=== PATIENT | female | born 1985 | race Caucasian/White ===

== ENCOUNTER 2020-02-14 14:12 | Outpatient (REF) | payer BC, SELFPAY | END 2020-02-14 14:13 | disposition home or self-care (01) | LOC: HO.LAB 14:12 | PROVIDERS: Visit Provider Internal Medicine | DX: Z20.828 Contact with and (suspected) exposure to other viral communicable diseases (principal) | CPT/HCPCS: 87635 ==

== ENCOUNTER 2021-04-26 09:36 | Outpatient (REF) | payer OTHER, SELFPAY ==
[2021-04-26 10:18] LABS: COVID-19 Test Negative (Negative)
== END 2021-04-26 09:37 | disposition home or self-care (01) ==
LOC: HO.LAB 09:36
PROVIDERS: Visit Provider Internal Medicine
DX: Z20.822 Contact with and (suspected) exposure to COVID-19 (principal)
CPT/HCPCS: 36415; 87635; C9803

== ENCOUNTER 2021-06-22 09:46 | Outpatient (REF) | payer OTHER, SELFPAY ==
--- NOTE | ~2021-06-22 | XR_ITS ---
EXAMINATION: XR CHEST CLINICAL INFORMATION: Cough COMPARISON: None TECHNIQUE: 2 views of the chest were obtained. FINDINGS: No significant abnormality is noted involving the heart, lungs, mediastinum, bony thorax or soft tissues. XR/XR chest 2V IMPRESSION: Unremarkable examination.
== END 2021-06-22 09:47 | disposition home or self-care (01) ==
LOC: HO.HMGCX 09:46
PROVIDERS: Visit Provider Physician Assistant Medical
DX: R05.9 Cough, unspecified (principal)
CPT/HCPCS: 71046

== ENCOUNTER 2021-08-19 08:54 | Outpatient (REF) | payer OTHER, SELFPAY ==
[2021-08-19 09:06] LABS: MANUAL DIFF FLAG NO
[2021-08-19 09:11] LABS: Basophils Absolute Auto 0.1 X10*3/uL (0.0-0.2); Basophils Percent Auto 0.9 % (0-2); Eosinophils Absolute Auto 0.2 X10*3/uL (0.0-0.4); Eosinophils Percent Auto 2.5 % (0-4); Hematocrit 40.7 % (37.0-47.0); Hemoglobin 13.7 g/dl (12.0-16.0); Imm Gran Abs Auto 0.01 X10*3/uL (0.00-0.03); Imm Gran Pct Auto 0.1 % (0.0-0.4); Lymphocytes Absolute Auto 2.1 X10*3/uL (1.2-4.9); Lymphocytes Percent Auto 31.3 % (20-40); Mean Corpuscular HGB Conc 33.7 g/dl (31.0-35.0); Mean Corpuscular Hemoglobin 29.1 pg (27.0-33.0); Mean Corpuscular Volume 86.4 fL (80.0-98.0); Mean Platelet Volume 10.9 fL (9.4-12.3); Monocytes Absolute Auto 0.6 X10*3/uL (0.1-1.2); Monocytes Percent Auto 8.4 % (2-11); Neutrophils Absolute Auto 3.9 x10*3/uL (2.0-8.3); Neutrophils Percent Auto 56.8 % (45-73); Platelet Count 249 X10*3/uL (160-400); Red Blood Count 4.71 X10*6/uL (4.20-5.50); Red Cell Distribution Width 13.1 % (11.0-16.0); White Blood Count 6.8 X10*3/uL (4.8-10.8)
[2021-08-19 09:52] LABS: Alanine Aminotransferase 14 U/L (0-31); Albumin Level 4.1 g/dL (3.5-5.0); Alkaline Phosphatase 63 U/L (39-117); Anion Gap 10 (12-20); Aspartate Amino Transferase 15 U/L (5-31); Bilirubin Total 0.8 mg/dL (0.0-1.0); Blood Urea Nitrogen 13 mg/dL (9-16); Calcium 9.4 mg/dL (8.4-10.2); Carbon Dioxide 26 mmol/L (22-29); Chloride 106 mmol/L (96-108); Cholesterol 146 mg/dL; Estimated Glomerular Filt Rate > 60; Glucose Fasting 97 mg/dL (60-99); HDL Cholesterol 38 mg/dL; LDL Cholesterol Calculated 92 mg/dl; Potassium 4.4 mmol/L (3.3-5.1); Sodium 138 mmol/L (135-145); Total Protein 6.8 g/dL (6.5-8.0); Triglycerides 80 mg/dL
[2021-08-19 10:04] LABS: Free T4 (Free Thyroxine) 1.25 ng/dL (0.71-1.85); Thyroid Stimulating Hormone 0.05 uIU/mL (0.32-4.0); Vitamin D 25-OH Total 17.9 ng/mL (>30)
== END 2021-08-19 08:55 | disposition home or self-care (01) ==
LOC: HO.LAB 08:54
PROVIDERS: PCP Internal Medicine; Visit Provider Internal Medicine
DX: E66.01 Morbid (severe) obesity due to excess calories (principal); Z68.41 Body mass index [BMI] 40.0-44.9, adult; E55.9 Vitamin D deficiency, unspecified; E03.9 Hypothyroidism, unspecified
CPT/HCPCS: 36415; 80053; 80061; 82306; 84439; 84443; 85025

== ENCOUNTER 2022-01-02 07:08 | Emergency (ER) | payer OTHER, SELFPAY ==
--- NOTE | ~2022-01-02 | XR_ITS ---
EXAMINATION: XR KNEE, LEFT CLINICAL INFORMATION: Knee pain and swelling COMPARISON: None TECHNIQUE: Four views of the left knee. FINDINGS: Bones and soft tissues are normal. No fracture or joint effusion. Alignment is anatomic. Joint spaces are well maintained. No abnormal soft tissue calcification. There is mild soft tissue swelling/thickening in prepatellar and infrapatellar locations. XR/XR knee LT 4V IMPRESSION: No acute bony abnormality. Soft tissue swelling.
[2022-01-02 07:16] VITALS: BP 119/76; PULSE 76; RESP 19; TEMP 36.1; O2SAT 98; BMI 44.4
[2022-01-02 08:21] VITALS: BP 104/40; PULSE 78; RESP 18; O2SAT 98
--- NOTE | 2022-01-02 08:46 | ED_ITS ---
HPI - Extremity Injury (Lower) General Chief Complaint: Extremity Injury, Lower Stated Complaint: L knee pain Time Seen by Provider: 01/02/22 07:43 Source: patient Mode of arrival: ambulatory History of Present Illness HPI Narrative: 36-year-old female with history of left knee meniscal tears which were previously treated with physical therapy and she states that her knee has otherwise been okay until approximately Thursday when she began experiencing left knee pain once again and denies any preceding trauma. She states that the left knee pain has progressively worsened over the week and now is to the point that she is having significant pain on weight-bearing, the pain is primarily at the posterior aspect of knee, she is also having some difficulty in straightening the knee completely and states that she had to climb her stairs last night on hands and feet due to the pain. Related Data Previous Rx's Medication Instructions Recorded ergocalciferol (vitamin D2) 1,250 1,250 mcg PO QWEEK #7 caps 06/22/21 mcg (50,000 unit) capsule vitamin with calcium 1 tab PO DAILY 90 days #90 tabs 07/16/21 no.72-iron 27 mg-folic acid 1 mg tablet ( Vitamins Plus Low Iron) albuterol sulfate 90 mcg/actuation 1 inh inhalation QID 30 days #6.7 07/25/21 aerosol inhaler grams levothyroxine 200 mcg tablet 200 mcg PO DAILY 30 days #90 tabs 07/26/21 Allergies Allergy/AdvReac Type Severity Reaction Status Date / Time ciprofloxacin [From CIPRO] Allergy Mild HIVES/VOMIT Verified 07/16/21 07:36 ING clindamycin [CLINDAMYCIN] Allergy Mild HIVES/VOMIT Verified 07/16/21 07:36 ING hydrocodone [From VICODIN] Allergy Mild VOMITING Verified 07/16/21 07:36 naproxen [NAPROXEN] Allergy Mild VOMITING, Verified 07/16/21 07:36 hives, hives Sulfa (Sulfonamide Allergy Mild HIVES Verified 07/16/21 07:36 Antibiotics) [SULFA (SULFONAMIDE ANTIBIOTICS)] acetaminophen [Vicodin] AdvReac Unknown stomach Verified 07/16/21 07:36 Clindamycin HCl Allergy Unknown hives Uncoded 07/16/21 07:36 Eggs AdvReac Unknown GI upset Uncoded 07/16/21 07:36 Review of Systems Review of Systems: Pertinent positives and negatives as stated in HPI 10 point review of systems is otherwise negative. [facility] Past Medical History Source: nursing notes reviewed Medical History Hypovitaminosis D Morbid obesity with BMI of 45.0-49.9, adult Postoperative hypothyroidism Surgical History History of kidney surgery History of thyroidectomy Family History Family History Mother Mental health disorder Substance use disorder Diabetes mellitus Essential hypertension Pure hypercholesterolemia Father Mental health disorder Substance use disorder Diabetes mellitus Essential hypertension Pure hypercholesterolemia Social History Social History Housing: House Alcohol intake: current Alcohol intake frequency: holidays/special occasions only Alcohol type: hard liquor Patient Tobacco Use Status: Never used Tobacco Tobacco use type: Cigarette e-Cigarette/Vaping Use: Never Used Second Hand Smoke Exposure: No Advance Directives: No Advance Directives Information Provided: No Current occupational status: employed Cognitive needs: No Hearing needs: No Vision needs: No Physical Exam Vital Signs: Vital Signs: Last Vital Signs Temp 97 F 01/02/22 07:16 Pulse 78 01/02/22 08:21 Resp 18 01/02/22 08:21 BP 104/40 L 01/02/22 08:21 Pulse Ox 98 01/02/22 08:21 O2 Del Method 01/02/22 08:21 BMI result Body Mass Index 44.4 VITAL SIGNS: Reviewed. GENERAL: Elevated BMI, Well developed, well nourished, in no acute distress. HEAD: Normocephalic/atraumatic EYES: PERRLA, EOMI EARS: Ext canals without abnormality OROPHARYNX: no oral lesions noted, posterior pharynx clear LUNGS: Normal breath sounds. No adventitious sounds or accessory muscle use. SpO2<98> CARDIOVASCULAR: Regular rate and rhythm without noted murmurs ABDOMEN: Soft, non-tender, non-distended with bowel sounds. MUSCULOSKELETAL: No tenderness, deformities, or effusions noted on gross inspection. EXTREMITIES: No cyanosis, clubbing or edema. LEFT KNEE: No swelling/erythema/induration, no tactile warmth, no patellar pain on palpation no obvious MCL/LCL pain on palpation SKIN: Inspection of the skin reveals no rashes NEUROLOGIC: Alert and oriented x 4. Strength and sensation to light touch were grossly intact x 4. Course Course Course Narrative: 36-year-old female with history and clinical presentation suspicious for possible unprovoked meniscal injury vs. worsening OA. Left knee x-ray is without acute findings which is not surprising, patient was placed in a knee immobilizer and provided with crutches for additional assistance and she will be provided with a referral to follow-up with orthopedics. Discharge Plan Discharge Clinical Impression: Knee pain, left Patient Disposition: Home, Self-Care Instructions: Knee Pain (ED), Knee Immobilizer (ED), Crutch Instructions (ED) Additional Instructions: 1. Resume all home medications as prescribed. 2. You have been provided with a referral to follow-up with the orthopedic service, please call the office today and arrange for an appointment. Return to the ER for worsening symptoms. Prescriptions: No Action albuterol sulfate 90 mcg/actuation HFA aerosol inhaler 1 inh inhalation QID 30 Days Qty: 6.7 1RF levothyroxine 200 mcg tablet 200 mcg PO DAILY 30 Days Qty: 90 0RF Vitamin Plus Low Iron 27 mg iron- 1 mg tablet 1 tab PO DAILY 90 Days Qty: 90 1RF ergocalciferol (vitamin D2) 1,250 mcg (50,000 unit) capsule 1,250 mcg PO QWEEK Qty: 7 0RF Referrals: Jesus Owusu MD [Physician] - (36F, hx atraumatic LEFT knee meniscal injury now with worsening Lt knee pain. XR neg, no swelling, placed in immobilizer and given crutches as she is having pain with WB.)
== END 2022-01-02 09:51 | disposition home or self-care (01) ==
PROVIDERS: Emergency Provider Student in an Organized Health Care Education/Training Program
DX: M25.562 Pain in left knee (principal)
CPT/HCPCS: 73564; 99283

== ENCOUNTER 2022-02-20 15:00 | Outpatient (RCR) | payer OTHER, SELFPAY ==
[2022-01-21 08:17] VITALS: BP 120/63; PULSE 73; O2SAT 97
== END 2022-04-01 15:02 | disposition home or self-care (01) ==
LOC: HO.PT 15:00
PROVIDERS: Visit Provider Orthopaedic Surgery
DX: M17.0 Bilateral primary osteoarthritis of knee (principal); S83.282D Other tear of lateral meniscus, current injury, left knee, subsequent encounter
CPT/HCPCS: 97014; 97035; 97110; 97140; 97162; 97530

== ENCOUNTER 2022-03-07 09:31 | Outpatient (REF) | payer OTHER, SELFPAY ==
[2022-03-07 11:29] LABS: MANUAL DIFF FLAG NO
[2022-03-07 11:48] LABS: Basophils Absolute Auto 0.1 X10*3/uL (0.0-0.2); Basophils Percent Auto 0.7 % (0-2); Eosinophils Absolute Auto 0.2 X10*3/uL (0.0-0.4); Eosinophils Percent Auto 1.8 % (0-4); Hematocrit 42.3 % (37.0-47.0); Hemoglobin 14.1 g/dl (12.0-16.0); Imm Gran Abs Auto 0.03 X10*3/uL (0.00-0.03); Imm Gran Pct Auto 0.3 % (0.0-0.4); Lymphocytes Absolute Auto 2.2 X10*3/uL (1.2-4.9); Lymphocytes Percent Auto 25.5 % (20-40); Mean Corpuscular HGB Conc 33.3 g/dl (31.0-35.0); Mean Corpuscular Hemoglobin 29.4 pg (27.0-33.0); Mean Corpuscular Volume 88.3 fL (80.0-98.0); Mean Platelet Volume 11.4 fL (9.4-12.3); Monocytes Absolute Auto 0.6 X10*3/uL (0.1-1.2); Monocytes Percent Auto 7.1 % (2-11); Neutrophils Absolute Auto 5.7 x10*3/uL (2.0-8.3); Neutrophils Percent Auto 64.6 % (45-73); Platelet Count 265 X10*3/uL (160-400); Red Blood Count 4.79 X10*6/uL (4.20-5.50); Red Cell Distribution Width 13.5 % (11.0-16.0); White Blood Count 8.8 X10*3/uL (4.8-10.8)
[2022-03-07 12:41] LABS: Alanine Aminotransferase 15 U/L (0-31); Albumin Level 4.3 g/dL (3.5-5.0); Alkaline Phosphatase 79 U/L (39-117); Anion Gap 16 (12-20); Aspartate Amino Transferase 17 U/L (5-31); Blood Urea Nitrogen 12 mg/dL (9-16); Calcium 9.2 mg/dL (8.4-10.2); Carbon Dioxide 27 mmol/L (22-29); Chloride 102 mmol/L (96-108); Estimated Glomerular Filt Rate > 60; Glucose Random 93 mg/dL (60-115); Potassium 4.5 mmol/L (3.3-5.1); Sodium 140 mmol/L (135-145); Total Protein 7.1 g/dL (6.5-8.0)
== END 2022-03-07 09:32 | disposition home or self-care (01) ==
LOC: HO.HMGCLDS 09:31
PROVIDERS: PCP Nurse Practitioner Family; Visit Provider Emergency Medicine
DX: R10.9 Unspecified abdominal pain (principal); R53.1 Weakness
CPT/HCPCS: 36415; 80053; 85025

== ENCOUNTER 2022-05-28 09:51 | Outpatient (REF) | payer OTHER, SELFPAY ==
[2022-05-28 11:17] LABS: Appearance Urine Cloudy; Color Urine Yellow; Glucose Urine UA Negative (Negative); Leukocyte Esterase Urine Negative (Negative); Nitrite Urine Negative (Negative); PH 5.5 (5.0-9.0); Urine Blood Negative (Negative); Urine Ketones Negative (Negative); Urine Protein Negative (Neg-Trace)
[2022-05-28 11:18] LABS: MANUAL DIFF FLAG NO
[2022-05-28 11:38] LABS: Basophils Absolute Auto 0.1 X10*3/uL (0.0-0.2); Eosinophils Absolute Auto 0.1 X10*3/uL (0.0-0.4); Eosinophils Percent Auto 1.5 % (0-4); Hematocrit 42.3 % (37.0-47.0); Hemoglobin 14.2 g/dl (12.0-16.0); Imm Gran Abs Auto 0.02 X10*3/uL (0.00-0.03); Imm Gran Pct Auto 0.3 % (0.0-0.4); Lymphocytes Absolute Auto 2.3 X10*3/uL (1.2-4.9); Lymphocytes Percent Auto 31.5 % (20-40); Mean Corpuscular HGB Conc 33.6 g/dl (31.0-35.0); Mean Corpuscular Hemoglobin 29.2 pg (27.0-33.0); Mean Platelet Volume 11.4 fL (9.4-12.3); Monocytes Absolute Auto 0.6 X10*3/uL (0.1-1.2); Monocytes Percent Auto 7.6 % (2-11); Neutrophils Absolute Auto 4.3 x10*3/uL (2.0-8.3); Neutrophils Percent Auto 58.1 % (45-73); Platelet Count 267 X10*3/uL (160-400); Red Blood Count 4.86 X10*6/uL (4.20-5.50); Red Cell Distribution Width 13.3 % (11.0-16.0); White Blood Count 7.3 X10*3/uL (4.8-10.8)
[2022-05-28 12:21] LABS: Alanine Aminotransferase 17 U/L (0-31); Albumin Level 4.3 g/dL (3.5-5.0); Alkaline Phosphatase 79 U/L (39-117); Anion Gap 14 (12-20); Aspartate Amino Transferase 19 U/L (5-31); Bilirubin Total 0.7 mg/dL (0.0-1.0); Blood Urea Nitrogen 14 mg/dL (9-16); Calcium 9.3 mg/dL (8.4-10.2); Carbon Dioxide 25 mmol/L (22-29); Chloride 105 mmol/L (96-108); Cholesterol 156 mg/dL; Estimated Glomerular Filt Rate > 60; Glucose Fasting 97 mg/dL (60-99); HDL Cholesterol 44 mg/dL; LDL Cholesterol Calculated 99 mg/dl; Potassium 4.5 mmol/L (3.3-5.1); Sodium 139 mmol/L (135-145); TSH reflex Free T4 0.22 uIU/mL (0.32-4.0); Total Protein 7.1 g/dL (6.5-8.0); Triglycerides 67 mg/dL
[2022-05-28 13:39] LABS: Free T4 (Free Thyroxine) 1.57 ng/dL (0.71-1.85)
== END 2022-05-28 09:52 | disposition home or self-care (01) ==
LOC: HO.HMGCLDS 09:51
PROVIDERS: PCP Nurse Practitioner Family; Visit Provider Nurse Practitioner Family
DX: Z00.00 Encounter for general adult medical examination without abnormal findings (principal)
CPT/HCPCS: 36415; 80053; 80061; 81003; 84439; 84443; 85025

== ENCOUNTER 2023-06-02 07:32 | Outpatient (AMB) | payer BC, SELFPAY ==
--- NOTE | 2023-06-02 07:36 | MHC.PC.OV ---
Vital Signs 06/02/23 07:41 06/02/23 08:12 Height 5 ft 1 in Weight 233 lb BMI 44.0 BP 92/54 L 92/58 L Blood Pressure Location Lt brachial Lt brachial Position Sitting Sitting Pulse 75 Pulse Source Pulse Oximeter Pulse Oximetry (%) 96 Oxygen Delivery Method Room Air Intake Visit Reasons: Annual PE Intake Note: Pt is here today for her PE Is last menstrual period known: Yes Last menstrual period: 05/19/23 Allergies ciprofloxacin [From CIPRO] Allergy (Mild, Verified 06/02/23 07:40) HIVES/VOMITING clindamycin [CLINDAMYCIN] Allergy (Mild, Verified 06/02/23 07:40) HIVES/VOMITING hydrocodone [From VICODIN] Allergy (Mild, Verified 06/02/23 07:40) VOMITING naproxen [NAPROXEN] Allergy (Mild, Verified 06/02/23 07:40) VOMITING, hives, hives Sulfa (Sulfonamide Antibiotics) [SULFA (SULFONAMIDE ANTIBIOTICS)] Allergy (Mild, Verified 06/02/23 07:40) HIVES acetaminophen [Vicodin] Adverse Reaction (Unknown, Verified 06/02/23 07:40) stomach Clindamycin HCl Allergy (Unknown, Uncoded 06/02/23 07:40) hives Eggs Adverse Reaction (Unknown, Uncoded 06/02/23 07:40) GI upset Medication List - Last Reconciled 06/02/23 by ALFONZO Collier- albuterol sulfate 90 mcg/actuation 1 inh inhalation QID 30 days azelastine 0.05% 1 drp ophthalmic (eye) BID 30 days levothyroxine 200 mcg PO DAILY 90 days Tobacco use date assessed: 06/02/23 Dental Screening Dental Screen Date: 06/02/23 Did you have a dental visit in the last 12 months?: No Was dental information given to patient?: Patient declined HPI Annual PE HPI Details Pt is here for a PE. Will order labs. 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 Pt's blood pressure is lower today. She does report intermittent dizziness. Will have pt increase her fluid intake (BP low, s/s of dehydration noted). Pt also reports RUE discomfort, though attributes this to lifting a patient yesterday . EKG in office showed normal sinus rhythm. She reports increased stress. [facility] Medical History Morbid obesity with BMI of 45.0-49.9, adult Hypovitaminosis D Postoperative hypothyroidism Surgical History History of kidney surgery History of thyroidectomy Family History Mother Mental health disorder Substance use disorder Diabetes mellitus Essential hypertension Pure hypercholesterolemia Father Mental health disorder Substance use disorder Diabetes mellitus Essential hypertension Pure hypercholesterolemia Social History Housing: House Alcohol intake: current Alcohol intake frequency: holidays/special occasions only Alcohol type: hard liquor Patient Tobacco Use Status: Never used Tobacco Tobacco use type: Cigarette e-Cigarette/Vaping Use: Never Used Second Hand Smoke Exposure: No service: No Current occupational status: unemployed Cognitive needs: No Hearing needs: No Vision needs: No Female Reproductive History Menstrual Date of last menstrual period: 05/19/23 Questionnaire Thrive Questionnaire Date Thrive assessed: 05/28/22 I am a: Patient What is your living situation today?: I have a steady place to live Within the past 12 months, did the food you bought not last and you didn't have the money to get more?: Never true Within the past 12 months, did you worry whether your food would run out before you got money to buy more?: Sometimes True Please select the resources that you would like help with: None THRIVE Score: 1 AUDIT C Alcohol Use Questionnaire (AUDIT-C) 1. How often do you have a drink containing alcohol?: Monthly or less 2. How many drinks containing alcohol do you have on a typical day when you are drinking?: 3 or 4 3. How often do you have six or more drinks on one occasion?: Less than monthly Total Score: 3 Score Reviewed/Action Taken: Yes USHA-7 AMB Questionnaire USHA-7 Date UHSA - 7 assessed: 05/28/22 Feeling nervous, anxious, or on edge: 3 = Nearly every day Not being able to stop or control worryin = More than half the days Worrying too much about different things: 3 = Nearly every day Trouble relaxin = Nearly every day Being so restless that it is hard to sit still: 2 = More than half the days Becoming easily annoyed or irritable: 1 = Several days Feeling afraid as if something awful might happen: 3 = Nearly every day Total USHA-7 score (0-4 normal; 5-9 mild; 10-14 moderate; 15-21 severe): 17 Source: Developed by Drs. Carlos Garber, Darby Fernandez, Bruce Catalan and colleagues, with an educational keegan from [employer]. USHA-7 Assessment Billing USHA-7 Assessment Tool: USHA-7 Assessment 79813 (refuses a therapist) Review of Systems ENT Reports dizziness Neuro Reports dizziness Physical exam (Primary Care) Vital Signs: Last Vital Signs Pulse 75 06/02/23 07:41 BP 92/58 L 06/02/23 08:12 Pulse Ox 96 06/02/23 07:41 Oxygen Delivery Method Room Air 06/02/23 07:41 BMI result Body Mass Index 44.0 Tobacco/Smoking Status: Tobacco use Status Tobacco use date assessed 06/02/23 06/02/23 07:43 Patient Tobacco Use Status Never used Tobacco 06/02/23 07:39 Tobacco use type Cigarette 06/02/23 07:39 e-Cigarette/Vaping Use Never Used 06/02/23 07:39 Thrive Assessment: Date of Thrive Assessment Date Thrive assessed 05/28/22 06/02/23 07:39 Const Nutritional Appearance: obese HENMT Other: dry mucous membranes Eyes General: appearance normal, both eyes and all related structures Neck Neck: Yes no lymphadenopathy Resp Effort & Inspection: normal respiratory effort Auscultation: clear to auscultation bilaterally Cardio Rate: regular rate Rhythm: regular rhythm Heart sounds: S1 normal heart sound present and S2 normal heart sound present GI Palpation (GI): Soft to palpation and nontender Skin General skin exam: no rashes or lesions noted Neuro Cranial nerves: Yes CN's II-XII intact bilaterally Extrem Other: no edema Psych Appearance: grossly normal Mental Status: mental status grossly normal Speech and movement: Normal speech and movement present Attitude: cooperative Thought process: Normal thought process present Thought content: Normal thought content present Insight: Good insight present (Psych) Judgement: Good judgement present (Psych) Assessment and Plan Assessment & Plan (1) Arm pain: Code(s): M79.603 - Pain in arm, unspecified Plan: EKG showed NSR (2) Vitamin D deficiency: Code(s): E55.9 - Vitamin D deficiency, unspecified Plan: Vitamin D ordered (3) Low BP: Code(s): I95.9 - Hypotension, unspecified Plan: push the fluids, cont to monitor. Plan The patient agreed to the use of a medical coding specialist for this encounter. Scribed for ALFONZO Tamayo- by Eli Lam medical coding specialist, on 06/02/2023 at 07:45 EST. Orders: Orders Complete Blood Count Auto Diff Today Z00.00 - Encounter for general adult medical examination without abnormal findings Comprehensive [place]. Panel Fast Today Z00.00 - Encounter for general adult medical examination without abnormal findings UA CC w/rflx Micro + Cult Today Z00.00 - Encounter for general adult medical examination without abnormal findings Lipid Panel Today Z00.00 - Encounter for general adult medical examination without abnormal findings TSH reflex Free T4 Today Z00.00 - Encounter for general adult medical examination without abnormal findings AMB EKG-In Office Today M79.603 - Pain in arm, unspecified Vitamin D 25-OH Total Today E55.9 - Vitamin D deficiency, unspecified Coding Level of Care Code Est Pt Prev Care [id number]([id number]) Diagnoses Arm pain M79.603 Vitamin D deficiency E55.9 Low BP I95.9 Additional Codes USHA-7 Assessment Billing - USHA-7 Assessment Tool: USHA-7 Assessment [id number] ([id number])
[2023-06-02 07:41] VITALS: BP 92/54; PULSE 75; O2SAT 96; BMI 44.0
[2023-06-02 08:12] VITALS: BP 92/58
== END 2023-06-02 08:17 | disposition home or self-care (01) ==
PROVIDERS: Visit Provider Nurse Practitioner Family
DX: Z00.00 Encounter for general adult medical examination without abnormal findings (principal); M79.603 Pain in arm, unspecified; E55.9 Vitamin D deficiency, unspecified; I95.9 Hypotension, unspecified
CPT/HCPCS: 99395

== ENCOUNTER 2023-06-02 08:18 | Outpatient (REF) | payer BC, SELFPAY ==
[2023-06-02 10:21] LABS: MANUAL DIFF FLAG NO
[2023-06-02 10:29] LABS: Appearance Urine Hazy; Color Urine Yellow; Glucose Urine UA Negative (Negative); Leukocyte Esterase Urine Negative (Negative); Nitrite Urine Negative (Negative); PH 5.5 (5.0-9.0); Specific Gravity - Urine 1.015 (1.005-1.025); Urine Blood Negative (Negative); Urine Ketones Negative (Negative); Urine Protein Negative (Neg-Trace)
[2023-06-02 10:37] LABS: Basophils Percent Auto 0.6 % (0-2); Eosinophils Absolute Auto 0.2 X10*3/uL (0.0-0.4); Eosinophils Percent Auto 2.4 % (0-4); Hemoglobin 13.7 g/dl (12.0-16.0); Imm Gran Abs Auto 0.02 X10*3/uL (0.00-0.03); Imm Gran Pct Auto 0.3 % (0.0-0.4); Lymphocytes Absolute Auto 2.1 X10*3/uL (1.2-4.9); Lymphocytes Percent Auto 31.8 % (20-40); Mean Corpuscular HGB Conc 33.4 g/dl (31.0-35.0); Mean Corpuscular Volume 86.9 fL (80.0-98.0); Mean Platelet Volume 11.5 fL (9.4-12.3); Monocytes Absolute Auto 0.5 X10*3/uL (0.1-1.2); Monocytes Percent Auto 7.3 % (2-11); Neutrophils Absolute Auto 3.9 x10*3/uL (2.0-8.3); Neutrophils Percent Auto 57.6 % (45-73); Platelet Count 246 X10*3/uL (160-400); Red Blood Count 4.72 X10*6/uL (4.20-5.50); Red Cell Distribution Width 13.1 % (11.0-16.0); White Blood Count 6.7 X10*3/uL (4.8-10.8)
[2023-06-02 10:55] LABS: Alanine Aminotransferase 14 U/L (0-31); Albumin Level 4.1 g/dL (3.5-5.0); Alkaline Phosphatase 74 U/L (39-117); Anion Gap 12 (12-20); Aspartate Amino Transferase 15 U/L (5-31); Bilirubin Total 0.6 mg/dL (0.0-1.0); Blood Urea Nitrogen 13 mg/dL (9-16); Calcium 9.1 mg/dL (8.4-10.2); Carbon Dioxide 26 mmol/L (22-29); Chloride 105 mmol/L (96-108); Cholesterol 154 mg/dL (<200); Estimated Glomerular Filt Rate > 60; Glucose Fasting 89 mg/dL (60-99); HDL Cholesterol 46 mg/dL (>40); LDL Cholesterol Calculated 97 mg/dL (<100); Potassium 3.9 mmol/L (3.3-5.1); Sodium 139 mmol/L (135-145); Total Protein 7.2 g/dL (6.5-8.0); Triglycerides 55 mg/dL (<150)
[2023-06-02 11:13] LABS: TSH reflex Free T4 0.03 uIU/mL (0.32-4.0); Vitamin D 25-OH Total 19.1 ng/mL (>30)
[2023-06-02 11:55] LABS: Free T4 (Free Thyroxine) 1.12 ng/dL (0.71-1.85)
== END 2023-06-02 08:19 | disposition home or self-care (01) ==
LOC: HO.HMGCLDS 08:18
PROVIDERS: PCP Nurse Practitioner Family; Visit Provider Nurse Practitioner Family
DX: Z00.00 Encounter for general adult medical examination without abnormal findings (principal); E55.9 Vitamin D deficiency, unspecified
CPT/HCPCS: 36415; 80053; 80061; 81003; 82306; 84439; 84443; 85025

== ENCOUNTER 2024-06-21 10:58 | Outpatient (REF) | payer BC, SELFPAY ==
--- OUTSIDE RECORDS SUMMARY | 2024-06-21 12:54 | XMS_ITS | Encounter Summary ---
Author Organization [facility] Address [address] [place] [address] Care Team Providers Care Wood Block Artist Name Role Phone Jacque Resendiz MD Primary Care Provider Unknown Pcp, Non g Primary Care Provider Toan Cassidy NP Primary Care Provider [phone] Encounter Details Date Type Department Care Team (Late st Contact Info) Description 10/08/2007 Orders Only [facility] [address] [place] [phone] Anabella Azul NP [facility] Primary Care [address] [place] [address] Social History Tobacco Use Types Packs/Day [...] of this encounter Procedures * Due to [place] state law, this organization might not be sharing negative HIV tests. Procedure Name Priority Date/Time Associated Diagnosis Comments BASIC METABOLIC PANEL Routine 10/08/2007 VIRAL SYNDROME CULTURE, THROAT Routine 10/08/2007 MOUTH SORES CBC 5 PART DIFF Routine 10/08/2007 VIRAL SYNDROME documented in this encounter Results * Due to [place] state law, this organization might not be sharing negative HIV tests. * (ABNORMAL) CULTURE, THROAT (10/08/2007) Result(s) SEE TEXT(A) [facility] (CLIA# [id number]) Comment: SOURCE: THROAT HEAVY GROWTH OF GROUP A STREPTOCOCCUS PLUS NORMAL OROPHARYNGEAL OCTAVIO 10/08/2007 10/08/2007 9:4 4 PM EDT Narrative [facility] (CLIA# [id number]) - 10/10/2007 12:06 PM EDT Report Comments: GROUP A STREP SCREEN TEST NOT DONE. GROUP A STREP, IF PRESENT, WILL BE RECOVERED IN THROAT CULTURE. Anabella Azul NP LABORATORY Final Result [facility] (CLIA# [id number]) [address] [place] [address] * BASIC METABOLIC PANEL (10/08/2007) CALCIUM 9.4 8.6 - 10.2 MG/DL [facility] (CLIA# [id number]) BUN 10 7 - 25 MG/DL [facility] (CLIA# [id number]) CREATININE 0.72 0.50 - 1.20 MG/DL [facility] (CLIA# [id number]) Glucose 95 65 - 99 MG/DL [facility] (CLIA# [id number]) SODIUM 137 135 - 146 MMOL/L [facility] (CLIA# [id number]) POTASSIUM 4.0 3.5 - 5.3 MMOL/L [facility] (CLIA# [id number]) CHLORIDE 102 98 - 110 MMOL/L [facility] (CLIA# [id number]) CARBON DIOXIDE 25 21 - 33 MMOL/L [facility] (CLIA# [id number]) 10/08/2007 10/08/2007 9:4 4 PM EDT Anabella Azul NP LAB SAME DAY RESULT F inal Result [facility] (CLIA# [id number]) [address] [place] [address] * (ABNORMAL) CBC 5 PART DIFF (10/08/2007) WHITE BLOOD COUNT 20.0(H) 3.8 - 10.8 THOUS/UL [facility] (CLIA# [id number]) RBC 4.42 3.80 - 5.10 MIL/UL [facility] (CLIA# [id number]) Hemoglobin 13.3 11.7 - 15.5 G/DL [facility] (CLIA# [id number]) HCT (HEMATOCRIT) 38.0 35.0 - 45.0 % [facility] (CLIA# [id number]) MCV 85.8 80.0 - 100.0 FL [facility] (CLIA# [id number]) MCH 30.0 27.0 - 33.0 PG [facility] (CLIA# [id number]) MCHC 35.0 32.0 - 36.0 G/DL [facility] (CLIA# [id number]) BAND % 0 0 - 5 % [facility] (CLIA# [id number]) NEUTROPHIL % 89(H) 48 - 75 % [facility] (CLIA# [id number]) LYMPHOCYTE % 6(L) 17 - 40 % [facility] (CLIA# [id number]) MONOCYTE % 5 0 - 14 % [facility] (CLIA# [id number]) EOSINOPHIL % 0 0 - 5 % [facility] (CLIA# [id number]) BASOPHIL % 0 0 - 3 % [facility] (CLIA# [id number]) ATYPICAL LYMPHOCYTE % 0 0 - 5 % [facility] (CLIA# [id number]) PLATELETS 263 140 - 400 THOUS/UL [facility] (CLIA# [id number]) BANDS # 0 0 - 750 CELLS/MCL [facility] (CLIA# [id number]) NEUTROPHILS # 28739(H) 1500 - 7800 CELLS/MCL [facility] (CLIA# [id number]) LYMPHOCYTES # 1200 850 - 3900 CELLS/MCL [facility] (CLIA# [id number]) MONOCYTES # 1000(H) 200 - 950 CELLS/MCL [facility] (CLIA# [id number]) EOSINOPHILS # 0(L) 15 - 550 CELLS/MCL [facility] (CLIA# [id number]) BASOPHILS # 0 0 - 200 CELLS/MCL [facility] (CLIA# [id number]) ATYPICAL LYMPHOCYTES # 0 0 - 200 CELLS/MCL [facility] (CLIA# [id number]) RDW 13.4 11.0 - 15.0 % [facility] (CLIA# [id number]) MPV 9.7 7.5 - 11.5 FL [facility] (CLIA# [id number]) 10/08/2007 10/08/2007 9:4 4 PM EDT Anabella Azul BEAN WEIGHER LAB SAME DAY RESULT F inal Result [facility] (CLIA# [id number]) [address] [place] [address] documented in this encounter Visit Diagnoses Diagnosis VIRAL SYNDROME Unspecified viral infection, in conditions classified elsewhere and of unspecified site MOUTH SORES Other and unspecified diseases of the oral soft tissues documented in this encounter Care Teams Wood Block Artist Relationship Specialty Start Date End Date Jacque Resendiz MD [address] [place] [address] PCP - General 07/26/05 01/01/15 Unknown Pcp, Non Rmg PCP - General 01/02/15 06/17/23 Toan Motley BEAN WEIGHER [address] [place] [address] PCP - General Nurse Practitioner 06/18/23 documented as of this encounter
--- OUTSIDE RECORDS SUMMARY | 2024-06-21 12:55 | XMS_ITS | Encounter Summary ---
Author Organization [facility] Address [address] [place] [address] Care Team Providers Care Senior Environmental Consultant Name Role Phone Jacque Resendiz MD Primary Care Provider Unknown Pcp, Non Rmg Primary Care Provider Unava Toan Adames WELDER ASSISTANT Primary Care Provider [phone] Encounter Details Date Type Department Care Team (Late st Contact Info) Description 09/18/2008 Orders Only [facility] [address] [place] [phone] Jacque Resendiz MD [address] [place] [address] Social History Tobacco Use Types Packs/Day Years [...] hypothyroidism documented in this encounter Care Teams Senior Environmental Consultant Relationship Specialty Start Date End Date Jacque Resendiz MD [address] [place] [address] PCP - General 07/26/05 01/01/15 Unknown Pcp, Non Rmg PCP - General 01/02/15 06/17/23 Toan Motley NP [address] [address] PCP - General Nurse Practitioner 06/18/23 documented as of this encounter
--- OUTSIDE RECORDS SUMMARY | 2024-06-21 12:55 | XMS_ITS | Encounter Summary ---
Author Organization [facility] Address [address] [place] [address] Care Team Providers Care Solutions Consultant Name Role Phone Jacque Resendiz MD Primary Care Provider Unknown Pcp, Non Rmg Primary Care Provider Toan Cassidy NP Primary Care Provider Encounter Details Date Type Department Care Team (Late st Contact Info) Description 10/16/2014 Orders Only [facility] Endocrinology [address] [place], [place] [phone] Mony Paz MD [address] [address] Social History Tobacco Use Types Packs/Day Years [...] of this encounter Procedures * Due to [place] state law, this organization might not be sharing negative HIV tests. Procedure Name Priority Date/Time Associated Diagnosis Comments TSH, 3RD GENERATION Routine 10/16/2014 1 :54 PM EDT Chronic lymphocytic thyroiditis documented in this encounter Results * Due to [place] state law, this organization might not be sharing negative HIV tests. * TSH, 3RD GENERATION (10/16/2014 1:54 PM EDT) TSH 0.43 mIU/L [facility] Comment: {TSH {[id number]) ?Reference Range ?> or = 20 Years ??0.40-4.50 ? Ranges ?First trimester ?0.26-2.66 ?Second trimester ?? 0.55-2.73 ?Third trimester ?0.43-2.91 10/16/2014 1:54 PM EDT 10/17/2014 12:27 AM EDT Narrative Resulting Agency Comment [id number] Mony Paz MD LABORATORY Final Result Performing Organization Address City/State/[facility] [[email or web address]] Co de Phone Number [facility] [address] [place] [address] documented in this encounter Visit Diagnoses Diagnosis Chronic lymphocytic thyroiditis documented in this encounter Care Teams Solutions Consultant Relationship Specialty Start Date End Date Jacque Resendiz MD [address] [place] [address] PCP - General 07/26/05 01/01/15 Unknown Pcp, Non Rmg PCP - General 01/02/15 06/17/23 Toan Motley NP [address] [address] PCP - General Nurse Practitioner 06/18/23 documented as of this encounter
--- OUTSIDE RECORDS SUMMARY | 2024-06-21 12:55 | XMS_ITS | Encounter Summary ---
Author Organization [facility] Address [address] [place] [address] Care Team Providers Care Technical Data Analyst Name Role Phone Jacque Resendiz MD Primary Care Provider Unknown Pcp, Non Rmg Primary Care Provider Toan Cassidy NP Primary Care Provider [phone] Encounter Details Date Type Department Care Team (Late st Contact Info) Description 10/14/2013 Orders Only [facility] Endocrinology [address] [place], [place] [phone] Mony Paz MD [address] [address] Social History Tobacco Use Types Packs/Day Years [...] of this encounter Procedures * Due to [place] state law, this organization might not be sharing negative HIV tests. Procedure Name Priority Date/Time Associated Diagnosis Comments TSH, 3RD GENERATION Routine 10/14/2013 8 :05 AM EDT Subclinical hypothyroidism documented in this encounter Results * Due to [place] state law, this organization might not be sharing negative HIV tests. * (ABNORMAL) TSH, 3RD GENERATION (10/14/2013 8:05 AM EDT) TSH 7.93(H) mIU/L [facility] Comment: {TSH {[id number]) ?Reference Range ?> or = 20 Years ??0.40-4.50 ? Ranges ?First trimester ?0.26-2.66 ?Second trimester ?? 0.55-2.73 ?Third trimester ?0.43-2.91 10/14/2013 8:05 AM EDT 10/14/2013 12:12 PM EDT Narrative Resulting Agency Comment [id number] us Mony Paz MD LABORATORY Final Result Performing Organization Address City/State/[facility] Co de Phone Number [facility] [address] [place] [address] documented in this encounter Visit Diagnoses Diagnosis Subclinical hypothyroidism Other specified acquired hypothyroidism documented in this encounter Care Teams Technical Data Analyst Relationship Specialty Start Date End Date Jacque Resendiz MD [address] [place] [address] PCP - General 07/26/05 01/01/15 Unknown Pcp, Non Rmg PCP - General 01/02/15 06/17/23 Toan Motley NP [address] [address] PCP - General Nurse Practitioner 06/18/23 documented as of this encounter
--- OUTSIDE RECORDS SUMMARY | 2024-06-21 12:55 | XMS_ITS | Encounter Summary ---
Author Organization [facility] Address [address] [place] [address] Care Team Providers Care Sql Database Developer Name Role Phone Jacque Resendiz MD Primary Care Provider Unknown Pcp, Non Rmg Primary Care Provider Unava Toan Adames NP Primary Care Provider [phone] Encounter Details Date Type Department Care Team (Late st Contact Info) Description 10/10/2008 Orders Only [facility] [address] [place] [phone] Jacque Resendiz MD [address] [place] [address] Social History Tobacco Use Types Packs/Day Years [...] of this encounter Procedures * Due to [place] state law, this [...] in this encounter Results * Due to [place] state law, this organization might not be sharing negative HIV tests. * (ABNORMAL) URINALYSIS, DIP ONLY ( SITE STAT ONLY) (10/10/2008 3:58 PM EDT) COLOR (URINE) yellow [facility] (CLIA# [id number]) APPEARANCE (URINE) clear [facility] (CLIA# [id number]) SPECIFIC GRAVITY 1.025 1.001 - 1.035 [facility] (CLIA# [id number]) PH (URINE) 5.0 5.0 - 8.0 [facility] (CLIA# [id number]) PROTEIN (URINE) trace(A) Neg - Neg [facility] (CLIA# [id number]) GLUCOSE (URINE) negative Neg - Neg [facility] (CLIA# [id number]) Ketones (Urine) negative Neg - Neg [facility] (CLIA# [id number]) BILIRUBIN (URINE) negative Neg - Neg [facility] (CLIA# [id number]) BLOOD (URINE) negative Neg - Neg [facility] (CLIA# [id number]) WBC (URINE) trace(A) Neg - Neg [facility] (CLIA# [id number]) NITRITE (URINE) negative Neg - Neg [facility] (CLIA# [id number]) Urine specimen (specimen) 10/10/2008 3:58 PM EDT Narrative [facility] (CLIA# [id number]) - 10/10/2008 4:18 PM EDT Micro added. us Jacque Resendiz MD LAB SAME DAY RESULT Final Re sult [facility] (CLIA# [id number]) [address] [place] [address] * CULTURE, URINE (10/10/2008) URINE CULTURE CLEAN VOID SEE TEXT [facility] Comment: SOURCE: URINE NO GROWTH 10/10/2008 10/10/2008 9:4 3 PM EDT us Jacque Resendiz MD LABORATORY Final Result [facility] [address] [place] [address] * (ABNORMAL) URINALYSIS,MICROSCOPIC ONLY (10/10/2008) WBC (URINE) [...] specified documented in this encounter Care Teams Sql Database Developer Relationship Specialty Start Date End Date Jacque Resendiz MD [address] [place] [address] PCP - General 07/26/05 01/01/15 Unknown Pcp, Non Rmg PCP - General 01/02/15 06/17/23 Toan Motley NP [address] [address] PCP - General Nurse Practitioner 06/18/23 documented as of this encounter
--- OUTSIDE RECORDS SUMMARY | 2024-06-21 12:55 | XMS_ITS | Encounter Summary ---
Author Organization [facility] Address [address] [place] [address] Care Team Providers Care Report Manager Name Role Phone Jacque Resendiz MD Primary Care Provider Unknown Pcp, Non g Primary Care Provider Unava Toan Adames NP Primary Care Provider Reason for Visit * Reason Onset Date Comments Refill Request 02/15/2008 Encounter Details Date Type Department Care Team (Late st Contact Info) Description 02/15/2008 Refill [facility] [address] [place] [phone] Jacque Resendiz MD [address] [place] [address] Refill Request Social History Tobacco Use Types [...] on filedocumented in this encounter Care Teams Report Manager Relationship Specialty Start Date End Date Jacque Resendiz MD [address] [place] [address] PCP - General 07/26/05 01/01/15 Unknown Pcp, Non Rmg PCP - General 01/02/15 06/17/23 Toan Motley NP [address] [address] PCP - General Nurse Practitioner 06/18/23 documented as of this encounter
--- OUTSIDE RECORDS SUMMARY | 2024-06-21 12:55 | XMS_ITS | Encounter Summary ---
Author Organization [facility] Address [address] [place] [address] Care Team Providers Care Lead Laying And Gluing Machine Operator Name Role Phone Jacque Resendiz MD Primary Care Provider Unknown Pcp, Non Rmg Primary Care Provider Toan Cassidy NP Primary Care Provider Encounter Details Date Type Department Care Team (Late st Contact Info) Description 09/14/2014 Orders Only [facility] Endocrinology [address] [place], [place] [phone] Mony Paz MD [address] [address] Social History Tobacco Use Types Packs/Day Years [...] TSH 15.36(H) mIU/L [facility] Comment: {TSH {[id number]) ?Reference Range ?> or = 20 Years ??0.40-4.50 ? Ranges ?First trimester ?0.26-2.66 ?Second trimester ?? 0.55-2.73 ?Third trimester ?0.43-2.91 09/14/2014 5:23 PM EDT 09/15/2014 12:32 AM EDT Narrative Resulting Agency Comment [id number] us Mony Paz MD LABORATORY Final Result Performing Organization Address City/State/[facility] Co de Phone Number [facility] [address] [place] [address] documented in this encounter Visit Diagnoses Diagnosis Subclinical hypothyroidism Other specified acquired hypothyroidism documented in this encounter Care Teams Lead Laying And Gluing Machine Operator Relationship Specialty Start Date End Date Jacque Resendiz MD [address] [place] [address] PCP - General 07/26/05 01/01/15 Unknown Pcp, Non Rmg PCP - General 01/02/15 06/17/23 Toan Motley NP [address] [address] PCP - General Nurse Practitioner 06/18/23 documented as of this encounter
--- OUTSIDE RECORDS SUMMARY | 2024-06-21 12:55 | XMS_ITS | Encounter Summary ---
Author Organization [facility] Address [address] [place] [address] Care Team Providers Care Wincher Name Role Phone Jacque Resendiz MD Primary Care Provider Unknown Pcp, Non Rmg Primary Care Provider Toan Cassidy NP Primary Care Provider [phone] Encounter Details Date Type Department Care Team (Late st Contact Info) Description 07/13/2013 Orders Only [facility] Endocrinology [address] [place], [place] [phone] Mony Paz MD [address] [address] Social History Tobacco Use Types Packs/Day Years [...] of this encounter Procedures * Due to [place] state law, this organization might not be sharing negative HIV tests. Procedure Name Priority Date/Time Associated Diagnosis Comments TSH, 3RD GENERATION Routine 07/13/2013 1 :51 PM EDT Subclinical hypothyroidism documented in this encounter Results * Due to [place] state law, this organization might not be sharing negative HIV tests. * (ABNORMAL) TSH, 3RD GENERATION (07/13/2013 1:51 PM EDT) TSH 4.65(H) mIU/L [facility] Comment: {TSH {[id number]) ?Reference Range ?> or = 20 Years ??0.40-4.50 ? Ranges ?First trimester ?0.26-2.66 ?Second trimester ?? 0.55-2.73 ?Third trimester ?0.43-2.91 07/13/2013 1:51 PM EDT 07/13/2013 9:52 PM EDT Narrative Resulting Agency Comment [id number] us Mony Paz MD LABORATORY Final Result Performing Organization Address City/State/[facility] Co de Phone Number [facility] [address] [place] [address] documented in this encounter Visit Diagnoses Diagnosis Subclinical hypothyroidism Other specified acquired hypothyroidism documented in this encounter Care Teams Wincher Relationship Specialty Start Date End Date Jacque Resendiz MD [address] [place] [address] PCP - General 07/26/05 01/01/15 Unknown Pcp, Non Rmg PCP - General 01/02/15 06/17/23 Toan Motley NP [address] [address] PCP - General Nurse Practitioner 06/18/23 documented as of this encounter
--- OUTSIDE RECORDS SUMMARY | 2024-06-21 12:55 | XMS_ITS | Encounter Summary ---
Author Organization [facility] Address [address] [place] [address] Care Team Providers Care National Basketball Association Scout Name Role Phone Jacque Resendiz MD Primary Care Provider Unknown Pcp, Non [facility] Primary Care Provider Unava Toan Adames ENVIRONMENTAL SCIENCE PROFESSOR Primary Care Provider Encounter Details Date Type Department Care Team (Late st Contact Info) Description 10/26/2007 Orders Only [facility] [address] [place] [phone] [place], [place] [address] [place] [address] Social History Tobacco Use Types Packs/Day Years [...] ureter documented in this encounter Care Teams National [employer] Scout Relationship Specialty Start Date End Date Jacque Resendiz MD [address] [place] [address] PCP - General 07/26/05 01/01/15 Unknown Pcp, Non Rmg PCP - General 01/02/15 06/17/23 Toan Motley NP [address] [address] PCP - General Nurse Practitioner 06/18/23 documented as of this encounter
--- OUTSIDE RECORDS SUMMARY | 2024-06-21 12:55 | XMS_ITS | Encounter Summary ---
Author Organization [facility] Address [address] [place] [address] Care Team Providers Care Ecommerce Merchandising Manager Name Role Phone Toan Motley NP Primary Care Provider Encounter Details Date Type Department Care Team (Late st Contact Info) Description 06/22/2023 Orders Only [facility] [address] [place] [phone] Kaelyn Mejia NP [address] [place] [address] Social History Tobacco Use Types Packs/Day Years [...] of this encounter Procedures * Due to [place] law, this organization might not be sharing [...] in this encounter Results * Due to [place] law, this organization might not be sharing [...] for evaluation. Endocervical/gonzalez sformation zone component present. [facility] Cytology, Pap Smear Cytology Results: Negative for intraepithelial lesion or malignancy. [email or web address] Cytology study comment (Cvx/Vag) This Pap test has been evaluated with computer assisted technology. [facility] Technical Fellow (Cvx/Vag) SXA, CT(ASCP) CT screening location: [address] [address] [email or web address] COMMENT SEE NOTE [email or web address] Comment: EXPLANATORY NOTE: The Pap is a [...] HPV MRNA E6/E7 Not Detected Not Detected [email or web address] Comment: Methodology: Creamery Worker-Mediated Amplification This assay detects E6/E7 viral messenger RNA (mRNA) from 14 high-risk HPV types (16,18,31,33,35,39,45,51,52,56,58,59,66,68). Cervical sources are required for HPV testing. If a vaginal source from a patient who has had a total hysterectomy with removal of cervix was submitted, please contact the testing laboratory for alternative testing options. For additional information, please refer to http://education.[employer]/faq/DSR705x3 (This link if provided for information/ educational purposes only.) 06/22/2023 2:58 PM EST 06/23/2023 3:08 AM EST Narrative Resulting Agency Comment [id number] Kaelyn Mejia NP PATHOLOGY-INTERFACED Final Re sult Performing Organization Address [facility] de Phone Number [facility] [address] [place] [address] * PROLACTIN (06/22/2023 2:12 PM EST) Prolactin 8.0 ng/mL [email or web address] Comment: ?Reference Range Females ?Non- ?3.0-30.0 ? 10.0-209.0 ?Postmenopausal ?2.0-20.0 06/22/2023 2:12 PM EST 06/23/2023 Narrative Resulting Agency Comment [id number] Kaelyn Mejia NP LAB SAME DAY RESULT Final Res ult Performing Organization Address [facility] de Phone Number [facility] [address] [place] [address] * HCG, (HUMAN CHORIONIC GONADOTROPIN), TOTAL, QUANTITATIVE [...] or approved by the FDA or the front end manager of the assay. 06/22/2023 2:12 PM EST 06/23/2023 Narrative Resulting Agency Comment [id number] us Kaelyn Mejia OPERATIONS ACCOUNTANT LAB SAME DAY RESULT Final Res ult [facility] [address] [place] [address] documented in this encounter Visit Diagnoses Diagnosis Abnormal uterine bleeding (AUB) Screening for malignant neoplasm of cervix Screening for malignant neoplasm of the cervix documented in this encounter Care Teams Ecommerce Merchandising Manager Relationship Specialty Start Date End Date Toan Motley NP [address] [address] PCP - General Nurse Practitioner 06/18/23 documented as of this encounter
--- OUTSIDE RECORDS SUMMARY | 2024-06-21 12:55 | XMS_ITS | Encounter Summary ---
Author Organization [facility] Address [address] [place] [address] Care Team Providers Care Steam Shovelman Name Role Phone Jacque Resendiz MD Primary Care Provider Unknown Pcp, Non Rmg Primary Care Provider Unava Toan Adames NP Primary Care Provider Encounter Details Date Type Department Care Team (Late st Contact Info) Description 10/13/2011 [facility] [address] [place] [phone] Jacque Resendiz MD [address] [place] [address] Social History Tobacco Use Types Packs/Day Years [...] on filedocumented in this encounter Care Teams Steam Shovelman Relationship Specialty Start Date End Date Jacque Resendiz MD [address] [place] [address] PCP - General 07/26/05 01/01/15 Unknown Pcp, Non Rmg PCP - General 01/02/15 06/17/23 Toan Motley NP [address] [address] PCP - General Nurse Practitioner 06/18/23 documented as of this encounter
--- OUTSIDE RECORDS SUMMARY | 2024-06-21 12:55 | XMS_ITS | Encounter Summary ---
Author Organization [facility] Address [address] [place] [address] Care Team Providers Care Teacher Kindergarten Name Role Phone Jacque Resendiz MD Primary Care Provider Unknown Pcp, Non Rmg Primary Care Provider Unava Toan Adames NP Primary Care Provider [phone] Encounter Details Date Type Department Care Team (Late st Contact Info) Description 05/22/2006 Orders Only [facility] [address] [place] [phone] Jacque Resendiz MD [address] [place] [address] Social History Tobacco Use Types Packs/Day Years [...] specified documented in this encounter Care Teams Teacher Kindergarten Relationship Specialty Start Date End Date Jacque Resendiz MD [address] [place] [address] PCP - General 07/26/05 01/01/15 Unknown Pcp, Non Rmg PCP - General 01/02/15 06/17/23 Toan Motley NP [address] [address] PCP - General Nurse Practitioner 06/18/23 documented as of this encounter
--- OUTSIDE RECORDS SUMMARY | 2024-06-21 12:55 | XMS_ITS | Encounter Summary ---
Author Organization [facility] Address [address] [place] [address] Care Team Providers Care Print Journalist Name Role Phone Jacque Resendiz MD Primary Care Provider [phone] Unknown Pcp, Non Rmg Primary Care Provider Toan Cassidy NP Primary Care Provider [phone] Encounter Details Date Type Department Care Team (Late st Contact Info) Description 01/21/2013 Orders Only [facility] Endocrinology [address] [place] [address] Mony Paz MD [address] [address] Social History Tobacco Use Types Packs/Day Years [...] DIAGNOSTICS Comment:{VITAMIN D, 25 OH, T OTAL {[id number]) Vitamin D, D3 (Cholecalciferol ) 28 ng/mL [facility] Comment:{VITAMIN D, 25 OH, D 3 {[id number]) Vitamin D, 25-OH, D2 (Calciferol) <4 ng/mL [facility] Comment: {VITAMIN D, 25 OH, D2 {[id number]) ? 25-OHD3 indicates both endogenous production and [...] 12:38 PM EDT Narrative Resulting Agency Comment [id number] Mony Paz MD LABORATORY Final Result Performing Organization Address City/[facility] Co de Phone Number [facility] [address] [place] [address] * IRON PROFILE (IRON/TIBC), SERUM (01/21/2013 8:13 AM EDT) Iron 96 40 - 175 mcg/dL [facility] Comment:{IRON, TOTAL {[id number]) Iron binding capacity 331 250 - 450 mcg/dL [facility] Comment:{IRON BINDING CAPACI TY {[id number]) Iron saturation 29 15 - 50 % (calc) [facility] Comment:{% SATURATION {[id number]) 01/21/2013 8:13 AM EDT 01/21/2013 12:38 PM EDT Narrative Resulting Agency Comment [id number] Mony Paz MD LABORATORY Final Result Performing Organization Address [facility] Co de Phone Number [facility] [address] [place] [address] * FERRITIN (01/21/2013 8:13 AM EDT) Ferritin 102 10 - 154 ng/mL [facility] Comment:{FERRITIN {[id number]) 01/21/2013 8:13 AM EDT 01/21/2013 12:38 PM EDT Narrative Resulting Agency Comment [id number] Mony Paz MD LABORATORY Final Result Performing Organization Address [facility] Co de Phone Number [facility] [address] [place] [address] * HEMOGLOBIN A1C (01/21/2013 8:13 AM EDT) Hemoglobin A1C 5.4 <5.7 % of total Hgb [facility] Comment: {HEMOGLOBIN A1c {[id number]) According to ADA guidelines, hemoglobin A1c <7.0% [...] children. Estimated Average Glucose 115 mg/dL (calc) [facility] Comment:{MEAN PLASMA GLUCOSE {[id number]) 01/21/2013 8:13 AM EDT 01/21/2013 12:38 PM EDT Narrative Resulting Agency Comment [id number] Mony Paz MD LABORATORY Final Result Performing Organization Address City/[facility] Co de Phone Number [facility] [address] [place] [address] * (ABNORMAL) THYROID PEROXIDASE AND THYROGLOBULIN ANTIBODIES (01/21/2013 8:13 AM EDT) Thyroglobulin Ab <20 <20 IU/mL [facility] Comment:{THYROGLOBULIN ANTIB ODIES {[id number]) Thyroperoxidase Ab 291(H) <35 IU/mL [facility] Comment:{THYROID PEROXIDASE ANTIBODIES {[id number]) 01/21/2013 8:13 AM EDT 01/21/2013 12:38 PM EDT Narrative Resulting Agency Comment [id number] Mony Paz MD LABORATORY Final Result Performing Organization Address City/[facility] Co de Phone Number [facility] [address] [place] [phone] * (ABNORMAL) TSH, 3RD GENERATION (01/21/2013 8:13 AM EDT) TSH 5.30(H) mIU/L [facility] Comment: {TSH {[id number]) ?Reference Range ?> or = 20 Years ??0.40-4.50 ? Ranges ?First trimester ?0.26-2.66 ?Second trimester ?? 0.55-2.73 ?Third trimester ?0.43-2.91 01/21/2013 8:13 AM EDT 01/21/2013 12:38 PM EDT Narrative Resulting Agency Comment [id number] Mony Paz MD LABORATORY Final Result Performing Organization Address City/State/[facility] Co de Phone Number [facility] [address] [place] [address] documented in this encounter Visit Diagnoses Diagnosis Subclinical hypothyroidism Other specified acquired hypothyroidism Obesity Obesity, unspecified Family history of diabetes mellitus Reactive hypoglycemia Hypoglycemia, unspecified Fatigue Other malaise and fatigue documented in this encounter Care Teams Print Journalist Relationship Specialty Start Date End Date Jacque Resendiz MD [address] [place] [address] PCP - General 07/26/05 01/01/15 Unknown Pcp, Non Rmg PCP - General 01/02/15 06/17/23 Toan Motley NP [address] [address] PCP - General Nurse Practitioner 06/18/23 documented as of this encounter
--- OUTSIDE RECORDS SUMMARY | 2024-06-21 12:55 | XMS_ITS | Encounter Summary ---
Author Organization [facility] Address [address] [place] [address] Care Team Providers Care Corrugator Machine Operator Name Role Phone Jacque Resendiz MD Primary Care Provider Unknown Pcp, Non Rmg Primary Care Provider Unava Toan Adames NP Primary Care Provider Encounter Details Date Type Department Care Team (Late st Contact Info) Description 09/02/2006 Orders Only [facility] Internal Medicine [address] [place] [phone] Jacque Resendiz MD [address] [place] [address] Social History Tobacco Use Types Packs/Day [...] of this encounter Results * Due to [place] state law, this organization might not be sharing negative HIV tests. * URINALYSIS, DIPSTICK ONLY (SITE - STAT ONLY) (09/07/2006) COLOR (URINE) YELLOW YELLOW [facility] (CLIA# [id number]) APPEARANCE (URINE) CLEAR CLEAR [facility] (CLIA# [id number]) SPECIFIC GRAVITY 1.025 1.001 - 1.035 [facility] (CLIA# [id number]) PH (URINE) 5.0 5.0 - 8.0 [facility] (CLIA# [id number]) PROTEIN (URINE) TRACE NEG [facility] (CLIA# [id number]) GLUCOSE (URINE) NEG NEG [facility] (CLIA# [id number]) Ketones (Urine) NEG NEG [facility] (CLIA# [id number]) BILIRUBIN (URINE) NEG NEG [facility] (CLIA# [id number]) BLOOD (URINE) NEG NEG [facility] (CLIA# [id number]) WBC (URINE) TRACE NEG [facility] (CLIA# [id number]) NITRITE (URINE) NEG NEG [facility] (CLIA# [id number]) 09/07/2006 09/07/2006 12: 31 PM EDT Jacque Resendiz MD LAB SAME DAY RESULT Final Re sult Performing Organization Address City/[facility]/ZIP Co de Phone Number [facility] (CLIA# [id number]) [address] [place] [address] * CULTURE, URINE (09/07/2006) URINE CULTURE CLEAN VOID SEE TEXT [facility] (CLIA# [id number]) Comment: SOURCE: URINE MULTIPLE ORGANISMS, EACH <10,000 CFU/ML. MAY REPRESENT NORMAL OCTAVIO CONTAMINATION FROM EXTERNAL GENITALIA. NO FURTHER TESTING. 09/07/2006 09/07/2006 12: 31 PM EDT us Jacque Resendiz MD LABORATORY Final Result Performing Organization Address City/[facility]/ZIP Co de Phone Number [facility] (CLIA# [id number]) [address] [place] [address] documented in this encounter Visit Diagnoses Diagnosis UTI (URINARY TRACT INFECTION)- Primary Urinary tract infection, site not specified documented in this encounter Care Teams Corrugator Machine Operator Relationship Specialty Start Date End Date Jacque Resendiz MD [address] [place] [address] PCP - General 07/26/05 01/01/15 Unknown Pcp, Non Rmg PCP - General 01/02/15 06/17/23 Toan Motley NP [address] [address] PCP - General Nurse Practitioner 06/18/23 documented as of this encounter
--- OUTSIDE RECORDS SUMMARY | 2024-06-21 12:55 | XMS_ITS | Encounter Summary ---
Author Organization [facility] Address [address] [place] [address] Care Team Providers Care Disaster Or Damage Control Specialist Name Role Phone Jacque Resendiz MD Primary Care Provider Unknown Pcp, Non Rmg Primary Care Provider Fernandava Toan Adames NP Primary Care Provider [phone] Encounter Details Date Type Department Care Team (Late st Contact Info) Description 11/17/[address] Orders [address] 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 Procedure Name Priority Date/Time Associated Diagnosis Comments SUREPATH FPGS,HPV,CT/GC PANEL Routine 11/17/2014 3:49 PM EDT Encounter for routine gynecological examination documented in this encounter Results * Due to [place] [employer] law, this organization might not be sharing negative HIV tests. * SUREPATH FPGS,HPV,CT/GC PANEL (11/17/2014 3:49 PM EDT) Clinical information NONE GIVEN [facility] Comment:{CLINICAL INFORMATIO N: {[id number]) Date last menstrual period [id number] [facility] Comment:{LMP: {[id number]) Date of previous PAP smear [id number] NEG [facility] Comment:{PREV. PAP: {[id number]) Date of previous biopsy NONE GIVEN [facility] Comment:{PREV. BX: {[id number]) Specimen source (Cvx/Vag) Vagina, Cervix, Endocervix [facility] Comment:{SOURCE: {[id number]) Statement of Adequacy (Cvx/Vag) Satisfactory for evaluation. Endocervical/gonzalez sformation zone component present. [facility] Comment:{STATEMENT OF ADEQUA CY: {[id number]) Cytology, Pap Smear Negative for intraepithelial lesion or malignancy. [facility] Comment:{INTERPRETATION/RESU LT: {[id number]) Cytology study comment (Cvx/Vag) This Pap test has been evaluated with computer assisted technology. [facility] Comment:{COMMENT: {[id number]) Emergency Management Director (Cvx/Vag) MSM, CT(ASCP) [facility] Comment:{CARE CONSULTANT: { [id number]) HPV MRNA E6/E7 Not Detected NOT DETECTED [facility] Comment: {HPV mRNA E6/E7, SUREPATH VIAL {[id number]) This test was performed using the APTIMA HPV Assay ([employer] This assay detects E6/E7 viral messenger RNA (mRNA) from 14 high-risk HPV types (16,18,31,33,35,39,45,51,52,56,58,59,66,68). The analytical performance characteristics of this assay, when used to test SurePath specimens, have been determined by [employer] Chlamydia trachomatis rRNA NOT DETECTED NOT DETECTED [facility] Comment:{CHLAMYDIA TRACHOMAT IS RNA, TMA {[id number]) Neisseria Gonorrhoeae rRNA NOT DETECTED NOT DETECTED [facility] Comment:{NEISSERIA GONORRHOE AE RNA, TMA {[id number]) COMMENT SEE NOTE [facility] Comment: {COMMENT {[id number]) This test was performed using the APTIMA COMBO2 Assay ([employer] The analytical performance characteristics of this assay, when used to test SurePath specimens have been determined by [employer]. 11/17/2014 3:49 PM EDT 11/17/2014 7:43 PM EDT Narrative Resulting Agency Comment [id number] us Radha Chavez CNM PATHOLOGY-INTERFACED Final Res ult [facility] [address] [place] [address] documented in this encounter Visit Diagnoses Diagnosis Encounter for routine gynecological examination Routine gynecological examination documented in this encounter Care Teams Disaster Or Damage Control Specialist Relationship Specialty Start Date End Date Jacque Resendiz MD [address] [place] [address] PCP - General 07/26/05 01/01/15 Unknown Pcp, Non Rmg PCP - General 01/02/15 06/17/23 Toan Motley NP [address] [address] PCP - General Nurse Practitioner 06/18/23 documented as of this encounter
--- OUTSIDE RECORDS SUMMARY | 2024-06-21 12:55 | XMS_ITS | Encounter Summary ---
Author Organization [facility] Address [address] [place] [address] Care Team Providers Care Sea Kayaking Guide Name Role Phone Jacque Resendiz MD Primary Care Provider Unknown Pcp, Non Rmg Primary Care Provider Unava Toan Adames NP Primary Care Provider [phone] Encounter Details Date Type Department Care Team (Late st Contact Info) Description 10/14/2013 Orders Only [facility] [address] [place] [phone] Jacque Resendiz MD [address] [place] [address] Social History Tobacco Use Types Packs/Day Years [...] booster. Please refer to point # 2 [facility] advisory that states: Acceptable Evidence of [...] of this encounter Procedures * Due to [place] state law, this organization might not be [...] in this encounter Results * Due to [place] state law, this organization might not be sharing negative HIV tests. * HEPATITIS B SURFACE ANTIBODY, QUANTITATIVE (10/14/2013 8:05 AM EDT) Hepatitis B virus surface Ab 206 mIU/mL [facility] Comment: {HEPATITIS B SURFACE ANTIBODY (QUANT) {[id number]) Patient has immunity to hepatitis B virus. Effective September 12, 2013 this test is being performed using the [employer] Chem[employer] method. Quantitative results from this method should not be used interchangeably with other methods. 10/14/2013 8:05 AM EDT 10/14/2013 12:12 PM EDT Narrative Resulting Agency Comment [id number] Jacque Resendiz MD LABORATORY Final Result Performing Organization Address [facility] de Phone Number [facility] [address] [place] [address] * MUMPS VIRUS ANTIBODY, IGG, SERUM (10/14/2013 8:05 AM EDT) Mumps virus Ab.IgG 1.13 index Q [facility] Comment: {MUMPS VIRUS ANTIBODY (IGG) {[id number]) Index ?Interpretation < or = 0.90 ?Negative [...] 12:12 PM EDT Narrative Resulting Agency Comment [id number] Jacque Resendiz MD LABORATORY Final Result Performing Organization Address [facility] de Phone Number [facility] [address] [place] [address] * (ABNORMAL) MEASLES IGG AB (RUBEOLA) (10/14/2013 8:05 AM EDT) Measles virus Ab.IgG < OR = 0.90(A) index [facility] Comment: {MEASLES ANTIBODY (IGG) {[id number]) ? Index ? Explanation of Test Results [...] 12:12 PM EDT Narrative Resulting Agency Comment [id number] us Jacque Resendiz MD LABORATORY Final Result [facility] [address] [place] [address] * RUBELLA ANTIBODY IGG, SERUM (10/14/2013 8:05 AM EDT) Rubella virus Ab.IgG 1.51 [facility] Comment: {RUBELLA ANTIBODY (IGG) {[id number]) ? Value ?Interpretation ? ----- ? < or = 0.90 ?Negative ? 0.91-1.09 ?Equivocal ? > or = 1.10 ?Positive The presence of rubella IgG antibody suggests immunization or past or current infection with rubella virus. 10/14/2013 8:05 AM EDT 10/14/2013 12:12 PM EDT Narrative Resulting Agency Comment [id number] us Jacque Resendiz MD LABORATORY Final Result [facility] [address] [place] [address] documented in this encounter Visit Diagnoses Diagnosis Screening examination for infectious disease Screening examination for unspecified infectious disease documented in this encounter Care Teams Sea Kayaking Guide Relationship Specialty Start Date End Date Jacque Resendiz MD [address] [place] [address] PCP - General 07/26/05 01/01/15 Unknown Pcp, Non Rmg PCP - General 01/02/15 06/17/23 Toan Motley NP [address] [address] PCP - General Nurse Practitioner 06/18/23 documented as of this encounter
--- OUTSIDE RECORDS SUMMARY | 2024-06-21 12:55 | XMS_ITS | Encounter Summary ---
Author Organization [facility] Address [address] [place] [address] Care Team Providers Care Director Of Graduate Admissions Name Role Phone Jacque Resendiz MD Primary Care Provider Unknown Pcp, Non Rmg Primary Care Provider Unava Toan Adames NP Primary Care Provider Encounter Details Date Type Department Care Team (Late st Contact Info) Description 11/10/2012 Orders Only [facility] [address] [place] [address] Luis F Alexis PA Social [...] this encounter Procedures * Due to [place] [employer] law, this organization might not be sharing [...] in this encounter Results * Due to [facility] law, this organization might not be sharing negative HIV tests. * T4, FREE, SERUM (11/10/2012 8:08 AM EDT) FT4 0.9 0.8 - 1.8 ng/dL [facility] Comment:{T4, FREE {[id number]) 11/10/2012 8:08 AM EDT 11/10/2012 11:49 AM EDT us S Ruby Booker MD LABORATORY Final Resul t [facility] [address] [place] [address] * GLUCOSE (BLOOD) (11/10/2012 8:08 AM EDT) Glucose 93 65 - 99 mg/dL [facility] Comment: {GLUCOSE {[id number]) ? Fasting reference interval 11/10/2012 8:08 AM EDT 11/10/2012 11:49 AM EDT Narrative Resulting Agency Comment [id number] S Ruby Booker MD LAB SAME DAY RESULT Final R esult Performing Organization Address [facility] de Phone Number [facility] [address] [place] [address] * (ABNORMAL) THYROID STIMULATING HORMONE (TSH) WITH FREE T4 REFLEX, SERUM (11/10/2012 8:08 AM EDT) TSH 7.04(H) mIU/L [facility] Comment: {TSH W/REFLEX TO FT4 {[id number]) ?Reference Range ?> or = 20 Years ??0.40-4.50 ? Ranges ?First trimester ?0.26-2.66 ?Second trimester ?? 0.55-2.73 ?Third trimester ?0.43-2.91 11/10/2012 8:08 AM EDT 11/10/2012 11:49 AM EDT Narrative Resulting Agency Comment [id number] us S Ruby Booker MD LABORATORY Final Resul t Performing Organization Address [facility] de Phone Number [facility] [address] [place] [address] * VARICELLA-ZOSTER VIRUS (VZV) ANTIBODY IGG, SERUM (11/10/2012 8:08 AM EDT) Varicella zoster virus Ab.IgG 1.41 index [facility] Comment: {VARICELLA ZOSTER VIRUS ANTIBODY (IGG) {[id number]) ? Index ? Explanation ??of Results ? [...] 11:49 AM EDT Narrative Resulting Agency Comment [id number] us S Ruby Booker MD LABORATORY Final Resul t Performing Organization Address City/State/[facility] Co de Phone Number [id number] [address] [place] [address] documented in this encounter Visit Diagnoses Diagnosis Hx of varicella Personal history of other infectious and parasitic disease Hypothyroidism Unspecified hypothyroidism Tremor Abnormal involuntary movements documented in this encounter Care Teams Director Of Graduate Admissions Relationship Specialty Start Date End Date Jacqeu Resendiz MD [address] [place] [address] PCP - General 07/26/05 01/01/15 Unknown Pcp, Non Rmg PCP - General 01/02/15 06/17/23 Toan Motley NP [address] [address] PCP - General Nurse Practitioner 06/18/23 documented as of this encounter
--- OUTSIDE RECORDS SUMMARY | 2024-06-21 12:55 | XMS_ITS | Encounter Summary ---
Author Organization [facility] Address [address] [place] [address] Care Team Providers Care Fire Dispatcher Name Role Phone Jacque Resendiz MD Primary Care Provider Unknown Pcp, Non Rmg Primary Care Provider Unava Toan Adames PATIENT RELATIONS LIAISON Primary Care Provider Encounter Details Date Type Department Care Team (Late st Contact Info) Description 02/01/2013 Orders Only [facility] Endocrinology [address] [place] [address] Mony Paz MD [address] [address] Social History Tobacco Use Types Packs/Day Years [...] on filedocumented in this encounter Care Teams Fire Dispatcher Relationship Specialty Start Date End Date Jacque Resendiz MD [address] [place] [address] PCP - General 07/26/05 01/01/15 Unknown Pcp, Non [facility] PCP - General 01/02/15 06/17/23 Toan Motley NP [address] [place] [address] PCP - General Nurse Practitioner 06/18/23 documented as of this encounter
--- OUTSIDE RECORDS SUMMARY | 2024-06-21 12:55 | XMS_ITS | Encounter Summary ---
Author Organization [facility] Address [address] [place] [address] Care Team Providers Care Weights And Measures Sealer Name Role Phone Jacque Resendiz MD Primary Care Provider [phone] Unknown Pcp, Non Rmg Primary Care Provider Unava Toan Adames NP Primary Care Provider Encounter Details Date Type Department Care Team (Late st Contact Info) Description 09/07/2006 Orders Only [facility] [address] [place] [address] Jacque Resendiz MD [address] [place] [address] Social History Tobacco Use Types Packs/Day Years [...] of this encounter Procedures * Due to [place] state law, this organization might not be [...] in this encounter Results * Due to [place] state law, this organization might not be sharing negative HIV tests. * CHLAMYDIA DNA PROBE (09/07/2006) CHLAMYDIA TRACHOMATIS DNA SEE TEXT [facility] (CLIA# [id number]) Comment: SOURCE: ENDOCERVIX NEGATIVE 09/07/2006 09/07/2006 10: 23 PM EDT us Jacque Resendiz MD LABORATORY Final Result Performing Organization Address City/[facility] Co de Phone Number [facility] (CLIA# [id number]) [address] [place] [address] * GC DNA PROBE (09/07/2006) GC DNA PROBE SEE TEXT [facility] (CLIA# [id number]) Comment: SOURCE: ENDOCERVIX NEGATIVE 09/07/2006 09/07/2006 10: 23 PM EDT us Jacque Resendiz MD LABORATORY Final Result Performing Organization Address City/[facility]/ZIP Co de Phone Number [facility] (CLIA# [id number]) [address] [place] [address] * CULTURE,VAGINAL (09/07/2006) Result(s) SEE TEXT [facility] (CLIA# [id number]) Comment: SOURCE: VAGINA NORMAL OCTAVIO 09/07/2006 09/07/2006 10: 23 PM EDT Jacque Resendiz MD LABORATORY Final Result Performing Organization Address [facility]/ZIP Co de Phone Number [facility] (CLIA# [id number]) [address] [place] [address] * (ABNORMAL) URINALYSIS,MICROSCOPIC ONLY (09/07/2006) WBC (URINE) 0-4 0-4/HPF [facility] (CLIA# [id number]) RBC (Urine Sed) 0-2 0-3/HPF [facility] (CLIA# [id number]) EPITHELIAL CELLS.SQUAMOUS (URINE SED) 0-5 0-5/HPF [facility] (CLIA# [id number]) EPITHELIAL CELLS.TRANSITIO NAL (URINE SED) 0 0-5/HPF [facility] (CLIA# [id number]) EPITHELIAL CELLS.RENAL (URINE SED) 0 0-3/HPF [facility] (CLIA# [id number]) BACTERIA (URINE) FEW(A) NONE SEEN [facility] (CLIA# [id number]) HYALINE CASTS (URINE) 0(A) 0 - 1 [facility] (CLIA# [id number]) 09/07/2006 09/07/2006 12: 31 PM EDT Jacque Resendiz MD LAB SAME DAY RESULT Final Re sult Performing Organization Address [facility]/ZIP Co de Phone Number [facility] (CLIA# [id number]) [address] [place] [address] * URINALYSIS, DIPSTICK ONLY (SITE - STAT ONLY) (09/07/2006) COLOR (URINE) YELLOW YELLOW [facility] (CLIA# [id number]) APPEARANCE (URINE) CLEAR CLEAR [facility] (CLIA# [id number]) SPECIFIC GRAVITY 1.025 1.001 - 1.035 [facility] (CLIA# [id number]) PH (URINE) 5.0 5.0 - 8.0 [facility] (CLIA# [id number]) PROTEIN (URINE) TRACE NEG FC [facility] (CLIA# [id number]) GLUCOSE (URINE) NEG NEG FC [facility] (CLIA# [id number]) Ketones (Urine) NEG NEG FC [facility] (CLIA# [id number]) BILIRUBIN (URINE) NEG NEG [facility] (CLIA# [id number]) BLOOD (URINE) NEG NEG [facility] (CLIA# [id number]) WBC (URINE) TRACE NEG [facility] (CLIA# [id number]) NITRITE (URINE) NEG NEG FC [facility] (CLIA# [id number]) 09/07/2006 09/07/2006 12: 31 PM EDT Jacque Resendiz MD LAB SAME DAY RESULT Final Re sult Performing Organization Address [facility] Co de Phone Number [facility] (CLIA# [id number]) [address] [place] [address] * CULTURE, URINE (09/07/2006) URINE CULTURE CLEAN VOID SEE TEXT [facility] (CLIA# [id number]) Comment: SOURCE: URINE MULTIPLE ORGANISMS, EACH <10,000 CFU/ML. MAY REPRESENT NORMAL OCTAVIO CONTAMINATION FROM EXTERNAL GENITALIA. NO FURTHER TESTING. 09/07/2006 09/07/2006 12: 31 PM EDT Jacque Resendiz MD LABORATORY Final Result Performing Organization Address [facility] Co de Phone Number [facility] (CLIA# [id number]) [address] [place] [address] documented in this encounter Visit Diagnoses Diagnosis UTI (URINARY TRACT INFECTION)- Primary Urinary tract infection, site not specified ABDOMINAL PAIN, LEFT LOWER QUADRANT Abdominal pain, left lower quadrant PID (PELVIC INFLAMMATORY DISEASE) Unspecified inflammatory disease of female pelvic organs and tissues documented in this encounter Care Teams Weights And Measures Sealer Relationship Specialty Start Date End Date Jacque Resendiz MD [address] [place] [address] PCP - General 07/26/05 01/01/15 Unknown Pcp, Non Rmg PCP - General 01/02/15 06/17/23 Toan Motley NP [address] [address] PCP - General Nurse Practitioner 06/18/23 documented as of this encounter
--- OUTSIDE RECORDS SUMMARY | 2024-06-21 12:55 | XMS_ITS | Encounter Summary ---
Author Organization [facility] Address [address] [place] [address] Care Team Providers Care Wire Rope Sales Representative Name Role Phone Toan Motley NP Primary Care Provider Encounter Details Date Type Department Care Team ([facility] st Contact Info) Description 01/29/2024 Orders Only [facility] NET WEB DEVELOPER [address] [place] [address] Enriqueta Berry CNM [address] [place] [address] Social History Tobacco Use Types Packs/Day Years [...] this encounter Procedures * Due to [place] law, this organization might not be sharing negative HIV tests. Procedure Name Priority Date/Time Associated Diagnosis Comments PROGESTERONE, SERUM Routine 01/29/2024 7 :33 AM EDT History of infertility, female INSULIN, SERUM Routine 01/29/2024 7:33 AM EDT Anovulation GLUCOSE (BLOOD) Routine 01/29/2024 7:33 AM EDT Anovulation documented in this encounter Results * Due to [place] law, this organization might not be sharing negative HIV tests. * PROGESTERONE, SERUM (01/29/2024 7:33 AM EDT) Progesterone 24.7 ng/mL [facility] Comment: ?Reference Ranges ? Female ?Follicular Phase ? < 1.0 ?Luteal Phase ?2.6-21.5 ?Post menopausal ?< 0.5 ?1st Trimester ? 4.1-34.0 ?2nd Trimester ?24.0-76.0 ?3rd Trimester ?? 52.0-302.0 01/29/2024 7:33 AM EDT 01/29/2024 9:59 PM EDT Narrative Resulting Agency Comment [id number] us Zoya Hunt MD LAB SAME DAY RESULT Final Result Performing Organization Address [facility] Co de Phone Number [facility] [address] [place] [address] * GLUCOSE (BLOOD) (01/29/2024 7:33 AM EDT) Glucose 90 65 - 99 mg/dL [facility] Comment:Fasting reference in terval 01/29/2024 7:33 AM EDT 01/29/2024 9:59 PM EDT Narrative Resulting Agency Comment [id number] us Enriqueta Berry CNM LAB SAME DAY RESULT Final Result Performing Organization Address [facility] de Phone Number [facility] [address] [place] [address] * INSULIN, SERUM (01/29/2024 7:33 AM EDT) Insulin 11.7 uIU/mL [facility] Comment: ?Reference Range ??< or = 18.4 ?Risk: ?Optimal ?< or = 18.4 ?Moderate ? NA ?High ? >18.4 ?Adult cardiovascular event risk category ?cut points (optimal, moderate, high) ?are based on Insulin Reference Interval ?studies performed at [facility] ?in 2021. 01/29/2024 7:33 AM EDT 01/29/2024 9:59 PM EDT Narrative Resulting Agency Comment [id number] us Enriquetaelvin Berry CNM LABORATORY Final Resu lt Performing Organization Address City/State/[facility] Co de Phone Number [facility] [address] [place] [address] documented in this encounter Visit Diagnoses Diagnosis Anovulation Female infertility associated with anovulation History of infertility, female Personal history of other genital system and obstetric disorders documented in this encounter Care Teams Wire Rope Sales Representative Relationship Specialty Start Date End Date Toan Motley NP [address] [address] PCP - General Nurse Practitioner 06/18/23 documented as of this encounter
--- OUTSIDE RECORDS SUMMARY | 2024-06-21 12:55 | XMS_ITS | Encounter Summary ---
Author Organization [facility] Address [address] [place] [address] Care Team Providers Care Natural Resources Instructor Name Role Phone Jacque Resendiz MD Primary Care Provider Unknown Pcp, Non Rmg Primary Care Provider Unava Toan Adames NP Primary Care Provider [phone] Encounter Details Date Type Department Care Team (Late st Contact Info) Description 01/21/2013 Orders Only [facility] [address] [place] [phone] Jacque Resendiz MD [address] [place] [address] Social History Tobacco Use Types Packs/Day Years [...] this encounter Procedures * Due to [place] [employer] law, this organization might not be sharing [...] encounter Results * Due to [place] [employer] law, this organization might not be sharing negative HIV tests. * CBC INCLUDES DIFFERENTIAL AND PLATELET COUNT (01/21/2013 8:14 AM EDT) WBC 7.5 3.8 - 10.8 Thousand/u L [facility] Comment:{WHITE BLOOD CELL CO UNT {[id number]) RBC 4.42 3.80 - 5.10 Million/uL [facility] Comment:{RED BLOOD CELL COUN T {[id number]) Hemoglobin 13.1 11.7 - 15.5 g/dL [facility] Comment:{HEMOGLOBIN {[id number]) Hematocrit 39.3 35.0 - 45.0 % [facility] Comment:{HEMATOCRIT {[id number]) MCV 88.9 80.0 - 100.0 fL [facility] Comment:{MCV {[id number]) MCH 29.6 27.0 - 33.0 pg [facility] Comment:{MCH {[id number]) MCHC 33.3 32.0 - 36.0 g/dL [facility] Comment:{MCHC {[id number]) RDW 13.0 11.0 - 15.0 % [facility] Comment:{RDW {[id number]) PLT 246 140 - 400 Thousand/u L [facility] Comment:{PLATELET COUNT {[id number]) MPV 10.2 7.5 - 11.5 fL [facility] Comment:{MPV {[id number]) Neutrophils # 4875 1500 - 7800 cells/uL [facility] Comment:{ABSOLUTE NEUTROPHIL S {[id number]) Lymphocytes # 2010 850 - 3900 cells/uL [facility] Comment:{ABSOLUTE LYMPHOCYTE S {[id number]) Monocytes # 503 200 - 950 cells/uL [facility] Comment:{ABSOLUTE MONOCYTES {[id number]) Eosinophils # 75 15 - 500 cells/uL [facility] Comment:{ABSOLUTE EOSINOPHIL S {[id number]) Basophils # 38 0 - 200 cells/uL [facility] Comment:{ABSOLUTE BASOPHILS {[id number]) Neutrophils % 65.0 % [facility] Comment:{NEUTROPHILS {[id number]) Lymphocytes % 26.8 % [facility] Comment:{LYMPHOCYTES {[id number]) Monocytes % 6.7 % [facility] Comment:{MONOCYTES {[id number]) Eosinophils % 1.0 % [facility] Comment:{EOSINOPHILS {[id number]) Basophils % 0.5 % [facility] Comment:{BASOPHILS {[id number]) 01/21/2013 8:14 AM EDT 01/21/2013 12:37 PM EDT Narrative Resulting Agency Comment [id number] us Jacque Resendiz MD LAB SAME DAY RESULT Final Re sult [facility] [address] [place] [address] * BASIC METABOLIC PANEL WITH (GFR) (01/21/2013 8:14 AM EDT) Glucose 88 65 - 99 mg/dL [facility] Comment: {GLUCOSE {[id number]) ? Fasting reference interval Urea Nitrogen Blood (BUN) 12 7 - 25 mg/dL [facility] Comment:{UREA NITROGEN (BUN) {[id number]) Creatinine 0.77 0.50 - 1.10 mg/dL [facility] Comment:{CREATININE {[id number]) GFR 105 > OR = 60 mL/min/1. 73m2 [facility] Comment:{eGFR NON-AFR. AMERI CAN {[id number]) GFR () 122 > OR = 60 mL/min/1. 73m2 [facility] Comment:{eGFR AMERIC AN {[id number]) BUN/Creatinine Ratio NOT APPLICABLE 6 - 22 (calc) [facility] Comment:{BUN/CREATININE RATI O {[id number]) Sodium 138 135 - 146 mmol/L [facility] Comment:{SODIUM {[id number]) Potassium 4.0 3.5 - 5.3 mmol/L [facility] Comment:{POTASSIUM {[id number]) Chloride 106 98 - 110 mmol/L [facility] Comment:{CHLORIDE {[id number]) Carbon dioxide 19 19 - 30 mmol/L [facility] Comment:{CARBON DIOXIDE {[id number]) Calcium 8.8 8.6 - 10.2 mg/dL [facility] Comment:{CALCIUM {[id number]) 01/21/2013 8:14 AM EDT 01/21/2013 12:37 [...] needs for GFR calculation. Resulting Agency Comment [id number] us Jacque Resendiz MD LABORATORY Final Result [facility] [address] [place] [address] * LIPID PANEL WITH REFLEX TO DIRECT LDL (01/21/2013 8:14 AM EDT) Cholesterol 171 125 - 200 mg/dL [facility] Comment:{CHOLESTEROL, TOTAL {[id number]) HDL Cholesterol 48 > OR = 46 mg/dL [facility] Comment:{HDL CHOLESTEROL {[id number]) Triglyceride 127 <150 mg/dL [facility] Comment:{TRIGLYCERIDES {[id number]) LDL Cholesterol 98 <130 mg/dL (calc) [facility] Comment: {LDL-CHOLESTEROL {[id number]) Desirable range <100 mg/dL for patients with CHD or diabetes and <70 mg/dL for diabetic patients with known heart disease. CHOL/HDL Ratio 3.6 < OR = 5.0 (calc) [facility] Comment:{CHOL/HDLC RATIO {[id number]) Cholesterol Non-HDL 123 mg/dL (calc) [facility] Comment: {NON HDL CHOLESTEROL {[id number]) Target for non-HDL cholesterol is 30 mg/dL higher than LDL cholesterol target. 01/21/2013 8:14 AM EDT 01/21/2013 12:37 PM EDT Narrative Resulting Agency Comment [id number] Jacque Resendiz MD LABORATORY Final Result Performing Organization Address City/State/[facility] Co de Phone Number [facility] [address] [place] [address] documented in this encounter Visit Diagnoses Diagnosis Screening for hyperlipidemia Screening for lipoid disorders Screening for diabetes mellitus Screening for deficiency anemia Screening for other and unspecified deficiency anemia documented in this encounter Care Teams Natural Resources Instructor Relationship Specialty Start Date End Date Jacque Resendiz MD [address] [place] [address] PCP - General 07/26/05 01/01/15 Unknown Pcp, Non Rmg PCP - General 01/02/15 06/17/23 Toan Motley NP [address] [address] PCP - General Nurse Practitioner 06/18/23 documented as of this encounter
--- OUTSIDE RECORDS SUMMARY | 2024-06-21 12:55 | XMS_ITS | Encounter Summary ---
Author Organization [facility] Address [address] [place] [address] Care Team Providers Care Storage Manager Name Role Phone Jacque Resendiz MD Primary Care Provider [phone] Unknown Pcp, Non g Primary Care Provider Unava Toan Adames NP Primary Care Provider Encounter Details Date Type Department Care Team (Late st Contact Info) Description 01/04/2009 Orders Only [facility] [address] [place] [address] Jacque Resendiz MD [address] [place] [address] Social History Tobacco Use Types Packs/Day Years [...] this encounter Procedures * Due to [place] law, this organization might not be sharing negative HIV tests. Procedure Name Priority Date/Time Associated Diagnosis Comments URINALYSIS, DIP ONLY ( SITE STAT ONLY) STAT (All results called to provider) 01/04/2009 1:58 PM EDT Frequent Urination CULTURE, URINE Routine 01/04/2009 Frequent Urination documented in this encounter Results * Due to [place] law, this organization might not be sharing negative HIV tests. * URINALYSIS, DIP ONLY ( SITE STAT ONLY) (01/04/2009 1:58 PM EDT) COLOR (URINE) yellow [facility] (CLIA# [id number]) APPEARANCE (URINE) cloudy [facility] (CLIA# [id number]) SPECIFIC GRAVITY 1.025 1.001 - 1.035 [facility] (CLIA# [id number]) PH (URINE) 6.5 5.0 - 8.0 [facility] (CLIA# [id number]) PROTEIN (URINE) negative Neg - Neg [facility] (CLIA# [id number]) GLUCOSE (URINE) negative Neg - Neg [facility] (CLIA# [id number]) Ketones (Urine) negative Neg - Neg [facility] (CLIA# [id number]) BILIRUBIN (URINE) negative Neg - Neg [facility] (CLIA# [id number]) BLOOD (URINE) negative Neg - Neg [facility] (CLIA# [id number]) WBC (URINE) negative Neg - Neg [facility] (CLIA# [id number]) NITRITE (URINE) negative Neg - Neg [facility] (CLIA# [id number]) Urine specimen (specimen) 01/04/2009 1:58 PM EDT Narrative [facility] (CLIA# [id number]) - 01/04/2009 1:59 PM EDT Culture already ordered per provider. Jacque Resendiz MD LAB SAME DAY RESULT Final Re sult [facility] (CLIA# [id number]) [address] [place] [address] * CULTURE, URINE (01/04/2009) URINE CULTURE CLEAN VOID SEE TEXT [facility] Comment: SOURCE: URINE NO GROWTH 01/04/2009 01/04/2009 10: 35 PM EDT us Jacque Resendiz MD LABORATORY Final Result [facility] [address] [place] [address] documented in this encounter Visit Diagnoses Diagnosis Frequent urination Urinary frequency documented in this encounter Care Teams Storage Manager Relationship Specialty Start Date End Date Jacque Resendiz MD [address] [place] [address] PCP - General 07/26/05 01/01/15 Unknown Pcp, Non Rmg PCP - General 01/02/15 06/17/23 Toan Motley NP [address] [address] PCP - General Nurse Practitioner 06/18/23 documented as of this encounter
--- OUTSIDE RECORDS SUMMARY | 2024-06-21 12:55 | XMS_ITS | Encounter Summary ---
Author Organization [facility] Address [address] [place] [address] Care Team Providers Care Silica Dry Press Helper Name Role Phone Jacque Resendiz MD Primary Care Provider [phone] Unknown Pcp, Non Rmg Primary Care Provider Unava Toan Adames NP Primary Care Provider [phone] Encounter Details Date Type Department Care Team (Late st Contact Info) Description 02/04/2008 Orders Only [facility] [address] [place] [address] Jacque Resendiz MD [address] [place] [address] Social History Tobacco Use Types Packs/Day Years [...] mellitus documented in this encounter Care Teams Silica Dry Press Helper Relationship Specialty Start Date End Date Jacque Resendiz MD [address] [place] [address] PCP - General 07/26/05 01/01/15 Unknown Pcp, Non Rmg PCP - General 01/02/15 06/17/23 Toan Motley NP [address] [address] PCP - General Nurse Practitioner 06/18/23 documented as of this encounter
--- OUTSIDE RECORDS SUMMARY | 2024-06-21 12:55 | XMS_ITS | Encounter Summary ---
Author Organization [facility] Address [address] [place] [address] Care Team Providers Care College Football Coach Name Role Phone Jacque Resendiz MD Primary Care Provider Unknown Pcp, Non Rmg Primary Care Provider Unava Toan Adames NP Primary Care Provider [phone] Encounter Details Date Type Department Care Team (Late st Contact Info) Description 09/14/2014 Orders Only [facility] [address] [place] [address] Jacque Resendiz MD [address] [place] [address] Social History Tobacco Use Types Packs/Day Years [...] encounter Procedures * Due to [place] [employer] law, this organization might not be sharing negative HIV tests. Procedure Name Priority Date/Time Associated Diagnosis Comments HCG, (HUMAN CHORIONIC GONADOTROPIN), TOTAL, QUANTITATIVE Routine 09/14/2014 5:23 PM EDT Missed period documented in this encounter Results * Due to [place] [employer] law, this organization might not be sharing negative HIV tests. * HCG, (HUMAN CHORIONIC GONADOTROPIN), TOTAL, QUANTITATIVE (09/14/2014 5:23 PM EDT) HCG, Total, Quantitative <2 mIU/mL [facility] Comment: {HCG, TOTAL, QN {[id number]) Reference Range Non or premenopausal ?<5 Postmenopausal ? <10 Values from different assay methods may vary. The use of this assay to monitor or to diagnose patients with cancer or any condition unrelated to has not been cleared or approved by the FDA or the gis professor of the assay. 09/14/2014 5:23 PM EDT 09/15/2014 12:32 AM EDT Narrative Resulting Agency Comment [id number] us Jacque Resendiz MD LAB SAME DAY RESULT Final Re sult [facility] [address] [place] [address] documented in this encounter Visit Diagnoses Diagnosis Missed period Irregular menstrual cycle documented in this encounter Care Teams College Football Coach Relationship Specialty Start Date End Date Jacque Resendiz MD [address] [place] [address] PCP - General 07/26/05 01/01/15 Unknown Pcp, Non Rmg PCP - General 01/02/15 06/17/23 Toan Motley NP [address] [address] PCP - General Nurse Practitioner 06/18/23 documented as of this encounter
--- OUTSIDE RECORDS SUMMARY | 2024-06-21 12:55 | XMS_ITS | Encounter Summary ---
Author Organization [facility] Address [address] [place] [address] Care Team Providers Care It Sales Consultant Name Role Phone Jacque Resendiz MD Primary Care Provider Unknown Pcp, Non Rmg Primary Care Provider Unava Toan Adames SAUSAGE LINKER Primary Care Provider Encounter Details Date Type Department Care Team (Late st Contact Info) Description 09/15/2013 Orders Only [facility] [address] [place] [address] Jacque Resendiz MD [address] [place] [address] Social History Tobacco Use Types Packs/Day Years [...] on filedocumented in this encounter Care Teams It Sales Consultant Relationship Specialty Start Date End Date Jacque Resendiz MD [address] [place] [address] PCP - General 07/26/05 01/01/15 Unknown Pcp, Non Rmg PCP - General 01/02/15 06/17/23 Toan Motley NP [address] [address] PCP - General Nurse Practitioner 06/18/23 documented as of this encounter
--- OUTSIDE RECORDS SUMMARY | 2024-06-21 12:55 | XMS_ITS | Encounter Summary ---
Author Organization [facility] Address [address] [place] [address] Care Team Providers Care Leather Repairer Name Role Phone Jacque Resendiz MD Primary Care Provider Unknown Pcp, Non Rmg Primary Care Provider Unava Toan Adames NP Primary Care Provider [phone] Encounter Details Date Type Department Care Team (Late st Contact Info) Description 10/14/2011 Orders Only [facility] [address] [place] [address] Jacque Resendiz MD [address] [place] [id number] Social History Tobacco Use Types Packs/Day Years [...] of this encounter Procedures * Due to [place] [employer] law, this organization might not be sharing [...] in this encounter Results * Due to [place] [employer] law, this organization might not be sharing negative HIV tests. * T4, FREE, SERUM (10/14/2011 1:17 PM EDT) FT4 1.0 0.8 - 1.8 ng/dL [facility] Comment:{T4, FREE {[id number]) 10/14/2011 1:17 PM EDT 10/14/2011 9:17 PM EDT Jacque Resendiz MD LABORATORY Final Result Performing Organization Address [facility] de Phone Number [facility] [address] [place] [address] * CHLAMYDIA TRACHOMATIS/GC, SDA (GENITAL SWAB) (10/14/2011 1:17 PM EDT) Pathologist [facility] Chlamydia trachomatis DNA NOT DETECTED NOT DETECTED [facility] Comment:{CHLAMYDIA TRACHOMAT IS DNA, SDA {[id number]) Neisseria gonorrhoeae DNA NOT DETECTED NOT DETECTED [facility] Comment:{NEISSERIA GONORRHOE AE DNA, SDA {[id number]) COMMENT SEE NOTE [facility] Comment: {COMMENT {[id number]) This test was performed using the BD ProbeTec(TM) Chlamydia trachomatis and Neisseria gonorrhoeae Amplified DNA Assays. 10/14/2011 1:17 PM EDT 10/14/2011 9:17 PM EDT Narrative Resulting Agency Comment [id number] Jacque Resendiz MD LABORATORY Final Result Performing Organization Address [facility] de Phone Number [facility] [address] [place] [address] * (ABNORMAL) THYROID STIMULATING HORMONE (TSH) WITH FREE T4 REFLEX, SERUM (10/14/2011 1:17 PM EDT) Pathologist [facility] TSH 4.68(H) mIU/L [facility] Comment: {TSH W/REFLEX TO FT4 {[id number]) ?Reference Range ?> or = 20 Years ??0.40-4.50 ? Ranges ?First trimester ?0.26-2.66 ?Second trimester ?? 0.55-2.73 ?Third trimester ?0.43-2.91 10/14/2011 1:17 PM EDT 10/14/2011 9:17 PM EDT Jacque Resendiz MD LABORATORY Final Result Performing Organization Address [facility] de Phone Number [facility] [address] [place] [address] * (ABNORMAL) LIPID PANEL WITH REFLEX TO DIRECT LDL (10/14/2011 1:17 PM EDT) Cholesterol 139 125 - 200 mg/dL [facility] Comment:{CHOLESTEROL, TOTAL {[id number]) HDL Cholesterol 34(L) > OR = 46 mg/dL [facility] Comment:{HDL CHOLESTEROL {[id number]) Triglyceride 86 <150 mg/dL [facility] Comment:{TRIGLYCERIDES {[id number]) LDL Cholesterol 88 <130 mg/dL (calc) [facility] Comment: {LDL-CHOLESTEROL {[id number]) Desirable range <100 mg/dL for patients with CHD or diabetes and <70 mg/dL for diabetic patients with known heart disease. CHOL/HDL Ratio 4.1 < OR = 5.0 (calc) [facility] Comment:{CHOL/HDLC RATIO {[id number]) Cholesterol Non-HDL 105 mg/dL (calc) [facility] Comment: {NON-HDL CHOLESTEROL {[id number]) Target for non-HDL cholesterol is 30 mg/dL higher than LDL cholesterol target. 10/14/2011 1:17 PM EDT 10/14/2011 9:17 PM EDT Narrative Resulting Agency Comment [id number] us Jacque Resendiz MD LABORATORY Final Result Performing Organization Address [facility] de Phone Number [facility] [address] [place] [address] * HEPATIC FUNCTION PANEL (10/14/2011 1:17 PM EDT) Pathologist [facility] Protein Total (Serum) 7.4 6.2 - 8.3 g/dL [facility] Comment:{PROTEIN, TOTAL {[id number]) Albumin 4.4 3.6 - 5.1 g/dL [facility] Comment:{ALBUMIN {[id number]) Globulin 3.0 2.2 - 3.9 g/dL (calc) [facility] Comment:{GLOBULIN {[id number]) Albumin/Globulin 1.5 1.0 - 2.1 (calc) [facility] Comment:{ALBUMIN/GLOBULIN RA JOSE {[id number]) Bilirubin Total 0.4 0.2 - 1.2 mg/dL [facility] Comment:{BILIRUBIN, TOTAL {[id number]) Bilirubin Direct 0.1 < OR = 0.2 mg/dL [facility] Comment:{BILIRUBIN, DIRECT { [id number]) Bilirubin Indirect 0.3 0.2 - 1.2 mg/dL (calc) [facility] Comment:{BILIRUBIN, INDIRECT {[id number]) Alkaline phosphatase 76 33 - 115 U/L [facility] Comment:{ALKALINE PHOSPHATAS E {[id number]) AST (SGOT) 17 10 - 30 U/L [facility] Comment:{AST {[id number]) ALT (SGPT) 15 6 - 40 U/L [facility] Comment:{ALT {[id number]) 10/14/2011 1:17 PM EDT 10/14/2011 9:17 PM EDT Narrative Resulting Agency Comment [id number] us Jacque Resendiz MD LABORATORY Final Result [facility] [address] [place] [address] * CBC 5 PART DIFF (10/14/2011 1:17 PM EDT) Pathologist [facility] WBC 8.5 3.8 - 10.8 Thousand/u L [facility] Comment:{WHITE BLOOD CELL CO UNT {[id number]) RBC 4.43 3.80 - 5.10 Million/uL [facility] Comment:{RED BLOOD CELL COUN T {[id number]) Hemoglobin 13.5 11.7 - 15.5 g/dL [facility] Comment:{HEMOGLOBIN {[id number]) Hematocrit 40.4 35.0 - 45.0 % [facility] Comment:{HEMATOCRIT {[id number]) MCV 91.2 80.0 - 100.0 fL [facility] Comment:{MCV {[id number]) MCH 30.6 27.0 - 33.0 pg [facility] Comment:{MCH {[id number]) MCHC 33.5 32.0 - 36.0 g/dL [facility] Comment:{MCHC {[id number]) RDW 13.0 11.0 - 15.0 % [facility] Comment:{RDW {[id number]) PLT 250 140 - 400 Thousand/u L [facility] Comment:{PLATELET COUNT {[id number]) MPV 9.4 7.5 - 11.5 fL [facility] Comment:{MPV {[id number]) Neutrophils # 4871 1500 - 7800 cells/uL [facility] Comment:{ABSOLUTE NEUTROPHIL S {[id number]) Lymphocytes # 2967 850 - 3900 cells/uL [facility] Comment:{ABSOLUTE LYMPHOCYTE S {[id number]) Monocytes # 510 200 - 950 cells/uL [facility] Comment:{ABSOLUTE MONOCYTES {[id number]) Eosinophils # 119 15 - 500 cells/uL [facility] Comment:{ABSOLUTE EOSINOPHIL S {[id number]) Basophils # 34 0 - 200 cells/uL [facility] Comment:{ABSOLUTE BASOPHILS {[id number]) Neutrophils % 57.3 % [facility] Comment:{NEUTROPHILS {[id number]) Lymphocytes % 34.9 % [facility] Comment:{LYMPHOCYTES {[id number]) Monocytes % 6.0 % [facility] Comment:{MONOCYTES {[id number]) Eosinophils % 1.4 % [facility] Comment:{EOSINOPHILS {[id number]) Basophils % 0.4 % [facility] Comment:{BASOPHILS {[id number]) 10/14/2011 1:17 PM EDT 10/14/2011 9:17 PM EDT Narrative Resulting Agency Comment [id number] us Jacque Resendiz MD LAB SAME DAY RESULT Final Re sult [facility] [address] [place] [address] * BASIC METABOLIC PANEL W/GLOMERULAR FILTRATION RATE (EGFR) (10/14/2011 1:17 PM EDT) Glucose 78 65 - 99 mg/dL [facility] Comment: {GLUCOSE {[id number]) ? Fasting reference interval Urea Nitrogen Blood (BUN) 12 7 - 25 mg/dL [facility] Comment:{UREA NITROGEN (BUN) {[id number]) Creatinine 0.79 0.50 - 1.10 mg/dL [facility] Comment:{CREATININE {[id number]) GFR 103 > OR = 60 mL/min/1. 73m2 [facility] Comment:{eGFR NON-AFR. AMERI CAN {[id number]) GFR () 119 > OR = 60 mL/min/1. 73m2 [facility] Comment:{eGFR AMERIC AN {[id number]) BUN/Creatinine Ratio NOT APPLICABLE 6 - 22 (calc) [facility] Comment:{BUN/CREATININE RATI O {[id number]) Sodium 139 135 - 146 mmol/L [facility] Comment:{SODIUM {[id number]) Potassium 4.0 3.5 - 5.3 mmol/L [facility] Comment:{POTASSIUM {[id number]) Chloride 105 98 - 110 mmol/L [facility] Comment:{CHLORIDE {[id number]) Carbon dioxide 22 21 - 33 mmol/L [facility] Comment:{CARBON DIOXIDE {[id number]) Calcium 9.4 8.6 - 10.2 mg/dL [facility] Comment:{CALCIUM {[id number]) 10/14/2011 1:17 PM EDT 10/14/2011 9:17 [...] needs for GFR calculation. Resulting Agency Comment [id number] us Jacque Resendiz MD LABORATORY Final Result [facility] [address] [place] [address] * LIQUID-BASED PAP WITH HPVH (10/14/2011 12:30 PM EDT) Clinical information NONE GIVEN [facility] Comment:{CLINICAL INFORMATIO N: {[id number]) LMP NONE GIVEN [facility] Comment:{LMP: {[id number]) Date of previous PAP smear 3 YRS CASE NORMAL [facility] Comment:{PREV. PAP: {[id number]) Date of previous biopsy NONE GIVEN [facility] Comment:{PREV. BX: {[id number]) Specimen source (Cvx/Vag) Vagina, Cervix, Endocervix [facility] Comment:{SOURCE: {[id number]) Statement of Adequacy (Cvx/Vag) SATISFACTORY FOR EVALUATION [facility] Comment:{STATEMENT OF ADEQUA CY: {[id number]) Cytology, Pap Smear Negative for intraepithelial lesion or malignancy. Atrophic pattern; predominantly parabasal cells [facility] Comment:{INTERPRETATION/RESU LT: {[id number]) Cytology study comment (Cvx/Vag) This Pap test has been evaluated with computer assisted technology. [facility] Comment:{COMMENT: {[id number]) Marketing Research Analyst (Cvx/Vag) [facility], CT(ASCP) [facility] Comment:{OTHER WOOD PROCESSING MACHINE OPERATOR: { [id number]) Human Papillomavirus (HPV) DNA, High Risk NOT DETECTED NOT DETECTED [facility] Comment: {HPV DNA (HIGH RISK) {[id number]) Tested for high risk types 16,18,31,33,35,39,45,51,52, 56,58,59,68. The analytical performance characteristics of this assay, when used to test SurePath or vaginal specimens, have been determined by [employer]. Methodology: Hybrid Capture with Signal Amplification. 10/14/2011 12:3 0 PM EDT 10/14/2011 9:24 PM EDT us Jacque Resendiz MD PATHOLOGY-INTERFACED Final R esult Performing Organization Address City/State/[facility] Co de Phone Number [facility] [address] [place] [address] documented in this encounter Visit Diagnoses Diagnosis [...] facility documented in this encounter Care Teams Leather Repairer Relationship Specialty Start Date End Date Jacque Resendiz MD [address] [place] [address] PCP - General 07/26/05 01/01/15 Unknown Pcp, Non Rmg PCP - General 01/02/15 06/17/23 Toan Motley NP [address] [address] PCP - General Nurse Practitioner 06/18/23 documented as of this encounter
--- OUTSIDE RECORDS SUMMARY | 2024-06-21 12:55 | XMS_ITS | Encounter Summary ---
Author Organization [facility] Address [address] [place] [address] Care Team Providers Care Human Factors Scientist Name Role Phone Jacque Resendiz MD Primary Care Provider Unknown Pcp, Non Rmg Primary Care Provider Fernandava Toan Adames NP Primary Care Provider Encounter Details Date Type Department Care Team (Late st Contact Info) Description 01/04/2009 Orders Only [facility] [address] [place] [address] Yue Tillman, AGUSTINA [address] [place] [address] Social History Tobacco Use Types Packs/Day Years [...] of this encounter Results * Due to [place] state law, this organization might not be sharing negative HIV tests. * URINALYSIS, DIP ONLY ( SITE STAT ONLY) (01/04/2009 1:58 PM EDT) COLOR (URINE) yellow [facility] (CLIA# [id number]) APPEARANCE (URINE) cloudy [facility] (CLIA# [id number]) SPECIFIC GRAVITY 1.025 1.001 - 1.035 [facility] (CLIA# [id number]) PH (URINE) 6.5 5.0 - 8.0 [facility] (CLIA# [id number]) PROTEIN (URINE) negative Neg - Neg [facility] (CLIA# [id number]) GLUCOSE (URINE) negative Neg - Neg [facility] (CLIA# [id number]) Ketones (Urine) negative Neg - Neg [facility] (CLIA# [id number]) BILIRUBIN (URINE) negative Neg - Neg [facility] (CLIA# [id number]) BLOOD (URINE) negative Neg - Neg [facility] (CLIA# [id number]) WBC (URINE) negative Neg - Neg [facility] (CLIA# [id number]) NITRITE (URINE) negative Neg - Neg [facility] (CLIA# [id number]) Urine specimen (specimen) 01/04/2009 1:58 PM EDT Narrative [facility] (CLIA# [id number]) - 01/04/2009 1:59 PM EDT Culture already ordered per provider. Jacque Resendiz MD LAB SAME DAY RESULT Final Re sult Performing Organization Address [facility]/ZIP Co de Phone Number [facility] (CLIA# [id number]) [address] [place] [address] * CULTURE, URINE (01/04/2009) URINE CULTURE CLEAN VOID SEE TEXT [facility] Comment: SOURCE: URINE NO GROWTH 01/04/2009 01/04/2009 10: 35 PM EDT Jacque Resendiz MD LABORATORY Final Result Performing Organization Address City/[facility]/ZIP Co de Phone Number [facility] [address] [place] [address] documented in this encounter Visit Diagnoses Diagnosis Frequent urination- Primary Urinary frequency Frequent urination Urinary frequency documented in this encounter Care Teams Human Factors Scientist Relationship Specialty Start Date End Date Jacque Resendiz MD [address] [place] [address] PCP - General 07/26/05 01/01/15 Unknown Pcp, Non Rmg PCP - General 01/02/15 06/17/23 Toan Motley NP [address] [address] PCP - General Nurse Practitioner 06/18/23 documented as of this encounter
--- OUTSIDE RECORDS SUMMARY | 2024-06-21 12:55 | XMS_ITS | Clinical Summary ---
Author Organization [facility] Address [address] [place] [address] Care Team Providers Care Hay Farmer Name Role Phone Toan Motley NP Primary [...] Type Department Care Team Description 04/11/2024 Telephone [facility] [address] [facility] [address] [place] [address] Loren Romeo, BRIGHT Pain from [...] side many relatives Heart Disorder Paternal grandfather [place] Heart Disorder Paternal grandmother CAD Hypertension Paternal grandmother Relation Name Status Comments Brother Alive Father Maternal grandmother Other 1 Other 2 Other 3 Other 4 Paternal grandfather (Age 60's) [place] Paternal grandmother Social History Tobacco Use Types [...] complete this topic Procedures * Due to [place] [employer] law, this organization might not be sharing [...] to Health Maintenance Results * Due to [place] [employer] law, this organization might not be sharing negative HIV tests. * THINPREP TIS PAP AND HPV RNA, HR E6/E7, TMA (06/22/2023 2:58 PM EST) Clinical information None given [facility] Date last menstrual period 06/20/2023 [facility] Date of previous PAP smear 11/17/2014 [facility] Date of previous biopsy NONE GIVEN [facility] Specimen source (Cvx/Vag) Cervix [facility] Statement of Adequacy (Cvx/Vag) Satisfactory for evaluation. Endocervical/gonzalez sformation zone component present. [facility] Cytology, Pap Smear Cytology Results: Negative for intraepithelial lesion or malignancy. [facility] Cytology study comment (Cvx/Vag) This Pap test has been evaluated with computer assisted technology. [facility] Physician Relations Manager (Cvx/Vag) SXA, CT(ASCP) CT screening location: [place] [address] [facility] COMMENT SEE NOTE [facility] Comment: EXPLANATORY NOTE: The Pap is [...] HPV MRNA E6/E7 Not Detected Not Detected [facility] Comment: Methodology: Tape Edge Machine Operator-Mediated Amplification This assay detects E6/E7 viral messenger RNA (mRNA) from 14 high-risk HPV types (16,18,31,33,35,39,45,51,52,56,58,59,66,68). Cervical sources are required for HPV testing. If a vaginal source from a patient who has had a total hysterectomy with removal of cervix was submitted, please contact the testing laboratory for alternative testing options. For additional information, please refer to http://education.Contests4Causes/faq/LTZ686s8 (This link if provided for information/ educational purposes only.) 06/22/2023 2:58 PM EST 06/23/2023 3:08 AM EST Narrative Resulting Agency Comment [id number] us Kaelyn Mejia NP PATHOLOGY-INTERFACED Final Re sult [facility] [address] [place] [address] * LIPID PANEL WITH REFLEX TO DIRECT LDL (01/21/2013 8:14 AM EDT) Cholesterol 171 125 - 200 mg/dL [facility] Comment:{CHOLESTEROL, TOTAL {[id number]) HDL Cholesterol 48 > OR = 46 mg/dL [facility] Comment:{HDL CHOLESTEROL {[id number]) Triglyceride 127 <150 mg/dL [facility] Comment:{TRIGLYCERIDES {[id number]) LDL Cholesterol 98 <130 mg/dL (calc) [facility] Comment: {LDL-CHOLESTEROL {[id number]) Desirable range <100 mg/dL for patients with CHD or diabetes and <70 mg/dL for diabetic patients with known heart disease. CHOL/HDL Ratio 3.6 < OR = 5.0 (calc) [facility] Comment:{CHOL/HDLC RATIO {[id number]) Cholesterol Non-HDL 123 mg/dL (calc) [facility] Comment: {NON HDL CHOLESTEROL {[id number]) Target for non-HDL cholesterol is 30 mg/dL higher than LDL cholesterol target. 01/21/2013 8:14 AM EDT 01/21/2013 12:37 PM EDT Narrative Resulting Agency Comment [id number] us Jacque Resendiz MD LABORATORY Final Result Performing Organization Address City/State/[facility] Co de Phone Number [facility] [address] [place] [phone] * XRAY CHEST, 2 VIEWS, PA & [...] FEE FOR SERVICE PPO LIABILITY OTHER THIRD [employer] Care Teams Hay Farmer Relationship Specialty Start Date End Date Toan Motley NP [address] [address] PCP - General Nurse Practitioner 06/18/23
--- OUTSIDE RECORDS SUMMARY | 2024-06-21 12:55 | XMS_ITS | Encounter Summary ---
Author Organization [facility] Address [address] [place] [address] Care Team Providers Care Sorter/Assay Tech Name Role Phone Jacque Resendiz MD Primary Care Provider Unknown Pcp, Non Rmg Primary Care Provider Fernandava Toan Adames NP Primary Care Provider [phone] Encounter Details Date Type Department Care Team (Late st Contact Info) Description 05/08/2011 Orders Only [facility] [address] [place] [address] Jacque Resendiz MD [address] [place] [address] Social History Tobacco Use Types Packs/Day Years [...] on filedocumented in this encounter Care Teams Sorter/Assay Tech Relationship Specialty Start Date End Date Jacque Resendiz MD [address] [place] [address] PCP - General 07/26/05 01/01/15 Unknown Pcp, Non Rmg PCP - General 01/02/15 06/17/23 Toan Motley NP [address] [address] PCP - General Nurse Practitioner 06/18/23 documented as of this encounter
--- OUTSIDE RECORDS SUMMARY | 2024-06-21 12:55 | XMS_ITS | Encounter Summary ---
Author Organization [facility] Address [address] [place] [address] Care Team Providers Care Classified Copy Control Clerk Name Role Phone Jacque Resendiz MD Primary Care Provider [phone] Unknown Pcp, Non Rmg Primary Care Provider Unava Toan Adames NP Primary Care Provider Encounter Details Date Type Department Care Team (Late st Contact Info) Description 07/16/2009 Orders Only [facility] [address] [place] [phone] Rafita Whitney MD [facility] [address] [address] Social History Tobacco Use Types Packs/Day Years [...] this encounter Procedures * Due to [place] [employer] law, this organization might not be sharing negative HIV tests. Procedure Name Priority Date/Time Associated Diagnosis Comments CULTURE, URINE Routine 07/16/2009 Urinary frequency URINALYSIS, COMPLETE (DIP & MICRO) Routine 07/16/2009 Urinary frequency documented in this encounter Results * Due to [place] [employer] law, this organization might not be sharing negative HIV tests. * CULTURE, URINE (07/16/2009) URINE CULTURE CLEAN VOID SEE TEXT [facility] Comment: SOURCE: URINE MULTIPLE ORGANISMS, EACH <10,000 CFU/ML. MAY REPRESENT NORMAL OCTAVIO CONTAMINATION FROM EXTERNAL GENITALIA. NO FURTHER TESTING. 07/16/2009 07/16/2009 4:0 2 PM EDT Rafita Whitney MD LABORATORY Final Resul t Performing Organization Address City/State/[facility] Co de Phone Number [facility] [address] [place] [address] * (ABNORMAL) URINALYSIS, COMPLETE (DIP & MICRO) [...] RESULT Final R esult [facility] [address] [place] [address] documented in this encounter Visit Diagnoses Diagnosis Urinary frequency documented in this encounter Care Teams Classified Copy Control Clerk Relationship Specialty Start Date End Date Jacque Resendiz MD [address] [place] [address] PCP - General 07/26/05 01/01/15 Unknown Pcp, Non Rmg PCP - General 01/02/15 06/17/23 Toan Motley NP [address] [address] PCP - General Nurse Practitioner 06/18/23 documented as of this encounter
--- OUTSIDE RECORDS SUMMARY | 2024-06-21 12:55 | XMS_ITS | Encounter Summary ---
Author Organization [facility] Address [address] [place] [address] Care Team Providers Care Diesel Mechanic Farm Name Role Phone Toan Motley NP Primary Care Provider Encounter Details Date Type Department Care Team ([facility] st Contact Info) Description 02/04/2024 Orders Only [facility] [address] [place] [phone] Loren Romeo, BRIGHT [address] [facility] [address] [place] [address] Social History Tobacco Use Types [...] Romeo PA - 02/04/2024 9:32 AM EDT Vaximm message sent to patient documented in this encounter Plan of Treatment Not on file documented as of this encounter Procedures * Due to [place] [employer] law, this organization might not be sharing negative HIV tests. Procedure Name Priority Date/Time Associated Diagnosis Comments ANTI-MULLERIAN HORMONE ([facility]), FEMALE Routine 02/04/2024 9:32 AM EDT Infertility, female documented in this encounter Results * Due to [place] [employer] law, this organization might not be sharing negative HIV tests. * ANTI-MULLERIAN HORMONE ([facility]), [id number] (02/04/2024 9:32 AM EDT) Mullerian inhibiting substance 0.63 0.18 - 5.68 ng/mL [facility] 02/04/2024 9:32 AM EDT 02/05/2024 12:05 AM EDT Narrative Resulting Agency Comment [id number] us Loren [facility] Final Result Performing Organization Address City/State/[facility] Co de Phone Number [facility] [address] [place] [address] documented in this encounter Visit Diagnoses Diagnosis Infertility, female Female infertility of unspecified origin documented in this encounter Care Teams Diesel Mechanic Farm Relationship Specialty Start Date End Date Toan Motley NP [address] [address] PCP - General Nurse Practitioner 06/18/23 documented as of this encounter
--- OUTSIDE RECORDS SUMMARY | 2024-06-21 12:55 | XMS_ITS | Encounter Summary ---
Author Organization [facility] Address [address] [place] [address] Care Team Providers Care Residential Solar Sales Consultant Name Role Phone Jacque Resendiz MD Primary Care Provider [phone] Unknown Pcp, Non Rmg Primary Care Provider Unava Toan Adames NP Primary Care Provider Encounter Details Date Type Department Care Team (Late st Contact Info) Description 01/04/2009 Orders Only [facility] [address] [place] [phone] Jacque Resendiz MD [address] [place] [address] Social History Tobacco Use Types Packs/Day Years [...] of this encounter Results * Due to [place] state law, this organization might not be sharing negative HIV tests. * HEPATIC FUNCTION PANEL (10/14/2011 1:17 PM EDT) Protein Total (Serum) 7.4 6.2 - 8.3 g/dL [facility] Comment:{PROTEIN, TOTAL {[id number]) Albumin 4.4 3.6 - 5.1 g/dL [facility] Comment:{ALBUMIN {[id number]) Globulin 3.0 2.2 - 3.9 g/dL (calc) [facility] Comment:{GLOBULIN {[id number]) Albumin/Globulin 1.5 1.0 - 2.1 (calc) [facility] Comment:{ALBUMIN/GLOBULIN RA JOSE {[id number]) Bilirubin Total 0.4 0.2 - 1.2 mg/dL [facility] Comment:{BILIRUBIN, TOTAL {[id number]) Bilirubin Direct 0.1 < OR = 0.2 mg/dL [facility] Comment:{BILIRUBIN, DIRECT { [id number]) Bilirubin Indirect 0.3 0.2 - 1.2 mg/dL (calc) [facility] Comment:{BILIRUBIN, INDIRECT {[id number]) Alkaline phosphatase 76 33 - 115 U/L [facility] Comment:{ALKALINE PHOSPHATAS E {[id number]) AST (SGOT) 17 10 - 30 U/L [facility] Comment:{AST {[id number]) ALT (SGPT) 15 6 - 40 U/L [facility] Comment:{ALT {[id number]) 10/14/2011 1:17 PM EDT 10/14/2011 9:17 PM EDT Narrative Resulting Agency Comment [id number] us Jacque Resendiz MD LABORATORY Final Result [facility] [address] [place] [address] * CBC 5 PART DIFF (10/14/2011 1:17 PM EDT) WBC 8.5 3.8 - 10.8 Thousand/u L [facility] Comment:{WHITE BLOOD CELL CO UNT {[id number]) RBC 4.43 3.80 - 5.10 Million/uL [facility] Comment:{RED BLOOD CELL COUN T {[id number]) Hemoglobin 13.5 11.7 - 15.5 g/dL [facility] Comment:{HEMOGLOBIN {[id number]) Hematocrit 40.4 35.0 - 45.0 % [facility] Comment:{HEMATOCRIT {[id number]) MCV 91.2 80.0 - 100.0 fL [facility] Comment:{MCV {[id number]) MCH 30.6 27.0 - 33.0 pg [facility] Comment:{MCH {[id number]) MCHC 33.5 32.0 - 36.0 g/dL [facility] Comment:{MCHC {[id number]) RDW 13.0 11.0 - 15.0 % [facility] Comment:{RDW {[id number]) PLT 250 140 - 400 Thousand/u L [facility] Comment:{PLATELET COUNT {[id number]) MPV 9.4 7.5 - 11.5 fL [facility] Comment:{MPV {[id number]) Neutrophils # 4871 1500 - 7800 cells/uL [facility] Comment:{ABSOLUTE NEUTROPHIL S {[id number]) Lymphocytes # 2967 850 - 3900 cells/uL [facility] Comment:{ABSOLUTE LYMPHOCYTE S {[id number]) Monocytes # 510 200 - 950 cells/uL [facility] Comment:{ABSOLUTE MONOCYTES {[id number]) Eosinophils # 119 15 - 500 cells/uL [facility] Comment:{ABSOLUTE EOSINOPHIL S {[id number]) Basophils # 34 0 - 200 cells/uL [facility] Comment:{ABSOLUTE BASOPHILS {[id number]) Neutrophils % 57.3 % [facility] Comment:{NEUTROPHILS {[id number]) Lymphocytes % 34.9 % [facility] Comment:{LYMPHOCYTES {[id number]) Monocytes % 6.0 % [facility] Comment:{MONOCYTES {[id number]) Eosinophils % 1.4 % [facility] Comment:{EOSINOPHILS {[id number]) Basophils % 0.4 % [facility] Comment:{BASOPHILS {[id number]) 10/14/2011 1:17 PM EDT 10/14/2011 9:17 PM EDT Narrative Resulting Agency Comment [id number] us Jacque Resendiz MD LAB SAME DAY RESULT Final Re sult [facility] [address] [place] [address] * BASIC METABOLIC PANEL W/GLOMERULAR FILTRATION RATE (EGFR) (10/14/2011 1:17 PM EDT) Glucose 78 65 - 99 mg/dL [facility] Comment: {GLUCOSE {[id number]) ? Fasting reference interval Urea Nitrogen Blood (BUN) 12 7 - 25 mg/dL [facility] Comment:{UREA NITROGEN (BUN) {[id number]) Creatinine 0.79 0.50 - 1.10 mg/dL [facility] Comment:{CREATININE {[id number]) GFR 103 > OR = 60 mL/min/1. 73m2 [facility] Comment:{eGFR NON-AFR. AMERI CAN {[id number]) GFR () 119 > OR = 60 mL/min/1. 73m2 [facility] Comment:{eGFR AMERIC AN {[id number]) BUN/Creatinine Ratio NOT APPLICABLE 6 - 22 (calc) [facility] Comment:{BUN/CREATININE RATI O {[id number]) Sodium 139 135 - 146 mmol/L [facility] Comment:{SODIUM {[id number]) Potassium 4.0 3.5 - 5.3 mmol/L [facility] Comment:{POTASSIUM {[id number]) Chloride 105 98 - 110 mmol/L [facility] Comment:{CHLORIDE {[id number]) Carbon dioxide 22 21 - 33 mmol/L [facility] Comment:{CARBON DIOXIDE {[id number]) Calcium 9.4 8.6 - 10.2 mg/dL [facility] Comment:{CALCIUM {[id number]) 10/14/2011 1:17 PM EDT 10/14/2011 9:17 [...] needs for GFR calculation. Resulting Agency Comment [id number] us Jacque Resendiz MD LABORATORY Final Result [facility] [address] [place] [address] documented in this encounter Visit Diagnoses Diagnosis [...] facility documented in this encounter Care Teams Residential Solar Sales Consultant Relationship Specialty Start Date End Date Jacque Resendiz MD [address] [place] [address] PCP - General 07/26/05 01/01/15 Unknown Pcp, Non Rmg PCP - General 01/02/15 06/17/23 Toan Motley NP [address] [address] PCP - General Nurse Practitioner 06/18/23 documented as of this encounter
--- OUTSIDE RECORDS SUMMARY | 2024-06-21 12:55 | XMS_ITS | Encounter Summary ---
Author Organization [facility] Address [address] [place] [address] Care Team Providers Care Ladle Repairer Name Role Phone Jacque Resendiz MD Primary Care Provider [phone] Unknown Pcp, Non Rmg Primary Care Provider Toan Cassidy NP Primary Care Provider [phone] Encounter Details Date Type Department Care Team (Late st Contact Info) Description 02/10/2013 Orders Only [facility] Endocrinology [address] [place], [place] [phone] Mony Paz MD [address] [address] Social History Tobacco Use Types Packs/Day Years [...] TSH 4.65(H) mIU/L [facility] Comment: {TSH {[id number]) ?Reference Range ?> or = 20 Years ??0.40-4.50 ? Ranges ?First trimester ?0.26-2.66 ?Second trimester ?? 0.55-2.73 ?Third trimester ?0.43-2.91 07/13/2013 1:51 PM EDT 07/13/2013 9:52 PM EDT Narrative Resulting Agency Comment [id number] us Mony Paz MD LABORATORY Final Result Performing Organization Address City/State/[facility] Co de Phone Number [facility] [address] [place] [address] * DEXAMETHASONE SUPPRESSIONTEST (DST), 1 SPECIMEN (02/10/2013 8:07 AM EDT) Cortisol^8H post 1 mg dexamethasone PO overnight 0.9 mcg/dL [facility] Comment: {CORTISOL {[id number]) Dexamethasone Suppression Test For 8 a.m. Specimen: ?? <2.0 - Normal Response ? 2.0-10.0 - Equivocal ? >10.0 - High probability of ? Denver's Syndrome Further diagnostic tests must be performed to confirm the diagnosis and determine etiology. Values >2.0 mcg/dL can be seen in endogenous depression and pseudo-Denver's (alcoholism). 02/10/2013 8:07 AM EDT 02/10/2013 1:38 PM EDT Narrative Resulting Agency Comment [id number] Mony Paz MD LABORATORY Final Result Performing Organization Address [facility] Co de Phone Number [facility] [address] [place] [address] * TSH, 3RD GENERATION (02/10/2013 8:07 AM EDT) TSH 2.80 mIU/L [facility] Comment: {TSH {[id number]) ?Reference Range ?> or = 20 Years ??0.40-4.50 ? Ranges ?First trimester ?0.26-2.66 ?Second trimester ?? 0.55-2.73 ?Third trimester ?0.43-2.91 02/10/2013 8:07 AM EDT 02/10/2013 1:38 PM EDT Narrative Resulting Agency Comment [id number] Mony Paz MD LABORATORY Final Result Performing Organization Address [facility] de Phone Number [facility] [address] [place] [address] documented in this encounter Visit Diagnoses Diagnosis Subclinical hypothyroidism- Primary Other specified acquired hypothyroidism Fatigue Other malaise and fatigue documented in this encounter Care Teams Ladle Repairer Relationship Specialty Start Date End Date Jacque Resendiz MD [address] [place] [address] PCP - General 07/26/05 01/01/15 Unknown Pcp, Non Rmg PCP - General 01/02/15 06/17/23 Toan Motley NP [address] [address] PCP - General Nurse Practitioner 06/18/23 documented as of this encounter
--- OUTSIDE RECORDS SUMMARY | 2024-06-21 12:55 | XMS_ITS | Encounter Summary ---
Author Organization [facility] Address [address] [place] [address] Care Team Providers Care Cloth Mercerizing Supervisor Name Role Phone Jacque Resendiz MD Primary Care Provider Unknown Pcp, Non Rmg Primary Care Provider Fernandava Toan Adames NP Primary Care Provider Encounter Details Date Type Department Care Team (Late st Contact Info) Description 10/08/2007 Orders Only [facility] [address] [place] [phone] Jacque Resendiz MD [address] [place] [address] Social History Tobacco Use Types Packs/Day Years [...] of this encounter Procedures * Due to [place] state law, this organization might not be sharing negative HIV tests. Procedure Name Priority Date/Time Associated Diagnosis Comments URINALYSIS,MICROSCO PIC ONLY Routine 10/08/2007 UTI (URINARY TRACT INFECTION) URINALYSIS, DIP ONLY ( SITE STAT ONLY) Same Day Results 10/08/2007 UTI (URINARY TRACT INFECTION) documented in this encounter Results * Due to [place] state law, this organization might not be sharing negative HIV tests. * (ABNORMAL) URINALYSIS,MICROSCOPIC ONLY (10/08/2007) WBC (URINE) 0-4 0-4/HPF [facility] (CLIA# [id number]) RBC (Urine Sed) 0 0-3/HPF [facility] (CLIA# [id number]) EPITHELIAL CELLS.SQUAMOUS (URINE SED) 0-5 0-5/HPF [facility] (CLIA# [id number]) EPITHELIAL CELLS.TRANSITIO NAL (URINE SED) 0 0-5/HPF [facility] (CLIA# [id number]) EPITHELIAL CELLS.RENAL (URINE SED) 0 0-3/HPF [facility] (CLIA# [id number]) BACTERIA (URINE) FEW(A) NONE SEEN [facility] (CLIA# [id number]) 10/08/2007 10/08/2007 7:2 8 PM EDT us Jacque Resendiz MD LAB SAME DAY RESULT Final Re sult [facility] (CLIA# [id number]) [address] [place] [address] * URINALYSIS, DIP ONLY ( SITE STAT ONLY) (10/08/2007) COLOR (URINE) YELLOW YELLOW [facility] (CLIA# [id number]) APPEARANCE (URINE) CLOUDY CLEAR [facility] (CLIA# [id number]) SPECIFIC GRAVITY 1.020 1.001 - 1.035 [facility] (CLIA# [id number]) PH (URINE) 6.0 5.0 - 8.0 [facility] (CLIA# [id number]) PROTEIN (URINE) TRACE NEG [facility] (CLIA# [id number]) GLUCOSE (URINE) NEG NEG [facility] (CLIA# [id number]) Ketones (Urine) NEG NEG [facility] (CLIA# [id number]) BILIRUBIN (URINE) NEG NEG [facility] (CLIA# [id number]) BLOOD (URINE) NEG NEG [facility] (CLIA# [id number]) WBC (URINE) TRACE NEG [facility] (CLIA# [id number]) NITRITE (URINE) NEG NEG [facility] (CLIA# [id number]) 10/08/2007 10/08/2007 7:2 8 PM EDT us Jacque Resendiz MD LAB SAME DAY RESULT Final Re sult [facility] (CLIA# [id number]) [address] [place] [address] documented in this encounter Visit Diagnoses Diagnosis UTI (URINARY TRACT INFECTION)- Primary Urinary tract infection, site not specified documented in this encounter Care Teams Cloth Mercerizing Supervisor Relationship Specialty Start Date End Date Jacque Resendiz MD [address] [place] [address] PCP - General 07/26/05 01/01/15 Unknown Pcp, Non Rmg PCP - General 01/02/15 06/17/23 Toan Motley NP [address] [address] PCP - General Nurse Practitioner 06/18/23 documented as of this encounter
--- OUTSIDE RECORDS SUMMARY | 2024-06-21 12:55 | XMS_ITS | Clinical Summary ---
Author Organization [employer] [facility] Address [address] [place] [address] Care Team Providers Care Quoter Name Role Phone Pcp, No Primary Care Provider [phone] Allergies Active Allergy Reactions Criticality Noted Date [...] Adults 18 yrs or above (or HM Modifier)([facility]) 2002 Hepatitis C Virus Infection in Adolescents and Adults: Screening (or Modifier) ([facility]) 2002 SDPR Screening Reminder: Annually for all adults ([facility]) 2002 Tobacco Smoking Cessation: i n Adults excluding Women: Behavioral and Pharmacotherapy Interventions ([facility]) 2002 Lipid Screening: Once for Women aged 20 to 45 yrs ([facility]) 2004 Cervical Cancer Screenin-65 yrs of age (or Modifier) 2005 Cervical Cancer Screening: Pap every 3 yrs pts age 21-65 2005 Cervical Cancer: Pap Screening with Modifier timing ([facility]) 2005 Cervical Cancer: hrHPV alone or with cotesting Pap for Pts 30-65yrs screening every 5yrs ([facility]) 2005 Flu Vaccination: Yearly for ages 18mos through 64 years (or Modifier)([facility]) 12/03/2023 COVID-19 Vaccine Screening: Initial Series and Booster Status ([facility]) ( - 2023- season) 2024 DTaP/Tdap/Td Vaccines ([facility]) (7 - Td or Tdap) 01/17/2024 01/16/2014, 09/24/1989, 01/12/1986, Additional history exists Zoster/Shingles Vaccine Series Screening: Adults aged 18+ yrs (or HM Modifiers)([facility]) (1 of 2) 2034 Pneumococcal Vaccination Screening: Pts 0-19 & 19-64 yrs of age ([facility]) Aged Out No longer eligible based on patient's age to complete this topic Medical Devices Not on file Care Teams Quoter Relationship Specialty Start Date End Date Pcp, No PCP - General Family Medicine 07/20/20
--- OUTSIDE RECORDS SUMMARY | 2024-06-21 12:55 | XMS_ITS | Encounter Summary ---
Author Organization [facility] Address [address] [place] [address] Care Team Providers Care Bilingual Operator Name Role Phone Toan Motley NP Primary Care Provider Encounter Details Date Type Department Care Team ([facility] st Contact Info) Description 03/01/2024 Orders Only [place] [facility] Director [address] [place] [phone] Loren Romeo PA [address] [facility] [address] [place] [address] Social History Tobacco Use Types [...] Romeo PA - 03/01/2024 8:37 AM EDT [employer] message sent to patient documented in this encounter Plan of Treatment Not on file documented as of this encounter Procedures * Due to [place] [employer] law, this organization might not be sharing negative HIV tests. Procedure Name Priority Date/Time Associated Diagnosis Comments PROGESTERONE, SERUM Routine 03/01/2024 8 :37 AM EDT Infertility, female documented in this encounter Results * Due to [facility] law, this organization might not be sharing negative HIV tests. * PROGESTERONE, SERUM (03/01/2024 8:37 AM EDT) Progesterone 38.8 ng/mL [facility] Comment: ?Reference Ranges ? Female ?Follicular Phase ? < 1.0 ?Luteal Phase ?2.6-21.5 ?Post menopausal ?< 0.5 ?1st Trimester ? 4.1-34.0 ?2nd Trimester ?24.0-76.0 ?3rd Trimester ?? 52.0-302.0 03/01/2024 8:37 AM EDT 03/02/2024 12:55 AM EDT Narrative Resulting Agency Comment [id number] us Loren NOV[facility] LAB SAME DAY RESULT Final Resu lt [facility] [address] [place] [address] documented in this encounter Visit Diagnoses Diagnosis Infertility, female Female infertility of unspecified origin documented in this encounter Care Teams Bilingual Operator Relationship Specialty Start Date End Date Toan Motley NP [address] [address] PCP - General Nurse Practitioner 06/18/23 documented as of this encounter
--- OUTSIDE RECORDS SUMMARY | 2024-06-21 12:55 | XMS_ITS | Encounter Summary ---
Author Organization [facility] Address [address] [place] [address] Care Team Providers Care Inside Sales Advisor Name Role Phone Jacque Resendiz MD Primary Care Provider Unknown Pcp, Non Rmg Primary Care Provider Unava Toan Adames CAMERA ASSEMBLER Primary Care Provider Encounter Details Date Type Department Care Team (Late st Contact Info) Description 10/15/2007 Orders Only [facility] [address] [place] [phone] Jacque Resendiz MD [address] [place] [address] Social History Tobacco Use Types Packs/Day Years [...] specified documented in this encounter Care Teams Inside Sales Advisor Relationship Specialty Start Date End Date Jacque Resendiz MD [address] [place] [address] PCP - General 07/26/05 01/01/15 Unknown Pcp, Non Rmg PCP - General 01/02/15 06/17/23 Toan Motley NP [address] [place] [address] PCP - General Nurse Practitioner 06/18/23 documented as of this encounter
--- OUTSIDE RECORDS SUMMARY | 2024-06-21 12:56 | XMS_ITS | Clinical Summary ---
Author Organization [facility] Address [address] [place] [address] Care Team Providers Care Special Agent In Charge Name Role Phone Toan Motley Primary Care Provider [phone] Allergies Active Allergy Reactions Criticality Noted Date Comments Ciprofloxacin Hives 06/15/2017 Clindamycin Unknown 06/15/2017 Codeine Nausea 06/25/2017 Hydrocodone-Acetaminophen Nausea 06/25/2017 Naproxen Nausea 06/15/2017 Sulfa (Sulfonamide Antibiotics) Hives 06/04 Medications inhalational spacing device Use as directed 1 each 8 Active inhaler,assist device,lg mask (AEROCHAMBER PLUS FLOW-VU,L [facility]) 8 Active fluticasone (FLOVENT HFA) 110 mcg [...] Department Care Team Description 04/19/[address] 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, Endocrinology [address] [place] [address] Tomasz Maldonado MD [address] [place] [phone] Health Maintenance Due Date Last Done Comments [...] 03/29/1997, 10/19/1996, 11/25/1995 Procedures * Due to [place] state law, this organization might not be sharing negative HIV tests. Procedure Name Priority Date/Time Associated Diagnosis Comments PAP Routine 08/11/2017 9:50 AM EDT Encounter for well woman exam with routine gynecological exam from Last 3 Months or Most Recently Relevant to Health Maintenance Insurance [employer] OUT OF STATE PPO Care Teams Special Agent In Charge Relationship Specialty Start Date End Date Toan Motley [address] [place] [address] PCP - General 08/05/23
--- OUTSIDE RECORDS SUMMARY | 2024-06-21 12:56 | XMS_ITS | Referral Summary ---
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 myChart Message [facility] [address] [place] [phone] Instructor Weaving: Tomasz Stock MD Levothyroxine from Last 3 Months Allergies Active Allergy Reactions Criticality Noted Date Comments Ciprofloxacin Hives 06/15/2017 Clindamycin Unknown 06/15/2017 Codeine Nausea 06/25/2017 Hydrocodone-Acetaminophen Nausea 06/25/2017 Naproxen Nausea 06/15/2017 Sulfa (Sulfonamide Antibiotics) Hives 06/04 Medications inhalational spacing device Use as directed 1 each 8 Active inhaler,assist device,lg mask (AEROCHAMBER PLUS FLOW-VU,L [facility]) 8 Active fluticasone [...] Info) Description 12/02/2024 10:20 AM EDT Follow-Up [facility], Endocrinology [address] [place] [address] Tomasz Maldonado MD [address] [place] [phone] Procedures * Due to [place] state law, this organization might not be sharing negative HIV tests. Procedure Name Priority Date/Time Associated Diagnosis Comments PAP Routine 08/11/2017 9:50 AM EDT Encounter for well woman exam with routine gynecological exam from Last 3 Months or Most Recently Relevant to Health Maintenance Insurance [facility] OUT OF STATE PPO Care Teams Simonizer Relationship Specialty Start Date End Date Toan Motley [address] [place] [address] PCP - General 08/05/23
[2024-06-21 13:02] LABS: MANUAL DIFF FLAG NO
[2024-06-21 13:09] LABS: Appearance Urine Turbid; Color Urine Yellow; Glucose Urine UA Negative (Negative); Leukocyte Esterase Urine Negative (Negative); Nitrite Urine Negative (Negative); PH 5.5 (5.0-9.0); Specific Gravity - Urine 1.025 (1.005-1.025); Urine Blood Negative (Negative); Urine Ketones Negative (Negative); Urine Protein Negative (Neg-Trace)
[2024-06-21 13:12] LABS: Basophils Absolute Auto 0.1 X10*3/uL (0.0-0.2); Basophils Percent Auto 0.6 % (0-2); Eosinophils Absolute Auto 0.2 X10*3/uL (0.0-0.4); Eosinophils Percent Auto 2.7 % (0-4); Hematocrit 40.3 % (37.0-47.0); Hemoglobin 13.7 g/dl (12.0-16.0); Imm Gran Abs Auto 0.02 X10*3/uL (0.00-0.03); Imm Gran Pct Auto 0.2 % (0.0-0.4); Lymphocytes Absolute Auto 2.4 X10*3/uL (1.2-4.9); Lymphocytes Percent Auto 29.3 % (20-40); Mean Corpuscular Hemoglobin 29.8 pg (27.0-33.0); Mean Corpuscular Volume 87.6 fL (80.0-98.0); Mean Platelet Volume 11.1 fL (9.4-12.3); Monocytes Absolute Auto 0.5 X10*3/uL (0.1-1.2); Monocytes Percent Auto 6.2 % (2-11); Neutrophils Absolute Auto 4.9 x10*3/uL (2.0-8.3); Platelet Count 248 X10*3/uL (160-400); Red Cell Distribution Width 13.2 % (11.0-16.0)
[2024-06-21 13:37] LABS: Alanine Aminotransferase 18 U/L (0-31); Albumin Level 4.2 g/dL (3.5-5.0); Alkaline Phosphatase 71 U/L (39-117); Anion Gap 11 (12-20); Aspartate Amino Transferase 24 U/L (5-31); Bilirubin Total 0.8 mg/dL (0.0-1.0); Blood Urea Nitrogen 13 mg/dL (9-16); Calcium 8.8 mg/dL (8.4-10.2); Carbon Dioxide 26 mmol/L (22-29); Chloride 107 mmol/L (96-108); Cholesterol 162 mg/dL (<200); Estimated Glomerular Filt Rate > 60; Glucose Fasting 87 mg/dL (60-99); HDL Cholesterol 47 mg/dL (>40); LDL Cholesterol Calculated 103 mg/dL (<100); Magnesium 2.1 mg/dL (1.6-2.6); Potassium 3.9 mmol/L (3.3-5.1); Sodium 140 mmol/L (135-145); Total Protein 7.8 g/dL (6.5-8.0); Triglycerides 63 mg/dL (<150)
[2024-06-21 13:43] LABS: TSH reflex Free T4 1.89 uIU/mL (0.32-4.0); Vitamin D 25-OH Total 25.7 ng/mL (>30)
[2024-06-22 07:04] LABS: Prolactin 6.7 ng/mL
[2024-06-23 21:33] LABS: Zinc 70 mcg/dL (60-130)
== END 2024-06-21 10:59 | disposition home or self-care (01) ==
LOC: HO.HMGCLDS 10:58
PROVIDERS: PCP Nurse Practitioner Family; Visit Provider Nurse Practitioner Family
DX: Z00.00 Encounter for general adult medical examination without abnormal findings (principal); E55.9 Vitamin D deficiency, unspecified; E03.9 Hypothyroidism, unspecified
CPT/HCPCS: 36415; 80053; 80061; 81003; 82306; 83735; 84146; 84443; 84630; 85025; 96127

== ENCOUNTER 2024-06-21 10:58 | Outpatient (AMB) | payer BC, SELFPAY ==
[2024-06-21 11:00] VITALS: BP 110/70; PULSE 68; O2SAT 98; BMI 42.7
--- NOTE | 2024-06-21 11:00 | A.OFFPC_ITS ---
Vital Signs 06/21/24 11:00 Height 5 ft 1 in Weight 226 lb BMI 42.7 BP 110/70 Blood Pressure Location Rt brachial Position Sitting Pulse 68 Pulse Source Pulse Oximeter Pulse Oximetry (%) 98 Intake Visit Reasons: Annual PE Intake Note: pt is here for annual exam Exterior Designer Required: No Accompanied by: Self / Same As Patient Allergies ciprofloxacin [From CIPRO] Allergy (Mild, Verified 06/21/24 11:35) HIVES/VOMITING clindamycin [CLINDAMYCIN] Allergy (Mild, Verified 06/21/24 11:35) HIVES/VOMITING hydrocodone [From VICODIN] Allergy (Mild, Verified 06/21/24 11:35) VOMITING naproxen [NAPROXEN] Allergy (Mild, Verified 06/21/24 11:35) VOMITING, hives, hives Sulfa (Sulfonamide Antibiotics) [SULFA (SULFONAMIDE ANTIBIOTICS)] Allergy (Mild, Verified 06/21/24 11:35) HIVES acetaminophen [Vicodin] Adverse Reaction (Unknown, Verified 06/21/24 11:35) stomach Clindamycin HCl Allergy (Unknown, Uncoded 06/21/24 11:35) hives Eggs Adverse Reaction (Unknown, Uncoded 06/21/24 11:35) GI upset Medication List - Last Reconciled 06/21/24 by ALFONZO Collier- albuterol sulfate 90 mcg/actuation 1 inh inhalation QID 30 days albuterol sulfate 2.5 mg (3 mL) inhalation QID PRN 30 days azelastine 0.05% 1 drp ophthalmic (eye) BID 30 days levothyroxine 100 mcg PO Tobacco use date assessed: 06/21/24 Dental Screening Dental Screen Date: 06/21/24 Did you have a dental visit in the last 12 months?: Yes Did you have a dental problem in the last 6 months where you did not have access to dental care?: No Was dental information given to patient?: Patient has dentist HPI Annual PE HPI Details History of Present Illness The patient is a 38-year-old female presenting for a comprehensive physical e xamination. She is currently under the care of a rn production and an belt sewer. The patient's relevant active medical history includes obesity and constipation. She is undergoing treatments for infertility through In Vitro Fertilization (IVF). She denies experiencing chest pain, shortness of breath, anxiety, depression, suicidal or homicidal ideation. Health Maintenance Social History Review of Systems - Cardiovascular: Denies chest pain. - Respiratory: Denies shortness of breat h. - Psychological: Denies anxiety, depress ion, suicidal ideation, homicidal ideation. - Gastrointestinal: Reports constipation ; denies diarrhea. Physical Exam General: Cooperative, healthy appearing, comfortable, no acute distress and well developed, obese Orientation: Patient oriented x3 Limitations: No limitations Head: Normal to inspection Ears: Hearing grossly normal bilaterally Nose: Normal external nose present Face and sinus: Normal facial exam Eyes: Appearance normal, both eyes and all related structures Neck: Normal visual inspection and Yes full ROM Respiratory: Normal respiratory effort and able to speak in complete sentences. Clear to auscultation bilaterally Cardiovascular: Regular rate and rhythm. Normal S1 and S2 GI: Normal to inspection. Soft to palpation and nontender Skin: No rashes or lesions noted Neuro: Patient oriented x3 Extremities: Normal to inspection Results Plan Discussion Notes During the visit, I confirmed that the patient is currently undergoing treatments related to infertility with IVF. We reviewed her cardiovascular and respiratory status, noting no immediate acute concerns in those systems. The patient and I discussed her coordination of care with her rn production and belt sewer, ensuring all specialists are aligned on her management plan. I emphasized the importance of maintaining follow-up appointments with her other care providers to manage her conditions effectively. Patient Instructions - Continue coordinating care with your g ynecologist and belt sewer. - Monitor for any new symptoms or change s. - Follow the advice and treatment recomm endations provided by your specialists for ongoing IVF treatments. - Manage constipation based on previous guidance from your healthcare team. [facility] Medical History Morbid obesity with BMI of 45.0-49.9, adult Hypovitaminosis D Postoperative hypothyroidism Surgical History History of kidney surgery History of thyroidectomy Family History Mother Mental health disorder Substance use disorder Diabetes mellitus Essential hypertension Pure hypercholesterolemia Father Mental health disorder Substance use disorder Diabetes mellitus Essential hypertension Pure hypercholesterolemia Social History Housing: House Alcohol intake: current Alcohol intake frequency: holidays/special occasions only Alcohol type: hard liquor Patient Tobacco Use Status: Never used Tobacco Tobacco use type: Cigarette e-Cigarette/Vaping Use: Never Used Second Hand Smoke Exposure: No service: No Current occupational status: unemployed Cognitive needs: No Hearing needs: No Vision needs: No Questionnaire PHQ-9 Over the last 2 weeks, how often have you been bothered by any of the following problems? 1. Little interest or pleasure in doing things: not at all 2. Feeling down, depressed, or hopeless: not at all 3. Trouble falling or staying asleep, or sleeping too much: not at all 4. Feeling tired or having little energy: not at all 5. Poor appetite or overeating: not at all 6. Feeling bad about yourself - or that you are a failure or have let yourself or your family down: not at all 7. Trouble concentrating on things, such as reading the newspaper or watching television: not at all 8. Moving or speaking so slowly that other people could have noticed. Or the opposite - being so fidgety or restless that you have been moving around a lot more than usual: not at all 9. Thoughts that you would be better off or of hurting yourself in some way: not at all Total score: 0 Depression Screening Interpretation: Negative Depression Screening Done: Yes 61766 - PHQ-9 Billing: Yes Source: Developed by Drs. Carlos Garber, Darby Fernandez, Bruce Catalan and colleagues, with an educational keegan from [employer]. Thrive Questionnaire Date Thrive assessed: 06/21/24 I am a: Patient What is your living situation today?: I have a steady place to live Within the past 12 months, did the food you bought not last and you didn't have the money to get more?: Never true Within the past 12 months, did you worry whether your food would run out before you got money to buy more?: Never true Do you have trouble paying for medicines?: No Do you have trouble getting transportation to medical appointments?: No Do you have trouble paying your heating and electricity bill?: No Do you have trouble taking care of your child, family member or friend?: No Do you have trouble with day-to-day activities such as bathing, preparing meals, shopping, managing finances, etc.?: No Are you currently unemployed and looking for a job?: No Are you interested in more education?: No Please select the resources that you would like help with: None Currently or been in a relationship where the following occur: No concerns reported THRIVE Score: 0 AUDIT C Alcohol Use Questionnaire (AUDIT-C) 1. How often do you have a drink containing alcohol?: Monthly or less 2. How many drinks containing alcohol do you have on a typical day when you are drinking?: 1 or 2 3. How often do you have six or more drinks on one occasion?: Never Total Score: 1 Score Reviewed/Action Taken: Yes USHA-7 AMB Questionnaire USHA-7 Date USHA - 7 assessed: 06/21/24 Feeling nervous, anxious, or on edge: 1 = Several days Not being able to stop or control worryin = Several days Worrying too much about different things: 1 = Several days Trouble relaxin = Several days Being so restless that it is hard to sit still: 0 = Not at all Becoming easily annoyed or irritable: 1 = Several days Feeling afraid as if something awful might happen: 0 = Not at all Total USHA-7 score (0-4 normal; 5-9 mild; 10-14 moderate; 15-21 severe): 5 Source: Developed by Drs. Carlos Garber, Darby Fernandez, Bruce Catalan and colleagues, with an educational keegan from [employer]. USHA-7 Assessment Billing USHA-7 Assessment Tool: USHA-7 Assessment 84057 Physical exam (Primary Care) Vital Signs: Last Vital Signs Pulse 68 06/21/24 11:00 BP 110/70 06/21/24 11:00 Pulse Ox 98 06/21/24 11:00 BMI result Body Mass Index 42.7 Tobacco/Smoking Status: Tobacco use Status Tobacco use date assessed 06/21/24 06/21/24 11:02 Patient Tobacco Use Status Never used Tobacco 06/21/24 11:02 Tobacco use type Cigarette 06/21/24 11:02 e-Cigarette/Vaping Use Never Used 06/21/24 11:02 PHQ-9: PHQ-9 Score PHQ-9: Total score 0 06/21/24 11:02 Depression Screening Interpretation: Negative Thrive Assessment: Date of Thrive Assessment Date Thrive assessed 06/21/24 06/21/24 11:02 Currently or been in a relationship where the following occur: No concerns reported Coding Level of Care Code Est Pt Prev Care 18-39y(50482) Diagnoses Physical exam Z00. Hypovitaminosis D E55.9 Vitamin D deficiency E55.9 Additional Codes USHA-7 Assessment Billing - USHA-7 Assessment Tool: USHA-7 Assessment 63979 ([id number]) PHQ-9 - 63233 - PHQ-9 Billing: Yes ([id number]) Assessment & Plan Assessment & Plan (1) Physical exam: Code(s): Z00.00 - Encounter for general adult medical examination without abnormal findings Category: Medical (2) Hypovitaminosis D: Code(s): E55.9 - Vitamin D deficiency, unspecified Category: Medical (3) Vitamin D deficiency: Code(s): E55.9 - Vitamin D deficiency, unspecified Category: Medical Plan . Orders: Orders UA CC w/rflx Micro + Cult Today Z00.00 - Encounter for general adult medical examination without abnormal findings MM screening mammo BI Today Z12.31 - Encounter for screening mammogram for malignant neoplasm of breast Prolactin Today E55.9 - Vitamin D deficiency, unspecified, Z00.00 - Encounter for general adult medical examination without abnormal findings Zinc Today E55.9 - Vitamin D deficiency, unspecified, Z00.00 - Encounter for general adult medical examination without abnormal findings Vitamin D 25-OH Total Today E55.9 - Vitamin D deficiency, unspecified Complete Blood Count Auto Diff Today Z00.00 - Encounter for general adult medical examination without abnormal findings Comprehensive [place]. Panel Fast Today Z00.00 - Encounter for general adult medical examination without abnormal findings TSH reflex Free T4 Today Z00.00 - Encounter for general adult medical examinat ion without abnormal findings Lipid Panel Today Z00.00 - Encounter for general adult medical examination without abnormal findings Magnesium Today E55.9 - Vitamin D deficiency, unspecified, Z00.00 - Encounter for general adult medical examination without abnormal findings
--- OUTSIDE RECORDS SUMMARY | 2024-06-21 12:08 | XMS_ITS | Encounter Summary ---
Author Organization [facility] Address [address] [place] [address] Care Team Providers Care Collar Tacker Name Role Phone Toan Motley NP Primary Care Provider Encounter Details Date Type Department Care Team ([facility] st Contact Info) Description 02/04/2024 Orders Only [place] Advanced Manager [address] [place] [id number] Loren Romeo, BRIGHT [address] 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 Procedure Name Priority Date/Time Associated Diagnosis Comments ANTI-MULLERIAN HORMONE (AMH), FEMALE Routine 02/04/2024 9:32 AM EDT Infertility, female documented in this encounter Results * Due to [place] P[employer] law, this organization might not be sharing negative HIV tests. * ANTI-MULLERIAN HORMONE (AMH), [id number] (02/04/2024 9:32 AM EDT) Mullerian inhibiting substance 0.63 0.18 - 5.68 ng/mL [facility] 02/04/2024 9:32 AM EDT 02/05/2024 12:05 AM EDT Narrative Resulting Agency Comment [id number] us Loren [facility] Final Result Performing Organization Address City/State/[facility] Co de Phone Number [facility] [address] [place] [address] documented in this encounter Visit Diagnoses Diagnosis Infertility, female Female infertility of unspecified origin documented in this encounter Care Teams Collar Tacker Relationship Specialty Start Date End Date Toan Motley NP [address] [address] PCP - General Nurse Practitioner 06/18/23 documented as of this encounter
--- OUTSIDE RECORDS SUMMARY | 2024-06-21 12:08 | XMS_ITS | Encounter Summary ---
Author Organization [facility] Address [address] [place] [address] Care Team Providers Care Internal Controls Consultant Name Role Phone Toan Motley NP Primary Care Provider [phone] Encounter Details Date Type Department Care Team ([facility] st Contact Info) Description 01/29/2024 Orders Only [facility] SUPERVISOR TE[employer] [address] [facility] [address] [place] [address] Enriqueta Berry CNM [address] [place] [address] Social History Tobacco Use Types Packs/Day Years [...] Miscellaneous Notes * Result Encounter Note - Karine Calix RN - 01/29/2024 7:33 AM EDT Lab work completed for infertility-to provider fore review * Result Encounter Note - Zoya Hunt MD - 01/29/2024 7:33 AM EDT Progesterone levels consistent with luteal phase. * Result Encounter Note - Ruby Barrera RN - 01/29/2024 7:33 AM EDT Routed to provider for plan * Result Encounter Note - Enriqueta Berry CNM - 01/29/2024 7:33 AM EDT . documented in this encounter Plan of Treatment Not on file documented as of this encounter Procedures * Due to [place] Loc[employer] law, this organization might not be sharing negative HIV tests. Procedure Name Priority Date/Time Associated Diagnosis Comments PROGESTERONE, SERUM Routine 01/29/2024 7 :33 AM EDT History of infertility, female INSULIN, SERUM Routine 01/29/2024 7:33 AM EDT Anovulation GLUCOSE (BLOOD) Routine 01/29/2024 7:33 AM EDT Anovulation documented in this encounter Results * Due to [place] Locally law, this organization might not be sharing negative HIV tests. * PROGESTERONE, SERUM (01/29/2024 7:33 AM EDT) Progesterone 24.7 ng/mL [facility] Comment: ?Reference Ranges ? Female ?Follicular Phase ? < 1.0 ?Luteal Phase ?2.6-21.5 ?Post menopausal ?< 0.5 ?1st Trimester ? 4.1-34.0 ?2nd Trimester ?24.0-76.0 ?3rd Trimester ?? 52.0-302.0 01/29/2024 7:33 AM EDT 01/29/2024 9:59 PM EDT Narrative Resulting Agency Comment [id number] us Zoya Hunt MD LAB SAME DAY RESULT Final Result Performing Organization Address [facility] Co de Phone Number [facility] [address] [place] [address] * GLUCOSE (BLOOD) (01/29/2024 7:33 AM EDT) Glucose 90 65 - 99 mg/dL [facility] Comment:Fasting reference in terval 01/29/2024 7:33 AM EDT 01/29/2024 9:59 PM EDT Narrative Resulting Agency Comment [id number] us Enriqueta Berry CNM LAB SAME DAY RESULT Final Result Performing Organization Address [facility] de Phone Number [facility] [address] [place] [address] * INSULIN, SERUM (01/29/2024 7:33 AM EDT) Insulin 11.7 uIU/mL [facility] Comment: ?Reference Range ??< or = 18.4 ?Risk: ?Optimal ?< or = 18.4 ?Moderate ? NA ?High ? >18.4 ?Adult cardiovascular event risk category ?cut points (optimal, moderate, high) ?are based on Insulin Reference Interval ?studies performed at [facility] ?in 2021. 01/29/2024 7:33 AM EDT 01/29/2024 9:59 PM EDT Narrative Resulting Agency Comment [id number] us Enriquetaelvin Berry CNM LABORATORY Final Resu lt Performing Organization Address City/State/[facility] Co de Phone Number [facility] [address] [place] [address] documented in this encounter Visit Diagnoses Diagnosis Anovulation Female infertility associated with anovulation History of infertility, female Personal history of other genital system and obstetric disorders documented in this encounter Care Teams Internal Controls Consultant Relationship Specialty Start Date End Date Toan Motley NP [address] [address] PCP - General Nurse Practitioner 06/18/23 documented as of this encounter
--- OUTSIDE RECORDS SUMMARY | 2024-06-21 12:08 | XMS_ITS | Encounter Summary ---
Author Organization [facility] Address [address] [place] [address] Care Team Providers Care Jumbo Operator Name Role Phone Toan Motley NP Primary Care Provider Encounter Details Date Type Department Care Team ([facility] st Contact Info) Description 03/01/2024 Orders Only [place] [employer] Wireless Manager [address] [place] [address] Loren Romeo PA [address] [facility] [address] [place] [address] Social History Tobacco Use Types [...] Miscellaneous Notes * Result Encounter Note - Loren Romeo PA - 03/01/2024 8:37 AM EDT [employer] message sent to patient documented in this encounter Plan of Treatment Not on file documented as of this encounter Procedures * Due to [place] [employer] law, this organization might not be sharing negative HIV tests. Procedure Name Priority Date/Time Associated Diagnosis Comments PROGESTERONE, SERUM Routine 03/01/2024 8 :37 AM EDT Infertility, female documented in this encounter Results * Due to [facility] law, this organization might not be sharing negative HIV tests. * PROGESTERONE, SERUM (03/01/2024 8:37 AM EDT) Progesterone 38.8 ng/mL [facility] Comment: ?Reference Ranges ? Female ?Follicular Phase ? < 1.0 ?Luteal Phase ?2.6-21.5 ?Post menopausal ?< 0.5 ?1st Trimester ? 4.1-34.0 ?2nd Trimester ?24.0-76.0 ?3rd Trimester ?? 52.0-302.0 03/01/2024 8:37 AM EDT 03/02/2024 12:55 AM EDT Narrative Resulting Agency Comment [id number] us Loren [facility] SAME DAY RESULT Final Resu lt [facility] [address] [place] [address] documented in this encounter Visit Diagnoses Diagnosis Infertility, female Female infertility of unspecified origin documented in this encounter Care Teams Jumbo Operator Relationship Specialty Start Date End Date Toan Motley NP [address] [address] PCP - General Nurse Practitioner 06/18/23 documented as of this encounter
--- OUTSIDE RECORDS SUMMARY | 2024-06-21 12:08 | XMS_ITS | Encounter Summary ---
Author Organization [facility] Address [address] [place] [address] Care Team Providers Care Manager Wealth Management Name Role Phone Jacque Resendiz MD Primary Care Provider Unknown Pcp, Non Rmg Primary Care Provider Fernandava Toan Adames NP Primary Care Provider Encounter Details Date Type Department Care Team (Late st Contact Info) Description 10/08/2007 Orders Only [facility] [address] [place] [phone] Jacque Resendiz MD [address] [place] [phone] Social History Tobacco Use Types Packs/Day Years Used Date Smoking Tobacco: Never Alcohol Use Standard Drinks/Week Comments Not Asked 0 (1 standard drink = 0.6 oz pur e alcohol) Comments No Sex and Gender Information Value Date Recorded Sex Assigned at Female 06/21/2023 1:58 PM EST Legal Sex Female 9:26 PM EDT Gender Identity Female 06/21/2023 1:58 PM EST Sexual Orientation Not on file documented as of this encounter Plan of Treatment Not on file documented as of this encounter Procedures * Due to [place] state law, this organization might not be sharing negative HIV tests. Procedure Name Priority Date/Time Associated Diagnosis Comments URINALYSIS,MICROSCO PIC ONLY Routine 10/08/2007 UTI (URINARY TRACT INFECTION) URINALYSIS, DIP ONLY ( SITE STAT ONLY) Same Day Results 10/08/2007 UTI (URINARY TRACT INFECTION) documented in this encounter Results * Due to [place] state law, this organization might not be sharing negative HIV tests. * (ABNORMAL) URINALYSIS,MICROSCOPIC ONLY (10/08/2007) WBC (URINE) 0-4 0-4/HPF [facility] (CLIA# [id number]) RBC (Urine Sed) 0 0-3/HPF [facility] (CLIA# [id number]) EPITHELIAL CELLS.SQUAMOUS (URINE SED) 0-5 0-5/HPF [facility] (CLIA# [id number]) EPITHELIAL CELLS.TRANSITIO NAL (URINE SED) 0 0-5/HPF [facility] (CLIA# [id number]) EPITHELIAL CELLS.RENAL (URINE SED) 0 0-3/HPF [facility] (CLIA# [id number]) BACTERIA (URINE) FEW(A) NONE SEEN [facility] (CLIA# [id number]) 10/08/2007 10/08/2007 7:2 8 PM EDT us Jacque Resendiz MD LAB SAME DAY RESULT Final Re sult [facility] (CLIA# [id number]) [address] [place] [address] * URINALYSIS, DIP ONLY ( SITE STAT ONLY) (10/08/2007) COLOR (URINE) YELLOW YELLOW [facility] (CLIA# [id number]) APPEARANCE (URINE) CLOUDY CLEAR [facility] (CLIA# [id number]) SPECIFIC GRAVITY 1.020 1.001 - 1.035 [facility] (CLIA# [id number]) PH (URINE) 6.0 5.0 - 8.0 [facility] (CLIA# [id number]) PROTEIN (URINE) TRACE NEG [facility] (CLIA# [id number]) GLUCOSE (URINE) NEG NEG [facility] (CLIA# [id number]) Ketones (Urine) NEG NEG [facility] (CLIA# [id number]) BILIRUBIN (URINE) NEG NEG [facility] (CLIA# [id number]) BLOOD (URINE) NEG NEG [facility] (CLIA# [id number]) WBC (URINE) TRACE NEG [facility] (CLIA# [id number]) NITRITE (URINE) NEG NEG [facility] (CLIA# [id number]) 10/08/2007 10/08/2007 7:2 8 PM EDT us Jacque Resendiz MD LAB SAME DAY RESULT Final Re sult [facility] (CLIA# [id number]) [address] [place] [address] documented in this encounter Visit Diagnoses Diagnosis UTI (URINARY TRACT INFECTION)- Primary Urinary tract infection, site not specified documented in this encounter Care Teams Manager Wealth Management Relationship Specialty Start Date End Date Jacque Resendiz MD [address] [place] [id number] PCP - General 07/26/05 01/01/15 Unknown Pcp, Non Rmg PCP - General 01/02/15 06/17/23 Toan Motley NP [address] [address] PCP - General Nurse Practitioner 06/18/23 documented as of this encounter
--- OUTSIDE RECORDS SUMMARY | 2024-06-21 12:08 | XMS_ITS | Encounter Summary ---
Author Organization [facility] Address [address] [place] [address] Care Team Providers Care Title Investigator Name Role Phone Jacque Resendiz MD Primary Care Provider Unknown Pcp, Non g Primary Care Provider Toan Cassidy NP Primary Care Provider [phone] Encounter Details Date Type Department Care Team (Late st Contact Info) Description 10/08/2007 Orders Only [facility] [address] [place] [address] Anabella Azul NP [facility] Primary Care [address] [place] [address] Social History Tobacco Use Types Packs/Day Years [...] of this encounter Procedures * Due to [place] state law, this organization might not be sharing negative HIV tests. Procedure Name Priority Date/Time Associated Diagnosis Comments BASIC METABOLIC PANEL Routine 10/08/2007 VIRAL SYNDROME CULTURE, THROAT Routine 10/08/2007 MOUTH SORES CBC 5 PART DIFF Routine 10/08/2007 VIRAL SYNDROME documented in this encounter Results * Due to [place] state law, this organization might not be sharing negative HIV tests. * (ABNORMAL) CULTURE, THROAT (10/08/2007) Result(s) SEE TEXT(A) [facility] (CLIA# [id number]) Comment: SOURCE: THROAT HEAVY GROWTH OF GROUP A STREPTOCOCCUS PLUS NORMAL OROPHARYNGEAL OCTAVIO 10/08/2007 10/08/2007 9:4 4 PM EDT Narrative [facility] (CLIA# [id number]) - 10/10/2007 12:06 PM EDT Report Comments: GROUP A STREP SCREEN TEST NOT DONE. GROUP A STREP, IF PRESENT, WILL BE RECOVERED IN THROAT CULTURE. Anabella Azul NP LABORATORY Final Result [facility] (CLIA# [id number]) [address] [place] [address] * BASIC METABOLIC PANEL (10/08/2007) CALCIUM 9.4 8.6 - 10.2 MG/DL [facility] (CLIA# [id number]) BUN 10 7 - 25 MG/DL [facility] (CLIA# [id number]) CREATININE 0.72 0.50 - 1.20 MG/DL [facility] (CLIA# [id number]) Glucose 95 65 - 99 MG/DL [facility] (CLIA# [id number]) SODIUM 137 135 - 146 MMOL/L [facility] (CLIA# [id number]) POTASSIUM 4.0 3.5 - 5.3 MMOL/L [facility] (CLIA# [id number]) CHLORIDE 102 98 - 110 MMOL/L [facility] (CLIA# [id number]) CARBON DIOXIDE 25 21 - 33 MMOL/L [facility] (CLIA# [id number]) 10/08/2007 10/08/2007 9:4 4 PM EDT Anabella Azul NP LAB SAME DAY RESULT F inal Result [facility] (CLIA# [id number]) [address] [place] [address] * (ABNORMAL) CBC 5 PART DIFF (10/08/2007) WHITE BLOOD COUNT 20.0(H) 3.8 - 10.8 THOUS/UL [facility] (CLIA# [id number]) RBC 4.42 3.80 - 5.10 MIL/UL [facility] (CLIA# [id number]) Hemoglobin 13.3 11.7 - 15.5 G/DL [facility] (CLIA# [id number]) HCT (HEMATOCRIT) 38.0 35.0 - 45.0 % [facility] (CLIA# [id number]) MCV 85.8 80.0 - 100.0 FL [facility] (CLIA# [id number]) MCH 30.0 27.0 - 33.0 PG [facility] (CLIA# [id number]) MCHC 35.0 32.0 - 36.0 G/DL [facility] (CLIA# [id number]) BAND % 0 0 - 5 % [facility] (CLIA# [id number]) NEUTROPHIL % 89(H) 48 - 75 % [facility] (CLIA# [id number]) LYMPHOCYTE % 6(L) 17 - 40 % [facility] (CLIA# [id number]) MONOCYTE % 5 0 - 14 % [facility] (CLIA# [id number]) EOSINOPHIL % 0 0 - 5 % [facility] (CLIA# [id number]) BASOPHIL % 0 0 - 3 % [facility] (CLIA# [id number]) ATYPICAL LYMPHOCYTE % 0 0 - 5 % [facility] (CLIA# [id number]) PLATELETS 263 140 - 400 THOUS/UL [facility] (CLIA# [id number]) BANDS # 0 0 - 750 CELLS/MCL [facility] (CLIA# [id number]) NEUTROPHILS # 60360(H) 1500 - 7800 CELLS/MCL [facility] (CLIA# [id number]) LYMPHOCYTES # 1200 850 - 3900 CELLS/MCL [facility] (CLIA# [id number]) MONOCYTES # 1000(H) 200 - 950 CELLS/MCL [facility] (CLIA# [id number]) EOSINOPHILS # 0(L) 15 - 550 CELLS/MCL [facility] (CLIA# [id number]) BASOPHILS # 0 0 - 200 CELLS/MCL [facility] (CLIA# [id number]) ATYPICAL LYMPHOCYTES # 0 0 - 200 CELLS/MCL [facility] (CLIA# [id number]) RDW 13.4 11.0 - 15.0 % [facility] (CLIA# [id number]) MPV 9.7 7.5 - 11.5 FL [facility] (CLIA# [id number]) 10/08/2007 10/08/2007 9:4 4 PM EDT Anabella Azul BEAD MACHINE OPERATOR LAB SAME DAY RESULT F inal Result [facility] (CLIA# [id number]) [address] [place] [address] documented in this encounter Visit Diagnoses Diagnosis VIRAL SYNDROME Unspecified viral infection, in conditions classified elsewhere and of unspecified site MOUTH SORES Other and unspecified diseases of the oral soft tissues documented in this encounter Care Teams Title Investigator Relationship Specialty Start Date End Date Jacque Resendiz MD [address] [place] [address] PCP - General 07/26/05 01/01/15 Unknown Pcp, Non Rmg PCP - General 01/02/15 06/17/23 Toan Motley BEAD MACHINE OPERATOR [address] [place] [address] PCP - General Nurse Practitioner 06/18/23 documented as of this encounter
--- OUTSIDE RECORDS SUMMARY | 2024-06-21 12:09 | XMS_ITS | Encounter Summary ---
Author Organization [facility] Address [address] [place] [address] Care Team Providers Care Meat Service Team Member Name Role Phone Jacque Resendiz MD Primary Care Provider Unknown Pcp, Non [facility] Primary Care Provider Unava Toan Adames STAGE DRIVER Primary Care Provider Encounter Details Date Type Department Care Team (Late st Contact Info) Description 10/26/2007 Orders Only [facility] [address] [place] [phone] [place], [place] [address] [place] [address] Social History Tobacco Use Types Packs/Day Years [...] on file documented as of this encounter Visit 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
--- OUTSIDE RECORDS SUMMARY | 2024-06-21 12:09 | XMS_ITS | Encounter Summary ---
Author Organization [facility] Address [address] [place] [address] Care Team Providers Care Bulk Gas Specialist Name Role Phone Jacque Resendiz MD Primary Care Provider Unknown Pcp, Non [facility]mg Primary Care Provider Unava Toan Adames NP Primary Care Provider [phone] Encounter Details Date Type Department Care Team (Late st Contact Info) Description 02/04/2008 Orders Only [facility] [address] [place] [phone] Jacque Resendiz MD [address] [place] [address] Social History Tobacco Use Types Packs/Day Years [...] as of this encounter Visit Diagnoses Diagnosis Screening for lipoid disorders Screening for diabetes mellitus documented in this encounter Care Teams Bulk Gas Specialist Relationship Specialty Start Date End Date Jacque Resendiz MD [address] [place] [address] PCP - General 07/26/05 01/01/15 Unknown Pcp, Non Rmg PCP - General 01/02/15 06/17/23 Toan Motley NP [address] [address] PCP - General Nurse Practitioner 06/18/23 documented as of this encounter
--- OUTSIDE RECORDS SUMMARY | 2024-06-21 12:09 | XMS_ITS | Encounter Summary ---
Author Organization [facility] Address [address] [place] [address] Care Team Providers Care Horticulture Worker Name Role Phone Jacque Resendiz MD Primary Care Provider Unknown Pcp, Non Rmg Primary Care Provider Toan Cassidy NP Primary Care Provider Encounter Details Date Type Department Care Team (Late st Contact Info) Description 02/10/[address] [facility] Endocrinology [address] [place], [place] [phone] Mony Paz MD [address] [address] Social History Tobacco Use Types Packs/Day Years [...] of this encounter Procedures * Due to [place] state law, this organization might not be sharing negative HIV tests. Procedure Name Priority Date/Time Associated Diagnosis Comments TSH, 3RD GENERATION Routine 02/10/2013 8 :07 AM EDT Subclinical hypothyroidism DEXAMETHASONE SUPPRESSIONTEST (DST), 1 SPECIMEN Routine 02/10/2013 8:07 AM EDT Fatigue documented in this encounter Results * Due to [place] state law, this organization might not be sharing negative HIV tests. * (ABNORMAL) TSH, 3RD GENERATION (07/13/2013 1:51 PM EDT) TSH 4.65(H) mIU/L [facility] Comment: {TSH {[id number]) ?Reference Range ?> or = 20 Years ??0.40-4.50 ? Ranges ?First trimester ?0.26-2.66 ?Second trimester ?? 0.55-2.73 ?Third trimester ?0.43-2.91 07/13/2013 1:51 PM EDT 07/13/2013 9:52 PM EDT Narrative Resulting Agency Comment [id number] Mony Paz MD LABORATORY Final Result Performing Organization Address City/State/[facility] Co de Phone Number [facility] [address] [place] [address] * DEXAMETHASONE SUPPRESSIONTEST (DST), 1 SPECIMEN (02/10/2013 8:07 AM EDT) Cortisol^8H post 1 mg dexamethasone PO overnight 0.9 mcg/dL [facility] Comment: {CORTISOL {[id number]) Dexamethasone Suppression Test For 8 a.m. Specimen: ?? <2.0 - Normal Response ? 2.0-10.0 - Equivocal ? >10.0 - High probability of ? Spivey's Syndrome Further diagnostic tests must be performed to confirm the diagnosis and determine etiology. Values >2.0 mcg/dL can be seen in endogenous depression and pseudo-Spivey's (alcoholism). 02/10/2013 8:07 AM EDT 02/10/2013 1:38 PM EDT Narrative Resulting Agency Comment [id number] Mony Paz MD LABORATORY Final Result Performing Organization Address [facility] Co de Phone Number [facility] [address] [place] [address] * TSH, 3RD GENERATION (02/10/2013 8:07 AM EDT) TSH 2.80 mIU/L [facility] Comment: {TSH {[id number]) ?Reference Range ?> or = 20 Years ??0.40-4.50 ? Ranges ?First trimester ?0.26-2.66 ?Second trimester ?? 0.55-2.73 ?Third trimester ?0.43-2.91 02/10/2013 8:07 AM EDT 02/10/2013 1:38 PM EDT Narrative Resulting Agency Comment [id number] Mony Paz MD LABORATORY Final Result Performing Organization Address [facility] de Phone Number [facility] [address] [place] [address] documented in this encounter Visit Diagnoses Diagnosis Subclinical hypothyroidism- Primary Other specified acquired hypothyroidism Fatigue Other malaise and fatigue documented in this encounter Care Teams Horticulture Worker Relationship Specialty Start Date End Date Jacque Resendiz MD [address] [place] [address] PCP - General 07/26/05 01/01/15 Unknown Pcp, Non Rmg PCP - General 01/02/15 06/17/23 Toan Motley NP [address] [address] PCP - General Nurse Practitioner 06/18/23 documented as of this encounter
--- OUTSIDE RECORDS SUMMARY | 2024-06-21 12:09 | XMS_ITS | Encounter Summary ---
Author Organization [facility] Address [address] [place] [address] Care Team Providers Care Hub Cutter Apprentice Name Role Phone Jacque Resendiz MD Primary Care Provider Unknown Pcp, Non Rmg Primary Care Provider Toan Cassidy NP Primary Care Provider [phone] Encounter Details Date Type Department Care Team (Late st Contact Info) Description 01/21/2013 Orders Only [facility] Endocrinology [address] [place] [address] Mony Paz MD [address] [address] Social History Tobacco Use Types Packs/Day Years [...] of this encounter Procedures * Due to [place] state law, this organization might not be sharing negative HIV tests. Procedure Name Priority Date/Time Associated Diagnosis Comments THYROID PEROXIDASE AND THYROGLOBULIN ANTIBODIES Routine 01/21/2013 8:13 AM EDT Subclinical hypothyroidism TSH, 3RD GENERATION Routine 01/21/2013 8 :13 AM EDT Subclinical hypothyroidism IRON PROFILE (IRON/TIBC), SERUM Routine 01/21/2013 8:13 AM EDT Fatigue HEMOGLOBIN A1C Routine 01/21/2013 8:13 AM EDT Obesity Family history of diabetes mellitus Reactive hypoglycemia FERRITIN Routine 01/21/2013 8:13 AM EDT Fatigue VITAMIN D, 25-HYDROXY, TOTAL, IMMUNOASSAY Routine 01/21/2013 8:13 AM EDT Subclinical hypothyroidism Obesity documented in this encounter Results * Due to [place] state law, this organization might not be sharing negative HIV tests. * (ABNORMAL) VITAMIN D, 25-HYDROXY, LC/MS/MS (01/21/2013 8:13 AM EDT) Vitamin D, 25-OH, Total 28(L) 30 - 100 ng/mL [facility] Comment:{VITAMIN D, 25 OH, T OTAL {[id number]) Vitamin D, D3 (Cholecalciferol ) 28 ng/mL [facility] Comment:{VITAMIN D, 25 OH, D 3 {[id number]) Vitamin D, 25-OH, D2 (Calciferol) <4 ng/mL [facility] Comment: {VITAMIN D, 25 OH, D2 {[id number]) ? 25-OHD3 indicates both endogenous production and ? supplementation. 25-OHD2 is an indicator of exogenous ? sources such as diet or supplementation. Therapy is based on ? measurement of Total 25-OHD, with levels <20 ng/mL indicative ? of Vitamin D deficiency, while levels between 20 ng/mL and ? 30 ng/mL suggest insufficiency. Optimal levels are ? > or = 30 ng/mL. 01/21/2013 8:13 AM EDT 01/21/2013 12:38 PM EDT Narrative Resulting Agency Comment [id number] Mony Paz MD LABORATORY Final Result Performing Organization Address City/[facility] Co de Phone Number [facility] [address] [place] [address] * IRON PROFILE (IRON/TIBC), SERUM (01/21/2013 8:13 AM EDT) Iron 96 40 - 175 mcg/dL [facility] Comment:{IRON, TOTAL {[id number]) Iron binding capacity 331 250 - 450 mcg/dL [facility] Comment:{IRON BINDING CAPACI TY {[id number]) Iron saturation 29 15 - 50 % (calc) [facility] Comment:{% SATURATION {[id number]) 01/21/2013 8:13 AM EDT 01/21/2013 12:38 PM EDT Narrative Resulting Agency Comment [id number] Mony Paz MD LABORATORY Final Result Performing Organization Address [facility] Co de Phone Number [facility] [address] [place] [address] * FERRITIN (01/21/2013 8:13 AM EDT) Ferritin 102 10 - 154 ng/mL [facility] Comment:{FERRITIN {[id number]) 01/21/2013 8:13 AM EDT 01/21/2013 12:38 PM EDT Narrative Resulting Agency Comment [id number] Mony Paz MD LABORATORY Final Result Performing Organization Address [facility] Co de Phone Number [facility] [address] [place] [address] * HEMOGLOBIN A1C (01/21/2013 8:13 AM EDT) Hemoglobin A1C 5.4 <5.7 % of total Hgb [facility] Comment: {HEMOGLOBIN A1c {[id number]) According to ADA guidelines, hemoglobin A1c <7.0% represents optimal control in non- diabetic patients. Different metrics may apply to specific patient populations. Standards of Medical Care in Diabetes-2013. Diabetes Care. 2013;36:s11-s66 For the purpose of screening for the presence of diabetes <5.7% ? Consistent with the absence of diabetes 5.7-6.4% ?Consistent with increased risk for diabetes ?(prediabetes) >or=6.5% ?Consistent with diabetes This assay result is consistent with a decreased risk of diabetes. Currently, no consensus exists for use of hemoglobin A1c for diagnosis of diabetes for children. Estimated Average Glucose 115 mg/dL (calc) [facility] Comment:{MEAN PLASMA GLUCOSE {[id number]) 01/21/2013 8:13 AM EDT 01/21/2013 12:38 PM EDT Narrative Resulting Agency Comment [id number] Mony Paz MD LABORATORY Final Result Performing Organization Address City/[facility] Co de Phone Number [facility] [address] [place] [address] * (ABNORMAL) THYROID PEROXIDASE AND THYROGLOBULIN ANTIBODIES (01/21/2013 8:13 AM EDT) Thyroglobulin Ab <20 <20 IU/mL [facility] Comment:{THYROGLOBULIN ANTIB ODIES {[id number]) Thyroperoxidase Ab 291(H) <35 IU/mL [facility] Comment:{THYROID PEROXIDASE ANTIBODIES {[id number]) 01/21/2013 8:13 AM EDT 01/21/2013 12:38 PM EDT Narrative Resulting Agency Comment [id number] Mony Paz MD LABORATORY Final Result Performing Organization Address City/[facility] Co de Phone Number [facility] [address] [place] [id number] * (ABNORMAL) TSH, 3RD GENERATION (01/21/2013 8:13 AM EDT) TSH 5.30(H) mIU/L [facility] Comment: {TSH {[id number]) ?Reference Range ?> or = 20 Years ??0.40-4.50 ? Ranges ?First trimester ?0.26-2.66 ?Second trimester ?? 0.55-2.73 ?Third trimester ?0.43-2.91 01/21/2013 8:13 AM EDT 01/21/2013 12:38 PM EDT Narrative Resulting Agency Comment [id number] Mony Paz MD LABORATORY Final Result Performing Organization Address City/State/[facility] Co de Phone Number [facility] [address] [place] [address] documented in this encounter Visit Diagnoses Diagnosis Subclinical hypothyroidism Other specified acquired hypothyroidism Obesity Obesity, unspecified Family history of diabetes mellitus Reactive hypoglycemia Hypoglycemia, unspecified Fatigue Other malaise and fatigue documented in this encounter Care Teams Hub Cutter Apprentice Relationship Specialty Start Date End Date Jacque Resendiz MD [address] [place] [address] PCP - General 07/26/05 01/01/15 Unknown Pcp, Non Rmg PCP - General 01/02/15 06/17/23 Toan Motley NP [address] [address] PCP - General Nurse Practitioner 06/18/23 documented as of this encounter
--- OUTSIDE RECORDS SUMMARY | 2024-06-21 12:09 | XMS_ITS | Encounter Summary ---
Author Organization [facility] Address [address] [place] [address] Care Team Providers Care Pump Erector Name Role Phone Jacque Resendiz MD Primary Care Provider Unknown Pcp, Non Rmg Primary Care Provider Toan Cassidy NP Primary Care Provider [phone] Encounter Details Date Type Department Care Team (Late st Contact Info) Description 09/14/2014 Orders Only [facility] Endocrinology [address] [place], [place] [phone] Mony Paz MD [address] [address] Social History Tobacco Use Types Packs/Day Years [...] of this encounter Procedures * Due to [place] state law, this organization might not be sharing negative HIV tests. Procedure Name Priority Date/Time Associated Diagnosis Comments TSH, 3RD GENERATION Routine 09/14/2014 5 :23 PM EDT Subclinical hypothyroidism documented in this encounter Results * Due to [place] state law, this organization might not be sharing negative HIV tests. * (ABNORMAL) TSH, 3RD GENERATION (09/14/2014 5:23 PM EDT) TSH 15.36(H) mIU/L [facility] Comment: {TSH {[id number]) ?Reference Range ?> or = 20 Years ??0.40-4.50 ? Ranges ?First trimester ?0.26-2.66 ?Second trimester ?? 0.55-2.73 ?Third trimester ?0.43-2.91 09/14/2014 5:23 PM EDT 09/15/2014 12:32 AM EDT Narrative Resulting Agency Comment [id number] Mony Paz MD LABORATORY Final Result Performing Organization Address City/State/[facility] Co de Phone Number [facility] [address] [place] [address] documented in this encounter Visit Diagnoses Diagnosis Subclinical hypothyroidism Other specified acquired hypothyroidism documented in this encounter Care Teams Pump Erector Relationship Specialty Start Date End Date Jacque Resendiz MD [address] [place] [address] PCP - General 07/26/05 01/01/15 Unknown Pcp, Non Rmg PCP - General 01/02/15 06/17/23 Toan Motley NP [address] [address] PCP - General Nurse Practitioner 06/18/23 documented as of this encounter
--- OUTSIDE RECORDS SUMMARY | 2024-06-21 12:09 | XMS_ITS | Clinical Summary ---
Author Organization [facility] Address [address] [place] [address] Care Team Providers Care Milled Rubber Tender Name Role Phone Toan Motley NP Primary Care Provider Allergies Active Allergy Reactions Criticality Noted Date Comments Ciprofloxacin Hydrochloride Diarrhea/GI Upset 0 10/08/2007 Clindamycin 05/04/2005 Naproxen 05/04/2005 Sulfa Antibiotics Maculopapular Rash,Urticarial Rash 07/15/2001 Hydrocodone-Acetaminophen Other 07/11/2009 Medications * This document contains information received from the source organization and may not represent a complete record from that organization. ALBUTEROL SULFATE (PROAIR HFA) 108 (90 BASE) MCG/ACT Aero Soln INHALE 2 PUFFS BY MOUTH TWICE DAILY 1 Inhaler 0 01/24/2015 Active Levothyroxine Sodium (SYNTHROID, LEVOTHROID) 175 MCG tablet Take 112 mcg by mouth 1 (one) time each day. 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 The patient had symptoms of reactive airway disease earlier this year. She gives history of shortness of breath when she steps out in the cold and has used her inhaler periodically. I will schedule a lung function test with methacholine challenge to rule out asthma. , Resolved Problems Problem Noted Date Diagnosed Date Resolved Date Synovitis of left knee 08/04/201102/06 Reactive airway disease 04/17/200601/03 Overview (04/20/2016): Obesity 04/17/2006 02/06/2014 Overview (04/07/2007): Obesity. Her body mass index is 33. control pills are likely making her gain weight. Counseling given regarding diet and exercise. She wants to stay on the pills for now Encounters Date Type Department Care Team Description 04/11/2024 Telephone [facility] DENTAL CHAIR ASSEMBLER [address] [facility] [address] [place] [address] Loren Romeo, BRIGHT Pain from Last 3 Months Immunizations Name Administration Dates Next Due DTP 09/24/1989, 6,1984,10/27/18 85,1984 HIB (PRP-T) 08/17/1986 Hep B (pedi) 03/29/1997,10/19/1996,11/25/1995 Influenza,injectable,quad,Prsrv Fr 04/12/2020, MMR 11/14/2016,11/25/1995,10/11/1985 OPV 09/24/1989, 6,1984,10/27/18 85,1984 PPD/TST (Tuberculin Skin Test) 4,10/19/2013,10/25/2010,11/17/19 07,05/12/2005,09/24/1989 Td (adult), adsorbed 01/22/2000 Tdap 01/16/2014 Family History Medical History Relation Name Comments Hypertension Father Lipid/Cholesterol Abnormality Father Heart Disorder Maternal grandmother CAD Hypertension Maternal grandmother Thyroid Disorder Other 1 UNSPECIFIED AUNT Thyroid Disorder Other 2 UNSPECIFIED AUNT Diabetes Other 3 UNSPECIFIED UNC LE Other Other 4 fobs side many relatives Heart Disorder Paternal grandfather [place] Heart Disorder Paternal grandmother CAD Hypertension Paternal grandmother Relation Name Status Comments Brother Alive Father Maternal grandmother Other 1 Other 2 Other 3 Other 4 Paternal grandfather (Age 60's) [place] Paternal grandmother Social History Tobacco Use Types Packs/Day Years Used Date Smoking Tobacco: Never Smokeless Tobacco: Never Tobacco Cessation:Counseling Given: Not Answered Alcohol Use Standard Drinks/Week Comments Yes 0 [...] Not on file Not on fi le Last Filed Vital Signs Vital Sign Reading Time Taken Comments Blood Pressure 116/70 02/04/2024 9:00 AM EDT Pulse 91 12/01/2014 11:31 AM EDT Temperature 36.7 ??C (98 ??F) 08/02/2014 7:35 PM EDT Respiratory Rate 14 08/02/2014 7:35 PM EDT Oxygen Saturation 100% 08/02/2014 7:35 PM EDT Inhaled Oxygen Concentration - - Weight 103 kg (228 lb) 02/04/2024 9:00 AM EDT Height 154.9 cm (5' 1 ) 02/04/2024 9:00 AM EDT Body Mass Index 43.08 02/04/2024 9:00 AM EDT Plan of Treatment Health Maintenance Due Date Last Done Comments Hepatitis C Screening 1984 Pneumococcal (1 of 2 - PCV) 07/09/2003 COVID-19 Vaccine ( season) 2024 Influenza (#1) 2024 04/12/2020, 02/01/2019 DTaP/Tdap/Td (7 - Td or Tdap) 01/17/2024 01/16/2014, 01/22/2000, 09/24/1989, Additional history exists Pap Smear 06/22/2028 06/22/2023, 06/04, 08/11/2017, Additional history exists Zoster (Shingrix) (1 of 2) 2034 Hib Completed 08/17/1986 Chest Imaging Discontinued 10/21/2011, 07/04, 10/19/1996 LDL Cholesterol Discontinued 01/21/2013, 10/14/2011 PPD Discontinued 01/16/2014, 10/02, 10/25/2010, Additional history exists HPV Testing Discontinued 06/22/2023 HPV Vaccine Aged Out No longer eligi ble based on patient's age to complete this topic Hep A Aged Out No longer eligi ble based on patient's age to complete this topic Meningococcal ACWY Aged Out No longer eligible based on patient's age to complete this topic Procedures * Due to [place] [employer] law, this organization might not be sharing negative HIV tests. Procedure Name Priority Date/Time Associated Diagnosis Comments THINPREP TIS PAP AND HPV RNA, HR E6/E7, TMA Routine 06/22/2023 2:58 PM EST Screening for malignant neoplasm of cervix LIPID PANEL WITH REFLEX TO DIRECT LDL Routine 01/21/2013 8:14 AM EDT Screening for hyperlipidemia XRAY CHEST, 2 VIEWS, PA & LATERAL FC YOLETTE 10/21/2011 4:28 PM EDT Cough SKIN TEST; TUBERCULOSIS, INTRADERMAL 0.1ML 05/12/2005 12:00 AM EST Screening Examination For Pulmonary Tuberculosis from Last 3 Months or Most Recently Relevant to Health Maintenance Results * Due to [place] [employer] law, this organization might not be sharing negative HIV tests. * THINPREP TIS PAP AND HPV RNA, HR E6/E7, TMA (06/22/2023 2:58 PM EST) Clinical information None given [facility] Date last menstrual period 06/20/2023 [facility] Date of previous PAP smear 11/17/2014 [facility] Date of previous biopsy NONE GIVEN [facility] Specimen source (Cvx/Vag) Cervix [facility] Statement of Adequacy (Cvx/Vag) Satisfactory for evaluation. Endocervical/gonzalez sformation zone component present. [facility] Cytology, Pap Smear Cytology Results: Negative for intraepithelial lesion or malignancy. [email or web address] Cytology study comment (Cvx/Vag) This Pap test has been evaluated with computer assisted technology. [facility] Floor Care Specialist (Cvx/Vag) SXA, CT(ASCP) CT screening location: [place] [address] [email or web address] COMMENT SEE NOTE [facility] Comment: EXPLANATORY NOTE: The Pap is a screening test for cervical cancer. It is not a diagnostic test and is subject to false negative and false positive results. It is most reliable when a satisfactory sample, regularly obtained, is submitted with relevant clinical findings and history, and when the Pap result is evaluated along with historic and current clinical information. HPV MRNA E6/E7 Not Detected Not Detected [email or web address] Comment: Methodology: Painter Touch Up-Mediated Amplification This assay detects E6/E7 viral messenger RNA (mRNA) from 14 high-risk HPV types (16,18,31,33,35,39,45,51,52,56,58,59,66,68). Cervical sources are required for HPV testing. If a vaginal source from a patient who has had a total hysterectomy with removal of cervix was submitted, please contact the testing laboratory for alternative testing options. For additional information, please refer to http://education.[employer]/faq/GKH986h2 (This link if provided for information/ educational purposes only.) 06/22/2023 2:58 PM EST 06/23/2023 3:08 AM EST Narrative Resulting Agency Comment [id number] us Kaelyn Mejia NP PATHOLOGY-INTERFACED Final Re sult [email or web address] [address] [place] [address] * LIPID PANEL WITH REFLEX TO DIRECT LDL (01/21/2013 8:14 AM EDT) Cholesterol 171 125 - 200 mg/dL [facility] Comment:{CHOLESTEROL, TOTAL {[id number]) HDL Cholesterol 48 > OR = 46 mg/dL [facility] Comment:{HDL CHOLESTEROL {[id number]) Triglyceride 127 <150 mg/dL [facility] Comment:{TRIGLYCERIDES {[id number]) LDL Cholesterol 98 <130 mg/dL (calc) [facility] Comment: {LDL-CHOLESTEROL {[id number]) Desirable range <100 mg/dL for patients with CHD or diabetes and <70 mg/dL for diabetic patients with known heart disease. CHOL/HDL Ratio 3.6 < OR = 5.0 (calc) [facility] Comment:{CHOL/HDLC RATIO {[id number]) Cholesterol Non-HDL 123 mg/dL (calc) [facility] Comment: {NON HDL CHOLESTEROL {[id number]) Target for non-HDL cholesterol is 30 mg/dL higher than LDL cholesterol target. 01/21/2013 8:14 AM EDT 01/21/2013 12:37 PM EDT Narrative Resulting Agency Comment [id number] us Jacque Resendiz MD LABORATORY Final Result Performing Organization Address City/State/[facility] Co de Phone Number [facility] [address] [place] [id number] * XRAY CHEST, 2 VIEWS, PA & LATERAL FC (10/21/2011 4:28 PM EDT) Anatomical Region Laterality Modality CHEST Radiographic Valerie ging 10/21/2011 4:43 PM EDT Narrative 10/21/2011 4:43 PM EDT Chest: PA and lateral. Comparison 08/01/2005. Normal cardiomediastinal silhouette and hilar contours. Lungs appear clear. Impression: No active disease. Procedure Note Kishore Chavez MD - 10/21/2011 Chest: PA and lateral. Comparison 08/01/2005. Normal cardiomediastinal silhouette and hilar contours. Lungs appear clear. Impression: No active disease. us Rafita Whitney MD IMG XRAY NO CONTRAST ORDERA BLES Final Result from Last 3 Months or Most Recently Relevant to Health Maintenance Insurance [employer] FEE FOR SERVICE PPO LIABILITY OTHER THIRD REPUBLICAN Care Teams Milled Rubber Tender Relationship Specialty Start Date End Date Toan Motley NP [address] [address] PCP - General Nurse Practitioner 06/18/23
--- OUTSIDE RECORDS SUMMARY | 2024-06-21 12:09 | XMS_ITS | Encounter Summary ---
Author Organization [facility] Address [address] [place] [address] Care Team Providers Care Department Store Salesperson Name Role Phone Jacque Resendiz MD Primary Care Provider [phone] Unknown Pcp, Non Rmg Primary Care Provider Fernandava Toan Adames NP Primary Care Provider Encounter Details Date Type Department Care Team (Late st Contact Info) Description 01/04/2009 Orders Only [facility] [address] [place] [address] Yue Tillman, AGUSTINA [address] [place] [address] Social History Tobacco Use Types Packs/Day Years [...] on file documented as of this encounter Results * Due to [place] state law, this organization might not be sharing negative HIV tests. * URINALYSIS, DIP ONLY ( SITE STAT ONLY) (01/04/2009 1:58 PM EDT) COLOR (URINE) yellow [facility] (CLIA# [id number]) APPEARANCE (URINE) cloudy [facility] (CLIA# [id number]) SPECIFIC GRAVITY 1.025 1.001 - 1.035 [facility] (CLIA# [id number]) PH (URINE) 6.5 5.0 - 8.0 [facility] (CLIA# [id number]) PROTEIN (URINE) negative Neg - Neg [facility] (CLIA# [id number]) GLUCOSE (URINE) negative Neg - Neg [facility] (CLIA# [id number]) Ketones (Urine) negative Neg - Neg [facility] (CLIA# [id number]) BILIRUBIN (URINE) negative Neg - Neg [facility] (CLIA# [id number]) BLOOD (URINE) negative Neg - Neg [facility] (CLIA# [id number]) WBC (URINE) negative Neg - Neg [facility] (CLIA# [id number]) NITRITE (URINE) negative Neg - Neg [facility] (CLIA# [id number]) Urine specimen (specimen) 01/04/2009 1:58 PM EDT Narrative [facility] (CLIA# [id number]) - 01/04/2009 1:59 PM EDT Culture already ordered per provider. Jacque Resendiz MD LAB SAME DAY RESULT Final Re sult Performing Organization Address [facility]/ZIP Co de Phone Number [facility] (CLIA# [id number]) [address] [place] [address] * CULTURE, URINE (01/04/2009) URINE CULTURE CLEAN VOID SEE TEXT [facility] Comment: SOURCE: URINE NO GROWTH 01/04/2009 01/04/2009 10: 35 PM EDT Jacque Resendiz MD LABORATORY Final Result Performing Organization Address City/[facility]/ZIP Co de Phone Number [facility] [address] [place] [address] documented in this encounter Visit Diagnoses Diagnosis Frequent urination- Primary Urinary frequency Frequent urination Urinary frequency documented in this encounter Care Teams Department Store Salesperson Relationship Specialty Start Date End Date Jacque Resendiz MD [address] [place] [address] PCP - General 07/26/05 01/01/15 Unknown Pcp, Non Rmg PCP - General 01/02/15 06/17/23 Toan Motley NP [address] [address] PCP - General Nurse Practitioner 06/18/23 documented as of this encounter
--- OUTSIDE RECORDS SUMMARY | 2024-06-21 12:09 | XMS_ITS | Encounter Summary ---
Author Organization [facility] Address [address] [place] [address] Care Team Providers Care Fruit Sorter Name Role Phone Jacque Resendiz MD Primary Care Provider Unknown Pcp, Non Rmg Primary Care Provider Unava Toan Adames FILM LABORATORY TECHNICIAN Primary Care Provider Encounter Details Date Type Department Care Team (Late st Contact Info) Description 10/15/2007 Orders Only [facility] [address] [place] [phone] Jacque Resendiz MD [address] [place] [address] Social History Tobacco Use Types Packs/Day Years [...] as of this encounter Visit Diagnoses Diagnosis UTI (URINARY TRACT INFECTION)- Primary Urinary tract infection, site not specified documented in this encounter Care Teams Fruit Sorter Relationship Specialty Start Date End Date Jacque Resendiz MD [address] [place] [address] PCP - General 07/26/05 01/01/15 Unknown Pcp, Non Rmg PCP - General 01/02/15 06/17/23 Toan Motley NP [address] [place] [address] PCP - General Nurse Practitioner 06/18/23 documented as of this encounter
--- OUTSIDE RECORDS SUMMARY | 2024-06-21 12:09 | XMS_ITS | Encounter Summary ---
Author Organization [facility] Address [address] [place] [address] Care Team Providers Care Sheetrock Applicator Name Role Phone Jacque Resendiz MD Primary Care Provider Unknown Pcp, Non Rmg Primary Care Provider Unava Toan Adames NP Primary Care Provider [phone] Encounter Details Date Type Department Care Team (Late st Contact Info) Description 11/10/2012 Orders Only [facility] [address] [place] [address] Luis F Alexis PA Social History Tobacco Use Types Packs/Day Years [...] on file documented as of this encounter Progress Notes * Coleen De La Paz - 11/12/2012 12:27 PM EDTQuick Note: See tms * Jacque Resendiz MD - 11/12/2012 12:01 PM EDTQuick Note: Immune to chicken pox. TSH remains borderline high although free T4, the functioning thyroid level is normal C/W subclinical hypothyroidism. See Endo in Oct as planned. Please call and let the patient know. * Luis F Alexis PA - 11/12/2012 8:35 AM EDTQuick Note: Positive varicella antibody. Abnormal TSH. * Luis F Alexis PA - 11/10/2012 5:00 PM EDTQuick Note: . documented in this encounter Plan of Treatment Not on file documented as of this encounter Procedures * Due to [place] [employer] law, this organization might not be sharing negative HIV tests. Procedure Name Priority Date/Time Associated Diagnosis Comments VARICELLA-ZOSTER VIRUS (VZV) ANTIBODY IGG, SERUM Routine 11/10/2012 8:08 AM EDT Hx of varicella THYROID STIMULATING HORMONE (TSH) WITH FREE T4 REFLEX, SERUM Routine 11/10/2012 8:08 AM EDT Hypothyroidism T4, FREE, SERUM Routine 11/10/2012 8:08 AM EDT GLUCOSE (BLOOD) Routine 11/10/2012 8:08 AM EDT Tremor documented in this encounter Results * Due to [facility] law, this organization might not be sharing negative HIV tests. * T4, FREE, SERUM (11/10/2012 8:08 AM EDT) FT4 0.9 0.8 - 1.8 ng/dL [facility] Comment:{T4, FREE {[id number]) 11/10/2012 8:08 AM EDT 11/10/2012 11:49 AM EDT us S Ruby Booker MD LABORATORY Final Resul t [facility] [address] [place] [address] * GLUCOSE (BLOOD) (11/10/2012 8:08 AM EDT) Glucose 93 65 - 99 mg/dL [facility] Comment: {GLUCOSE {[id number]) ? Fasting reference interval 11/10/2012 8:08 AM EDT 11/10/2012 11:49 AM EDT Narrative Resulting Agency Comment [id number] S Ruby Booker MD LAB SAME DAY RESULT Final R esult Performing Organization Address [facility] de Phone Number [facility] [address] [place] [address] * (ABNORMAL) THYROID STIMULATING HORMONE (TSH) WITH FREE T4 REFLEX, SERUM (11/10/2012 8:08 AM EDT) TSH 7.04(H) mIU/L [facility] Comment: {TSH W/REFLEX TO FT4 {[id number]) ?Reference Range ?> or = 20 Years ??0.40-4.50 ? Ranges ?First trimester ?0.26-2.66 ?Second trimester ?? 0.55-2.73 ?Third trimester ?0.43-2.91 11/10/2012 8:08 AM EDT 11/10/2012 11:49 AM EDT Narrative Resulting Agency Comment [id number] us S Ruby Booker MD LABORATORY Final Resul t Performing Organization Address [facility] de Phone Number [facility] [address] [place] [address] * VARICELLA-ZOSTER VIRUS (VZV) ANTIBODY IGG, SERUM (11/10/2012 8:08 AM EDT) Varicella zoster virus Ab.IgG 1.41 index [facility] Comment: {VARICELLA ZOSTER VIRUS ANTIBODY (IGG) {[id number]) ? Index ? Explanation ??of Results ? --------- ?< or = 0.90 ?Negative - No VZV IgG Antibody detected ?0.91 - 1.09 ?Equivocal ?> or = 1.10 ?Positive - VZV IgG Antibody detected ?A positive result indicates that the patient ?has antibody to VZV but does not differentiate ?between infection (active or past) and vaccination. ?The clinical diagnosis must be interpreted in ?conjunction with the clinical signs and symptoms of ?the patient. This assay reliably measures immunity ?due to previous infection but may not always be ?sensitive enough to detect antibodies induced by ?vaccination. Thus, a negative result in a vaccinated ?individual does not necessarily indicate ?susceptibility to VZV infection. 11/10/2012 8:08 AM EDT 11/10/2012 11:49 AM EDT Narrative Resulting Agency Comment [id number] us S Ruby Booker MD LABORATORY Final Resul t Performing Organization Address City/State/[facility] Co de Phone Number [facility] [address] [place] [address] documented in this encounter Visit Diagnoses Diagnosis Hx of varicella Personal history of other infectious and parasitic disease Hypothyroidism Unspecified hypothyroidism Tremor Abnormal involuntary movements documented in this encounter Care Teams Sheetrock Applicator Relationship Specialty Start Date End Date Jacque Resendiz MD [address] [place] [address] PCP - General 07/26/05 01/01/15 Unknown Pcp, Non Rmg PCP - General 01/02/15 06/17/23 Toan Motley NP [address] [address] PCP - General Nurse Practitioner 06/18/23 documented as of this encounter
--- OUTSIDE RECORDS SUMMARY | 2024-06-21 12:09 | XMS_ITS | Encounter Summary ---
Author Organization [facility] Address [address] [place] [address] Care Team Providers Care Parking Lot Spotter Name Role Phone Jacque Resendiz MD Primary Care Provider Unknown Pcp, Non Rmg Primary Care Provider Unava Toan Adames NP Primary Care Provider [phone] Encounter Details Date Type Department Care Team (Late st Contact Info) Description 09/14/2014 Orders Only [facility] [address] [place] [address] Jacque Resendiz MD [address] [place] [address] Social History Tobacco Use Types Packs/Day Years [...] as of this encounter Progress Notes * Frances Chung - 09/15/2014 9:14 AM EDTIsabel Note: Spoke with pt, she is aware of results. * Nathaly Bobo LVN LPN - 09/15/2014 9:06 AM EDTQuick Note: Left message to inform pt she is not documented in this encounter Plan of Treatment Not on file documented as of this encounter Procedures * Due to [place] law, this organization might not be sharing negative HIV tests. Procedure Name Priority Date/Time Associated Diagnosis Comments HCG, (HUMAN CHORIONIC GONADOTROPIN), TOTAL, QUANTITATIVE Routine 09/14/2014 5:23 PM EDT Missed period documented in this encounter Results * Due to [place] law, this organization might not be sharing negative HIV tests. * HCG, (HUMAN CHORIONIC GONADOTROPIN), TOTAL, QUANTITATIVE (09/14/2014 5:23 PM EDT) HCG, Total, Quantitative <2 mIU/mL [facility] Comment: {HCG, TOTAL, QN {[id number]) Reference Range Non or premenopausal ?<5 Postmenopausal ? <10 Values from different assay methods may vary. The use of this assay to monitor or to diagnose patients with cancer or any condition unrelated to has not been cleared or approved by the FDA or the engineering geologist of the assay. 09/14/2014 5:23 PM EDT 09/15/2014 12:32 AM EDT Narrative Resulting Agency Comment [id number] us Jacque Resendiz MD LAB SAME DAY RESULT Final Re sult [facility] [address] [place] [address] documented in this encounter Visit Diagnoses Diagnosis Missed period Irregular menstrual cycle documented in this encounter Care Teams Parking Lot Spotter Relationship Specialty Start Date End Date Jacque Resendiz MD [address] [place] [address] PCP - General 07/26/05 01/01/15 Unknown Pcp, Non Rmg PCP - General 01/02/15 06/17/23 Toan Motley NP [address] [address] PCP - General Nurse Practitioner 06/18/23 documented as of this encounter
--- OUTSIDE RECORDS SUMMARY | 2024-06-21 12:09 | XMS_ITS | Encounter Summary ---
Author Organization [facility] Address [address] [place] [address] Care Team Providers Care Accounting Recruiter Name Role Phone Jacque Resendiz MD Primary Care Provider Unknown Pcp, Non Rmg Primary Care Provider Unava Toan Adames NP Primary Care Provider [phone] Encounter Details Date Type Department Care Team (Late st Contact Info) Description 10/14/2011 Orders Only [facility] [address] [place] [phone] Jacque Resendiz MD [address] [place] [phone] Social History Tobacco Use Types Packs/Day Years [...] as of this encounter Progress Notes * Jacque Resendiz MD - 10/19/2011 7:12 PM EDTQuick Note: PAP normal. Screening test for thyroid is borderline although the functioning level is normal. No Hx/o hypothyroidism in the past. This may be transient. Repeat TSH with thyroid cascade in 3 mos. Good chol low, should improve with cardio. Rest normal. Please let the patient know. * Jacque Resendiz MD - 10/15/2011 8:34 PM EDTQuick Note: Noted, remainder of results pending. documented in this encounter Plan of Treatment Not on file documented as of this encounter Procedures * Due to [place] law, this organization might not be sharing negative HIV tests. Procedure Name Priority Date/Time Associated Diagnosis Comments CHLAMYDIA TRACHOMATIS/GC, SDA (GENITAL SWAB) Routine 10/14/2011 1:17 PM EDT Encounter for routine gynecological examination THYROID STIMULATING HORMONE (TSH) WITH FREE T4 REFLEX, SERUM Routine 10/14/2011 1:17 PM EDT Routine history and physical examination of adult T4, FREE, SERUM Routine 10/14/2011 1:17 PM EDT LIPID PANEL WITH REFLEX TO DIRECT LDL Routine 10/14/2011 1:17 PM EDT Lipid screening BASIC METABOLIC PANEL W/GLOMERULAR FILTRATION RATE (EGFR) Routine 10/14/2011 1:17 PM EDT COLD INDUCED ASTHMA Double ureter Reactive airway disease Migraine headache CBC 5 PART DIFF Routine 10/14/2011 1:17 PM EDT COLD INDUCED ASTHMA Double ureter Reactive airway disease Migraine headache HEPATIC FUNCTION PANEL Routine 10/14/2011 1:17 PM EDT COLD INDUCED ASTHMA Double ureter Reactive airway disease Migraine headache LIQUID-BASED PAP WITH HPVH Routine 10/14/2011 12:30 PM EDT documented in this encounter Results * Due to [place] law, this organization might not be sharing negative HIV tests. * T4, FREE, SERUM (10/14/2011 1:17 PM EDT) FT4 1.0 0.8 - 1.8 ng/dL [facility] Comment:{T4, FREE {[id number]) 10/14/2011 1:17 PM EDT 10/14/2011 9:17 PM EDT Jacque Resendiz MD LABORATORY Final Result Performing Organization Address [facility] de Phone Number [facility] [address] [place] [address] * CHLAMYDIA TRACHOMATIS/GC, SDA (GENITAL SWAB) (10/14/2011 1:17 PM EDT) Pathologist [facility] Chlamydia trachomatis DNA NOT DETECTED NOT DETECTED [facility] Comment:{CHLAMYDIA TRACHOMAT IS DNA, SDA {[id number]) Neisseria gonorrhoeae DNA NOT DETECTED NOT DETECTED [facility] Comment:{NEISSERIA GONORRHOE AE DNA, SDA {[id number]) COMMENT SEE NOTE [facility] Comment: {COMMENT {[id number]) This test was performed using the BD ProbeT[employer](TM) Chlamydia trachomatis and Neisseria gonorrhoeae Amplified DNA Assays. 10/14/2011 1:17 PM EDT 10/14/2011 9:17 PM EDT Narrative Resulting Agency Comment [id number] Jacque Resendiz MD LABORATORY Final Result Performing Organization Address [facility] de Phone Number [facility] [address] [place] [address] * (ABNORMAL) THYROID STIMULATING HORMONE (TSH) WITH FREE T4 REFLEX, SERUM (10/14/2011 1:17 PM EDT) Pathologist [facility] TSH 4.68(H) mIU/L [facility] Comment: {TSH W/REFLEX TO FT4 {[id number]) ?Reference Range ?> or = 20 Years ??0.40-4.50 ? Ranges ?First trimester ?0.26-2.66 ?Second trimester ?? 0.55-2.73 ?Third trimester ?0.43-2.91 10/14/2011 1:17 PM EDT 10/14/2011 9:17 PM EDT Jacque Resendiz MD LABORATORY Final Result Performing Organization Address [facility] de Phone Number [facility] [address] [place] [address] * (ABNORMAL) LIPID PANEL WITH REFLEX TO DIRECT LDL (10/14/2011 1:17 PM EDT) Cholesterol 139 125 - 200 mg/dL [facility] Comment:{CHOLESTEROL, TOTAL {[id number]) HDL Cholesterol 34(L) > OR = 46 mg/dL [facility] Comment:{HDL CHOLESTEROL {[id number]) Triglyceride 86 <150 mg/dL [facility] Comment:{TRIGLYCERIDES {[id number]) LDL Cholesterol 88 <130 mg/dL (calc) [facility] Comment: {LDL-CHOLESTEROL {[id number]) Desirable range <100 mg/dL for patients with CHD or diabetes and <70 mg/dL for diabetic patients with known heart disease. CHOL/HDL Ratio 4.1 < OR = 5.0 (calc) [facility] Comment:{CHOL/HDLC RATIO {[id number]) Cholesterol Non-HDL 105 mg/dL (calc) [facility] Comment: {NON-HDL CHOLESTEROL {[id number]) Target for non-HDL cholesterol is 30 mg/dL higher than LDL cholesterol target. 10/14/2011 1:17 PM EDT 10/14/2011 9:17 PM EDT Narrative Resulting Agency Comment [id number] us Jacque Resendiz MD LABORATORY Final Result Performing Organization Address [facility] de Phone Number [facility] [address] [place] [address] * HEPATIC FUNCTION PANEL (10/14/2011 1:17 PM EDT) Pathologist [facility] Protein Total (Serum) 7.4 6.2 - 8.3 g/dL [facility] Comment:{PROTEIN, TOTAL {[id number]) Albumin 4.4 3.6 - 5.1 g/dL [facility] Comment:{ALBUMIN {[id number]) Globulin 3.0 2.2 - 3.9 g/dL (calc) [facility] Comment:{GLOBULIN {[id number]) Albumin/Globulin 1.5 1.0 - 2.1 (calc) [facility] Comment:{ALBUMIN/GLOBULIN RA JOSE {[id number]) Bilirubin Total 0.4 0.2 - 1.2 mg/dL [facility] Comment:{BILIRUBIN, TOTAL {[id number]) Bilirubin Direct 0.1 < OR = 0.2 mg/dL [facility] Comment:{BILIRUBIN, DIRECT { [id number]) Bilirubin Indirect 0.3 0.2 - 1.2 mg/dL (calc) [facility] Comment:{BILIRUBIN, INDIRECT {[id number]) Alkaline phosphatase 76 33 - 115 U/L [facility] Comment:{ALKALINE PHOSPHATAS E {[id number]) AST (SGOT) 17 10 - 30 U/L [facility] Comment:{AST {[id number]) ALT (SGPT) 15 6 - 40 U/L [facility] Comment:{ALT {[id number]) 10/14/2011 1:17 PM EDT 10/14/2011 9:17 PM EDT Narrative Resulting Agency Comment [id number] us Jacque Resendiz MD LABORATORY Final Result [facility] [address] [place] [address] * CBC 5 PART DIFF (10/14/2011 1:17 PM EDT) Pathologist [facility] WBC 8.5 3.8 - 10.8 Thousand/u L [facility] Comment:{WHITE BLOOD CELL CO UNT {[id number]) RBC 4.43 3.80 - 5.10 Million/uL [facility] Comment:{RED BLOOD CELL COUN T {[id number]) Hemoglobin 13.5 11.7 - 15.5 g/dL [facility] Comment:{HEMOGLOBIN {[id number]) Hematocrit 40.4 35.0 - 45.0 % [facility] Comment:{HEMATOCRIT {[id number]) MCV 91.2 80.0 - 100.0 fL [facility] Comment:{MCV {[id number]) MCH 30.6 27.0 - 33.0 pg [facility] Comment:{MCH {[id number]) MCHC 33.5 32.0 - 36.0 g/dL [facility] Comment:{MCHC {[id number]) RDW 13.0 11.0 - 15.0 % [facility] Comment:{RDW {[id number]) PLT 250 140 - 400 Thousand/u L [facility] Comment:{PLATELET COUNT {[id number]) MPV 9.4 7.5 - 11.5 fL [facility] Comment:{MPV {[id number]) Neutrophils # 4871 1500 - 7800 cells/uL [facility] Comment:{ABSOLUTE NEUTROPHIL S {[id number]) Lymphocytes # 2967 850 - 3900 cells/uL [facility] Comment:{ABSOLUTE LYMPHOCYTE S {[id number]) Monocytes # 510 200 - 950 cells/uL [facility] Comment:{ABSOLUTE MONOCYTES {[id number]) Eosinophils # 119 15 - 500 cells/uL [facility] Comment:{ABSOLUTE EOSINOPHIL S {[id number]) Basophils # 34 0 - 200 cells/uL [facility] Comment:{ABSOLUTE BASOPHILS {[id number]) Neutrophils % 57.3 % [facility] Comment:{NEUTROPHILS {[id number]) Lymphocytes % 34.9 % [facility] Comment:{LYMPHOCYTES {[id number]) Monocytes % 6.0 % [facility] Comment:{MONOCYTES {[id number]) Eosinophils % 1.4 % [facility] Comment:{EOSINOPHILS {[id number]) Basophils % 0.4 % [facility] Comment:{BASOPHILS {[id number]) 10/14/2011 1:17 PM EDT 10/14/2011 9:17 PM EDT Narrative Resulting Agency Comment [id number] us Jacque Resendiz MD LAB SAME DAY RESULT Final Re sult [facility] [address] [place] [address] * BASIC METABOLIC PANEL W/GLOMERULAR FILTRATION RATE (EGFR) (10/14/2011 1:17 PM EDT) Glucose 78 65 - 99 mg/dL [facility] Comment: {GLUCOSE {[id number]) ? Fasting reference interval Urea Nitrogen Blood (BUN) 12 7 - 25 mg/dL [facility] Comment:{UREA NITROGEN (BUN) {[id number]) Creatinine 0.79 0.50 - 1.10 mg/dL [facility] Comment:{CREATININE {[id number]) GFR 103 > OR = 60 mL/min/1. 73m2 [facility] Comment:{eGFR NON-AFR. AMERI CAN {[id number]) GFR () 119 > OR = 60 mL/min/1. 73m2 [facility] Comment:{eGFR AMERIC AN {[id number]) BUN/Creatinine Ratio NOT APPLICABLE 6 - 22 (calc) [facility] Comment:{BUN/CREATININE RATI O {[id number]) Sodium 139 135 - 146 mmol/L [facility] Comment:{SODIUM {[id number]) Potassium 4.0 3.5 - 5.3 mmol/L [facility] Comment:{POTASSIUM {[id number]) Chloride 105 98 - 110 mmol/L [facility] Comment:{CHLORIDE {[id number]) Carbon dioxide 22 21 - 33 mmol/L [facility] Comment:{CARBON DIOXIDE {[id number]) Calcium 9.4 8.6 - 10.2 mg/dL [facility] Comment:{CALCIUM {[id number]) 10/14/2011 1:17 PM EDT 10/14/2011 9:17 PM EDT Narrative [facility] - 10/15/2011 1:32 AM EDT Please note that this estimated GFR does not include an adjustment for the patient's height or weight, and can therefore, be viewed as reliable only for patients with heights between 60 and 72 . More precise quantification using a 24-hour urine sample or height-based algorithm is recommended for patients outside of this range of height and for those individuals with more precise needs for GFR calculation. Resulting Agency Comment [id number] us Jacque Resendiz MD LABORATORY Final Result [facility] [address] [place] [address] * LIQUID-BASED PAP WITH HPVH (10/14/2011 12:30 PM EDT) Clinical information NONE GIVEN [facility] Comment:{CLINICAL INFORMATIO N: {[id number]) LMP NONE GIVEN [facility] Comment:{LMP: {[id number]) Date of previous PAP smear 3 YRS CASE NORMAL [facility] Comment:{PREV. PAP: {[id number]) Date of previous biopsy NONE GIVEN [facility] Comment:{PREV. BX: {[id number]) Specimen source (Cvx/Vag) Vagina, Cervix, Endocervix [facility] Comment:{SOURCE: {[id number]) Statement of Adequacy (Cvx/Vag) SATISFACTORY FOR EVALUATION [facility] Comment:{STATEMENT OF ADEQUA CY: {[id number]) Cytology, Pap Smear Negative for intraepithelial lesion or malignancy. Atrophic pattern; predominantly parabasal cells [facility] Comment:{INTERPRETATION/RESU LT: {[id number]) Cytology study comment (Cvx/Vag) This Pap test has been evaluated with computer assisted technology. [facility] Comment:{COMMENT: {[id number]) Energy Engineer (Cvx/Vag) [facility], CT(ASCP) [facility] Comment:{HEAD MVA REACTOR OPERATOR: { [id number]) Human Papillomavirus (HPV) DNA, High Risk NOT DETECTED NOT DETECTED [facility] Comment: {HPV DNA (HIGH RISK) {[id number]) Tested for high risk types 16,18,31,33,35,39,45,51,52, 56,58,59,68. The analytical performance characteristics of this assay, when used to test [facility] or vaginal specimens, have been determined by [employer] [facility]. Methodology: Hybrid Capture with Signal Amplification. 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 Reactive airway disease (HHS) Unspecified asthma Migraine headache Migraine, unspecified, without mention of intractable migraine without mention of status migrainosus Lipid screening Screening for lipoid disorders Routine history and physical examination of adult Routine general medical examination at a health care facility documented in this encounter Care Teams Accounting Recruiter Relationship Specialty Start Date End Date Jacque Resendiz MD [address] [place] [address] PCP - General 07/26/05 01/01/15 Unknown Pcp, Non Rmg PCP - General 01/02/15 06/17/23 Toan Motley NP [address] [address] PCP - General Nurse Practitioner 06/18/23 documented as of this encounter
--- OUTSIDE RECORDS SUMMARY | 2024-06-21 12:09 | XMS_ITS | Encounter Summary ---
Author Organization [facility] Address [address] [place] [address] Care Team Providers Care Color Corrector Name Role Phone Jacque Resendiz MD Primary Care Provider Unknown Pcp, Non Rmg Primary Care Provider Unava Toan Adames NP Primary Care Provider Encounter Details Date Type Department Care Team (Late st Contact Info) Description 01/04/2009 Orders Only [facility] [address] [place] [phone] Jacque Resendiz MD [address] [place] [phone] Social History Tobacco Use Types Packs/Day Years [...] as of this encounter Plan of Treatment Scheduled Orders Name Type Priority Associated Diagnoses Orde r Schedule TSH (THYROTROPIN) Lab Routine COLD INDUCED ASTHMA Double Ureter Reactive Airway Disease Migraine Headache Expected: 01/11/2009 (Approximate), Expires: 10/14/2011 documented as of this encounter Results * Due to [place] state law, this organization might not be sharing negative HIV tests. * HEPATIC FUNCTION PANEL (10/14/2011 1:17 PM EDT) Protein Total (Serum) 7.4 6.2 - 8.3 g/dL [facility] Comment:{PROTEIN, TOTAL {[id number]) Albumin 4.4 3.6 - 5.1 g/dL [facility] Comment:{ALBUMIN {[id number]) Globulin 3.0 2.2 - 3.9 g/dL (calc) [facility] Comment:{GLOBULIN {[id number]) Albumin/Globulin 1.5 1.0 - 2.1 (calc) [facility] Comment:{ALBUMIN/GLOBULIN RA JOSE {[id number]) Bilirubin Total 0.4 0.2 - 1.2 mg/dL [facility] Comment:{BILIRUBIN, TOTAL {[id number]) Bilirubin Direct 0.1 < OR = 0.2 mg/dL [facility] Comment:{BILIRUBIN, DIRECT { [id number]) Bilirubin Indirect 0.3 0.2 - 1.2 mg/dL (calc) [facility] Comment:{BILIRUBIN, INDIRECT {[id number]) Alkaline phosphatase 76 33 - 115 U/L [facility] Comment:{ALKALINE PHOSPHATAS E {[id number]) AST (SGOT) 17 10 - 30 U/L [facility] Comment:{AST {[id number]) ALT (SGPT) 15 6 - 40 U/L [facility] Comment:{ALT {[id number]) 10/14/2011 1:17 PM EDT 10/14/2011 9:17 PM EDT Narrative Resulting Agency Comment [id number] us Jacque Resendiz MD LABORATORY Final Result [facility] [address] [place] [address] * CBC 5 PART DIFF (10/14/2011 1:17 PM EDT) WBC 8.5 3.8 - 10.8 Thousand/u L [facility] Comment:{WHITE BLOOD CELL CO UNT {[id number]) RBC 4.43 3.80 - 5.10 Million/uL [facility] Comment:{RED BLOOD CELL COUN T {[id number]) Hemoglobin 13.5 11.7 - 15.5 g/dL [facility] Comment:{HEMOGLOBIN {[id number]) Hematocrit 40.4 35.0 - 45.0 % [facility] Comment:{HEMATOCRIT {[id number]) MCV 91.2 80.0 - 100.0 fL [facility] Comment:{MCV {[id number]) MCH 30.6 27.0 - 33.0 pg [facility] Comment:{MCH {[id number]) MCHC 33.5 32.0 - 36.0 g/dL [facility] Comment:{MCHC {[id number]) RDW 13.0 11.0 - 15.0 % [facility] Comment:{RDW {[id number]) PLT 250 140 - 400 Thousand/u L [facility] Comment:{PLATELET COUNT {[id number]) MPV 9.4 7.5 - 11.5 fL [facility] Comment:{MPV {[id number]) Neutrophils # 4871 1500 - 7800 cells/uL [facility] Comment:{ABSOLUTE NEUTROPHIL S {[id number]) Lymphocytes # 2967 850 - 3900 cells/uL [facility] Comment:{ABSOLUTE LYMPHOCYTE S {[id number]) Monocytes # 510 200 - 950 cells/uL [facility] Comment:{ABSOLUTE MONOCYTES {[id number]) Eosinophils # 119 15 - 500 cells/uL [facility] Comment:{ABSOLUTE EOSINOPHIL S {[id number]) Basophils # 34 0 - 200 cells/uL [facility] Comment:{ABSOLUTE BASOPHILS {[id number]) Neutrophils % 57.3 % [facility] Comment:{NEUTROPHILS {[id number]) Lymphocytes % 34.9 % [facility] Comment:{LYMPHOCYTES {[id number]) Monocytes % 6.0 % [facility] Comment:{MONOCYTES {[id number]) Eosinophils % 1.4 % [facility] Comment:{EOSINOPHILS {[id number]) Basophils % 0.4 % [facility] Comment:{BASOPHILS {[id number]) 10/14/2011 1:17 PM EDT 10/14/2011 9:17 PM EDT Narrative Resulting Agency Comment [id number] us Jacque Resendiz MD LAB SAME DAY RESULT Final Re sult [facility] [address] [place] [address] * BASIC METABOLIC PANEL W/GLOMERULAR FILTRATION RATE (EGFR) (10/14/2011 1:17 PM EDT) Glucose 78 65 - 99 mg/dL [facility] Comment: {GLUCOSE {[id number]) ? Fasting reference interval Urea Nitrogen Blood (BUN) 12 7 - 25 mg/dL [facility] Comment:{UREA NITROGEN (BUN) {[id number]) Creatinine 0.79 0.50 - 1.10 mg/dL [facility] Comment:{CREATININE {[id number]) GFR 103 > OR = 60 mL/min/1. 73m2 [facility] Comment:{eGFR NON-AFR. AMERI CAN {[id number]) GFR () 119 > OR = 60 mL/min/1. 73m2 [facility] Comment:{eGFR AMERIC AN {[id number]) BUN/Creatinine Ratio NOT APPLICABLE 6 - 22 (calc) [facility] Comment:{BUN/CREATININE RATI O {[id number]) Sodium 139 135 - 146 mmol/L [facility] Comment:{SODIUM {[id number]) Potassium 4.0 3.5 - 5.3 mmol/L [facility] Comment:{POTASSIUM {[id number]) Chloride 105 98 - 110 mmol/L [facility] Comment:{CHLORIDE {[id number]) Carbon dioxide 22 21 - 33 mmol/L [facility] Comment:{CARBON DIOXIDE {[id number]) Calcium 9.4 8.6 - 10.2 mg/dL [facility] Comment:{CALCIUM {[id number]) 10/14/2011 1:17 PM EDT 10/14/2011 9:17 [...] needs for GFR calculation. 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 Reactive airway disease (HHS) Unspecified asthma Migraine headache Migraine, unspecified, without mention of intractable migraine without mention of status migrainosus Lipid screening Screening for lipoid disorders Routine history and physical examination of adult Routine general medical examination at a health care facility documented in this encounter Care Teams Color Corrector Relationship Specialty Start Date End Date Jacque Resendiz MD [address] [place] [address] PCP - General 07/26/05 01/01/15 Unknown Pcp, Non Rmg PCP - General 01/02/15 06/17/23 Toan Motley NP [address] [address] PCP - General Nurse Practitioner 06/18/23 documented as of this encounter
--- OUTSIDE RECORDS SUMMARY | 2024-06-21 12:09 | XMS_ITS | Encounter Summary ---
Author Organization [facility] Address [address] [place] [address] Care Team Providers Care Informatics Nurse Name Role Phone Jacque Resendiz MD Primary Care Provider Unknown Pcp, Non Rmg Primary Care Provider Unava Toan Adames NP Primary Care Provider Encounter Details Date Type Department Care Team (Late st Contact Info) Description 10/10/2008 Orders Only [facility] [address] [place] [phone] Jacque Resendiz MD [address] [place] [phone] Social History Tobacco Use Types Packs/Day Years [...] of this encounter Procedures * Due to [place] state law, this organization might not be sharing negative HIV tests. Procedure Name Priority Date/Time Associated Diagnosis Comments URINALYSIS, DIP ONLY ( SITE STAT ONLY) STAT (All results called to provider) 10/10/2008 3:58 PM EDT UTI (Urinary Tract Infection) CULTURE, URINE Routine 10/10/2008 UTI (Urinary Tract Infection) URINALYSIS,MICROS COPIC ONLY Routine 10/10/2008 UTI (Urinary Tract Infection) documented in this encounter Results * Due to [place] state law, this organization might not be sharing negative HIV tests. * (ABNORMAL) URINALYSIS, DIP ONLY ( SITE STAT ONLY) (10/10/2008 3:58 PM EDT) COLOR (URINE) yellow [facility] (CLIA# [id number]) APPEARANCE (URINE) clear [facility] (CLIA# [id number]) SPECIFIC GRAVITY 1.025 1.001 - 1.035 [facility] (CLIA# [id number]) PH (URINE) 5.0 5.0 - 8.0 [facility] (CLIA# [id number]) PROTEIN (URINE) trace(A) Neg - Neg [facility] (CLIA# [id number]) GLUCOSE (URINE) negative Neg - Neg [facility] (CLIA# [id number]) Ketones (Urine) negative Neg - Neg [facility] (CLIA# [id number]) BILIRUBIN (URINE) negative Neg - Neg [facility] (CLIA# [id number]) BLOOD (URINE) negative Neg - Neg [facility] (CLIA# [id number]) WBC (URINE) trace(A) Neg - Neg [facility] (CLIA# [id number]) NITRITE (URINE) negative Neg - Neg [facility] (CLIA# [id number]) Urine specimen (specimen) 10/10/2008 3:58 PM EDT Narrative [facility] (CLIA# [id number]) - 10/10/2008 4:18 PM EDT Micro added. us Jacque Resendiz MD LAB SAME DAY RESULT Final Re sult [facility] (CLIA# [id number]) [address] [place] [address] * CULTURE, URINE (10/10/2008) URINE CULTURE CLEAN VOID SEE TEXT [facility] Comment: SOURCE: URINE NO GROWTH 10/10/2008 10/10/2008 9:4 3 PM EDT us Jacque Resendiz MD LABORATORY Final Result [facility] [address] [place] [address] * (ABNORMAL) URINALYSIS,MICROSCOPIC ONLY (10/10/2008) WBC (URINE) 0-5 0-4/HPF RBC (Urine Sed) 0 0-3/HPF EPITHELIAL CELLS.SQUAMOUS (URINE SED) 0-5 0-5/HPF EPITHELIAL CELLS.TRANSITIO NAL (URINE SED) 0 0-5/HPF EPITHELIAL CELLS.RENAL (URINE SED) 0 0-3/HPF BACTERIA (URINE) FEW(A) NONE SEEN 10/10/2008 10/10/2008 9:4 3 PM EDT Jacque Resendiz MD LAB SAME DAY RESULT Final Re sult documented in this encounter Visit Diagnoses Diagnosis UTI (urinary tract infection)- Primary Urinary tract infection, site not specified documented in this encounter Care Teams Informatics Nurse Relationship Specialty Start Date End Date Jacque Resendiz MD [address] [place] [address] PCP - General 07/26/05 01/01/15 Unknown Pcp, Non Rmg PCP - General 01/02/15 06/17/23 Toan Motley NP [address] [address] PCP - General Nurse Practitioner 06/18/23 documented as of this encounter
--- OUTSIDE RECORDS SUMMARY | 2024-06-21 12:09 | XMS_ITS | Encounter Summary ---
Author Organization [facility] Address [address] [place] [address] Care Team Providers Care Sand Drier Name Role Phone Jacque Resendiz MD Primary Care Provider Unknown Pcp, Non Rmg Primary Care Provider Fernandava Toan Adames NP Primary Care Provider Encounter Details Date Type Department Care Team (Late st Contact Info) Description 05/08/2011 Orders Only CALL [facility]ENTER [facility] [address] [place] [phone] Jacque Resendiz MD [address] [place] [address] Social History Tobacco Use Types Packs/Day Years [...] documented as of this encounter Visit Diagnoses Not on filedocumented in this encounter Care Teams Sand Drier Relationship Specialty Start Date End Date Jacque Resendiz MD [address] [place] [address] PCP - General 07/26/05 01/01/15 Unknown Pcp, Non Rmg PCP - General 01/02/15 06/17/23 Toan Motley NP [address] [address] PCP - General Nurse Practitioner 06/18/23 documented as of this encounter
--- OUTSIDE RECORDS SUMMARY | 2024-06-21 12:09 | XMS_ITS | Encounter Summary ---
Author Organization [facility] Address [address] [place] [address] Care Team Providers Care Cold Work Operator Name Role Phone Jacque Resendiz MD Primary Care Provider Unknown Pcp, Non Rmg Primary Care Provider Unava Toan Adames NP Primary Care Provider Encounter Details Date Type Department Care Team (Late st Contact Info) Description 10/13/2011 Abstract [facility] [address] [place] [phone] Jacque Resendiz MD [address] [place] [address] Social History Tobacco Use Types Packs/Day Years [...] on filedocumented in this encounter Care Teams Cold Work Operator Relationship Specialty Start Date End Date Jacque Resendiz MD [address] [place] [address] PCP - General 07/26/05 01/01/15 Unknown Pcp, Non Rmg PCP - General 01/02/15 06/17/23 Toan Motley NP [address] [address] PCP - General Nurse Practitioner 06/18/23 documented as of this encounter
--- OUTSIDE RECORDS SUMMARY | 2024-06-21 12:09 | XMS_ITS | Encounter Summary ---
Author Organization [facility] Address [address] [place] [address] Care Team Providers Care Radio Control Crane Operator Name Role Phone Toan Motley NP Primary Care Provider Encounter Details Date Type Department Care Team (Late st Contact Info) Description 06/22/2023 Orders Only [place] [facility] [address] [place] [phone] Kaelyn Mejia NP [address] [place] [address] Social History Tobacco Use Types Packs/Day Years [...] Miscellaneous Notes * Result Encounter Note - Lupe Green RN - 06/22/2023 2:12 PM EST Hx of infertility * Result Encounter Note - Gloria Tamez CRNP - 06/22/2023 2:12 PM EST Neg pap/ neg hpv. Hold for review by Kaelyn on remaining testing. documented in this encounter Plan of Treatment Not on file documented as of this encounter Procedures * Due to [place] [employer] law, this organization might not be sharing negative HIV tests. Procedure Name Priority Date/Time Associated Diagnosis Comments THINPREP TIS PAP AND HPV RNA, HR E6/E7, TMA Routine 06/22/2023 2:58 PM EST Screening for malignant neoplasm of cervix HCG, (HUMAN CHORIONIC GONADOTROPIN), TOTAL, QUANTITATIVE Routine 06/22/2023 2:12 PM EST Abnormal uterine bleeding (AUB) PROLACTIN Routine 06/22/2023 2:12 PM EST Abnormal uterine bleeding (AUB) documented in this encounter Results * Due to [place] Sh[employer] law, this organization might not be sharing negative HIV tests. * THINPREP TIS PAP AND HPV RNA, HR E6/E7, TMA (06/22/2023 2:58 PM EST) Clinical information None given [facility] Date last menstrual period 06/20/2023 [facility] Date of previous PAP smear 11/17/2014 [facility] Date of previous biopsy NONE GIVEN [facility] Specimen source (Cvx/Vag) Cervix [facility] Statement of Adequacy (Cvx/Vag) Satisfactory for evaluation. Endocervical/gonzalez sformation zone component present. [facility] Cytology, Pap Smear Cytology Results: Negative for intraepithelial lesion or malignancy. [facility] Cytology study comment (Cvx/Vag) This Pap test has been evaluated with computer assisted technology. [facility] Hydrogeology Professor (Cvx/Vag) SXA, CT(ASCP) CT screening location: [address] [address] [facility] COMMENT SEE NOTE [facility] Comment: EXPLANATORY NOTE: The Pap is a [...] HPV MRNA E6/E7 Not Detected Not Detected [facility] Comment: Methodology: Occupational Health Nurse Manager-Mediated Amplification This assay detects E6/E7 viral messenger RNA (mRNA) from 14 high-risk HPV types (16,18,31,33,35,39,45,51,52,56,58,59,66,68). Cervical sources are required for HPV testing. If a vaginal source from a patient who has had a total hysterectomy with removal of cervix was submitted, please contact the testing laboratory for alternative testing options. For additional information, please refer to http://education.[facility]/faq/GCS160t1 (This link if provided for information/ educational purposes only.) 06/22/2023 2:58 PM EST 06/23/2023 3:08 AM EST Narrative Resulting Agency Comment [id number] Kaelyn Mejia NP PATHOLOGY-INTERFACED Final Re sult Performing Organization Address [facility] de Phone Number [facility] [address] [place] [address] * PROLACTIN (06/22/2023 2:12 PM EST) Prolactin 8.0 ng/mL [facility] Comment: ?Reference Range Females ?Non- ?3.0-30.0 ? 10.0-209.0 ?Postmenopausal ?2.0-20.0 06/22/2023 2:12 PM EST 06/23/2023 Narrative Resulting Agency Comment [id number] Kaelyn Mejia NP LAB SAME DAY RESULT Final Res ult Performing Organization Address [facility] de Phone Number [facility] [address] [place] [address] * HCG, (HUMAN CHORIONIC GONADOTROPIN), TOTAL, QUANTITATIVE (06/22/2023 2:12 PM EST) HCG, Total, Quantitative <5 mIU/mL [facility] Comment: Reference Range Non or premenopausal ?<5 Postmenopausal ? <10 Values from different assay methods may vary. The use of this assay to monitor or to diagnose patients with cancer or any condition unrelated to has not been cleared or approved by the FDA or the software validation technician of the assay. 06/22/2023 2:12 PM EST 06/23/2023 Narrative Resulting Agency Comment [id number] Kaelyn Mejia GUARDIAN AD [facility]ITEM LAB SAME DAY RESULT Final Res ult [facility] [address] [place] [address] documented in this encounter Visit Diagnoses Diagnosis Abnormal uterine bleeding (AUB) Screening for malignant neoplasm of cervix Screening for malignant neoplasm of the cervix documented in this encounter Care Teams Radio Control Crane Operator Relationship Specialty Start Date End Date Toan Motley NP [address] [address] PCP - General Nurse Practitioner 06/18/23 documented as of this encounter
--- OUTSIDE RECORDS SUMMARY | 2024-06-21 12:09 | XMS_ITS | Encounter Summary ---
Author Organization [facility] Address [address] [place] [address] Care Team Providers Care Engineering Teacher Name Role Phone Jacque Resendiz MD Primary Care Provider Unknown Pcp, Non Rmg Primary Care Provider Unava Toan Adames NP Primary Care Provider Encounter Details Date Type Department Care Team (Late st Contact Info) Description 07/16/2009 Orders Only [facility] [address] [place] [phone] Rafita Whitney MD [facility] [address] [address] Social History Tobacco Use Types Packs/Day Years [...] as of this encounter Progress Notes * Rafita Whitney MD - 07/16/2009 9:00 PM EDTQuick Note: Ua known at visit, pt on keflex documented in this encounter Plan of Treatment Not on file documented as of this encounter Procedures * Due to [place] [email or web address] law, this organization might not be sharing negative HIV tests. Procedure Name Priority Date/Time Associated Diagnosis Comments CULTURE, URINE Routine 07/16/2009 Urinary frequency URINALYSIS, COMPLETE (DIP & MICRO) Routine 07/16/2009 Urinary frequency documented in this encounter Results * Due to [place] [email or web address] law, this organization might not be sharing negative HIV tests. * CULTURE, URINE (07/16/2009) URINE CULTURE CLEAN VOID SEE TEXT [facility] Comment: SOURCE: URINE MULTIPLE ORGANISMS, EACH <10,000 CFU/ML. MAY REPRESENT NORMAL OCTAVIO CONTAMINATION FROM EXTERNAL GENITALIA. NO FURTHER TESTING. 07/16/2009 07/16/2009 4:0 2 PM EDT Rafita Whitney MD LABORATORY Final Resul t Performing Organization Address City/State/[facility] Co de Phone Number [facility] [address] [place] [address] * (ABNORMAL) URINALYSIS, COMPLETE (DIP & MICRO) (07/16/2009) COLOR (URINE) YELLOW YELLOW [facility] APPEARANCE (URINE) CLOUDY(A) CLEAR [facility] SPECIFIC GRAVITY > 1.030 1.001 - 1.035 [facility] PH (URINE) 5.5 5.0 - 8.0 [facility] PROTEIN (URINE) NEG [facility]G [facility] GLUCOSE (URINE) NEG NEG [facility] Ketones (Urine) NEG NEG [facility] BILIRUBIN (URINE) NEG NEG [facility] BLOOD (URINE) NEG NEG [facility] WBC (URINE) NEG NEG [facility] NITRITE (URINE) NEG NEG [facility] WBC (URINE) 0-4 0-4/HPF [facility] RBC (Urine Sed) 0 0-3/HPF [facility] EPITHELIAL CELLS.SQUAMOUS (URINE SED) 0-5 0-5/HPF [facility] EPITHELIAL CELLS.TRANSITIO NAL (URINE SED) 0 0-5/HPF [facility] EPITHELIAL CELLS.RENAL (URINE SED) 0 0-3/HPF [facility] BACTERIA (URINE) FEW(A) NONE SEEN [facility] Microscopic Other (Urine) FEW MUCOUS(A) [facility] URINE CRYSTALS FEW AMORPHOUS Q [facility] 07/16/2009 07/16/2009 4:0 2 PM EDT us Rafita Whitney MD LAB SAME DAY RESULT Final R esult [facility] [address] [place] [address] documented in this encounter Visit Diagnoses Diagnosis Urinary frequency documented in this encounter Care Teams Engineering Teacher Relationship Specialty Start Date End Date Jacque Resendiz MD [address] [place] [address] PCP - General 07/26/05 01/01/15 Unknown Pcp, Non Rmg PCP - General 01/02/15 06/17/23 Toan Motley NP [address] [address] PCP - General Nurse Practitioner 06/18/23 documented as of this encounter
--- OUTSIDE RECORDS SUMMARY | 2024-06-21 12:09 | XMS_ITS | Encounter Summary ---
Author Organization [facility] Address [address] [place] [address] Care Team Providers Care Cns Name Role Phone Jacque Resendiz MD Primary Care Provider [phone] Unknown Pcp, Non g Primary Care Provider Unava Toan Adames NP Primary Care Provider Encounter Details Date Type Department Care Team (Late st Contact Info) Description 01/04/2009 Orders Only [facility] [address] [place] [address] Jacque Resendiz MD [address] [place] [phone] Social History Tobacco Use Types Packs/Day Years [...] as of this encounter Progress Notes * Yue Tillman, AGUSTINA - 01/11/2009 4:58 PM EDTQuick Note: Ov with pcp 01-04-09 documented in this encounter Plan of Treatment Not on file documented as of this encounter Procedures * Due to [place] i3 [employer] law, this organization might not be sharing negative HIV tests. Procedure Name Priority Date/Time Associated Diagnosis Comments URINALYSIS, DIP ONLY ( SITE STAT ONLY) STAT (All results called to provider) 01/04/2009 1:58 PM EDT Frequent Urination CULTURE, URINE Routine 01/04/2009 Frequent Urination documented in this encounter Results * Due to [place] i3 membrane law, this organization might not be sharing negative HIV tests. * URINALYSIS, DIP ONLY ( SITE STAT ONLY) (01/04/2009 1:58 PM EDT) COLOR (URINE) yellow [facility] (CLIA# [id number]) APPEARANCE (URINE) cloudy [facility] (CLIA# [id number]) SPECIFIC GRAVITY 1.025 1.001 - 1.035 [facility] (CLIA# [id number]) PH (URINE) 6.5 5.0 - 8.0 [facility] (CLIA# [id number]) PROTEIN (URINE) negative Neg - Neg [facility] (CLIA# [id number]) GLUCOSE (URINE) negative Neg - Neg [facility] (CLIA# [id number]) Ketones (Urine) negative Neg - Neg [facility] (CLIA# [id number]) BILIRUBIN (URINE) negative Neg - Neg [facility] (CLIA# [id number]) BLOOD (URINE) negative Neg - Neg [facility] (CLIA# [id number]) WBC (URINE) negative Neg - Neg [facility] (CLIA# [id number]) NITRITE (URINE) negative Neg - Neg [facility] (CLIA# [id number]) Urine specimen (specimen) 01/04/2009 1:58 PM EDT Narrative [facility] (CLIA# [id number]) - 01/04/2009 1:59 PM EDT Culture already ordered per provider. Jacque Resendiz MD LAB SAME DAY RESULT Final Re sult [facility] (CLIA# [id number]) [address] [place] [address] * CULTURE, URINE (01/04/2009) URINE CULTURE CLEAN VOID SEE TEXT [facility] Comment: SOURCE: URINE NO GROWTH 01/04/2009 01/04/2009 10: 35 PM EDT us Jacque Resendiz MD LABORATORY Final Result [facility] [address] [place] [address] documented in this encounter Visit Diagnoses Diagnosis Frequent urination Urinary frequency documented in this encounter Care Teams Cns Relationship Specialty Start Date End Date Jacque Resendiz MD [address] [place] [address] PCP - General 07/26/05 01/01/15 Unknown Pcp, Non Rmg PCP - General 01/02/15 06/17/23 Toan Motley NP [address] [address] PCP - General Nurse Practitioner 06/18/23 documented as of this encounter
--- OUTSIDE RECORDS SUMMARY | 2024-06-21 12:09 | XMS_ITS | Referral Summary ---
Author Organization [facility] Address [address] [place] [address] Care Team Providers Care Tissue Technologist Name Role Phone Toan Motley Primary Care Provider Encounters Date Type Department Care Team Description 04/19/2024 Orders Only [facility], Endocrinology [address] [place] [address] Tomasz Maldonado MD Donavon's thyroiditis (Primary Dx) 04/19/2024 myChart Message [facility] [address] [place] [phone] Top Hat Body Maker: Tomasz Stock MD Levothyroxine from Last 3 Months Allergies Active Allergy Reactions Criticality Noted Date Comments Ciprofloxacin Hives 06/15/2017 Clindamycin Unknown 06/15/2017 Codeine Nausea 06/25/2017 Hydrocodone-Acetaminophen Nausea 06/25/2017 Naproxen Nausea 06/15/2017 Sulfa (Sulfonamide Antibiotics) Hives 06/04 Medications inhalational spacing device Use as directed 1 each 8 Active inhaler,assist device,lg mask (AEROCHAMBER PLUS FLOW-VU,L [facility]) 8 Active fluticasone (FLOVENT HFA) 110 mcg inhaler Inhale 2 puffs (220 mcg total) by mouth 2 times a day. Rinse mouth with water after use. Do not swallow. 12 g 03/31/2018 4:59 PM EST 8 Active ALPRAZolam (XANAX) 0.25 mg tabletIndicatio ns:Panic attack Take 1 tablet (0.25 mg total) by mouth daily as needed for anxiety. 20 tablet 9 Active albuterol (PROAIR HFA,VENTOLIN HFA) 90 mcg inhaler Inhale 2 puffs (180 mcg total) by mouth every 4 hours as needed for wheezing or shortness of breath. 18 g 3 0 Active vitamin ( PLUS) 27 mg iron- 1 mg tablet Take 1 tablet by mouth daily. 90 tablet 3 0 Active ergocalciferol (VITAMIN D2) 1,250 mcg (50,000 unit) capsuleIndicati ons:Vitamin D deficiency Take 1 capsule (50,000 Units total) by mouth once a week. 12 capsule 1 Active meloxicam (MOBIC) 15 mg tablet Take 1 tablet (15 mg total) by mouth once a day. 30 tablet 1 4 Active gabapentin (NEURONTIN) 300 mg capsuleIndicati ons:Radiculopat hy of thoracic region Take 1 capsule (300 mg total) by mouth 3 times a day. 180 capsule 2 4 Active levothyroxine (SYNTHROID, LEVOTHROID) 50 mcg tablet Take 2 tablets (100 mcg total) by mouth once a day. 60 tablet 11 4 04/19/20 25 Active Active Problems Problem Noted Date Diagnosed Date Thoracic spine pain 09/07/2023 Injury of right ankle 10/04/2018 Assessment & Plan (10/04/2018 5:10 PM EDT): Was able to review with patient that formal read of x-ray did not show any fracture. Advised her that she should continue with rest, elevation, ice. Patient does get nauseous with naproxen but tolerates ibuprofen, encourage ibuprofen 600 mg 3 times daily to help with swelling and pain. Advised patient that it may take a couple of weeks and she should continue with the larger Aircast that was given to her in clinic today. Contact clinic if symptoms worsen or persist. Vitamin D deficiency 08/02/2018 Chronic fatigue 07/28/2018 Asthma exacerbation, mild 03/23/2018 Assessment & Plan (03/24/2018 4:12 PM EST): Patient presenting with asthma exacerbation that responded initially to treatment prescribed however then became acutely worse. We will check a chest x-ray to rule out pneumonia. She has been prescribed a spacer to use with her MDI. If chest x-ray is positive for pneumonia would treat with antibiotics for community-acquired pneumonia. If chest x-ray is negative would plan to increase the prednisone dose from the 20 mg initially prescribed to 50 mg first dose then. Daily for 5 days. Patient understands that should she become worse, require very frequent use of albuterol, develop high fevers or worsening trouble breathing she should go to the emergency department. Assessment & Plan (03/23/2018 6:19 PM EST): As outlined above, patient likely an acute asthma exacerbation secondary to viral URI. Appropriate O2 saturation on SPO2. Lung exam reassuring with good pulmonary effort, no wheezing and no accessory muscle use. Plan to administer albuterol nebulizers during this clinic visit. In addition to scheduled Ventolin HFA every 6 hours for the next 3 days, she was afforded with a prednisone prescription 20 mg daily x5 days. Acute URI 03/23/2018 Assessment & Plan (03/23/2018 6:21 PM EST): Samantha Patel presented with symptoms of an acute URI consisting of in intermittently productive cough without rhinorrhea, no fevers, no chills and no GI symptoms (pertinent as patient was recently on a cruise). Lung exam as outlined above is reassuring. On this presentation, she is afebrile. No indication at this time to treat with antibiotics. Further management as per asthma exacerbation plan. 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 Resolved Problems Problem Noted Date Diagnosed Date Resolved Date Previous section co mplicating 08/11/2017 11/09/2017 Dysuria 07/15/2017 08/11/2017 Encounter to establish care with new doctor 07/06/2017 08/11/2017 Immunizations Immunization Administration Dates Next Due Influenza, Injectable, Quadrivalent, Preservativ e Free 04/12/2020,02/01/2019 Social History Tobacco Use Types Packs/Day Years Used Date Smoking Tobacco: Never Smokeless Tobacco: Never Tobacco Cessation:Counseling Given: Not Answered Alcohol Use Standard Drinks/Week Comments Yes 0 (1 standard drink = 0.6 oz pur e alcohol) Comments No Sex and Gender Information Value Date Recorded Sex Assigned at Female 09/06/2023 3:14 PM EDT Legal Sex Female 11:54 AM EDT Gender Identity Female 09/06/2023 3:14 PM EDT Sexual Orientation Straight 09/06/2023 3: 14 PM EDT Last Filed Vital Signs Vital Sign Reading Time Taken Comments Blood Pressure 104/66 11/27/2023 10:50 AM EDT Pulse 72 11/27/2023 10:50 AM EDT Temperature 36.4 ??C (97.5 ??F) 10/04/2018 3:47 PM ED T Respiratory Rate 20 10/15/2017 11:07 AM EDT Oxygen Saturation 96% 11/27/2023 10:50 AM EDT Inhaled Oxygen Concentration - - Weight 105.2 kg (232 lb) 11/27/2023 10:50 AM EDT Height 156 cm (5' 1.42 ) 11/27/2023 10:50 AM EDT Body Mass Index 43.24 11/27/2023 10:50 AM EDT Plan of Treatment Upcoming Encounters Date Type Department Care Team (Late st Contact Info) Description 12/02/2024 10:20 AM EDT Follow-Up [facility], Endocrinology [address] [place] [address] Tomasz Maldonado MD [address] [place] [phone] Procedures * Due to [place] state law, this organization might not be sharing negative HIV tests. Procedure Name Priority Date/Time Associated Diagnosis Comments PAP Routine 08/11/2017 9:50 AM EDT Encounter for well woman exam with routine gynecological exam from Last 3 Months or Most Recently Relevant to Health Maintenance Insurance [facility] OUT [facility] STATE PPO Care Teams Tissue Technologist Relationship Specialty Start Date End Date Toan Motley [address] [place] [address] PCP - General 08/05/23
--- OUTSIDE RECORDS SUMMARY | 2024-06-21 12:09 | XMS_ITS | Clinical Summary ---
Author Organization [facility] [employer] Address [address] [place] [address] Care Team Providers Care Deck Engineer Name Role Phone Pcp, No Primary Care Provider [phone] Allergies Active Allergy Reactions Criticality Noted Date Comments Ciprofloxacin 06/25/2017 Clindamycin 06/25/2017 Codeine 06/25/2017 Naproxen 06/25/2017 Sulfa (Sulfonamide Antibiotics) 06/05 Hydrocodone-Acetaminophen 06/25/2017 Medications albuterol (PROVENTIL HFA;VENTOLIN HFA) 90 mcg/actuation inhaler Inhale 2 puffs every 6 (six) hours as needed for wheezing. Active albuterol (ACCUNEB) 0.63 mg/3 mL nebulizer solution albuterol sulfate Active inhalational spacing device spcr Use as directed 8 Active levothyroxine (SYNTHROID) 200 MCG tablet One po qd, half tab on Thursday only 0 Active Immunizations Name Administration Dates Next Due MMR Single Dose Vial 11/14/2016 Social History Tobacco Use Types Packs/Day Years Used Date Smoking Tobacco: Never Smokeless Tobacco: Never Tobacco Cessation:Counseling Given: No Comments No Sex and Gender Information Value Date Recorded Sex Assigned at Not on file Legal Sex Female 2:17 PM EDT Gender Identity Not on file Sexual Orientation Not on file Last Filed Vital Signs Vital Sign Reading Time Taken Comments Blood Pressure 136/70 09/21/2017 5:04 PM EDT Pulse 86 09/21/2017 5:04 PM EDT Temperature 36.6 ??C (97.8 ??F) 09/21/2017 5:04 PM ED T Respiratory Rate 16 09/21/2017 5:04 PM EDT Oxygen Saturation 98% 09/21/2017 5:04 PM EDT Inhaled Oxygen Concentration - - Weight 115 kg (253 lb) 09/21/2017 5:04 PM EDT Height - - Body Mass Index - - Plan of Treatment Health Maintenance Due Date Last Done Comments Depression: Screening Annually using PHQ-2/9 in Adults 18 yrs or above (or HM Modifier)([facility]) 2002 Hepatitis C Virus Infection in Adolescents and Adults: Screening (or Modifier) ([facility]) 2002 SDND Screening Reminder: Annually for all adults ([facility]) 2002 Tobacco Smoking Cessation: i n Adults excluding Women: Behavioral and Pharmacotherapy Interventions ([facility]) 2002 Lipid Screening: Once for Women aged 20 to 45 yrs ([facility]) 2004 Cervical Cancer Screenin-65 yrs of age (or Modifier) 2005 Cervical Cancer Screening: Pap every 3 yrs pts age 21-65 2005 Cervical Cancer: Pap Screening with Modifier timing ([facility]) 2005 Cervical Cancer: hrHPV alone or with cotesting Pap for Pts 30-65yrs screening every 5yrs ([facility]) 2005 Flu Vaccination: Yearly for ages 18mos through 64 years (or Modifier)([facility]) 12/03/2023 COVID-19 Vaccine Screening: Initial Series and Booster Status ([facility]) ( - 2023- season) 2024 DTaP/Tdap/Td Vaccines ([facility]) (7 - Td or Tdap) 01/17/2024 01/16/2014, 09/24/1989, 01/12/1986, Additional history exists Zoster/Shingles Vaccine Series Screening: Adults aged 18+ yrs (or HM Modifiers)([facility]) (1 of 2) 2034 Pneumococcal Vaccination Screening: Pts 0-19 & 19-64 yrs of age ([facility]) Aged Out No longer eligible based on patient's age to complete this topic Medical Devices Not on file Care Teams Deck Engineer Relationship Specialty Start Date End Date Pcp, No PCP - General Family Medicine 07/20/20
--- OUTSIDE RECORDS SUMMARY | 2024-06-21 12:09 | XMS_ITS | Encounter Summary ---
Author Organization [facility] Address [address] [place] [address] Care Team Providers Care Mule Packer Name Role Phone Jacque Resendiz MD Primary Care Provider Unknown Pcp, Non Rmg Primary Care Provider Unava Toan Adames HAND BOOKED FOLDER AND STITCHER Primary Care Provider Encounter Details Date Type Department Care Team (Late st Contact Info) Description 09/15/2013 Orders Only [facility] [address] [place] [phone] Jacque Resendiz MD [address] [place] [address] Social History Tobacco Use Types Packs/Day Years [...] on filedocumented in this encounter Care Teams Mule Packer Relationship Specialty Start Date End Date Jacque Resendiz MD [address] [place] [address] PCP - General 07/26/05 01/01/15 Unknown Pcp, Non Rmg PCP - General 01/02/15 06/17/23 Tona Motley NP [address] [address] PCP - General Nurse Practitioner 06/18/23 documented as of this encounter
--- OUTSIDE RECORDS SUMMARY | 2024-06-21 12:09 | XMS_ITS | Encounter Summary ---
Author Organization [facility] Address [address] [place] [address] Care Team Providers Care Supplier Manager Name Role Phone Jacque Resendiz MD Primary Care Provider Unknown Pcp, Non Rmg Primary Care Provider Unava Toan Adames NP Primary Care Provider [phone] Encounter Details Date Type Department Care Team (Late st Contact Info) Description 10/14/2013 Orders Only [facility] [address] [place] [phone] Jacque Resendiz MD [address] [place] [address] Social History Tobacco Use Types Packs/Day Years [...] encounter Progress Notes * Frances Chung - 10/27/2013 9:39 AM EDTQualeida Note: Spoke with patient, she would like immunization letter mailed to her Letter sent * Jacque Resendiz MD - 10/27/2013 9:23 AM EDTQuick Note: I called the patient and informed. She does not need a booster as has received two doses of MMR. I discussed with Dr. Lerner. Ok for letter to whom it may concern stating that she has received MMR #1 and # 2 ( give dates). She does not need a booster. Please refer to point # 2 [facility] advisory that states: Acceptable Evidence of Immunity* 1. Born in the [place] before May Exception: Forhealth care workers, year of does notconstitute acceptable evidence of immunity. If individuals in these groups do not have serologic evidence of immunity, they should have 2 doses of MMR. 2. Two doses of measles-containing vaccine, given at least 4 weeks apart and beginning at >12 months of age, and the second dose given prior to or within 72 hours of exposure recommended for children, teens, college students, international travelers and healthcare workers and in outbreak settings. (In health care settings, vaccination after exposure will not always guarantee avoiding exclusion.) or 3. Serologic evidence of immunity or laboratory confirmation of disease. Thanks. * Nathaly Bobo LVN LPN - 10/18/2013 8:40 AM EDTQuick Note: Done for school ok for mmr booster documented in this encounter Plan of Treatment Not on file documented as of this encounter Procedures * Due to [place] state law, this organization might not be sharing negative HIV tests. Procedure Name Priority Date/Time Associated Diagnosis Comments MEASLES IGG AB (RUBEOLA) Routine 10/14/2013 8:05 AM EDT Screening examination for infectious disease RUBELLA ANTIBODY IGG, SERUM Routine 10/14/2013 8:05 AM EDT Screening examination for infectious disease MUMPS VIRUS ANTIBODY, IGG, SERUM Routine 10/14/2013 8:05 AM EDT Screening examination for infectious disease HEPATITIS B SURFACE ANTIBODY, QUANTITATIVE (FOR IMMUNITY) Routine 10/14/2013 8:05 AM EDT Screening examination for infectious disease documented in this encounter Results * Due to [place] state law, this organization might not be sharing negative HIV tests. * HEPATITIS B SURFACE ANTIBODY, QUANTITATIVE (10/14/2013 8:05 AM EDT) Hepatitis B virus surface Ab 206 mIU/mL [facility] Comment: {HEPATITIS B SURFACE ANTIBODY (QUANT) {[id number]) Patient has immunity to hepatitis B virus. Effective September 12, 2013 this test is being performed using the HeadCount Chemiluminesence method. Quantitative results from this method should not be used interchangeably with other methods. 10/14/2013 8:05 AM EDT 10/14/2013 12:12 PM EDT Narrative Resulting Agency Comment [id number] Jacque Resendiz MD LABORATORY Final Result Performing Organization Address [facility] de Phone Number [facility] [address] [place] [address] * MUMPS VIRUS ANTIBODY, IGG, SERUM (10/14/2013 8:05 AM EDT) Mumps virus Ab.IgG 1.13 index Q [facility] Comment: {MUMPS VIRUS ANTIBODY (IGG) {[id number]) Index ?Interpretation < or = 0.90 ?Negative 0.91-1.09 ?Equivocal > or = 1.10 ?Positive A positive result indicates that the patient has antibody to mumps virus. It does not differentiate between an active or past infection. The clinical diagnosis must be interpreted in conjunction with the clinical signs and symptoms of the patient. 10/14/2013 8:05 AM EDT 10/14/2013 12:12 PM EDT Narrative Resulting Agency Comment [id number] Jacque Resendiz MD LABORATORY Final Result Performing Organization Address [facility] de Phone Number [facility] [address] [place] [address] * (ABNORMAL) MEASLES IGG AB (RUBEOLA) (10/14/2013 8:05 AM EDT) Measles virus Ab.IgG < OR = 0.90(A) index [facility] Comment: {MEASLES ANTIBODY (IGG) {[id number]) ? Index ? Explanation of Test Results ? --------- ?< or = 0.90 ?Negative - No Rubeola (Measles) IgG ?Antibody detected ?0.91 - 1.09 ?Equivocal ?> or = 1.10 ?Positive - Rubeola (Measles) IgG ?Antibody detected ?Positive results suggest recent or previous infection ?with Measles (Rubeola) virus and imply immunity. ?Patients exhibiting equivocal results should be ?retested in one month, if clinically indicated. 10/14/2013 8:05 AM EDT 10/14/2013 12:12 PM EDT Narrative Resulting Agency Comment [id number] Jacque Resendiz MD LABORATORY Final Result [facility] [address] [place] [address] * RUBELLA ANTIBODY IGG, SERUM (10/14/2013 8:05 AM EDT) Rubella virus Ab.IgG 1.51 [facility] Comment: {RUBELLA ANTIBODY (IGG) {[id number]) ? Value ?Interpretation ? ----- ? < or = 0.90 ?Negative ? 0.91-1.09 ?Equivocal ? > or = 1.10 ?Positive The presence of rubella IgG antibody suggests immunization or past or current infection with rubella virus. 10/14/2013 8:05 AM EDT 10/14/2013 12:12 PM EDT Narrative Resulting Agency Comment [id number] us Jacque Resendiz MD LABORATORY Final Result [facility] [address] [place] [address] documented in this encounter Visit Diagnoses Diagnosis Screening examination for infectious disease Screening examination for unspecified infectious disease documented in this encounter Care Teams Supplier Manager Relationship Specialty Start Date End Date Jacque Resendiz MD [address] [place] [address] PCP - General 07/26/05 01/01/15 Unknown Pcp, Non Rmg PCP - General 01/02/15 06/17/23 Toan Motley NP [address] [address] PCP - General Nurse Practitioner 06/18/23 documented as of this encounter
--- OUTSIDE RECORDS SUMMARY | 2024-06-21 12:09 | XMS_ITS | Encounter Summary ---
Author Organization [facility] Address [address] [place] [address] Care Team Providers Care Rail Assembler Name Role Phone Jacque Resendiz MD Primary Care Provider [phone] Unknown Pcp, Non Rmg Primary Care Provider Unava Toan Adames NP Primary Care Provider Encounter Details Date Type Department Care Team (Late st Contact Info) Description 09/07/2006 Orders Only [facility] [address] [place] [address] Jacque Resendiz MD [address] [place] [address] Social History Tobacco Use Types Packs/Day Years [...] encounter Procedures * Due to [place] state law, this organization might not be sharing negative HIV tests. Procedure Name Priority Date/Time Associated Diagnosis Comments GC DNA PROBE (GEN-PROBE, GC) Routine 09/07/2006 ABDOMINAL PAIN, LEFT LOWER QUADRANT PID (PELVIC INFLAMMATORY DISEASE) CHLAMYDIA DNA PROBE (GEN-PROBE, CHLAMYDIA) Routine 09/07/2006 ABDOMINAL PAIN, LEFT LOWER QUADRANT PID (PELVIC INFLAMMATORY DISEASE) CULTURE, URINE Routine 09/07/2006 UTI (URINARY TRACT INFECTION) CULTURE,VAGINAL Routine 09/07/2006 ABDOMINAL PAIN, LEFT LOWER QUADRANT PID (PELVIC INFLAMMATORY DISEASE) URINALYSIS,MICROSCOPI C ONLY Routine 09/07/2006 UTI (URINARY TRACT INFECTION) URINALYSIS, DIP ONLY ( SITE STAT ONLY) Routine 09/07/2006 UTI (URINARY TRACT INFECTION) documented in this encounter Results * Due to [place] state law, this organization might not be sharing negative HIV tests. * CHLAMYDIA DNA PROBE (09/07/2006) CHLAMYDIA TRACHOMATIS DNA SEE TEXT [facility] (CLIA# [id number]) Comment: SOURCE: ENDOCERVIX NEGATIVE 09/07/2006 09/07/2006 10: 23 PM EDT us Jacque Resendiz MD LABORATORY Final Result Performing Organization Address [facility] Co de Phone Number [facility] (CLIA# [id number]) [address] [place] [address] * GC DNA PROBE (09/07/2006) GC DNA PROBE SEE TEXT [facility] (CLIA# [id number]) Comment: SOURCE: ENDOCERVIX NEGATIVE 09/07/2006 09/07/2006 10: 23 PM EDT us Jacque Resendiz MD LABORATORY Final Result Performing Organization Address City/[facility]/ZIP Co de Phone Number [facility] (CLIA# [id number]) [address] [place] [address] * CULTURE,VAGINAL (09/07/2006) Result(s) SEE TEXT [facility] (CLIA# [id number]) Comment: SOURCE: VAGINA NORMAL OCTAVIO 09/07/2006 09/07/2006 10: 23 PM EDT Jacque Resendiz MD LABORATORY Final Result Performing Organization Address [facility]/ZIP Co de Phone Number [facility] (CLIA# [id number]) [address] [place] [address] * (ABNORMAL) URINALYSIS,MICROSCOPIC ONLY (09/07/2006) WBC (URINE) 0-4 0-4/HPF [facility] (CLIA# [id number]) RBC (Urine Sed) 0-2 0-3/HPF [facility] (CLIA# [id number]) EPITHELIAL CELLS.SQUAMOUS (URINE SED) 0-5 0-5/HPF [facility] (CLIA# [id number]) EPITHELIAL CELLS.TRANSITIO NAL (URINE SED) 0 0-5/HPF [facility] (CLIA# [id number]) EPITHELIAL CELLS.RENAL (URINE SED) 0 0-3/HPF [facility] (CLIA# [id number]) BACTERIA (URINE) FEW(A) NONE SEEN [facility] (CLIA# [id number]) HYALINE CASTS (URINE) 0(A) 0 - 1 [facility] (CLIA# [id number]) 09/07/2006 09/07/2006 12: 31 PM EDT Jacque Resendiz MD LAB SAME DAY RESULT Final Re sult Performing Organization Address [facility]/ZIP Co de Phone Number [facility] (CLIA# [id number]) [address] [place] [address] * URINALYSIS, DIPSTICK ONLY (SITE - STAT ONLY) (09/07/2006) COLOR (URINE) YELLOW YELLOW [facility] (CLIA# [id number]) APPEARANCE (URINE) CLEAR CLEAR [facility] (CLIA# [id number]) SPECIFIC GRAVITY 1.025 1.001 - 1.035 [facility] (CLIA# [id number]) PH (URINE) 5.0 5.0 - 8.0 [facility] (CLIA# [id number]) PROTEIN (URINE) TRACE NEG FC [facility] (CLIA# [id number]) GLUCOSE (URINE) NEG NEG [facility] (CLIA# [id number]) Ketones (Urine) NEG NEG FC [facility] (CLIA# [id number]) BILIRUBIN (URINE) NEG NEG [facility] (CLIA# [id number]) BLOOD (URINE) NEG NEG [facility] (CLIA# [id number]) WBC (URINE) TRACE NEG [facility] (CLIA# [id number]) NITRITE (URINE) NEG NEG FC [facility] (CLIA# [id number]) 09/07/2006 09/07/2006 12: 31 PM EDT Jacque Resendiz MD LAB SAME DAY RESULT Final Re sult Performing Organization Address [facility] Co de Phone Number [facility] (CLIA# [id number]) [address] [place] [address] * CULTURE, URINE (09/07/2006) URINE CULTURE CLEAN VOID SEE TEXT [facility] (CLIA# [id number]) Comment: SOURCE: URINE MULTIPLE ORGANISMS, EACH <10,000 CFU/ML. MAY REPRESENT NORMAL OCTAVIO CONTAMINATION FROM EXTERNAL GENITALIA. NO FURTHER TESTING. 09/07/2006 09/07/2006 12: 31 PM EDT Jacque Resendiz MD LABORATORY Final Result Performing Organization Address [facility] Co de Phone Number [facility] (CLIA# [id number]) [address] [place] [address] documented in this encounter Visit Diagnoses Diagnosis UTI (URINARY TRACT INFECTION)- Primary Urinary tract infection, site not specified ABDOMINAL PAIN, LEFT LOWER QUADRANT Abdominal pain, left lower quadrant PID (PELVIC INFLAMMATORY DISEASE) Unspecified inflammatory disease of female pelvic organs and tissues documented in this encounter Care Teams Rail Assembler Relationship Specialty Start Date End Date Jacque Resendiz MD [address] [place] [address] PCP - General 07/26/05 01/01/15 Unknown Pcp, Non Rmg PCP - General 01/02/15 06/17/23 Toan Motley NP [address] [address] PCP - General Nurse Practitioner 06/18/23 documented as of this encounter
--- OUTSIDE RECORDS SUMMARY | 2024-06-21 12:09 | XMS_ITS | Encounter Summary ---
Author Organization [facility] Address [address] [place] [address] Care Team Providers Care [employer] Ax Consultant Name Role Phone Jacque Resendiz MD Primary Care Provider Unknown Pcp, Non g Primary Care Provider Unava Toan Adames NP Primary Care Provider Reason for Visit * Reason Onset Date Comments Refill Request 02/15/2008 Encounter Details Date Type Department Care Team (Late st Contact Info) Description 02/15/2008 Refill [facility] [address] [place] [address] Jacque Resendiz MD [address] [place] [address] Refill Request Social History Tobacco Use Types Packs/Day Years [...] on file documented as of this encounter Miscellaneous Notes * Telephone Encounter - Geneva Mckeon LVN LPN - 02/15/2008 4:38 PM EDT Pt coming in on 17th for appt Very sob and winded over the phone Stated she sounded like she needed to be in er Pt states she is at work( [employer]) She cant leave She states she would like inhaler called in until appt documented in this encounter Plan of Treatment Not on file documented as of this encounter Visit Diagnoses Not on filedocumented in this encounter Care Teams Microsoft Dynamics Ax Consultant Relationship Specialty Start Date End Date Jacque Resendiz MD [address] [place] [address] PCP - General 07/26/05 01/01/15 Unknown Pcp, Non Rmg PCP - General 01/02/15 06/17/23 Toan Motley NP [address] [address] PCP - General Nurse Practitioner 06/18/23 documented as of this encounter
--- OUTSIDE RECORDS SUMMARY | 2024-06-21 12:09 | XMS_ITS | Encounter Summary ---
Author Organization [facility] Address [address] [place] [address] Care Team Providers Care Copper Plate Printer Name Role Phone Jacque Resendiz MD Primary Care Provider Unknown Pcp, Non Rmg Primary Care Provider Unava Toan Adames NP Primary Care Provider Encounter Details Date Type Department Care Team (Late st Contact Info) Description 05/22/2006 Orders Only [facility] [address] [place] [phone] Jacque Resendiz MD [address] [place] [address] Social History Tobacco Use Types Packs/Day Years Used Date Smoking Tobacco: Never Assessed Comments Unknown Sex and Gender Information Value Date Recorded Sex Assigned at Female 06/21/2023 1:58 PM EST Legal Sex Female 9:26 PM EDT Gender Identity Female 06/21/2023 1:58 PM EST Sexual Orientation Not on file documented as of this encounter Plan of Treatment Scheduled Orders Name Type Priority Associated Diagnoses Orde r Schedule CULTURE, URINE Lab Routine UTI (LOWER URINARY TRACT INFECTION) Ordered: 05/22/2006 URINALYSIS, DIPSTICK ONLY (SITE - STAT ONLY) Lab Routine UTI (LOWER URINARY TRACT INFECTION) Ordered: 05/22/2006 documented as of this encounter Visit Diagnoses Diagnosis UTI (LOWER URINARY TRACT INFECTION)- Primary Urinary tract infection, site not specified documented in this encounter Care Teams Copper Plate Printer Relationship Specialty Start Date End Date Jacque Resendiz MD [address] [place] [address] PCP - General 07/26/05 01/01/15 Unknown Pcp, Non Rmg PCP - General 01/02/15 06/17/23 Toan Motley NP [address] [address] PCP - General Nurse Practitioner 06/18/23 documented as of this encounter
--- OUTSIDE RECORDS SUMMARY | 2024-06-21 12:09 | XMS_ITS | Encounter Summary ---
Author Organization [facility] Address [address] [place] [address] Care Team Providers Care Manager Application Name Role Phone Jacque Resendiz MD Primary Care Provider Unknown Pcp, Non Rmg Primary Care Provider Unava Toan Adames PLANT ENGINEER Primary Care Provider Encounter Details Date Type Department Care Team (Late st Contact Info) Description 02/01/2013 Orders Only [facility] Endocrinology [address] [place] [address] Mony Paz MD [address] [address] Social History Tobacco Use Types Packs/Day Years [...] on filedocumented in this encounter Care Teams Manager Application Relationship Specialty Start Date End Date Jacque Resendiz MD [address] [place] [address] PCP - General 07/26/05 01/01/15 Unknown Pcp, Non [facility] PCP - General 01/02/15 06/17/23 Toan Motley NP [address] [place] [address] PCP - General Nurse Practitioner 06/18/23 documented as of this encounter
--- OUTSIDE RECORDS SUMMARY | 2024-06-21 12:09 | XMS_ITS | Encounter Summary ---
Author Organization [facility] Address [address] [place] [address] Care Team Providers Care Commercial Roofing Estimator Name Role Phone Jacque Resendiz MD Primary Care Provider [phone] Unknown Pcp, Non Rmg Primary Care Provider Toan Cassidy NP Primary Care Provider Encounter Details Date Type Department Care Team (Late st Contact Info) Description 10/16/[address] [facility] Endocrinology [address] [place], [place] [phone] Mony Paz MD [address] [address] Social History Tobacco Use Types Packs/Day Years [...] of this encounter Procedures * Due to [place] state law, this organization might not be sharing negative HIV tests. Procedure Name Priority Date/Time Associated Diagnosis Comments TSH, 3RD GENERATION Routine 10/16/2014 1 :54 PM EDT Chronic lymphocytic thyroiditis documented in this encounter Results * Due to [place] state law, this organization might not be sharing negative HIV tests. * TSH, 3RD GENERATION (10/16/2014 1:54 PM EDT) TSH 0.43 mIU/L [facility] Comment: {TSH {[id number]) ?Reference Range ?> or = 20 Years ??0.40-4.50 ? Ranges ?First trimester ?0.26-2.66 ?Second trimester ?? 0.55-2.73 ?Third trimester ?0.43-2.91 10/16/2014 1:54 PM EDT 10/17/2014 12:27 AM EDT Narrative Resulting Agency Comment [id number] Mony Paz MD LABORATORY Final Result Performing Organization Address City/State/[facility] Co de Phone Number [facility] [address] [place] [address] documented in this encounter Visit Diagnoses Diagnosis Chronic lymphocytic thyroiditis documented in this encounter Care Teams Commercial Roofing Estimator Relationship Specialty Start Date End Date Jacque Resendiz MD [address] [place] [address] PCP - General 07/26/05 01/01/15 Unknown Pcp, Non Rmg PCP - General 01/02/15 06/17/23 Toan Motley NP [address] [address] PCP - General Nurse Practitioner 06/18/23 documented as of this encounter
--- OUTSIDE RECORDS SUMMARY | 2024-06-21 12:09 | XMS_ITS | Encounter Summary ---
Author Organization [facility] Address [address] [place] [address] Care Team Providers Care Ammunition Officer Name Role Phone Jacque Resendiz MD Primary Care Provider [phone] Unknown Pcp, Non Rmg Primary Care Provider Fernandava Toan Adames NP Primary Care Provider [phone] Encounter Details Date Type Department Care Team (Late st Contact Info) Description 11/17/2014 Orders Only [facility] DISTRIBUTION CENTER MANAGER [address] [facility] [address] [place] [address] Radha Chavez CNM Social History Tobacco Use Types Packs/Day Years [...] 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 Pap smear in 3 years. documented in this encounter Plan of Treatment Not on file documented as of this encounter Procedures * Due to [place] [employer] law, this organization might not be sharing negative HIV tests. Procedure Name Priority Date/Time Associated Diagnosis Comments SUREPATH FPGS,HPV,CT/GC PANEL Routine 11/17/2014 3:49 PM EDT Encounter for routine gynecological examination documented in this encounter Results * Due to [place] [employer] law, this organization might not be sharing negative HIV tests. * SUREPATH FPGS,HPV,CT/GC PANEL (11/17/2014 3:49 PM EDT) Clinical information NONE GIVEN [facility] Comment:{CLINICAL INFORMATIO N: {[id number]) Date last menstrual period [id number] [facility] Comment:{LMP: {[id number]) Date of previous PAP smear [id number] NEG [facility] Comment:{PREV. PAP: {[id number]) Date of previous biopsy NONE GIVEN [facility] Comment:{PREV. BX: {[id number]) Specimen source (Cvx/Vag) Vagina, Cervix, Endocervix [facility] Comment:{SOURCE: {[id number]) Statement of Adequacy (Cvx/Vag) Satisfactory for evaluation. Endocervical/gonzalez sformation zone component present. [facility] Comment:{STATEMENT OF ADEQUA CY: {[id number]) Cytology, Pap Smear Negative for intraepithelial lesion or malignancy. [facility] Comment:{INTERPRETATION/RESU LT: {[id number]) Cytology study comment (Cvx/Vag) This Pap test has been evaluated with computer assisted technology. [facility] Comment:{COMMENT: {[id number]) Sack Sewer Machine (Cvx/Vag) MSM, CT(ASCP) [facility] Comment:{M60A2 ARMOR CREWMAN: { [id number]) HPV MRNA E6/E7 Not Detected NOT DETECTED [facility] Comment: {HPV mRNA E6/E7, SUREPATH VIAL {[id number]) This test was performed using the APTIMA HPV Assay ([employer] This assay detects E6/E7 viral messenger RNA (mRNA) from 14 high-risk HPV types (16,18,31,33,35,39,45,51,52,56,58,59,66,68). The analytical performance characteristics of this assay, when used to test SurePath specimens, have been determined by [employer] Chlamydia trachomatis rRNA NOT DETECTED NOT DETECTED [facility] Comment:{CHLAMYDIA TRACHOMAT IS RNA, TMA {[id number]) Neisseria Gonorrhoeae rRNA NOT DETECTED NOT DETECTED [facility] Comment:{NEISSERIA GONORRHOE AE RNA, TMA {[id number]) COMMENT SEE NOTE [facility] Comment: {COMMENT {[id number]) This test was performed using the APTIMA COMBO2 Assay ([employer] The analytical performance characteristics of this assay, when used to test SurePath specimens have been determined by [employer]. 11/17/2014 3:49 PM EDT 11/17/2014 7:43 PM EDT Narrative Resulting Agency Comment [id number] us Radha Chavez CNM PATHOLOGY-INTERFACED Final Res ult [facility] [address] [place] [address] documented in this encounter Visit Diagnoses Diagnosis Encounter for routine gynecological examination Routine gynecological examination documented in this encounter Care Teams Ammunition Officer Relationship Specialty Start Date End Date Jacque Resendiz MD [address] [place] [address] PCP - General 07/26/05 01/01/15 Unknown Pcp, Non Rmg PCP - General 01/02/15 06/17/23 Toan Motley NP [address] [address] PCP - General Nurse Practitioner 06/18/23 documented as of this encounter
--- OUTSIDE RECORDS SUMMARY | 2024-06-21 12:09 | XMS_ITS | Encounter Summary ---
Author Organization [facility] Address [address] [place] [address] Care Team Providers Care Stockroom Coordinator Name Role Phone Jacque Resendiz MD Primary Care Provider Unknown Pcp, Non Rmg Primary Care Provider Unava Toan Adames INTERIOR DESIGN COORDINATOR Primary Care Provider Encounter Details Date Type Department Care Team (Late st Contact Info) Description 09/18/2008 Orders Only [facility] [address] [place] [phone] Jacque Resendiz MD [address] [place] [address] Social History Tobacco Use Types Packs/Day Years [...] as of this encounter Visit Diagnoses Diagnosis Hyperlipemia Other and unspecified hyperlipidemia HTN (hypertension) Unspecified essential hypertension Hypothyroidism Unspecified hypothyroidism documented in this encounter Care Teams Stockroom Coordinator Relationship Specialty Start Date End Date Jacque Resendiz MD [address] [place] [address] PCP - General 07/26/05 01/01/15 Unknown Pcp, Non Rmg PCP - General 01/02/15 06/17/23 Toan Motley NP [address] [address] PCP - General Nurse Practitioner 06/18/23 documented as of this encounter
--- OUTSIDE RECORDS SUMMARY | 2024-06-21 12:09 | XMS_ITS | Encounter Summary ---
Author Organization [facility] Address [address] [place] [address] Care Team Providers Care Gear Shaver Set Up Operator Name Role Phone Jacque Resendiz MD Primary Care Provider Unknown Pcp, Non Rmg Primary Care Provider Toan Cassidy NP Primary Care Provider [phone] Encounter Details Date Type Department Care Team (Late st Contact Info) Description 07/13/2013 Orders Only [facility] Endocrinology [address] [place], [place] [phone] Mony Paz MD [address] [address] Social History Tobacco Use Types Packs/Day Years [...] this encounter Procedures * Due to [place] state law, this organization might not be sharing negative HIV tests. Procedure Name Priority Date/Time Associated Diagnosis Comments TSH, 3RD GENERATION Routine 07/13/2013 1 :51 PM EDT Subclinical hypothyroidism documented in this encounter Results * Due to [place] state law, this organization might not be sharing negative HIV tests. * (ABNORMAL) TSH, 3RD GENERATION (07/13/2013 1:51 PM EDT) TSH 4.65(H) mIU/L [facility] Comment: {TSH {[id number]) ?Reference Range ?> or = 20 Years ??0.40-4.50 ? Ranges ?First trimester ?0.26-2.66 ?Second trimester ?? 0.55-2.73 ?Third trimester ?0.43-2.91 07/13/2013 1:51 PM EDT 07/13/2013 9:52 PM EDT Narrative Resulting Agency Comment [id number] us Mony Paz MD LABORATORY Final Result Performing Organization Address City/State/[facility] Co de Phone Number [facility] [address] [place] [address] documented in this encounter Visit Diagnoses Diagnosis Subclinical hypothyroidism Other specified acquired hypothyroidism documented in this encounter Care Teams Gear Shaver Set Up Operator Relationship Specialty Start Date End Date Jacque Resendiz MD [address] [place] [address] PCP - General 07/26/05 01/01/15 Unknown Pcp, Non Rmg PCP - General 01/02/15 06/17/23 Toan Motley NP [address] [address] PCP - General Nurse Practitioner 06/18/23 documented as of this encounter
--- OUTSIDE RECORDS SUMMARY | 2024-06-21 12:09 | XMS_ITS | Encounter Summary ---
Author Organization [facility] Address [address] [place] [address] Care Team Providers Care Promotions Producer Name Role Phone Jacque Resendiz MD Primary Care Provider Unknown Pcp, Non Rmg Primary Care Provider Unava Toan Adames NP Primary Care Provider [phone] Encounter Details Date Type Department Care Team (Late st Contact Info) Description 09/02/2006 Orders Only [facility] [address] [place] [phone] Jacque Resendiz MD [address] [place] [address] Social History Tobacco Use Types Packs/Day Years [...] of this encounter Results * Due to [place] state law, this organization might not be sharing negative HIV tests. * URINALYSIS, DIPSTICK ONLY (SITE - STAT ONLY) (09/07/2006) COLOR (URINE) YELLOW YELLOW [facility] (CLIA# [id number]) APPEARANCE (URINE) CLEAR CLEAR [facility] (CLIA# [id number]) SPECIFIC GRAVITY 1.025 1.001 - 1.035 [facility] (CLIA# [id number]) PH (URINE) 5.0 5.0 - 8.0 [facility] (CLIA# [id number]) PROTEIN (URINE) TRACE NEG [facility] (CLIA# [id number]) GLUCOSE (URINE) NEG NEG [facility] (CLIA# [id number]) Ketones (Urine) NEG NEG [facility] (CLIA# [id number]) BILIRUBIN (URINE) NEG NEG [facility] (CLIA# [id number]) BLOOD (URINE) NEG NEG [facility] (CLIA# [id number]) WBC (URINE) TRACE NEG [facility] (CLIA# [id number]) NITRITE (URINE) NEG NEG [facility] (CLIA# [id number]) 09/07/2006 09/07/2006 12: 31 PM EDT Jacque Resendiz MD LAB SAME DAY RESULT Final Re sult Performing Organization Address City/[facility]/ZIP Co de Phone Number [facility] (CLIA# [id number]) [address] [place] [address] * CULTURE, URINE (09/07/2006) URINE CULTURE CLEAN VOID SEE TEXT [facility] (CLIA# [id number]) Comment: SOURCE: URINE MULTIPLE ORGANISMS, EACH <10,000 CFU/ML. MAY REPRESENT NORMAL OCTAVIO CONTAMINATION FROM EXTERNAL GENITALIA. NO FURTHER TESTING. 09/07/2006 09/07/2006 12: 31 PM EDT us Jacque Resendiz MD LABORATORY Final Result Performing Organization Address City/[facility]/ZIP Co de Phone Number [facility] (CLIA# [id number]) [address] [place] [address] documented in this encounter Visit Diagnoses Diagnosis UTI (URINARY TRACT INFECTION)- Primary Urinary tract infection, site not specified documented in this encounter Care Teams Promotions Producer Relationship Specialty Start Date End Date Jacque Resendiz MD [address] [place] [address] PCP - General 07/26/05 01/01/15 Unknown Pcp, Non Rmg PCP - General 01/02/15 06/17/23 Toan Motley NP [address] [address] PCP - General Nurse Practitioner 06/18/23 documented as of this encounter
--- OUTSIDE RECORDS SUMMARY | 2024-06-21 12:09 | XMS_ITS | Encounter Summary ---
Author Organization [facility] Address [address] [place] [address] Care Team Providers Care Respiratory Medicine Physician Name Role Phone Jacque Resendiz MD Primary Care Provider [phone] Unknown Pcp, Non Rmg Primary Care Provider Unava Toan Adames NP Primary Care Provider [phone] Encounter Details Date Type Department Care Team (Late st Contact Info) Description 01/21/2013 Orders Only [facility] [address] [place] [phone] Jacque Resendiz MD [address] [place] [address] Social History Tobacco Use Types Packs/Day Years [...] Notes * Coleen De La Paz - 01/24/2013 8:33 AM EDTQuick Note: The patients lab results are at a normal/stable level by the protocol guidelines. The result letterwas completed and sent to patient. documented in this encounter Plan of Treatment Not on file documented as of this encounter Procedures * Due to [place] [employer] law, this organization might not be sharing negative HIV tests. Procedure Name Priority Date/Time Associated Diagnosis Comments CBC INCLUDES DIFFERENTIAL AND PLATELET COUNT Routine 01/21/2013 8:14 AM EDT Screening for deficiency anemia LIPID PANEL WITH REFLEX TO DIRECT LDL Routine 01/21/2013 8:14 AM EDT Screening for hyperlipidemia BASIC METABOLIC PANEL WITH (GFR) Routine 01/21/2013 8:14 AM EDT Screening for diabetes mellitus documented in this encounter Results * Due to [place] [employer] law, this organization might not be sharing negative HIV tests. * CBC INCLUDES DIFFERENTIAL AND PLATELET COUNT (01/21/2013 8:14 AM EDT) WBC 7.5 3.8 - 10.8 Thousand/u L [facility] Comment:{WHITE BLOOD CELL CO UNT {[id number]) RBC 4.42 3.80 - 5.10 Million/uL [facility] Comment:{RED BLOOD CELL COUN T {[id number]) Hemoglobin 13.1 11.7 - 15.5 g/dL [facility] Comment:{HEMOGLOBIN {[id number]) Hematocrit 39.3 35.0 - 45.0 % [facility] Comment:{HEMATOCRIT {[id number]) MCV 88.9 80.0 - 100.0 fL [facility] Comment:{MCV {[id number]) MCH 29.6 27.0 - 33.0 pg [facility] Comment:{MCH {[id number]) MCHC 33.3 32.0 - 36.0 g/dL [facility] Comment:{MCHC {[id number]) RDW 13.0 11.0 - 15.0 % [facility] Comment:{RDW {[id number]) PLT 246 140 - 400 Thousand/u L [facility] Comment:{PLATELET COUNT {[id number]) MPV 10.2 7.5 - 11.5 fL [facility] Comment:{MPV {[id number]) Neutrophils # 4875 1500 - 7800 cells/uL [facility] Comment:{ABSOLUTE NEUTROPHIL S {[id number]) Lymphocytes # 2010 850 - 3900 cells/uL [facility] Comment:{ABSOLUTE LYMPHOCYTE S {[id number]) Monocytes # 503 200 - 950 cells/uL [facility] Comment:{ABSOLUTE MONOCYTES {[id number]) Eosinophils # 75 15 - 500 cells/uL [facility] Comment:{ABSOLUTE EOSINOPHIL S {[id number]) Basophils # 38 0 - 200 cells/uL [facility] Comment:{ABSOLUTE BASOPHILS {[id number]) Neutrophils % 65.0 % [facility] Comment:{NEUTROPHILS {[id number]) Lymphocytes % 26.8 % [facility] Comment:{LYMPHOCYTES {[id number]) Monocytes % 6.7 % [facility] Comment:{MONOCYTES {[id number]) Eosinophils % 1.0 % [facility] Comment:{EOSINOPHILS {[id number]) Basophils % 0.5 % [facility] Comment:{BASOPHILS {[id number]) 01/21/2013 8:14 AM EDT 01/21/2013 12:37 PM EDT Narrative Resulting Agency Comment [id number] us Jacque Resendiz MD LAB SAME DAY RESULT Final Re sult [facility] [address] [place] [address] * BASIC METABOLIC PANEL WITH (GFR) (01/21/2013 8:14 AM EDT) Glucose 88 65 - 99 mg/dL [facility] Comment: {GLUCOSE {[id number]) ? Fasting reference interval Urea Nitrogen Blood (BUN) 12 7 - 25 mg/dL [facility] Comment:{UREA NITROGEN (BUN) {[id number]) Creatinine 0.77 0.50 - 1.10 mg/dL [facility] Comment:{CREATININE {[id number]) GFR 105 > OR = 60 mL/min/1. 73m2 [facility] Comment:{eGFR NON-AFR. AMERI CAN {[id number]) GFR () 122 > OR = 60 mL/min/1. 73m2 [facility] Comment:{eGFR AMERIC AN {[id number]) BUN/Creatinine Ratio NOT APPLICABLE 6 - 22 (calc) [facility] Comment:{BUN/CREATININE RATI O {[id number]) Sodium 138 135 - 146 mmol/L [facility] Comment:{SODIUM {[id number]) Potassium 4.0 3.5 - 5.3 mmol/L [facility] Comment:{POTASSIUM {[id number]) Chloride 106 98 - 110 mmol/L [facility] Comment:{CHLORIDE {[id number]) Carbon dioxide 19 19 - 30 mmol/L [facility] Comment:{CARBON DIOXIDE {[id number]) Calcium 8.8 8.6 - 10.2 mg/dL [facility] Comment:{CALCIUM {[id number]) 01/21/2013 8:14 AM EDT 01/21/2013 12:37 PM EDT Narrative [facility] - 01/21/2013 5:19 PM EDT Please note that this estimated GFR [...] needs for GFR calculation. Resulting Agency Comment [id number] us Jacque Resendiz MD LABORATORY Final Result [facility] [address] [place] [address] * LIPID PANEL WITH REFLEX TO DIRECT LDL (01/21/2013 8:14 AM EDT) Cholesterol 171 125 - 200 mg/dL [facility] Comment:{CHOLESTEROL, TOTAL {[id number]) HDL Cholesterol 48 > OR = 46 mg/dL [facility] Comment:{HDL CHOLESTEROL {[id number]) Triglyceride 127 <150 mg/dL [facility] Comment:{TRIGLYCERIDES {[id number]) LDL Cholesterol 98 <130 mg/dL (calc) [facility] Comment: {LDL-CHOLESTEROL {[id number]) Desirable range <100 mg/dL for patients with CHD or diabetes and <70 mg/dL for diabetic patients with known heart disease. CHOL/HDL Ratio 3.6 < OR = 5.0 (calc) [facility] Comment:{CHOL/HDLC RATIO {[id number]) Cholesterol Non-HDL 123 mg/dL (calc) [facility] Comment: {NON HDL CHOLESTEROL {[id number]) Target for non-HDL cholesterol is 30 mg/dL higher than LDL cholesterol target. 01/21/2013 8:14 AM EDT 01/21/2013 12:37 PM EDT Narrative Resulting Agency Comment [id number] Jacque Resendiz MD LABORATORY Final Result Performing Organization Address City/State/[facility] Co de Phone Number [facility] [address] [place] [address] documented in this encounter Visit Diagnoses Diagnosis Screening for hyperlipidemia Screening for lipoid disorders Screening for diabetes mellitus Screening for deficiency anemia Screening for other and unspecified deficiency anemia documented in this encounter Care Teams Respiratory Medicine Physician Relationship Specialty Start Date End Date Jacque Resendiz MD [address] [place] [address] PCP - General 07/26/05 01/01/15 Unknown Pcp, Non Rmg PCP - General 01/02/15 06/17/23 Toan Motley NP [address] [address] PCP - General Nurse Practitioner 06/18/23 documented as of this encounter
--- OUTSIDE RECORDS SUMMARY | 2024-06-21 12:09 | XMS_ITS | Clinical Summary ---
Author Organization [facility] Address [address] [place] [address] Care Team Providers Care Architecture Faculty Member Name Role Phone Toan Motley Primary Care Provider Allergies Active Allergy Reactions Criticality Noted Date Comments Ciprofloxacin Hives 06/15/2017 Clindamycin Unknown 06/15/2017 Codeine Nausea 06/25/2017 Hydrocodone-Acetaminophen Nausea 06/25/2017 Naproxen Nausea 06/15/2017 Sulfa (Sulfonamide Antibiotics) Hives 06/04 Medications inhalational spacing device Use as directed 1 each 8 Active inhaler,assist device,lg mask (AEROCHAMBER PLUS FLOW-VU,L CAK [facility]) 8 Active fluticasone (FLOVENT HFA) 110 mcg [...] establish care with new doctor 07/06/2017 08/11/2017 Encounters Date Type Department Care Team Description 04/19/2024 Orders Only [facility], Endocrinology [address] [place] [address] Tomasz Maldonado MD Donavon's thyroiditis (Primary Dx) 04/19/2024 myChart Message [facility] [address] [place] [address] Bobtail Driver: Tomasz Stock MD Levothyroxine from Last 3 Months Immunizations Immunization Administration Dates Next Due Influenza, Injectable, Quadrivalent, Preservativ e Free 04/12/2020,02/01/2019 Family History Medical History Relation Name Comments Hypertension Father Hypertension Mother Relation Name Status Comments Father Mother Social History Tobacco Use Types Packs/Day Years [...] Info) Description 12/02/2024 10:20 AM EDT Follow-Up [facility], Endocrinology [address] [place] [address] Tomasz Maldonado MD [address] [place] [address] [phone] Health Maintenance Due Date Last Done Comments HIV Screening 1984 Hepatitis C Screening 1984 Varicella Vaccines (1 of 2 - 13+ 2-dose series) 1997 Pneumococcal Vaccine: Pediat regino (0-5 Years) and At-Risk Patients (6-50 Years) (1 of 2 - PCV) 07/09/2003 COVID-19 Vaccine ( - 2023-2 5 season) 2024 Influenza Vaccine (#1) 2024 04/12/2020, 2018 DTaP,Tdap,and Td Vaccines (7 - Td or Tdap) 01/17/2024 01/16/2014, 01/22/2000, 09/24/1989, Additional history exists Alcohol/Substance Use Screening 05/04/2024 Depression Screening and Follow-Up 05/04/2024 Social Drivers of Health Ariadna ual Screening 05/04/2024 Pap Smear 06/22/2026 06/22/2023, 08/02, 08/11/2017 Cervical Cancer Screening 06/22/2028 HPV and Pap Smear 06/22/2028 06/22/2023 RSV Vaccine (60+ years old a nd patients) (1 - 1-dose 75+ series) 07/09/2059 Hepatitis B Vaccines Completed 03/29/1997, 10/19/1996, 11/25/1995 Procedures * Due to [place] state law, this organization might not be sharing negative HIV tests. Procedure Name Priority Date/Time Associated Diagnosis Comments PAP Routine 08/11/2017 9:50 AM EDT Encounter for well woman exam with routine gynecological exam from Last 3 Months or Most Recently Relevant to Health Maintenance Insurance [employer] OUT OF STATE PPO Care Teams Architecture Faculty Member Relationship Specialty Start Date End Date Toan Motley [address] [place] [address] PCP - General 08/05/23
--- OUTSIDE RECORDS SUMMARY | 2024-06-21 12:09 | XMS_ITS | Encounter Summary ---
Author Organization [facility] Address [address] [place] [address] Care Team Providers Care Training Executive Name Role Phone Jacque Resendiz MD Primary Care Provider Unknown Pcp, Non Rmg Primary Care Provider Toan Cassidy NP Primary Care Provider Encounter Details Date Type Department Care Team (Late st Contact Info) Description 10/14/2013 Orders Only [facility] Endocrinology [address] [place], [place] [phone] Mony Paz MD [address] [address] Social History Tobacco Use Types Packs/Day Years [...] this encounter Procedures * Due to [place] state law, this organization might not be sharing negative HIV tests. Procedure Name Priority Date/Time Associated Diagnosis Comments TSH, 3RD GENERATION Routine 10/14/2013 8 :05 AM EDT Subclinical hypothyroidism documented in this encounter Results * Due to [place] state law, this organization might not be sharing negative HIV tests. * (ABNORMAL) TSH, 3RD GENERATION (10/14/2013 8:05 AM EDT) TSH 7.93(H) mIU/L [facility] Comment: {TSH {[id number]) ?Reference Range ?> or = 20 Years ??0.40-4.50 ? Ranges ?First trimester ?0.26-2.66 ?Second trimester ?? 0.55-2.73 ?Third trimester ?0.43-2.91 10/14/2013 8:05 AM EDT 10/14/2013 12:12 PM EDT Narrative Resulting Agency Comment [id number] Mony Paz MD LABORATORY Final Result Performing Organization Address City/State/[facility] Co de Phone Number [facility] [address] [place] [address] documented in this encounter Visit Diagnoses Diagnosis Subclinical hypothyroidism Other specified acquired hypothyroidism documented in this encounter Care Teams Training Executive Relationship Specialty Start Date End Date Jacque Resendiz MD [address] [place] [address] PCP - General 07/26/05 01/01/15 Unknown Pcp, Non Rmg PCP - General 01/02/15 06/17/23 Toan Motley NP [address] [address] PCP - General Nurse Practitioner 06/18/23 documented as of this encounter
== END 2024-06-21 11:43 | disposition home or self-care (01) ==
PROVIDERS: PCP Nurse Practitioner Family; Visit Provider Nurse Practitioner Family
DX: Z00.00 Encounter for general adult medical examination without abnormal findings (principal); E55.9 Vitamin D deficiency, unspecified

== ENCOUNTER → 2024-08-09 07:30 | Outpatient (BNV) | payer BC, SELFPAY | PROVIDERS: PCP Nurse Practitioner Family; Visit Provider Internal Medicine | DX: Z12.31 Encounter for screening mammogram for malignant neoplasm of breast (principal) | CPT/HCPCS: 77063; 77067 ==

== ENCOUNTER 2024-08-09 07:38 | Outpatient (REF) | payer BC, SELFPAY ==
--- OUTSIDE RECORDS SUMMARY | 2024-08-09 07:40 | XMS_ITS | Encounter Summary ---
Author Organization [facility] Address [address] [place] [address] Care Team Providers Care Technical Staff Engineer Name Role Phone Toan Motley NP Primary Care Provider Encounter Details Date Type Department Care Team (Late st Contact Info) Description 03/01/2024 Orders Only [facility] [address] [place] [phone] Loren Romeo PA [address] [place] [address] Social History Tobacco Use Types Packs/Day Years [...] Romeo PA - 03/01/2024 8:37 AM EDT [employer] message sent to patient documented in this encounter Plan of Treatment Not on file documented as of this encounter Procedures * Due to [place] law, this organization might not be sharing negative HIV tests. Procedure Name Priority Date/Time Associated Diagnosis Comments PROGESTERONE, SERUM Routine 03/01/2024 8 :37 AM EDT Infertility, female documented in this encounter Results * Due to [facility] law, this organization might not be sharing negative HIV tests. * PROGESTERONE, SERUM (03/01/2024 8:37 AM EDT) Progesterone 38.8 ng/mL [facility] Comment: ?Reference Ranges ? Female ?Follicular Phase ? < 1.0 ?Luteal Phase ?2.6-21.5 ?Post menopausal ?< 0.5 ?1st Trimester ? 4.1-34.0 ?2nd Trimester ?24.0-76.0 ?3rd Trimester ?? 52.0-302.0 03/01/2024 8:37 AM EDT 03/02/2024 12:55 AM EDT Narrative Resulting Agency Comment [id number] us Loren NOVOA LAB SAME DAY RESULT Final Resu lt [facility] [address] [place] [address] documented in this encounter Visit Diagnoses Diagnosis Infertility, female Female infertility of unspecified origin documented in this encounter Care Teams Technical Staff Engineer Relationship Specialty Start Date End Date Toan Motley NP [address] [address] PCP - General Nurse Practitioner 06/18/23 documented as of this encounter
--- OUTSIDE RECORDS SUMMARY | 2024-08-09 07:40 | XMS_ITS | Encounter Summary ---
Author Organization [facility] Address [address] [place] [address] Care Team Providers Care Pharmacy Picking Tech Name Role Phone Jacque Resendiz MD Primary Care Provider Unknown Pcp, Non Rmg Primary Care Provider Fernandava Toan Adames NP Primary Care Provider Encounter Details Date Type Department Care Team (Late st Contact Info) Description 10/08/2007 Orders Only [facility] [address] [place] [address] [phone] Jacque Resendiz MD [address] [place] [address] Social History Tobacco Use Types Packs/Day Years [...] 0-4 0-4/HPF [facility] (CLIA# [id number]) RBC (Urine Sed) 0 0-3/HPF [facility] (CLIA# [id number]) EPITHELIAL CELLS.SQUAMOUS (URINE SED) 0-5 0-5/HPF [facility] (CLIA# [id number]) EPITHELIAL CELLS.TRANSITIO NAL (URINE SED) 0 0-5/HPF [facility] (CLIA# [id number]) EPITHELIAL CELLS.RENAL (URINE SED) 0 0-3/HPF [facility] (CLIA# [id number]) BACTERIA (URINE) FEW(A) NONE SEEN [facility] (CLIA# [id number]) 10/08/2007 10/08/2007 7:2 8 PM EDT us Jacque Resendiz MD LAB SAME DAY RESULT Final Re sult [facility] (CLIA# [id number]) [address] [place] [address] * URINALYSIS, DIP ONLY ( SITE STAT ONLY) (10/08/2007) COLOR (URINE) YELLOW YELLOW [facility] (CLIA# [id number]) APPEARANCE (URINE) CLOUDY CLEAR [facility] (CLIA# [id number]) SPECIFIC GRAVITY 1.020 1.001 - 1.035 [facility] (CLIA# [id number]) PH (URINE) 6.0 5.0 - 8.0 [facility] (CLIA# [id number]) PROTEIN (URINE) TRACE NEG [facility] (CLIA# [id number]) GLUCOSE (URINE) NEG NEG [facility] (CLIA# [id number]) Ketones (Urine) NEG NEG [facility] (CLIA# [id number]) BILIRUBIN (URINE) NEG NEG [facility] (CLIA# [id number]) BLOOD (URINE) NEG NEG [facility] (CLIA# [id number]) WBC (URINE) TRACE NEG [facility] (CLIA# [id number]) NITRITE (URINE) NEG NEG [facility] (CLIA# [id number]) 10/08/2007 10/08/2007 7:2 8 PM EDT us Jacque Resendiz MD LAB SAME DAY RESULT Final Re sult [facility] (CLIA# [id number]) [address] [place] [address] documented in this encounter Visit Diagnoses Diagnosis UTI (URINARY TRACT INFECTION)- Primary Urinary tract infection, site not specified documented in this encounter Care Teams Pharmacy Picking Tech Relationship Specialty Start Date End Date Jacque Resendiz MD [address] [place] [address] PCP - General 07/26/05 01/01/15 Unknown Pcp, Non Rmg PCP - General 01/02/15 06/17/23 Toan Motley NP [address] [address] PCP - General Nurse Practitioner 06/18/23 documented as of this encounter
--- OUTSIDE RECORDS SUMMARY | 2024-08-09 07:40 | XMS_ITS | Encounter Summary ---
Author Organization [facility] Address [address] [place] [address] Care Team Providers Care Library Supervisor Name Role Phone Toan Motley NP Primary Care Provider Encounter Details Date Type Department Care Team ([facility] st Contact Info) Description 01/29/2024 Orders Only [facility] [address] [place] [address] Enriqueta Berry CNM [address] [place] [address] Social History Tobacco Use Types Packs/Day Years [...] this encounter Procedures * Due to [place] law, this organization might not be sharing negative HIV tests. Procedure Name Priority Date/Time Associated Diagnosis Comments PROGESTERONE, SERUM Routine 01/29/2024 7 :33 AM EDT History of infertility, female INSULIN, SERUM Routine 01/29/2024 7:33 AM EDT Anovulation GLUCOSE (BLOOD) Routine 01/29/2024 7:33 AM EDT Anovulation documented in this encounter Results * Due to [place] law, this organization might not be sharing negative HIV tests. * PROGESTERONE, SERUM (01/29/2024 7:33 AM EDT) Progesterone 24.7 ng/mL [facility] Comment: ?Reference Ranges ? Female ?Follicular Phase ? < 1.0 ?Luteal Phase ?2.6-21.5 ?Post menopausal ?< 0.5 ?1st Trimester ? 4.1-34.0 ?2nd Trimester ?24.0-76.0 ?3rd Trimester ?? 52.0-302.0 01/29/2024 7:33 AM EDT 01/29/2024 9:59 PM EDT Narrative Resulting Agency Comment [id number] us Zoya Hunt MD LAB SAME DAY RESULT Final Result Performing Organization Address [facility] Co de Phone Number [facility] [address] [place] [address] * GLUCOSE (BLOOD) (01/29/2024 7:33 AM EDT) Glucose 90 65 - 99 mg/dL [facility] Comment:Fasting reference in terval 01/29/2024 7:33 AM EDT 01/29/2024 9:59 PM EDT Narrative Resulting Agency Comment [id number] us Enriqueta Berry CNM LAB SAME DAY RESULT Final Result Performing Organization Address [facility] de Phone Number [facility] [address] [place] [address] * INSULIN, SERUM (01/29/2024 7:33 AM EDT) Insulin 11.7 uIU/mL [facility] Comment: ?Reference Range ??< or = 18.4 ?Risk: ?Optimal ?< or = 18.4 ?Moderate ? NA ?High ? >18.4 ?Adult cardiovascular event risk category ?cut points (optimal, moderate, high) ?are based on Insulin Reference Interval ?studies performed at [facility] ?in 2021. 01/29/2024 7:33 AM EDT 01/29/2024 9:59 PM EDT Narrative Resulting Agency Comment [id number] us Enriquetaelvin Berry CNM LABORATORY Final Resu lt Performing Organization Address City/State/[facility] Co de Phone Number [facility] [address] [place] [address] documented in this encounter Visit Diagnoses Diagnosis Anovulation Female infertility associated with anovulation History of infertility, female Personal history of other genital system and obstetric disorders documented in this encounter Care Teams Library Supervisor Relationship Specialty Start Date End Date Toan Motley NP [address] [address] PCP - General Nurse Practitioner 06/18/23 documented as of this encounter
--- OUTSIDE RECORDS SUMMARY | 2024-08-09 07:40 | XMS_ITS | Encounter Summary ---
Author Organization [facility] Address [address] [place] [address] Care Team Providers Care Inspector Timers Name Role Phone Jacque Resendiz MD Primary Care Provider [phone] Unknown Pcp, Non g Primary Care Provider Toan Cassidy NP Primary Care Provider Encounter Details Date Type Department Care Team (Late st Contact Info) Description 10/08/2007 Orders Only [facility] [address] [place] [address] Anabella Azul NP [facility] Primary Care [address] [place] [address] Social History Tobacco Use Types Packs/Day [...] of this encounter Procedures * Due to [place] state law, this organization might not be sharing negative HIV tests. Procedure Name Priority Date/Time Associated Diagnosis Comments BASIC METABOLIC PANEL Routine 10/08/2007 VIRAL SYNDROME CULTURE, THROAT Routine 10/08/2007 MOUTH SORES CBC 5 PART DIFF Routine 10/08/2007 VIRAL SYNDROME documented in this encounter Results * Due to [place] state law, this organization might not be sharing negative HIV tests. * (ABNORMAL) CULTURE, THROAT (10/08/2007) Result(s) SEE TEXT(A) [facility] (CLIA# [id number]) Comment: SOURCE: THROAT HEAVY GROWTH OF GROUP A STREPTOCOCCUS PLUS NORMAL OROPHARYNGEAL OCTAVIO 10/08/2007 10/08/2007 9:4 4 PM EDT Narrative [facility] (CLIA# [id number]) - 10/10/2007 12:06 PM EDT Report Comments: GROUP A STREP SCREEN TEST NOT DONE. GROUP A STREP, IF PRESENT, WILL BE RECOVERED IN THROAT CULTURE. Anabella Azul NP LABORATORY Final Result [facility] (CLIA# [id number]) [address] [place] [address] * BASIC METABOLIC PANEL (10/08/2007) CALCIUM 9.4 8.6 - 10.2 MG/DL [facility] (CLIA# [id number]) BUN 10 7 - 25 MG/DL [facility] (CLIA# [id number]) CREATININE 0.72 0.50 - 1.20 MG/DL [facility] (CLIA# [id number]) Glucose 95 65 - 99 MG/DL [facility] (CLIA# [id number]) SODIUM 137 135 - 146 MMOL/L [facility] (CLIA# [id number]) POTASSIUM 4.0 3.5 - 5.3 MMOL/L [facility] (CLIA# [id number]) CHLORIDE 102 98 - 110 MMOL/L [facility] (CLIA# [id number]) CARBON DIOXIDE 25 21 - 33 MMOL/L [facility] (CLIA# [id number]) 10/08/2007 10/08/2007 9:4 4 PM EDT Anabella Azul NP LAB SAME DAY RESULT F inal Result [facility] (CLIA# [id number]) [address] [place] [address] * (ABNORMAL) CBC 5 PART DIFF (10/08/2007) WHITE BLOOD COUNT 20.0(H) 3.8 - 10.8 THOUS/UL [facility] (CLIA# [id number]) RBC 4.42 3.80 - 5.10 MIL/UL [facility] (CLIA# [id number]) Hemoglobin 13.3 11.7 - 15.5 G/DL [facility] (CLIA# [id number]) HCT (HEMATOCRIT) 38.0 35.0 - 45.0 % [facility] (CLIA# [id number]) MCV 85.8 80.0 - 100.0 FL [facility] (CLIA# [id number]) MCH 30.0 27.0 - 33.0 PG [facility] (CLIA# [id number]) MCHC 35.0 32.0 - 36.0 G/DL [facility] (CLIA# [id number]) BAND % 0 0 - 5 % [facility] (CLIA# [id number]) NEUTROPHIL % 89(H) 48 - 75 % [facility] (CLIA# [id number]) LYMPHOCYTE % 6(L) 17 - 40 % [facility] (CLIA# [id number]) MONOCYTE % 5 0 - 14 % [facility] (CLIA# [id number]) EOSINOPHIL % 0 0 - 5 % [facility] (CLIA# [id number]) BASOPHIL % 0 0 - 3 % [facility] (CLIA# [id number]) ATYPICAL LYMPHOCYTE % 0 0 - 5 % [facility] (CLIA# [id number]) PLATELETS 263 140 - 400 THOUS/UL [facility] (CLIA# [id number]) BANDS # 0 0 - 750 CELLS/MCL [facility] (CLIA# [id number]) NEUTROPHILS # 77901(H) 1500 - 7800 CELLS/MCL [facility] (CLIA# [id number]) LYMPHOCYTES # 1200 850 - 3900 CELLS/MCL [facility] (CLIA# [id number]) MONOCYTES # 1000(H) 200 - 950 CELLS/MCL [facility] (CLIA# [id number]) EOSINOPHILS # 0(L) 15 - 550 CELLS/MCL [facility] (CLIA# [id number]) BASOPHILS # 0 0 - 200 CELLS/MCL [facility] (CLIA# [id number]) ATYPICAL LYMPHOCYTES # 0 0 - 200 CELLS/MCL [facility] (CLIA# [id number]) RDW 13.4 11.0 - 15.0 % [facility] (CLIA# [id number]) MPV 9.7 7.5 - 11.5 FL [facility] (CLIA# [id number]) 10/08/2007 10/08/2007 9:4 4 PM EDT Anabella Azul LICENSED CLUB MANAGER LAB SAME DAY RESULT F inal Result [facility] (CLIA# [id number]) [address] [place] [address] documented in this encounter Visit Diagnoses Diagnosis VIRAL SYNDROME Unspecified viral infection, in conditions classified elsewhere and of unspecified site MOUTH SORES Other and unspecified diseases of the oral soft tissues documented in this encounter Care Teams Inspector Timers Relationship Specialty Start Date End Date Jacque Resendiz MD [address] [place] [address] PCP - General 07/26/05 01/01/15 Unknown Pcp, Non Rmg PCP - General 01/02/15 06/17/23 Toan Motley LICENSED CLUB MANAGER [address] [place] [address] PCP - General Nurse Practitioner 06/18/23 documented as of this encounter
--- OUTSIDE RECORDS SUMMARY | 2024-08-09 07:40 | XMS_ITS | Encounter Summary ---
Author Organization [facility] Address [address] [place] [address] Care Team Providers Care Cement Fittings Maker Name Role Phone Toan Motley NP Primary Care Provider Encounter Details Date Type Department Care Team (Late st Contact Info) Description 02/04/2024 Orders Only [facility] [address] [place] [address] Loren Romeo PA [address] [place] [address] Social History Tobacco Use Types Packs/Day Years [...] Romeo PA - 02/04/2024 9:32 AM EDT Njuice message sent to patient documented in this encounter Plan of Treatment Not on file documented as of this encounter Procedures * Due to [place] z[place] law, this organization might not be sharing negative HIV tests. Procedure Name Priority Date/Time Associated Diagnosis Comments ANTI-MULLERIAN HORMONE (AM[facility]), FEMALE Routine 02/04/2024 9:32 AM EDT Infertility, female documented in this encounter Results * Due to [place] z[place]oup law, this organization might not be sharing negative HIV tests. * ANTI-MULLERIAN HORMONE (AMH), [id number] (02/04/2024 9:32 AM EDT) Mullerian inhibiting substance 0.63 0.18 - 5.68 ng/mL [facility] 02/04/2024 9:32 AM EDT 02/05/2024 12:05 AM EDT Narrative Resulting Agency Comment [id number] us Loren [facility] Final Result Performing Organization Address City/State/[facility] Co de Phone Number [facility] [address] [place] [address] documented in this encounter Visit Diagnoses Diagnosis Infertility, female Female infertility of unspecified origin documented in this encounter Care Teams Cement Fittings Maker Relationship Specialty Start Date End Date Toan Motley NP [address] [address] PCP - General Nurse Practitioner 06/18/23 documented as of this encounter
--- OUTSIDE RECORDS SUMMARY | 2024-08-09 07:41 | XMS_ITS | Encounter Summary ---
Author Organization [facility] Address [address] [place] [address] Care Team Providers Care Transportation Clerk Name Role Phone Jacque Resendiz MD Primary Care Provider Unknown Pcp, Non Rmg Primary Care Provider Unava Toan Adames NP Primary Care Provider Encounter Details Date Type Department Care Team (Late st Contact Info) Description 10/14/2011 Orders Only [facility] [address] [place] [phone] Jacque Resendiz MD [address] [place] [address] Social History Tobacco Use Types Packs/Day Years [...] of this encounter Procedures * Due to [place] [employer] law, this organization might not be sharing [...] in this encounter Results * Due to [place] [employer] law, this organization might not be sharing negative HIV tests. * T4, FREE, SERUM (10/14/2011 1:17 PM EDT) FT4 1.0 0.8 - 1.8 ng/dL [facility] Comment:{T4, FREE {[id number]) 10/14/2011 1:17 PM EDT 10/14/2011 9:17 PM EDT Jacque Resendiz MD LABORATORY Final Result Performing Organization Address [facility] de Phone Number [facility] [address] [place] [address] * CHLAMYDIA TRACHOMATIS/GC, SDA (GENITAL SWAB) (10/14/2011 1:17 PM EDT) Pathologist [facility] Chlamydia trachomatis DNA NOT DETECTED NOT DETECTED [facility] Comment:{CHLAMYDIA TRACHOMAT IS DNA, SDA {[id number]) Neisseria gonorrhoeae DNA NOT DETECTED NOT DETECTED [facility] Comment:{NEISSERIA GONORRHOE AE DNA, SDA {[id number]) COMMENT SEE NOTE [facility] Comment: {COMMENT {[id number]) This test was performed using the BD ProbeTec(TM) Chlamydia trachomatis and Neisseria gonorrhoeae Amplified DNA Assays. 10/14/2011 1:17 PM EDT 10/14/2011 9:17 PM EDT Narrative Resulting Agency Comment [id number] Jacque Resendiz MD LABORATORY Final Result Performing Organization Address [facility] de Phone Number [facility] [address] [place] [address] * (ABNORMAL) THYROID STIMULATING HORMONE (TSH) WITH FREE T4 REFLEX, SERUM (10/14/2011 1:17 PM EDT) Pathologist [facility] TSH 4.68(H) mIU/L [facility] Comment: {TSH W/REFLEX TO FT4 {[id number]) ?Reference Range ?> or = 20 Years ??0.40-4.50 ? Ranges ?First trimester ?0.26-2.66 ?Second trimester ?? 0.55-2.73 ?Third trimester ?0.43-2.91 10/14/2011 1:17 PM EDT 10/14/2011 9:17 PM EDT Jacque Resendiz MD LABORATORY Final Result Performing Organization Address [facility] de Phone Number [facility] [address] [place] [address] * (ABNORMAL) LIPID PANEL WITH REFLEX TO DIRECT LDL (10/14/2011 1:17 PM EDT) Cholesterol 139 125 - 200 mg/dL [facility] Comment:{CHOLESTEROL, TOTAL {[id number]) HDL Cholesterol 34(L) > OR = 46 mg/dL [facility] Comment:{HDL CHOLESTEROL {[id number]) Triglyceride 86 <150 mg/dL [facility] Comment:{TRIGLYCERIDES {[id number]) LDL Cholesterol 88 <130 mg/dL (calc) [facility] Comment: {LDL-CHOLESTEROL {[id number]) Desirable range <100 mg/dL for patients with CHD or diabetes and <70 mg/dL for diabetic patients with known heart disease. CHOL/HDL Ratio 4.1 < OR = 5.0 (calc) [facility] Comment:{CHOL/HDLC RATIO {[id number]) Cholesterol Non-HDL 105 mg/dL (calc) [facility] Comment: {NON-HDL CHOLESTEROL {[id number]) Target for non-HDL cholesterol is 30 mg/dL higher than LDL cholesterol target. 10/14/2011 1:17 PM EDT 10/14/2011 9:17 PM EDT Narrative Resulting Agency Comment [id number] us Jacque Resendiz MD LABORATORY Final Result Performing Organization Address [facility] de Phone Number [facility] [address] [place] [address] * HEPATIC FUNCTION PANEL (10/14/2011 1:17 PM EDT) Pathologist [facility] Protein Total (Serum) 7.4 6.2 - 8.3 g/dL [facility] Comment:{PROTEIN, TOTAL {[id number]) Albumin 4.4 3.6 - 5.1 g/dL [facility] Comment:{ALBUMIN {[id number]) Globulin 3.0 2.2 - 3.9 g/dL (calc) [facility] Comment:{GLOBULIN {[id number]) Albumin/Globulin 1.5 1.0 - 2.1 (calc) [facility] Comment:{ALBUMIN/GLOBULIN RA JOSE {[id number]) Bilirubin Total 0.4 0.2 - 1.2 mg/dL [facility] Comment:{BILIRUBIN, TOTAL {[id number]) Bilirubin Direct 0.1 < OR = 0.2 mg/dL [facility] Comment:{BILIRUBIN, DIRECT { [id number]) Bilirubin Indirect 0.3 0.2 - 1.2 mg/dL (calc) [facility] Comment:{BILIRUBIN, INDIRECT {[id number]) Alkaline phosphatase 76 33 - 115 U/L [facility] Comment:{ALKALINE PHOSPHATAS E {[id number]) AST (SGOT) 17 10 - 30 U/L [facility] Comment:{AST {[id number]) ALT (SGPT) 15 6 - 40 U/L [facility] Comment:{ALT {[id number]) 10/14/2011 1:17 PM EDT 10/14/2011 9:17 PM EDT Narrative Resulting Agency Comment [id number] us Jacque Resendiz MD LABORATORY Final Result [facility] [address] [place] [address] * CBC 5 PART DIFF (10/14/2011 1:17 PM EDT) Pathologist [facility] WBC 8.5 3.8 - 10.8 Thousand/u L [facility] Comment:{WHITE BLOOD CELL CO UNT {[id number]) RBC 4.43 3.80 - 5.10 Million/uL [facility] Comment:{RED BLOOD CELL COUN T {[id number]) Hemoglobin 13.5 11.7 - 15.5 g/dL [facility] Comment:{HEMOGLOBIN {[id number]) Hematocrit 40.4 35.0 - 45.0 % [facility] Comment:{HEMATOCRIT {[id number]) MCV 91.2 80.0 - 100.0 fL [facility] Comment:{MCV {[id number]) MCH 30.6 27.0 - 33.0 pg [facility] Comment:{MCH {[id number]) MCHC 33.5 32.0 - 36.0 g/dL [facility] Comment:{MCHC {[id number]) RDW 13.0 11.0 - 15.0 % [facility] Comment:{RDW {[id number]) PLT 250 140 - 400 Thousand/u L [facility] Comment:{PLATELET COUNT {[id number]) MPV 9.4 7.5 - 11.5 fL [facility] Comment:{MPV {[id number]) Neutrophils # 4871 1500 - 7800 cells/uL [facility] Comment:{ABSOLUTE NEUTROPHIL S {[id number]) Lymphocytes # 2967 850 - 3900 cells/uL [facility] Comment:{ABSOLUTE LYMPHOCYTE S {[id number]) Monocytes # 510 200 - 950 cells/uL [facility] Comment:{ABSOLUTE MONOCYTES {[id number]) Eosinophils # 119 15 - 500 cells/uL [facility] Comment:{ABSOLUTE EOSINOPHIL S {[id number]) Basophils # 34 0 - 200 cells/uL [facility] Comment:{ABSOLUTE BASOPHILS {[id number]) Neutrophils % 57.3 % [facility] Comment:{NEUTROPHILS {[id number]) Lymphocytes % 34.9 % [facility] Comment:{LYMPHOCYTES {[id number]) Monocytes % 6.0 % [facility] Comment:{MONOCYTES {[id number]) Eosinophils % 1.4 % [facility] Comment:{EOSINOPHILS {[id number]) Basophils % 0.4 % [facility] Comment:{BASOPHILS {[id number]) 10/14/2011 1:17 PM EDT 10/14/2011 9:17 PM EDT Narrative Resulting Agency Comment [id number] us Jacque Resendiz MD LAB SAME DAY RESULT Final Re sult [facility] [address] [place] [address] * BASIC METABOLIC PANEL W/GLOMERULAR FILTRATION RATE (EGFR) (10/14/2011 1:17 PM EDT) Glucose 78 65 - 99 mg/dL [facility] Comment: {GLUCOSE {[id number]) ? Fasting reference interval Urea Nitrogen Blood (BUN) 12 7 - 25 mg/dL [facility] Comment:{UREA NITROGEN (BUN) {[id number]) Creatinine 0.79 0.50 - 1.10 mg/dL [facility] Comment:{CREATININE {[id number]) GFR 103 > OR = 60 mL/min/1. 73m2 [facility] Comment:{eGFR NON-AFR. AMERI CAN {[id number]) GFR () 119 > OR = 60 mL/min/1. 73m2 [facility] Comment:{eGFR AMERIC AN {[id number]) BUN/Creatinine Ratio NOT APPLICABLE 6 - 22 (calc) [facility] Comment:{BUN/CREATININE RATI O {[id number]) Sodium 139 135 - 146 mmol/L [facility] Comment:{SODIUM {[id number]) Potassium 4.0 3.5 - 5.3 mmol/L [facility] Comment:{POTASSIUM {[id number]) Chloride 105 98 - 110 mmol/L [facility] Comment:{CHLORIDE {[id number]) Carbon dioxide 22 21 - 33 mmol/L [facility] Comment:{CARBON DIOXIDE {[id number]) Calcium 9.4 8.6 - 10.2 mg/dL [facility] Comment:{CALCIUM {[id number]) 10/14/2011 1:17 PM EDT 10/14/2011 9:17 [...] needs for GFR calculation. Resulting Agency Comment [id number] us Jacque Resendiz MD LABORATORY Final Result [facility] [address] [place] [address] * LIQUID-BASED PAP WITH HPVH (10/14/2011 12:30 PM EDT) Clinical information NONE GIVEN [facility] Comment:{CLINICAL INFORMATIO N: {[id number]) LMP NONE GIVEN [facility] Comment:{LMP: {[id number]) Date of previous PAP smear 3 YRS CASE NORMAL [facility] Comment:{PREV. PAP: {[id number]) Date of previous biopsy NONE GIVEN [facility] Comment:{PREV. BX: {[id number]) Specimen source (Cvx/Vag) Vagina, Cervix, Endocervix [facility] Comment:{SOURCE: {[id number]) Statement of Adequacy (Cvx/Vag) SATISFACTORY FOR EVALUATION [facility] Comment:{STATEMENT OF ADEQUA CY: {[id number]) Cytology, Pap Smear Negative for intraepithelial lesion or malignancy. Atrophic pattern; predominantly parabasal cells [facility] Comment:{INTERPRETATION/RESU LT: {[id number]) Cytology study comment (Cvx/Vag) This Pap test has been evaluated with computer assisted technology. [facility] Comment:{COMMENT: {[id number]) Principal Military Analyst (Cvx/Vag) [facility], CT(ASCP) [facility] Comment:{COMMISSARY WORKER: { [id number]) Human Papillomavirus (HPV) DNA, High Risk NOT DETECTED NOT DETECTED [facility] Comment: {HPV DNA (HIGH RISK) {[id number]) Tested for high risk types 16,18,31,33,35,39,45,51,52, 56,58,59,68. The analytical performance characteristics of this assay, when used to test SurePath or vaginal specimens, have been determined by [employer]. Methodology: Hybrid Capture with Signal Amplification. 10/14/2011 12:3 0 PM EDT 10/14/2011 9:24 PM EDT us Jacque Resendiz MD PATHOLOGY-INTERFACED Final R esult Performing Organization Address City/State/[facility] Co de Phone Number [facility] [address] [place] [address] documented in this encounter Visit Diagnoses Diagnosis [...] facility documented in this encounter Care Teams Transportation Clerk Relationship Specialty Start Date End Date Jacque Resendiz MD [address] [place] [address] PCP - General 07/26/05 01/01/15 Unknown Pcp, Non Rmg PCP - General 01/02/15 06/17/23 Toan Motley NP [address] [address] PCP - General Nurse Practitioner 06/18/23 documented as of this encounter
--- OUTSIDE RECORDS SUMMARY | 2024-08-09 07:41 | XMS_ITS | Clinical Summary ---
Author Organization [facility] Address [address] [place] [address] Care Team Providers Care Outsole Molder Name Role Phone Toan Motley NP Primary [...] to stay on the pills for now Immunizations Name Administration Dates Next Due DTP [...] 01/17/2024 01/16/2014, 01/22/2000, 09/24/1989, Additional history exists Mammogram/Breast Imaging 2024 Pap Smear 06/22/2028 06/22/2023, 06/04, 08/11/2017, Additional [...] complete this topic Procedures * Due to [place] [employer] law, this organization might not be sharing [...] to Health Maintenance Results * Due to [place] [employer] law, this organization might not be sharing [...] Endocervical/gonzalez sformation zone component present. [facility] Cytology, Pap Smear Cytology Results: Negative for intraepithelial lesion or malignancy. [facility] Cytology study comment (Cvx/Vag) This Pap test has been evaluated with computer assisted technology. [facility] [place] (Cvx/Vag) SXA, CT(ASCP) CT screening location: [place] [address] [facility] [employer] COMMENT SEE NOTE [facility] Comment: EXPLANATORY NOTE: The Pap is [...] HPV MRNA E6/E7 Not Detected Not Detected [facility] Comment: Methodology: Video Games Mechanic-Mediated Amplification This assay detects E6/E7 viral messenger RNA (mRNA) from 14 high-risk HPV types (16,18,31,33,35,39,45,51,52,56,58,59,66,68). Cervical sources are required for HPV testing. If a vaginal source from a patient who has had a total hysterectomy with removal of cervix was submitted, please contact the testing laboratory for alternative testing options. For additional information, please refer to http://education.Office Max/faq/KCT819n8 (This link if provided for information/ educational purposes only.) 06/22/2023 2:58 PM EST 06/23/2023 3:08 AM EST Narrative Resulting Agency Comment [id number] Kaelyn Mejia NP PATHOLOGY-INTERFACED Final Re sult [facility] [address] [place] [address] * LIPID PANEL WITH REFLEX TO DIRECT LDL (01/21/2013 8:14 AM EDT) Cholesterol 171 125 - 200 mg/dL [facility] Comment:{CHOLESTEROL, TOTAL {[id number]) HDL Cholesterol 48 > OR = 46 mg/dL [facility] Comment:{HDL CHOLESTEROL {[id number]) Triglyceride 127 <150 mg/dL [facility] Comment:{TRIGLYCERIDES {[id number]) LDL Cholesterol 98 <130 mg/dL (calc) [facility] Comment: {LDL-CHOLESTEROL {[id number]) Desirable range <100 mg/dL for patients with CHD or diabetes and <70 mg/dL for diabetic patients with known heart disease. CHOL/HDL Ratio 3.6 < OR = 5.0 (calc) [facility] Comment:{CHOL/HDLC RATIO {[id number]) Cholesterol Non-HDL 123 mg/dL (calc) [facility] Comment: {NON HDL CHOLESTEROL {[id number]) Target for non-HDL cholesterol is 30 mg/dL higher than LDL cholesterol target. 01/21/2013 8:14 AM EDT 01/21/2013 12:37 PM EDT Narrative Resulting Agency Comment [id number] us Jacque Resendiz MD LABORATORY Final Result [facility] [address] [place] [address] * XRAY CHEST, 2 VIEWS, PA & [...] FEE FOR SERVICE PPO LIABILITY OTHER THIRD DEMOCRAT Care Teams Outsole Molder Relationship Specialty Start Date End Date Toan Motley NP [address] [address] PCP - General Nurse Practitioner 06/18/23
--- OUTSIDE RECORDS SUMMARY | 2024-08-09 07:41 | XMS_ITS | Encounter Summary ---
Author Organization [facility] Address [address] [place] [address] Care Team Providers Care Manager School Name Role Phone Jacque Resendiz MD Primary Care Provider Unknown Pcp, Non [facility] Primary Care Provider Unava Toan Adames MASTER SCHEDULER Primary Care Provider Encounter Details Date Type Department Care Team (Late st Contact Info) Description 10/26/2007 Orders Only [facility] [address] [place] [phone] [place], [place] [address] [place] [address] Social History Tobacco Use Types Packs/Day Years [...] ureter documented in this encounter Care Teams Manager School Relationship Specialty Start Date End Date Jacque Resendiz MD [address] [place] [address] PCP - General 07/26/05 01/01/15 Unknown Pcp, Non [facility] PCP - General 01/02/15 06/17/23 Toan Motley NP [address] [address] PCP - General Nurse Practitioner 06/18/23 documented as of this encounter
--- OUTSIDE RECORDS SUMMARY | 2024-08-09 07:41 | XMS_ITS | Encounter Summary ---
Author Organization [facility] Address [address] [place] [address] Care Team Providers Care Hand Sander Name Role Phone Jacque Resendiz MD Primary Care Provider [phone] Unknown Pcp, Non [facility] Primary Care Provider Unava Toan Adames NP Primary Care Provider Encounter Details Date Type Department Care Team (Late st Contact Info) Description 11/10/2012 Orders Only [facility] [address] [place] [address] Luis F Alexis PA Social [...] this encounter Procedures * Due to [place] [employer] law, this organization might not be sharing [...] in this encounter Results * Due to [facility] law, this organization might not be sharing negative HIV tests. * T4, FREE, SERUM (11/10/2012 8:08 AM EDT) FT4 0.9 0.8 - 1.8 ng/dL [facility] Comment:{T4, FREE {[id number]) 11/10/2012 8:08 AM EDT 11/10/2012 11:49 AM EDT us S Ruby Booker MD LABORATORY Final Resul t [facility] [address] [place] [address] * GLUCOSE (BLOOD) (11/10/2012 8:08 AM EDT) Glucose 93 65 - 99 mg/dL [facility] Comment: {GLUCOSE {[id number]) ? Fasting reference interval 11/10/2012 8:08 AM EDT 11/10/2012 11:49 AM EDT Narrative Resulting Agency Comment [id number] S Ruby Booker MD LAB SAME DAY RESULT Final R esult Performing Organization Address [facility] [facility] de Phone Number [facility] [address] [place] [address] * (ABNORMAL) THYROID STIMULATING HORMONE (TSH) WITH FREE T4 REFLEX, SERUM (11/10/2012 8:08 AM EDT) TSH 7.04(H) mIU/L [facility] Comment: {TSH W/REFLEX TO FT4 {[id number]) ?Reference Range ?> or = 20 Years ??0.40-4.50 ? Ranges ?First trimester ?0.26-2.66 ?Second trimester ?? 0.55-2.73 ?Third trimester ?0.43-2.91 11/10/2012 8:08 AM EDT 11/10/2012 11:49 AM EDT Narrative Resulting Agency Comment [id number] us S Ruby Booker MD LABORATORY Final Resul t Performing Organization Address [facility] de Phone Number [facility] [address] [place] [address] * VARICELLA-ZOSTER VIRUS (VZV) ANTIBODY IGG, SERUM (11/10/2012 8:08 AM EDT) Varicella zoster virus Ab.IgG 1.41 index [facility] Comment: {VARICELLA ZOSTER VIRUS ANTIBODY (IGG) {[id number]) ? Index ? Explanation ??of Results ? [...] 11:49 AM EDT Narrative Resulting Agency Comment [id number] us S Ruby Booker MD LABORATORY Final Resul t Performing Organization Address City/State/[facility] Co de Phone Number [employer] [address] [place] [address] documented in this encounter Visit Diagnoses Diagnosis Hx of varicella Personal history of other infectious and parasitic disease Hypothyroidism Unspecified hypothyroidism Tremor Abnormal involuntary movements documented in this encounter Care Teams Hand Sander Relationship Specialty Start Date End Date Jacque Resendiz MD [address] [place] [address] PCP - General 07/26/05 01/01/15 Unknown Pcp, Non Rmg PCP - General 01/02/15 06/17/23 Toan Motley NP [address] [address] PCP - General Nurse Practitioner 06/18/23 documented as of this encounter
--- OUTSIDE RECORDS SUMMARY | 2024-08-09 07:41 | XMS_ITS | Encounter Summary ---
Author Organization [facility] Address [address] [place] [address] Care Team Providers Care Community Services Officer Name Role Phone aJcque Resendiz MD Primary Care Provider Unknown Pcp, Non [facility] Primary Care Provider Unava Toan Adames NP Primary Care Provider Encounter Details Date Type Department Care Team (Late st Contact Info) Description 05/22/2006 Orders Only [facility] [address] [place] [phone] Jacque Resendiz MD [address] [place] [address] Social History Tobacco Use Types Packs/Day Years [...] specified documented in this encounter Care Teams Community Services Officer Relationship Specialty Start Date End Date Jacque Resendiz MD [address] [place] [address] PCP - General 07/26/05 01/01/15 Unknown Pcp, Non Rmg PCP - General 01/02/15 06/17/23 Toan Motley NP [address] [address] PCP - General Nurse Practitioner 06/18/23 documented as of this encounter
--- OUTSIDE RECORDS SUMMARY | 2024-08-09 07:41 | XMS_ITS | Clinical Summary ---
Author Organization [facility] Address [address] [place] [address] Care Team Providers Care Yard Caller Name Role Phone Pcp, No Primary Care Provider [phone] Allergies Active Allergy Reactions Criticality Noted Date [...] Adults 18 yrs or above (or HM Modifier)([facility]) 2002 Hepatitis C Virus Infection in Adolescents and Adults: Screening (or Modifier) ([facility]) 2002 SDNE Screening Reminder: Annually for all adults ([facility]) 2002 Tobacco Smoking Cessation: i n Adults excluding Women: Behavioral and Pharmacotherapy Interventions ([facility]) 2002 Lipid Screening: Once for Women aged 20 to 45 yrs ([facility]) 2004 Cervical Cancer Screenin-65 yrs of age (or Modifier) 2005 Cervical Cancer Screening: Pap every 3 yrs pts age 21-65 2005 Cervical Cancer: Pap Screening with Modifier timing ([facility]) 2005 Cervical Cancer: hrHPV alone or with cotesting Pap for Pts 30-65yrs screening every 5yrs ([facility]) 2005 Flu Vaccination: Yearly for ages 18mos through 64 years (or Modifier)([facility]) 12/03/2023 COVID-19 Vaccine Screening: Initial Series and Booster Status ([facility]) ( - 2023- season) 2024 DTaP/Tdap/Td Vaccines ([facility]) (7 - Td or Tdap) 01/17/2024 01/16/2014, 09/24/1989, 01/12/1986, Additional history exists Zoster/Shingles Vaccine Series Screening: Adults aged 18+ yrs (or HM Modifiers)([facility]) (1 of 2) 2034 Pneumococcal Vaccination Screening: Pts 0-19 & 19-49 yrs of age ([facility]) Aged Out No longer eligible based on patient's age to complete this topic [employer] Not on file Care Teams Yard Caller Relationship Specialty Start Date End Date Pcp, No PCP - General Family Medicine 07/20/20
--- OUTSIDE RECORDS SUMMARY | 2024-08-09 07:41 | XMS_ITS | Encounter Summary ---
Author Organization [facility] Address [address] [place] [address] Care Team Providers Care Middle School Resource Teacher Name Role Phone Jacque Resendiz MD Primary Care Provider Unknown Pcp, Non Rmg Primary Care Provider Unava Toan Adames NP Primary Care Provider [phone] Reason for Visit * Reason Onset Date Comments Refill Request 02/15/2008 Encounter Details Date Type Department Care Team (Late st Contact Info) Description 02/15/2008 Refill [facility] [address] [place] [address] Jacque Resendiz MD [address] [place] [address] Refill Request Social History Tobacco Use Types [...] on filedocumented in this encounter Care Teams Middle School Resource Teacher Relationship Specialty Start Date End Date Jacque Resendiz MD [address] [place] [address] PCP - General 07/26/05 01/01/15 Unknown Pcp, Non Rmg PCP - General 01/02/15 06/17/23 Toan Motley NP [address] [address] PCP - General Nurse Practitioner 06/18/23 documented as of this encounter
--- OUTSIDE RECORDS SUMMARY | 2024-08-09 07:41 | XMS_ITS | Encounter Summary ---
Author Organization [facility] Address [address] [place] [address] Care Team Providers Care Documentation Coordinator Name Role Phone Jacque Resendiz MD Primary Care Provider Unknown Pcp, Non Rmg Primary Care Provider Unava Toan Adames NP Primary Care Provider Encounter Details Date Type Department Care Team (Late st Contact Info) Description 10/10/2008 Orders Only [facility] [address] [place] [phone] Jacque Resendiz MD [address] [place] [address] Social History Tobacco Use Types Packs/Day Years [...] (10/10/2008 3:58 PM EDT) COLOR (URINE) yellow [facility] (CLIA# [id number]) APPEARANCE (URINE) clear [facility] (CLIA# [id number]) SPECIFIC GRAVITY 1.025 1.001 - 1.035 [facility] (CLIA# [id number]) PH (URINE) 5.0 5.0 - 8.0 [facility] (CLIA# [id number]) PROTEIN (URINE) trace(A) Neg - Neg [facility] (CLIA# [id number]) GLUCOSE (URINE) negative Neg - Neg [facility] (CLIA# [id number]) Ketones (Urine) negative Neg - Neg [facility] (CLIA# [id number]) BILIRUBIN (URINE) negative Neg - Neg [facility] (CLIA# [id number]) BLOOD (URINE) negative Neg - Neg [facility] (CLIA# [id number]) WBC (URINE) trace(A) Neg - Neg [facility] (CLIA# [id number]) NITRITE (URINE) negative Neg - Neg [facility] (CLIA# [id number]) Urine specimen (specimen) 10/10/2008 3:58 PM EDT Narrative [facility] (CLIA# [id number]) - 10/10/2008 4:18 PM EDT Micro added. us Jacque Resendiz MD LAB SAME DAY RESULT Final Re sult [facility] (CLIA# [id number]) [address] [place] [address] * CULTURE, URINE (10/10/2008) URINE CULTURE CLEAN VOID SEE TEXT [facility] Comment: SOURCE: URINE NO GROWTH 10/10/2008 10/10/2008 9:4 3 PM EDT us Jacque Resendiz MD LABORATORY Final Result [facility] [address] [place] [address] * (ABNORMAL) URINALYSIS,MICROSCOPIC ONLY (10/10/2008) WBC (URINE) [...] specified documented in this encounter Care Teams Documentation Coordinator Relationship Specialty Start Date End Date Jacque Resendiz MD [address] [place] [address] PCP - General 07/26/05 01/01/15 Unknown Pcp, Non Rmg PCP - General 01/02/15 06/17/23 Toan Motley NP [address] [address] PCP - General Nurse Practitioner 06/18/23 documented as of this encounter
--- OUTSIDE RECORDS SUMMARY | 2024-08-09 07:41 | XMS_ITS | Encounter Summary ---
Author Organization [facility] Address [address] [place] [address] Care Team Providers Care Industrial Safety And Health Technician Name Role Phone Jacque Resendiz MD Primary Care Provider Unknown Pcp, Non Rmg Primary Care Provider Toan Cassidy NP Primary Care Provider Encounter Details Date Type Department Care Team (Late st Contact Info) Description 07/13/2013 Orders Only [facility] [address] [place], [place] [phone] Mony Paz MD [address] [address] Social History Tobacco Use Types Packs/Day Years [...] this encounter Procedures * Due to [place] state law, this organization might not be sharing negative HIV tests. Procedure Name Priority Date/Time Associated Diagnosis Comments TSH, 3RD GENERATION Routine 07/13/2013 1 :51 PM EDT Subclinical hypothyroidism documented in this encounter Results * Due to [place] state law, this organization might not be sharing negative HIV tests. * (ABNORMAL) TSH, 3RD GENERATION (07/13/2013 1:51 PM EDT) TSH 4.65(H) mIU/L [facility] Comment: {TSH {[id number]) ?Reference Range ?> or = 20 Years ??0.40-4.50 ? Ranges ?First trimester ?0.26-2.66 ?Second trimester ?? 0.55-2.73 ?Third trimester ?0.43-2.91 07/13/2013 1:51 PM EDT 07/13/2013 9:52 PM EDT Narrative Resulting Agency Comment [id number] us Mony Paz MD LABORATORY Final Result Performing Organization Address City/State/[facility] Co de Phone Number [facility] [address] [place] [address] documented in this encounter Visit Diagnoses Diagnosis Subclinical hypothyroidism Other specified acquired hypothyroidism documented in this encounter Care Teams Industrial Safety And Health Technician Relationship Specialty Start Date End Date Jacque Resendiz MD [address] [place] [address] PCP - General 07/26/05 01/01/15 Unknown Pcp, Non Rmg PCP - General 01/02/15 06/17/23 Toan Motley NP [address] [address] PCP - General Nurse Practitioner 06/18/23 documented as of this encounter
--- OUTSIDE RECORDS SUMMARY | 2024-08-09 07:41 | XMS_ITS | Encounter Summary ---
Author Organization [facility] Address [address] [place] [address] Care Team Providers Care Center Medical And Lab Director Name Role Phone Jacque Resendiz MD Primary Care Provider [phone] Unknown Pcp, Non Rmg Primary Care Provider Toan Cassidy NP Primary Care Provider Encounter Details Date Type Department Care Team (Late st Contact Info) Description 10/14/2013 Orders Only [facility] [address] [place], [place] [phone] Mony Paz MD [address] [address] Social History Tobacco Use Types Packs/Day Years [...] of this encounter Procedures * Due to [place] state law, this organization might not be sharing negative HIV tests. Procedure Name Priority Date/Time Associated Diagnosis Comments TSH, 3RD GENERATION Routine 10/14/2013 8 :05 AM EDT Subclinical hypothyroidism documented in this encounter Results * Due to [place] state law, this organization might not be sharing negative HIV tests. * (ABNORMAL) TSH, 3RD GENERATION (10/14/2013 8:05 AM EDT) TSH 7.93(H) mIU/L [facility] Comment: {TSH {[id number]) ?Reference Range ?> or = 20 Years ??0.40-4.50 ? Ranges ?First trimester ?0.26-2.66 ?Second trimester ?? 0.55-2.73 ?Third trimester ?0.43-2.91 10/14/2013 8:05 AM EDT 10/14/2013 12:12 PM EDT Narrative Resulting Agency Comment [id number] us Mony Paz MD LABORATORY Final Result Performing Organization Address City/State/[facility] Co de Phone Number [facility] [address] [place] [address] documented in this encounter Visit Diagnoses Diagnosis Subclinical hypothyroidism Other specified acquired hypothyroidism documented in this encounter Care Teams Center Medical And Lab Director Relationship Specialty Start Date End Date Jacque Resendiz MD [address] [place] [address] PCP - General 07/26/05 01/01/15 Unknown Pcp, Non Rmg PCP - General 01/02/15 06/17/23 Toan Motley NP [address] [address] PCP - General Nurse Practitioner 06/18/23 documented as of this encounter
--- OUTSIDE RECORDS SUMMARY | 2024-08-09 07:41 | XMS_ITS | Encounter Summary ---
Author Organization [facility] Address [address] [place] [address] Care Team Providers Care Resolution Analyst Name Role Phone Jacque Resendiz MD Primary Care Provider Unknown Pcp, Non Rmg Primary Care Provider Unava Toan Adames NP Primary Care Provider Encounter Details Date Type Department Care Team (Late st Contact Info) Description 02/04/2008 Orders Only [facility] [address] [place] [phone] Jacque Resendiz MD [address] [place] [address] Social History Tobacco Use Types Packs/Day Years [...] mellitus documented in this encounter Care Teams Resolution Analyst Relationship Specialty Start Date End Date Jacque Resendiz MD [address] [place] [address] PCP - General 07/26/05 01/01/15 Unknown Pcp, Non Rmg PCP - General 01/02/15 06/17/23 Toan Motley NP [address] [address] PCP - General Nurse Practitioner 06/18/23 documented as of this encounter
--- OUTSIDE RECORDS SUMMARY | 2024-08-09 07:41 | XMS_ITS | Encounter Summary ---
Author Organization [facility] Address [address] [place] [address] Care Team Providers Care Gas Pumper Name Role Phone Jacque Resendiz MD Primary Care Provider Unknown Pcp, Non Rmg Primary Care Provider Unava Toan Adames POLITICAL CONSULTANT Primary Care Provider Encounter Details Date Type Department Care Team (Late st Contact Info) Description 10/15/2007 Orders Only [facility] [address] [place] [phone] Jacque Resendiz MD [address] [place] [address] Social History Tobacco Use Types Packs/Day Years [...] specified documented in this encounter Care Teams Gas Pumper Relationship Specialty Start Date End Date Jacque Resendiz MD [address] [place] [address] PCP - General 07/26/05 01/01/15 Unknown Pcp, Non Rmg PCP - General 01/02/15 06/17/23 Toan Motley NP [address] [place] [address] PCP - General Nurse Practitioner 06/18/23 documented as of this encounter
--- OUTSIDE RECORDS SUMMARY | 2024-08-09 07:41 | XMS_ITS | Encounter Summary ---
Author Organization [facility] Address [address] [place] [address] Care Team Providers Care Market Risk Analyst Name Role Phone Jacque Resendiz MD Primary Care Provider Unknown Pcp, Non Rmg Primary Care Provider Unava Toan Adames NP Primary Care Provider [phone] Encounter Details Date Type Department Care Team (Late st Contact Info) Description 01/21/2013 Orders Only [facility] [address] [place] [phone] Jacque Resendiz MD [address] [place] [address] Social History Tobacco Use Types Packs/Day Years [...] encounter Procedures * Due to [place] [employer] law, this organization might not be sharing [...] encounter Results * Due to [place] [employer] law, this organization might not be sharing negative HIV tests. * CBC INCLUDES DIFFERENTIAL AND PLATELET COUNT (01/21/2013 8:14 AM EDT) WBC 7.5 3.8 - 10.8 Thousand/u L [facility] Comment:{WHITE BLOOD CELL CO UNT {[id number]) RBC 4.42 3.80 - 5.10 Million/uL [facility] Comment:{RED BLOOD CELL COUN T {[id number]) Hemoglobin 13.1 11.7 - 15.5 g/dL [facility] Comment:{HEMOGLOBIN {[id number]) Hematocrit 39.3 35.0 - 45.0 % [facility] Comment:{HEMATOCRIT {[id number]) MCV 88.9 80.0 - 100.0 fL [facility] Comment:{MCV {[id number]) MCH 29.6 27.0 - 33.0 pg [facility] Comment:{MCH {[id number]) MCHC 33.3 32.0 - 36.0 g/dL [facility] Comment:{MCHC {[id number]) RDW 13.0 11.0 - 15.0 % [facility] Comment:{RDW {[id number]) PLT 246 140 - 400 Thousand/u L [facility] Comment:{PLATELET COUNT {[id number]) MPV 10.2 7.5 - 11.5 fL [facility] Comment:{MPV {[id number]) Neutrophils # 4875 1500 - 7800 cells/uL [facility] Comment:{ABSOLUTE NEUTROPHIL S {[id number]) Lymphocytes # 2010 850 - 3900 cells/uL [facility] Comment:{ABSOLUTE LYMPHOCYTE S {[id number]) Monocytes # 503 200 - 950 cells/uL [facility] Comment:{ABSOLUTE MONOCYTES {[id number]) Eosinophils # 75 15 - 500 cells/uL [facility] Comment:{ABSOLUTE EOSINOPHIL S {[id number]) Basophils # 38 0 - 200 cells/uL [facility] Comment:{ABSOLUTE BASOPHILS {[id number]) Neutrophils % 65.0 % [facility] Comment:{NEUTROPHILS {[id number]) Lymphocytes % 26.8 % [facility] Comment:{LYMPHOCYTES {[id number]) Monocytes % 6.7 % [facility] Comment:{MONOCYTES {[id number]) Eosinophils % 1.0 % [facility] Comment:{EOSINOPHILS {[id number]) Basophils % 0.5 % [facility] Comment:{BASOPHILS {[id number]) 01/21/2013 8:14 AM EDT 01/21/2013 12:37 PM EDT Narrative Resulting Agency Comment [id number] us Jacque Resendiz MD LAB SAME DAY RESULT Final Re sult [facility] [address] [place] [address] * BASIC METABOLIC PANEL WITH (GFR) (01/21/2013 8:14 AM EDT) Glucose 88 65 - 99 mg/dL [facility] Comment: {GLUCOSE {[id number]) ? Fasting reference interval Urea Nitrogen Blood (BUN) 12 7 - 25 mg/dL [facility] Comment:{UREA NITROGEN (BUN) {[id number]) Creatinine 0.77 0.50 - 1.10 mg/dL [facility] Comment:{CREATININE {[id number]) GFR 105 > OR = 60 mL/min/1. 73m2 [facility] Comment:{eGFR NON-AFR. AMERI CAN {[id number]) GFR () 122 > OR = 60 mL/min/1. 73m2 [facility] Comment:{eGFR AMERIC AN {[id number]) BUN/Creatinine Ratio NOT APPLICABLE 6 - 22 (calc) [facility] Comment:{BUN/CREATININE RATI O {[id number]) Sodium 138 135 - 146 mmol/L [facility] Comment:{SODIUM {[id number]) Potassium 4.0 3.5 - 5.3 mmol/L [facility] Comment:{POTASSIUM {[id number]) Chloride 106 98 - 110 mmol/L [facility] Comment:{CHLORIDE {[id number]) Carbon dioxide 19 19 - 30 mmol/L [facility] Comment:{CARBON DIOXIDE {[id number]) Calcium 8.8 8.6 - 10.2 mg/dL [facility] Comment:{CALCIUM {[id number]) 01/21/2013 8:14 AM EDT 01/21/2013 12:37 [...] needs for GFR calculation. Resulting Agency Comment [id number] us Jacque Resendiz MD LABORATORY Final Result [facility] [address] [place] [address] * LIPID PANEL WITH REFLEX TO DIRECT LDL (01/21/2013 8:14 AM EDT) Cholesterol 171 125 - 200 mg/dL [facility] Comment:{CHOLESTEROL, TOTAL {[id number]) HDL Cholesterol 48 > OR = 46 mg/dL [facility] Comment:{HDL CHOLESTEROL {[id number]) Triglyceride 127 <150 mg/dL [facility] Comment:{TRIGLYCERIDES {[id number]) LDL Cholesterol 98 <130 mg/dL (calc) [facility] Comment: {LDL-CHOLESTEROL {[id number]) Desirable range <100 mg/dL for patients with CHD or diabetes and <70 mg/dL for diabetic patients with known heart disease. CHOL/HDL Ratio 3.6 < OR = 5.0 (calc) [facility] Comment:{CHOL/HDLC RATIO {[id number]) Cholesterol Non-HDL 123 mg/dL (calc) [facility] Comment: {NON HDL CHOLESTEROL {[id number]) Target for non-HDL cholesterol is 30 mg/dL higher than LDL cholesterol target. 01/21/2013 8:14 AM EDT 01/21/2013 12:37 PM EDT Narrative Resulting Agency Comment [id number] Jacque Resendiz MD LABORATORY Final Result Performing Organization Address City/State/[facility] Co de Phone Number [facility] [address] [place] [address] documented in this encounter Visit Diagnoses Diagnosis Screening for hyperlipidemia Screening for lipoid disorders Screening for diabetes mellitus Screening for deficiency anemia Screening for other and unspecified deficiency anemia documented in this encounter Care Teams Market Risk Analyst Relationship Specialty Start Date End Date Jacque Resendiz MD [address] [place] [address] PCP - General 07/26/05 01/01/15 Unknown Pcp, Non Rmg PCP - General 01/02/15 06/17/23 Toan Motley NP [address] [address] PCP - General Nurse Practitioner 06/18/23 documented as of this encounter
--- OUTSIDE RECORDS SUMMARY | 2024-08-09 07:41 | XMS_ITS | Encounter Summary ---
Author Organization [facility] Address [address] [place] [address] Care Team Providers Care Pawn Broker Name Role Phone Jacque Resendiz MD Primary Care Provider Unknown Pcp, Non Rmg Primary Care Provider Unava Toan Adames NP Primary Care Provider Encounter Details Date Type Department Care Team (Late st Contact Info) Description 10/13/2011 Abstract [facility] [address] [place] [phone] Jacque Resendiz MD [address] [place] [address] Social History Tobacco Use Types Packs/Day Years [...] on filedocumented in this encounter Care Teams Pawn Broker Relationship Specialty Start Date End Date Jacque Resendiz MD [address] [place] [address] PCP - General 07/26/05 01/01/15 Unknown Pcp, Non Rmg PCP - General 01/02/15 06/17/23 Toan Motley NP [address] [address] PCP - General Nurse Practitioner 06/18/23 documented as of this encounter
--- OUTSIDE RECORDS SUMMARY | 2024-08-09 07:41 | XMS_ITS | Encounter Summary ---
Author Organization [facility] Address [address] [place] [address] Care Team Providers Care Manager Store Name Role Phone Jacque Resendiz MD Primary Care Provider [phone] Unknown Pcp, Non Rmg Primary Care Provider Unava Toan Adames NP Primary Care Provider [phone] Encounter Details Date Type Department Care Team (Late st Contact Info) Description 09/14/2014 Orders Only [facility] [address] [place] [address] Jacque Resendiz MD [address] [place] [address] Social History Tobacco Use Types Packs/Day Years [...] this encounter Procedures * Due to [place] [employer] law, this organization might not be sharing negative HIV tests. Procedure Name Priority Date/Time Associated Diagnosis Comments HCG, (HUMAN CHORIONIC GONADOTROPIN), TOTAL, QUANTITATIVE Routine 09/14/2014 5:23 PM EDT Missed period documented in this encounter Results * Due to [place] [employer] law, this organization might not be sharing negative HIV tests. * HCG, (HUMAN CHORIONIC GONADOTROPIN), TOTAL, QUANTITATIVE (09/14/2014 5:23 PM EDT) HCG, Total, Quantitative <2 mIU/mL [facility] Comment: {HCG, TOTAL, QN {[id number]) Reference Range Non or premenopausal ?<5 Postmenopausal ? <10 Values from different assay methods may vary. The use of this assay to monitor or to diagnose patients with cancer or any condition unrelated to has not been cleared or approved by the FDA or the school cafeteria head cook of the assay. 09/14/2014 5:23 PM EDT 09/15/2014 12:32 AM EDT Narrative Resulting Agency Comment [id number] us Jacque Resendiz MD LAB SAME DAY RESULT Final Re sult [facility] [address] [place] [address] documented in this encounter Visit Diagnoses Diagnosis Missed period Irregular menstrual cycle documented in this encounter Care Teams Manager Store Relationship Specialty Start Date End Date Jacque Resendiz MD [address] [place] [address] PCP - General 07/26/05 01/01/15 Unknown Pcp, Non Rmg PCP - General 01/02/15 06/17/23 Toan Motley NP [address] [address] PCP - General Nurse Practitioner 06/18/23 documented as of this encounter
--- OUTSIDE RECORDS SUMMARY | 2024-08-09 07:41 | XMS_ITS | Encounter Summary ---
Author Organization [facility] Address [address] [place] [address] Care Team Providers Care Gyn Name Role Phone Jacque Resendiz MD Primary Care Provider Unknown Pcp, Non Rmg Primary Care Provider Toan Cassidy NP Primary Care Provider Encounter Details Date Type Department Care Team (Late st Contact Info) Description 09/14/2014 Orders Only [facility]ology [address] [place], [place] [phone] Mony Paz MD [address] [address] Social History Tobacco Use Types Packs/Day Years [...] this encounter Procedures * Due to [place] state law, this organization might not be sharing negative HIV tests. Procedure Name Priority Date/Time Associated Diagnosis Comments TSH, 3RD GENERATION Routine 09/14/2014 5 :23 PM EDT Subclinical hypothyroidism documented in this encounter Results * Due to [place] state law, this organization might not be sharing negative HIV tests. * (ABNORMAL) TSH, 3RD GENERATION (09/14/2014 5:23 PM EDT) TSH 15.36(H) mIU/L [facility] Comment: {TSH {[id number]) ?Reference Range ?> or = 20 Years ??0.40-4.50 ? Ranges ?First trimester ?0.26-2.66 ?Second trimester ?? 0.55-2.73 ?Third trimester ?0.43-2.91 09/14/2014 5:23 PM EDT 09/15/2014 12:32 AM EDT Narrative Resulting Agency Comment [id number] us Mony Paz MD LABORATORY Final Result Performing Organization Address City/State/[facility] Co de Phone Number [facility] [address] [place] [address] documented in this encounter Visit Diagnoses Diagnosis Subclinical hypothyroidism Other specified acquired hypothyroidism documented in this encounter Care Teams Gyn Relationship Specialty Start Date End Date Jacque Resendiz MD [address] [place] [address] PCP - General 07/26/05 01/01/15 Unknown Pcp, Non Rmg PCP - General 01/02/15 06/17/23 Toan Motley NP [address] [address] PCP - General Nurse Practitioner 06/18/23 documented as of this encounter
--- OUTSIDE RECORDS SUMMARY | 2024-08-09 07:41 | XMS_ITS | Encounter Summary ---
Author Organization [facility] Address [address] [place] [address] Care Team Providers Care Senior Mobile Web Developer Name Role Phone Jacque Resendiz MD Primary Care Provider Unknown Pcp, Non Rmg Primary Care Provider Fernandava Toan Adames NP Primary Care Provider Encounter Details Date Type Department Care Team (Late st Contact Info) Description 05/08/2011 Orders Only [facility] [address] [place] [address] Jacque Resendiz MD [address] [place] [address] Social History Tobacco Use Types Packs/Day Years [...] on filedocumented in this encounter Care Teams Senior Mobile Web Developer Relationship Specialty Start Date End Date Jacque Resendiz MD [address] [place] [address] PCP - General 07/26/05 01/01/15 Unknown Pcp, Non Rmg PCP - General 01/02/15 06/17/23 Toan Motley NP [address] [address] PCP - General Nurse Practitioner 06/18/23 documented as of this encounter
--- OUTSIDE RECORDS SUMMARY | 2024-08-09 07:41 | XMS_ITS | Encounter Summary ---
Author Organization [facility] Address [address] [place] [address] Care Team Providers Care Cancer Researcher Name Role Phone Jacque Resendiz MD Primary Care Provider Unknown Pcp, Non g Primary Care Provider Unava Toan Adames NP Primary Care Provider Encounter Details Date Type Department Care Team (Late st Contact Info) Description 01/04/2009 Orders Only [facility] [address] [place] [address] Jacque Resendiz MD [address] [place] [address] Social History Tobacco Use Types Packs/Day Years [...] this encounter Procedures * Due to [place] [employer] law, this organization might not be sharing negative HIV tests. Procedure Name Priority Date/Time Associated Diagnosis Comments URINALYSIS, DIP ONLY ( SITE STAT ONLY) STAT (All results called to provider) 01/04/2009 1:58 PM EDT Frequent Urination CULTURE, URINE Routine 01/04/2009 Frequent Urination documented in this encounter Results * Due to [place] [employer] law, this organization might not be sharing negative HIV tests. * URINALYSIS, DIP ONLY ( SITE STAT ONLY) (01/04/2009 1:58 PM EDT) COLOR (URINE) yellow [facility] (CLIA# [id number]) APPEARANCE (URINE) cloudy [facility] (CLIA# [id number]) SPECIFIC GRAVITY 1.025 1.001 - 1.035 [facility] (CLIA# [id number]) PH (URINE) 6.5 5.0 - 8.0 [facility] (CLIA# [id number]) PROTEIN (URINE) negative Neg - Neg [facility] (CLIA# [id number]) GLUCOSE (URINE) negative Neg - Neg [facility] (CLIA# [id number]) Ketones (Urine) negative Neg - Neg [facility] (CLIA# [id number]) BILIRUBIN (URINE) negative Neg - Neg [facility] (CLIA# [id number]) BLOOD (URINE) negative Neg - Neg [facility] (CLIA# [id number]) WBC (URINE) negative Neg - Neg [facility] (CLIA# [id number]) NITRITE (URINE) negative Neg - Neg [facility] (CLIA# [id number]) Urine specimen (specimen) 01/04/2009 1:58 PM EDT Narrative [facility] (CLIA# [id number]) - 01/04/2009 1:59 PM EDT Culture already ordered per provider. Jacque Resendiz MD LAB SAME DAY RESULT Final Re sult [facility] (CLIA# [id number]) [address] [place] [address] * CULTURE, URINE (01/04/2009) URINE CULTURE CLEAN VOID SEE TEXT [facility] Comment: SOURCE: URINE NO GROWTH 01/04/2009 01/04/2009 10: 35 PM EDT us Jacque Resendiz MD LABORATORY Final Result [facility] [address] [place] [address] documented in this encounter Visit Diagnoses Diagnosis Frequent urination Urinary frequency documented in this encounter Care Teams Cancer Researcher Relationship Specialty Start Date End Date Jacque Resendiz MD [address] [place] [address] PCP - General 07/26/05 01/01/15 Unknown Pcp, Non Rmg PCP - General 01/02/15 06/17/23 Toan Motley NP [address] [address] PCP - General Nurse Practitioner 06/18/23 documented as of this encounter
--- OUTSIDE RECORDS SUMMARY | 2024-08-09 07:41 | XMS_ITS | Encounter Summary ---
Author Organization [facility] Address [address] [place] [address] Care Team Providers Care Environmental Lead Name Role Phone Jacque Resendiz MD Primary Care Provider Unknown Pcp, Non Rmg Primary Care Provider Unava Toan Adames NP Primary Care Provider Encounter Details Date Type Department Care Team (Late st Contact Info) Description 01/04/2009 Orders Only [facility] [address] [place] [phone] Jacque Resendiz MD [address] [place] [address] Social History Tobacco Use Types Packs/Day Years [...] of this encounter Results * Due to [place] state law, this organization might not be sharing negative HIV tests. * HEPATIC FUNCTION PANEL (10/14/2011 1:17 PM EDT) Protein Total (Serum) 7.4 6.2 - 8.3 g/dL [facility] Comment:{PROTEIN, TOTAL {[id number]) Albumin 4.4 3.6 - 5.1 g/dL [facility] Comment:{ALBUMIN {[id number]) Globulin 3.0 2.2 - 3.9 g/dL (calc) [facility] Comment:{GLOBULIN {[id number]) Albumin/Globulin 1.5 1.0 - 2.1 (calc) [facility] Comment:{ALBUMIN/GLOBULIN RA JOSE {[id number]) Bilirubin Total 0.4 0.2 - 1.2 mg/dL [facility] Comment:{BILIRUBIN, TOTAL {[id number]) Bilirubin Direct 0.1 < OR = 0.2 mg/dL [facility] Comment:{BILIRUBIN, DIRECT { [id number]) Bilirubin Indirect 0.3 0.2 - 1.2 mg/dL (calc) [facility] Comment:{BILIRUBIN, INDIRECT {[id number]) Alkaline phosphatase 76 33 - 115 U/L [facility] Comment:{ALKALINE PHOSPHATAS E {[id number]) AST (SGOT) 17 10 - 30 U/L [facility] Comment:{AST {[id number]) ALT (SGPT) 15 6 - 40 U/L [facility] Comment:{ALT {[id number]) 10/14/2011 1:17 PM EDT 10/14/2011 9:17 PM EDT Narrative Resulting Agency Comment [id number] us Jacque Resendiz MD LABORATORY Final Result [facility] [address] [place] [address] * CBC 5 PART DIFF (10/14/2011 1:17 PM EDT) WBC 8.5 3.8 - 10.8 Thousand/u L [facility] Comment:{WHITE BLOOD CELL CO UNT {[id number]) RBC 4.43 3.80 - 5.10 Million/uL [facility] Comment:{RED BLOOD CELL COUN T {[id number]) Hemoglobin 13.5 11.7 - 15.5 g/dL [facility] Comment:{HEMOGLOBIN {[id number]) Hematocrit 40.4 35.0 - 45.0 % [facility] Comment:{HEMATOCRIT {[id number]) MCV 91.2 80.0 - 100.0 fL [facility] Comment:{MCV {[id number]) MCH 30.6 27.0 - 33.0 pg [facility] Comment:{MCH {[id number]) MCHC 33.5 32.0 - 36.0 g/dL [facility] Comment:{MCHC {[id number]) RDW 13.0 11.0 - 15.0 % [facility] Comment:{RDW {[id number]) PLT 250 140 - 400 Thousand/u L [facility] Comment:{PLATELET COUNT {[id number]) MPV 9.4 7.5 - 11.5 fL [facility] Comment:{MPV {[id number]) Neutrophils # 4871 1500 - 7800 cells/uL [facility] Comment:{ABSOLUTE NEUTROPHIL S {[id number]) Lymphocytes # 2967 850 - 3900 cells/uL [facility] Comment:{ABSOLUTE LYMPHOCYTE S {[id number]) Monocytes # 510 200 - 950 cells/uL [facility] Comment:{ABSOLUTE MONOCYTES {[id number]) Eosinophils # 119 15 - 500 cells/uL [facility] Comment:{ABSOLUTE EOSINOPHIL S {[id number]) Basophils # 34 0 - 200 cells/uL [facility] Comment:{ABSOLUTE BASOPHILS {[id number]) Neutrophils % 57.3 % [facility] Comment:{NEUTROPHILS {[id number]) Lymphocytes % 34.9 % [facility] Comment:{LYMPHOCYTES {[id number]) Monocytes % 6.0 % [facility] Comment:{MONOCYTES {[id number]) Eosinophils % 1.4 % [facility] Comment:{EOSINOPHILS {[id number]) Basophils % 0.4 % [facility] Comment:{BASOPHILS {[id number]) 10/14/2011 1:17 PM EDT 10/14/2011 9:17 PM EDT Narrative Resulting Agency Comment [id number] us Jacque Resendiz MD LAB SAME DAY RESULT Final Re sult [facility] [address] [place] [address] * BASIC METABOLIC PANEL W/GLOMERULAR FILTRATION RATE (EGFR) (10/14/2011 1:17 PM EDT) Glucose 78 65 - 99 mg/dL [facility] Comment: {GLUCOSE {[id number]) ? Fasting reference interval Urea Nitrogen Blood (BUN) 12 7 - 25 mg/dL [facility] Comment:{UREA NITROGEN (BUN) {[id number]) Creatinine 0.79 0.50 - 1.10 mg/dL [facility] Comment:{CREATININE {[id number]) GFR 103 > OR = 60 mL/min/1. 73m2 [facility] Comment:{eGFR NON-AFR. AMERI CAN {[id number]) GFR () 119 > OR = 60 mL/min/1. 73m2 [facility] Comment:{eGFR AMERIC AN {[id number]) BUN/Creatinine Ratio NOT APPLICABLE 6 - 22 (calc) [facility] Comment:{BUN/CREATININE RATI O {[id number]) Sodium 139 135 - 146 mmol/L [facility] Comment:{SODIUM {[id number]) Potassium 4.0 3.5 - 5.3 mmol/L [facility] Comment:{POTASSIUM {[id number]) Chloride 105 98 - 110 mmol/L [facility] Comment:{CHLORIDE {[id number]) Carbon dioxide 22 21 - 33 mmol/L [facility] Comment:{CARBON DIOXIDE {[id number]) Calcium 9.4 8.6 - 10.2 mg/dL [facility] Comment:{CALCIUM {[id number]) 10/14/2011 1:17 PM EDT 10/14/2011 9:17 [...] needs for GFR calculation. Resulting Agency Comment [id number] us Jacque Resendiz MD LABORATORY Final Result [facility] [address] [place] [address] documented in this encounter Visit Diagnoses Diagnosis [...] facility documented in this encounter Care Teams Environmental Lead Relationship Specialty Start Date End Date Jacque Resendiz MD [address] [place] [address] PCP - General 07/26/05 01/01/15 Unknown Pcp, Non Rmg PCP - General 01/02/15 06/17/23 Toan Motley NP [address] [address] PCP - General Nurse Practitioner 06/18/23 documented as of this encounter
--- OUTSIDE RECORDS SUMMARY | 2024-08-09 07:41 | XMS_ITS | Encounter Summary ---
Author Organization [facility] Address [address] [place] [address] Care Team Providers Care Health Associate Name Role Phone Jacque Resendiz MD Primary Care Provider [phone] Unknown Pcp, Non Rmg Primary Care Provider Fernandava Toan Adames NP Primary Care Provider Encounter Details Date Type Department Care Team (Late st Contact Info) Description 01/04/2009 Orders Only [facility] [address] [place] [address] Yue Tillman, AGUSTINA [address] [place] [address] Social History Tobacco Use Types Packs/Day Years [...] of this encounter Results * Due to [place] state law, this organization might not be sharing negative HIV tests. * URINALYSIS, DIP ONLY ( SITE STAT ONLY) (01/04/2009 1:58 PM EDT) COLOR (URINE) yellow [facility] (CLIA# [id number]) APPEARANCE (URINE) cloudy [facility] (CLIA# [id number]) SPECIFIC GRAVITY 1.025 1.001 - 1.035 [facility] (CLIA# [id number]) PH (URINE) 6.5 5.0 - 8.0 [facility] (CLIA# [id number]) PROTEIN (URINE) negative Neg - Neg [facility] (CLIA# [id number]) GLUCOSE (URINE) negative Neg - Neg [facility] (CLIA# [id number]) Ketones (Urine) negative Neg - Neg [facility] (CLIA# [id number]) BILIRUBIN (URINE) negative Neg - Neg [facility] (CLIA# [id number]) BLOOD (URINE) negative Neg - Neg [facility] (CLIA# [id number]) WBC (URINE) negative Neg - Neg [facility] (CLIA# [id number]) NITRITE (URINE) negative Neg - Neg [facility] (CLIA# [id number]) Urine specimen (specimen) 01/04/2009 1:58 PM EDT Narrative [facility] (CLIA# [id number]) - 01/04/2009 1:59 PM EDT Culture already ordered per provider. Jacque Resendiz MD LAB SAME DAY RESULT Final Re sult Performing Organization Address [facility]/ZIP Co de Phone Number [facility] (CLIA# [id number]) [address] [place] [address] * CULTURE, URINE (01/04/2009) URINE CULTURE CLEAN VOID SEE TEXT [facility] Comment: SOURCE: URINE NO GROWTH 01/04/2009 01/04/2009 10: 35 PM EDT Jacque Resendiz MD LABORATORY Final Result Performing Organization Address City/[facility]/ZIP Co de Phone Number [facility] [address] [place] [address] documented in this encounter Visit Diagnoses Diagnosis Frequent urination- Primary Urinary frequency Frequent urination Urinary frequency documented in this encounter Care Teams Health Associate Relationship Specialty Start Date End Date Jacque Resendiz MD [address] [place] [address] PCP - General 07/26/05 01/01/15 Unknown Pcp, Non Rmg PCP - General 01/02/15 06/17/23 Toan Motley NP [address] [address] PCP - General Nurse Practitioner 06/18/23 documented as of this encounter
--- OUTSIDE RECORDS SUMMARY | 2024-08-09 07:41 | XMS_ITS | Encounter Summary ---
Author Organization [facility] Address [address] [place] [address] Care Team Providers Care Outbound Telemarketer Name Role Phone Jacque Resendiz MD Primary Care Provider Unknown Pcp, Non Rmg Primary Care Provider Unava Toan Adames NP Primary Care Provider [phone] Encounter Details Date Type Department Care Team (Late st Contact Info) Description 09/02/2006 Orders Only [facility] [address] [place] [phone] Jacque Resendiz MD [address] [place] [address] Social History Tobacco Use Types Packs/Day Years [...] YELLOW YELLOW [facility] (CLIA# [id number]) APPEARANCE (URINE) CLEAR CLEAR [facility] (CLIA# [id number]) SPECIFIC GRAVITY 1.025 1.001 - 1.035 [facility] (CLIA# [id number]) PH (URINE) 5.0 5.0 - 8.0 [facility] (CLIA# [id number]) PROTEIN (URINE) TRACE NEG [facility] (CLIA# [id number]) GLUCOSE (URINE) NEG NEG [facility] (CLIA# [id number]) Ketones (Urine) NEG NEG [facility] (CLIA# [id number]) BILIRUBIN (URINE) NEG NEG [facility] (CLIA# [id number]) BLOOD (URINE) NEG NEG [facility] (CLIA# [id number]) WBC (URINE) TRACE NEG [facility] (CLIA# [id number]) NITRITE (URINE) NEG NEG [facility] (CLIA# [id number]) 09/07/2006 09/07/2006 12: 31 PM EDT Jacque Resendiz MD LAB SAME DAY RESULT Final Re sult Performing Organization Address City/[facility]/ZIP Co de Phone Number [facility] (CLIA# [id number]) [address] [place] [address] * CULTURE, URINE (09/07/2006) URINE CULTURE CLEAN VOID SEE TEXT [facility] (CLIA# [id number]) Comment: SOURCE: URINE MULTIPLE ORGANISMS, EACH <10,000 CFU/ML. MAY REPRESENT NORMAL OCTAVIO CONTAMINATION FROM EXTERNAL GENITALIA. NO FURTHER TESTING. 09/07/2006 09/07/2006 12: 31 PM EDT us Jacque Resendiz MD LABORATORY Final Result Performing Organization Address City/[facility]/ZIP Co de Phone Number [facility] (CLIA# [id number]) [address] [place] [address] documented in this encounter Visit Diagnoses Diagnosis UTI (URINARY TRACT INFECTION)- Primary Urinary tract infection, site not specified documented in this encounter Care Teams Outbound Telemarketer Relationship Specialty Start Date End Date Jacque Resendiz MD [address] [place] [address] PCP - General 07/26/05 01/01/15 Unknown Pcp, Non Rmg PCP - General 01/02/15 06/17/23 Toan Motley NP [address] [address] PCP - General Nurse Practitioner 06/18/23 documented as of this encounter
--- OUTSIDE RECORDS SUMMARY | 2024-08-09 07:41 | XMS_ITS | Encounter Summary ---
Author Organization [facility] Address [address] [place] [address] Care Team Providers Care Center Mgr Name Role Phone Jacque Resendiz MD Primary Care Provider [phone] Unknown Pcp, Non Rmg Primary Care Provider Unava Toan Adames NP Primary Care Provider Encounter Details Date Type Department Care Team (Late st Contact Info) Description 09/07/2006 Orders Only [facility] [address] [place] [phone] Jacque Resendiz MD [address] [place] [address] Social History Tobacco Use Types Packs/Day Years [...] PROBE (09/07/2006) CHLAMYDIA TRACHOMATIS DNA SEE TEXT [facility] (CLIA# [id number]) Comment: SOURCE: ENDOCERVIX NEGATIVE 09/07/2006 09/07/2006 10: 23 PM EDT us Jacque Resendiz MD LABORATORY Final Result Performing Organization Address City/[facility] Co de Phone Number [facility] (CLIA# [id number]) [address] [place] [address] * GC DNA PROBE (09/07/2006) GC DNA PROBE SEE TEXT [facility] (CLIA# [id number]) Comment: SOURCE: ENDOCERVIX NEGATIVE 09/07/2006 09/07/2006 10: 23 PM EDT us Jacque Resendiz MD LABORATORY Final Result Performing Organization Address City/[facility]/ZIP Co de Phone Number [facility] (CLIA# [id number]) [address] [place] [address] * CULTURE,VAGINAL (09/07/2006) Result(s) SEE TEXT [facility] (CLIA# [id number]) Comment: SOURCE: VAGINA NORMAL OCTAVIO 09/07/2006 09/07/2006 10: 23 PM EDT Jacque Resendiz MD LABORATORY Final Result Performing Organization Address [facility]/ZIP Co de Phone Number [facility] (CLIA# [id number]) [address] [place] [address] * (ABNORMAL) URINALYSIS,MICROSCOPIC ONLY (09/07/2006) WBC (URINE) 0-4 0-4/HPF [facility] (CLIA# [id number]) RBC (Urine Sed) 0-2 0-3/HPF [facility] (CLIA# [id number]) EPITHELIAL CELLS.SQUAMOUS (URINE SED) 0-5 0-5/HPF [facility] (CLIA# [id number]) EPITHELIAL CELLS.TRANSITIO NAL (URINE SED) 0 0-5/HPF [facility] (CLIA# [id number]) EPITHELIAL CELLS.RENAL (URINE SED) 0 0-3/HPF [facility] (CLIA# [id number]) BACTERIA (URINE) FEW(A) NONE SEEN [facility] (CLIA# [id number]) HYALINE CASTS (URINE) 0(A) 0 - 1 [facility] (CLIA# [id number]) 09/07/2006 09/07/2006 12: 31 PM EDT Jacque Resendiz MD LAB SAME DAY RESULT Final Re sult Performing Organization Address [facility]/ZIP Co de Phone Number [facility] (CLIA# [id number]) [address] [place] [address] * URINALYSIS, DIPSTICK ONLY (SITE - STAT ONLY) (09/07/2006) COLOR (URINE) YELLOW YELLOW [facility] (CLIA# [id number]) APPEARANCE (URINE) CLEAR CLEAR [facility] (CLIA# [id number]) SPECIFIC GRAVITY 1.025 1.001 - 1.035 [facility] (CLIA# [id number]) PH (URINE) 5.0 5.0 - 8.0 [facility] (CLIA# [id number]) PROTEIN (URINE) TRACE NEG [facility] (CLIA# [id number]) GLUCOSE (URINE) NEG NEG [facility] (CLIA# [id number]) Ketones (Urine) NEG NEG [facility] (CLIA# [id number]) BILIRUBIN (URINE) NEG NEG [facility] (CLIA# [id number]) BLOOD (URINE) NEG NEG [facility] (CLIA# [id number]) WBC (URINE) TRACE NEG [facility] (CLIA# [id number]) NITRITE (URINE) NEG NEG [facility] (CLIA# [id number]) 09/07/2006 09/07/2006 12: 31 PM EDT Jacque Resendiz MD LAB SAME DAY RESULT Final Re sult Performing Organization Address [facility] Co de Phone Number [facility] (CLIA# [id number]) [address] [place] [address] * CULTURE, URINE (09/07/2006) URINE CULTURE CLEAN VOID SEE TEXT [facility] (CLIA# [id number]) Comment: SOURCE: URINE MULTIPLE ORGANISMS, EACH <10,000 CFU/ML. MAY REPRESENT NORMAL OCTAVIO CONTAMINATION FROM EXTERNAL GENITALIA. NO FURTHER TESTING. 09/07/2006 09/07/2006 12: 31 PM EDT Jacque Resendiz MD LABORATORY Final Result Performing Organization Address [facility] Co de Phone Number [facility] (CLIA# [id number]) [address] [place] [address] documented in this encounter Visit Diagnoses Diagnosis UTI (URINARY TRACT INFECTION)- Primary Urinary tract infection, site not specified ABDOMINAL PAIN, LEFT LOWER QUADRANT Abdominal pain, left lower quadrant PID (PELVIC INFLAMMATORY DISEASE) Unspecified inflammatory disease of female pelvic organs and tissues documented in this encounter Care Teams Center Mgr Relationship Specialty Start Date End Date Jacque Resendiz MD [address] [place] [address] PCP - General 07/26/05 01/01/15 Unknown Pcp, Non Rmg PCP - General 01/02/15 06/17/23 Toan Motley NP [address] [address] PCP - General Nurse Practitioner 06/18/23 documented as of this encounter
--- OUTSIDE RECORDS SUMMARY | 2024-08-09 07:41 | XMS_ITS | Encounter Summary ---
Author Organization [facility] Address [address] [place] [address] Care Team Providers Care Proof Inspector Name Role Phone Jacque Resendiz MD Primary Care Provider [phone] Unknown Pcp, Non Rmg Primary Care Provider Unava Toan Adames NP Primary Care Provider [phone] Encounter Details Date Type Department Care Team (Late st Contact Info) Description 10/14/2013 Orders Only [facility] [address] [place] [phone] Jacque Resendiz MD [address] [place] [address] Social History Tobacco Use Types Packs/Day Years [...] booster. Please refer to point # 2 [facility] advisory that states: Acceptable Evidence of Immunity* [...] DIAGNOSTICS Comment: {HEPATITIS B SURFACE ANTIBODY (QUANT) {[id number]) Patient has immunity to hepatitis B virus. Effective September 12, 2013 this test is being performed using the [employer] Chemiluminesence method. Quantitative results from this method should not be used interchangeably with other methods. 10/14/2013 8:05 AM EDT 10/14/2013 12:12 PM EDT Narrative Resulting Agency Comment [id number] Jacque Resendiz MD LABORATORY Final Result Performing Organization Address [facility] de Phone Number [facility] [address] [place] [address] * MUMPS VIRUS ANTIBODY, IGG, SERUM (10/14/2013 8:05 AM EDT) Mumps virus Ab.IgG 1.13 index Q [facility] Comment: {MUMPS VIRUS ANTIBODY (IGG) {[id number]) Index ?Interpretation < or = 0.90 ?Negative [...] 12:12 PM EDT Narrative Resulting Agency Comment [id number] Jacque Resendiz MD LABORATORY Final Result Performing Organization Address [facility] de Phone Number [facility] [address] [place] [address] * (ABNORMAL) MEASLES IGG AB (RUBEOLA) (10/14/2013 8:05 AM EDT) Measles virus Ab.IgG < OR = 0.90(A) index [facility] Comment: {MEASLES ANTIBODY (IGG) {[id number]) ? Index ? Explanation of Test Results [...] 12:12 PM EDT Narrative Resulting Agency Comment [id number] Jacque Resendiz MD LABORATORY Final Result [facility] [address] [place] [address] * RUBELLA ANTIBODY IGG, SERUM (10/14/2013 8:05 AM EDT) Rubella virus Ab.IgG 1.51 [facility] Comment: {RUBELLA ANTIBODY (IGG) {[id number]) ? Value ?Interpretation ? ----- ? < or = 0.90 ?Negative ? 0.91-1.09 ?Equivocal ? > or = 1.10 ?Positive The presence of rubella IgG antibody suggests immunization or past or current infection with rubella virus. 10/14/2013 8:05 AM EDT 10/14/2013 12:12 PM EDT Narrative Resulting Agency Comment [id number] us Jacque Resendiz MD LABORATORY Final Result [facility] [address] [place] [address] documented in this encounter Visit Diagnoses Diagnosis Screening examination for infectious disease Screening examination for unspecified infectious disease documented in this encounter Care Teams Proof Inspector Relationship Specialty Start Date End Date Jacque Resendiz MD [address] [place] [address] PCP - General 07/26/05 01/01/15 Unknown Pcp, Non Rmg PCP - General 01/02/15 06/17/23 Toan Motley NP [address] [address] PCP - General Nurse Practitioner 06/18/23 documented as of this encounter
--- OUTSIDE RECORDS SUMMARY | 2024-08-09 07:41 | XMS_ITS | Encounter Summary ---
Author Organization [facility] Address [address] [place] [address] Care Team Providers Care Paid Intern Name Role Phone Jacque Resendiz MD Primary Care Provider Unknown Pcp, Non Rmg Primary Care Provider Unava Toan Adames NP Primary Care Provider Encounter Details Date Type Department Care Team (Late st Contact Info) Description 07/16/2009 Orders Only [facility] [address] [place] [phone] Rafita Whitney MD [facility] [address] [address] Social History Tobacco Use Types Packs/Day Years [...] encounter Procedures * Due to [place] [employer] law, this organization might not be sharing negative HIV tests. Procedure Name Priority Date/Time Associated Diagnosis Comments CULTURE, URINE Routine 07/16/2009 Urinary frequency URINALYSIS, COMPLETE (DIP & MICRO) Routine 07/16/2009 Urinary frequency documented in this encounter Results * Due to [place] [employer] law, this organization might not be sharing [...] Co de Phone Number [facility] [address] [place] [address] * (ABNORMAL) URINALYSIS, COMPLETE (DIP & MICRO) [...] RESULT Final R esult [facility] [address] [place] [address] documented in this encounter Visit Diagnoses Diagnosis Urinary frequency documented in this encounter Care Teams Paid Intern Relationship Specialty Start Date End Date Jacque Resendiz MD [address] [place] [address] PCP - General 07/26/05 01/01/15 Unknown Pcp, Non Rmg PCP - General 01/02/15 06/17/23 Toan Motley NP [address] [address] PCP - General Nurse Practitioner 06/18/23 documented as of this encounter
--- OUTSIDE RECORDS SUMMARY | 2024-08-09 07:41 | XMS_ITS | Encounter Summary ---
Author Organization [facility] Address [address] [place] [address] Care Team Providers Care Senior Ui Developer Name Role Phone Jacque Resendiz MD Primary Care Provider Unknown Pcp, Non Rmg Primary Care Provider Unava Toan Adames RUBBERIZING MECHANIC Primary Care Provider Encounter Details Date Type Department Care Team (Late st Contact Info) Description 09/15/2013 Orders Only [facility] [address] [place] [phone] Jacque Resendiz MD [address] [place] [address] Social History Tobacco Use Types Packs/Day Years [...] filedocumented in this encounter Care Teams Senior Ui Developer Relationship Specialty Start Date End Date Jacque Resendiz MD [address] [place] [address] PCP - General 07/26/05 01/01/15 Unknown Pcp, Non Rmg PCP - General 01/02/15 06/17/23 Toan Motley NP [address] [address] PCP - General Nurse Practitioner 06/18/23 documented as of this encounter
--- OUTSIDE RECORDS SUMMARY | 2024-08-09 07:41 | XMS_ITS | Encounter Summary ---
Author Organization [facility] Address [address] [place] [address] Care Team Providers Care Certified Family Mediator Name Role Phone Jacque Resendiz MD Primary Care Provider Unknown Pcp, Non Rmg Primary Care Provider Toan Cassidy NP Primary Care Provider [phone] Encounter Details Date Type Department Care Team (Late st Contact Info) Description 10/16/2014 Orders Only [facility] [address] [place], [place] [phone] Mony Paz MD [address] [address] Social History Tobacco Use Types Packs/Day Years [...] encounter Procedures * Due to [place] state law, this organization might not be sharing negative HIV tests. Procedure Name Priority Date/Time Associated Diagnosis Comments TSH, 3RD GENERATION Routine 10/16/2014 1 :54 PM EDT Chronic lymphocytic thyroiditis documented in this encounter Results * Due to [place] state law, this organization might not be sharing negative HIV tests. * TSH, 3RD GENERATION (10/16/2014 1:54 PM EDT) TSH 0.43 mIU/L [facility] Comment: {TSH {[id number]) ?Reference Range ?> or = 20 Years ??0.40-4.50 ? Ranges ?First trimester ?0.26-2.66 ?Second trimester ?? 0.55-2.73 ?Third trimester ?0.43-2.91 10/16/2014 1:54 PM EDT 10/17/2014 12:27 AM EDT Narrative Resulting Agency Comment [id number] Mony Paz MD LABORATORY Final Result Performing Organization Address City/State/[facility] Co de Phone Number [facility] [address] [place] [address] documented in this encounter Visit Diagnoses Diagnosis Chronic lymphocytic thyroiditis documented in this encounter Care Teams Certified Family Mediator Relationship Specialty Start Date End Date Jacque Resendiz MD [address] [place] [address] PCP - General 07/26/05 01/01/15 Unknown Pcp, Non Rmg PCP - General 01/02/15 06/17/23 Toan Motley NP [address] [address] PCP - General Nurse Practitioner 06/18/23 documented as of this encounter
--- OUTSIDE RECORDS SUMMARY | 2024-08-09 07:41 | XMS_ITS | Encounter Summary ---
Author Organization [facility] Address [address] [place] [address] Care Team Providers Care Performance Improvement Consultant Name Role Phone Jacque Resendiz MD Primary Care Provider [phone] Unknown Pcp, Non Rmg Primary Care Provider Toan Cassidy NP Primary Care Provider Encounter Details Date Type Department Care Team (Late st Contact Info) Description 02/10/2013 Orders Only [facility] Endocrinology [address] [place], [place] [phone] Mony Paz MD [address] [address] Social History Tobacco Use Types Packs/Day Years [...] of this encounter Procedures * Due to [place] state law, this organization might not be sharing negative HIV tests. Procedure Name Priority Date/Time Associated Diagnosis Comments TSH, 3RD GENERATION Routine 02/10/2013 8 :07 AM EDT Subclinical hypothyroidism DEXAMETHASONE SUPPRESSIONTEST (DST), 1 SPECIMEN Routine 02/10/2013 8:07 AM EDT Fatigue documented in this encounter Results * Due to [place] state law, this organization might not be sharing negative HIV tests. * (ABNORMAL) TSH, 3RD GENERATION (07/13/2013 1:51 PM EDT) TSH 4.65(H) mIU/L [facility] Comment: {TSH {[id number]) ?Reference Range ?> or = 20 Years ??0.40-4.50 ? Ranges ?First trimester ?0.26-2.66 ?Second trimester ?? 0.55-2.73 ?Third trimester ?0.43-2.91 07/13/2013 1:51 PM EDT 07/13/2013 9:52 PM EDT Narrative Resulting Agency Comment [id number] us Mony Paz MD LABORATORY Final Result Performing Organization Address City/State/[facility] Co de Phone Number [facility] [address] [place] [address] * DEXAMETHASONE SUPPRESSIONTEST (DST), 1 SPECIMEN (02/10/2013 8:07 AM EDT) Cortisol^8H post 1 mg dexamethasone PO overnight 0.9 mcg/dL [facility] Comment: {CORTISOL {[id number]) Dexamethasone Suppression Test For 8 a.m. Specimen: ?? <2.0 - Normal Response ? 2.0-10.0 - Equivocal ? >10.0 - High probability of ? Katelyn's Syndrome Further diagnostic tests must be performed to confirm the diagnosis and determine etiology. Values >2.0 mcg/dL can be seen in endogenous depression and pseudo-[place]'s (alcoholism). 02/10/2013 8:07 AM EDT 02/10/2013 1:38 PM EDT Narrative Resulting Agency Comment [id number] Mony Paz MD LABORATORY Final Result Performing Organization Address [facility] Co de Phone Number [facility] [address] [place] [address] * TSH, 3RD GENERATION (02/10/2013 8:07 AM EDT) TSH 2.80 mIU/L [facility] Comment: {TSH {[id number]) ?Reference Range ?> or = 20 Years ??0.40-4.50 ? Ranges ?First trimester ?0.26-2.66 ?Second trimester ?? 0.55-2.73 ?Third trimester ?0.43-2.91 02/10/2013 8:07 AM EDT 02/10/2013 1:38 PM EDT Narrative Resulting Agency Comment [id number] Mony Paz MD LABORATORY Final Result Performing Organization Address [facility] de Phone Number [facility] [address] [place] [address] documented in this encounter Visit Diagnoses Diagnosis Subclinical hypothyroidism- Primary Other specified acquired hypothyroidism Fatigue Other malaise and fatigue documented in this encounter Care Teams Performance Improvement Consultant Relationship Specialty Start Date End Date Jacque Resendiz MD [address] [place] [address] PCP - General 07/26/05 01/01/15 Unknown Pcp, Non Rmg PCP - General 01/02/15 06/17/23 Toan Motley NP [address] [address] PCP - General Nurse Practitioner 06/18/23 documented as of this encounter
--- OUTSIDE RECORDS SUMMARY | 2024-08-09 07:41 | XMS_ITS | Encounter Summary ---
Author Organization [facility] Address [address] [place] [address] Care Team Providers Care Dental Mechanic Name Role Phone Toan Motley NP Primary Care Provider Encounter Details Date Type Department Care Team (Late st Contact Info) Description 06/22/2023 Orders Only [facility] [employer] [facility] [address] [place] [phone] Kaelyn Mejia NP [address] [place] [address] Social History Tobacco Use Types Packs/Day Years [...] this encounter Procedures * Due to [place] [employer] law, this organization might not be sharing [...] in this encounter Results * Due to [place] [employer] law, this organization might not be sharing [...] for evaluation. Endocervical/gonzalez sformation zone component present. [facility] Cytology, Pap Smear Cytology Results: Negative for intraepithelial lesion or malignancy. [facility] Cytology study comment (Cvx/Vag) This Pap test has been evaluated with computer assisted technology. [facility] Nut Packer (Cvx/Vag) SXA, CT(ASCP) CT screening location: [address] [place] [address] [address] [facility] COMMENT SEE NOTE [facility] Comment: EXPLANATORY NOTE: The Pap is a [...] HPV MRNA E6/E7 Not Detected Not Detected [facility] Comment: Methodology: Automatic Developer-Mediated Amplification This assay detects E6/E7 viral messenger RNA (mRNA) from 14 high-risk HPV types (16,18,31,33,35,39,45,51,52,56,58,59,66,68). Cervical sources are required for HPV testing. If a vaginal source from a patient who has had a total hysterectomy with removal of cervix was submitted, please contact the testing laboratory for alternative testing options. For additional information, please refer to http://education.[employer]/faq/WPO814o6 (This link if provided for information/ educational purposes only.) 06/22/2023 2:58 PM EST 06/23/2023 3:08 AM EST Narrative Resulting Agency Comment [id number] Kaelyn Mejia NP PATHOLOGY-INTERFACED Final Re sult Performing Organization Address [facility] de Phone Number [facility] [address] [place] [address] * PROLACTIN (06/22/2023 2:12 PM EST) Prolactin 8.0 ng/mL [facility] Comment: ?Reference Range Females ?Non- ?3.0-30.0 ? 10.0-209.0 ?Postmenopausal ?2.0-20.0 06/22/2023 2:12 PM EST 06/23/2023 Narrative Resulting Agency Comment [id number] Kaelyn Mejia NP LAB SAME DAY RESULT Final Res ult Performing Organization Address [facility] de Phone Number [facility] [address] [place] [address] * HCG, (HUMAN CHORIONIC GONADOTROPIN), TOTAL, QUANTITATIVE [...] or approved by the FDA or the infantry weapons crewmember of the assay. 06/22/2023 2:12 PM EST 06/23/2023 Narrative Resulting Agency Comment [id number] us Kaelyn Mejia ADMITTANCE ATTENDANT LAB SAME DAY RESULT Final Res ult [facility] [address] [place] [address] documented in this encounter Visit Diagnoses Diagnosis Abnormal uterine bleeding (AUB) Screening for malignant neoplasm of cervix Screening for malignant neoplasm of the cervix documented in this encounter Care Teams Dental Mechanic Relationship Specialty Start Date End Date Toan Motley NP [address] [address] PCP - General Nurse Practitioner 06/18/23 documented as of this encounter
--- OUTSIDE RECORDS SUMMARY | 2024-08-09 07:41 | XMS_ITS | Encounter Summary ---
Author Organization [facility] Address [address] [place] [address] Care Team Providers Care Outside Sales Associate Name Role Phone Jacque Resendiz MD Primary Care Provider Unknown Pcp, Non Rmg Primary Care Provider Unava Toan Adames CAFETERIA ASSOCIATE Primary Care Provider [phone] Encounter Details Date Type Department Care Team (Late st Contact Info) Description 09/18/2008 Orders Only [facility] [address] [place] [phone] Jacque Resendiz MD [address] [place] [address] Social History Tobacco Use Types Packs/Day Years [...] hypothyroidism documented in this encounter Care Teams Outside Sales Associate Relationship Specialty Start Date End Date Jacque Resendiz MD [address] [place] [address] PCP - General 07/26/05 01/01/15 Unknown Pcp, Non Rmg PCP - General 01/02/15 06/17/23 Toan Motley NP [address] [address] PCP - General Nurse Practitioner 06/18/23 documented as of this encounter
--- OUTSIDE RECORDS SUMMARY | 2024-08-09 07:41 | XMS_ITS | Encounter Summary ---
Author Organization [facility] Address [address] [place] [address] Care Team Providers Care Bottle Feeder Name Role Phone Jacque Resendiz MD Primary Care Provider Unknown Pcp, Non Rmg Primary Care Provider Fernandava Toan Adames NP Primary Care Provider [phone] Encounter Details Date Type Department Care Team (Late st Contact Info) Description 11/17/2014 Orders Only [facility] LOOP TEND[address] 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 Procedure Name Priority Date/Time Associated Diagnosis Comments SUREPATH FPGS,HPV,CT/GC PANEL Routine 11/17/2014 3:49 PM EDT Encounter for routine gynecological examination documented in this encounter Results * Due to [place] law, this organization might not be sharing negative HIV tests. * SUREPATH FPGS,HPV,CT/GC PANEL (11/17/2014 3:49 PM EDT) Clinical information NONE GIVEN [facility] Comment:{CLINICAL INFORMATIO N: {[id number]) Date last menstrual period [id number] [facility] Comment:{LMP: {[id number]) Date of previous PAP smear [id number] NEG [facility] Comment:{PREV. PAP: {[id number]) Date of previous biopsy NONE GIVEN [facility] Comment:{PREV. BX: {[id number]) Specimen source (Cvx/Vag) Vagina, Cervix, Endocervix [facility] Comment:{SOURCE: {[id number]) Statement of Adequacy (Cvx/Vag) Satisfactory for evaluation. Endocervical/gonzalez sformation zone component present. [facility] Comment:{STATEMENT OF ADEQUA CY: {[id number]) Cytology, Pap Smear Negative for intraepithelial lesion or malignancy. [facility] Comment:{INTERPRETATION/RESU LT: {[id number]) Cytology study comment (Cvx/Vag) This Pap test has been evaluated with computer assisted technology. [facility] Comment:{COMMENT: {[id number]) Webbing Inspector (Cvx/Vag) MSM, CT(ASCP) [facility] Comment:{KNIT GOODS PRESS HAND: { [id number]) HPV MRNA E6/E7 Not Detected NOT DETECTED [facility] Comment: {HPV mRNA E6/E7, SUREPATH VIAL {[id number]) This test was performed using the APTIMA HPV Assay ([employer] This assay detects E6/E7 viral messenger RNA (mRNA) from 14 high-risk HPV types (16,18,31,33,35,39,45,51,52,56,58,59,66,68). The analytical performance characteristics of this assay, when used to test SurePath specimens, have been determined by [employer] Chlamydia trachomatis rRNA NOT DETECTED NOT DETECTED [facility] Comment:{CHLAMYDIA TRACHOMAT IS RNA, TMA {[id number]) Neisseria Gonorrhoeae rRNA NOT DETECTED NOT DETECTED [facility] Comment:{NEISSERIA GONORRHOE AE RNA, TMA {[id number]) COMMENT SEE NOTE [facility] Comment: {COMMENT {[id number]) This test was performed using the APTIMA COMBO2 Assay ([employer] The analytical performance characteristics of this assay, when used to test SurePath specimens have been determined by [facility]. 11/17/2014 3:49 PM EDT 11/17/2014 7:43 PM EDT Narrative Resulting Agency Comment [id number] Radha Chavez CNM PATHOLOGY-INTERFACED Final Res ult [facility] [address] [place] [address] documented in this encounter Visit Diagnoses Diagnosis Encounter for routine gynecological examination Routine gynecological examination documented in this encounter Care Teams Bottle Feeder Relationship Specialty Start Date End Date Jacque Resendiz MD [address] [place] [address] PCP - General 07/26/05 01/01/15 Unknown Pcp, Non Rmg PCP - General 01/02/15 06/17/23 Toan Motley NP [address] [address] PCP - General Nurse Practitioner 06/18/23 documented as of this encounter
--- OUTSIDE RECORDS SUMMARY | 2024-08-09 07:41 | XMS_ITS | Encounter Summary ---
Author Organization [facility] Address [address] [place] [address] Care Team Providers Care Manager Delivery Name Role Phone Jacque Resendiz MD Primary Care Provider Unknown Pcp, Non Rmg Primary Care Provider Unava Toan Adames EXPERT WITNESS Primary Care Provider [phone] Encounter Details Date Type Department Care Team (Late st Contact Info) Description 02/01/2013 Orders Only [facility] Endocrinology [address] [place] [address] Mony Paz MD [address] [address] Social History Tobacco Use Types Packs/Day Years [...] filedocumented in this encounter Care Teams Manager Delivery Relationship Specialty Start Date End Date Jacque Resendiz MD [address] [place] [address] PCP - General 07/26/05 01/01/15 Unknown Pcp, Non [facility] [place] - General 01/02/15 06/17/23 Toan Motley NP [address] [place] [address] PCP - General Nurse Practitioner 06/18/23 documented as of this encounter
--- OUTSIDE RECORDS SUMMARY | 2024-08-09 07:41 | XMS_ITS | Encounter Summary ---
Author Organization [facility] Address [address] [place] [address] Care Team Providers Care Steam Boiler Fireman Name Role Phone Jacque Resendiz MD Primary Care Provider Unknown Pcp, Non Rmg Primary Care Provider Toan Cassidy NP Primary Care Provider [phone] Encounter Details Date Type Department Care Team (Late st Contact Info) Description 01/21/[address] [facility] Endocrinology [address] [place] [address] Mony Paz MD [address] [address] Social History Tobacco Use Types Packs/Day Years [...] encounter Procedures * Due to [place] state law, this organization might not [...] encounter Results * Due to [place] state law, this organization might not be sharing negative HIV tests. * (ABNORMAL) VITAMIN D, 25-HYDROXY, LC/MS/MS (01/21/2013 8:13 AM EDT) Vitamin D, 25-OH, Total 28(L) 30 - 100 ng/mL [facility] Comment:{VITAMIN D, 25 OH, T OTAL {[id number]) Vitamin D, D3 (Cholecalciferol ) 28 ng/mL [facility] Comment:{VITAMIN D, 25 OH, D 3 {[id number]) Vitamin D, 25-OH, D2 (Calciferol) <4 ng/mL [facility] Comment: {VITAMIN D, 25 OH, D2 {[id number]) ? 25-OHD3 indicates both endogenous production and [...] 12:38 PM EDT Narrative Resulting Agency Comment [id number] Mony Paz MD LABORATORY Final Result Performing Organization Address City/[facility] Co de Phone Number [facility] [address] [place] [address] * IRON PROFILE (IRON/TIBC), SERUM (01/21/2013 8:13 AM EDT) Iron 96 40 - 175 mcg/dL [facility] Comment:{IRON, TOTAL {[id number]) Iron binding capacity 331 250 - 450 mcg/dL [facility] Comment:{IRON BINDING CAPACI TY {[id number]) Iron saturation 29 15 - 50 % (calc) [facility] Comment:{% SATURATION {[id number]) 01/21/2013 8:13 AM EDT 01/21/2013 12:38 PM EDT Narrative Resulting Agency Comment [id number] Mony Paz MD LABORATORY Final Result Performing Organization Address [facility] Co de Phone Number [facility] [address] [place] [address] * FERRITIN (01/21/2013 8:13 AM EDT) Ferritin 102 10 - 154 ng/mL [facility] Comment:{FERRITIN {[id number]) 01/21/2013 8:13 AM EDT 01/21/2013 12:38 PM EDT Narrative Resulting Agency Comment [id number] Mony Paz MD LABORATORY Final Result Performing Organization Address [facility] Co de Phone Number [facility] [address] [place] [address] * HEMOGLOBIN A1C (01/21/2013 8:13 AM EDT) Hemoglobin A1C 5.4 <5.7 % of total Hgb [facility] Comment: {HEMOGLOBIN A1c {[id number]) According to ADA guidelines, hemoglobin A1c <7.0% [...] children. Estimated Average Glucose 115 mg/dL (calc) [facility] Comment:{MEAN PLASMA GLUCOSE {[id number]) 01/21/2013 8:13 AM EDT 01/21/2013 12:38 PM EDT Narrative Resulting Agency Comment [id number] Mony Paz MD LABORATORY Final Result Performing Organization Address City/[facility] Co de Phone Number [facility] [address] [place] [address] * (ABNORMAL) THYROID PEROXIDASE AND THYROGLOBULIN ANTIBODIES (01/21/2013 8:13 AM EDT) Thyroglobulin Ab <20 <20 IU/mL [facility] Comment:{THYROGLOBULIN ANTIB ODIES {[id number]) Thyroperoxidase Ab 291(H) <35 IU/mL Q [facility] Comment:{THYROID PEROXIDASE ANTIBODIES {[id number]) 01/21/2013 8:13 AM EDT 01/21/2013 12:38 PM EDT Narrative Resulting Agency Comment [id number] Mony Paz MD LABORATORY Final Result Performing Organization Address City/[facility] Co de Phone Number [facility] [address] [place] [phone] * (ABNORMAL) TSH, 3RD GENERATION (01/21/2013 8:13 AM EDT) TSH 5.30(H) mIU/L [facility] Comment: {TSH {[id number]) ?Reference Range ?> or = 20 Years ??0.40-4.50 ? Ranges ?First trimester ?0.26-2.66 ?Second trimester ?? 0.55-2.73 ?Third trimester ?0.43-2.91 01/21/2013 8:13 AM EDT 01/21/2013 12:38 PM EDT Narrative Resulting Agency Comment [id number] Mony Paz MD LABORATORY Final Result Performing Organization Address City/State/[facility] Co de Phone Number [facility] [address] [place] [address] documented in this encounter Visit Diagnoses Diagnosis Subclinical hypothyroidism Other specified acquired hypothyroidism Obesity Obesity, unspecified Family history of diabetes mellitus Reactive hypoglycemia Hypoglycemia, unspecified Fatigue Other malaise and fatigue documented in this encounter Care Teams Steam Boiler Fireman Relationship Specialty Start Date End Date Jacque Resendiz MD [address] [place] [address] PCP - General 07/26/05 01/01/15 Unknown Pcp, Non Rmg PCP - General 01/02/15 06/17/23 Toan Motley NP [address] [address] PCP - General Nurse Practitioner 06/18/23 documented as of this encounter
--- OUTSIDE RECORDS SUMMARY | 2024-08-09 07:42 | XMS_ITS | Referral Summary ---
Author Organization [facility] Address [address] [place] [address] Care Team Providers Care Parimutuel Ticket Checker Name Role Phone Toan Motley Primary Care Provider Encounters Date Type Department Care Team Description 06/21/2024 Appremat Message [facility] [address] [place] [address] Box Sealing Machine Feeder: Tomasz Stock MD Thyroid blood work from Last 3 Months Allergies Active Allergy Reactions Criticality Noted Date Comments Ciprofloxacin Hives 06/15/2017 Clindamycin Unknown 06/15/2017 Codeine Nausea 06/25/2017 Hydrocodone-Acetaminophen Nausea 06/25/2017 Naproxen Nausea 06/15/2017 Sulfa (Sulfonamide Antibiotics) Hives 06/04 Medications inhalational spacing device Use as directed 1 each 8 Active inhaler,assist device,lg mask (AEROCHAMBER PLUS FLOW-VU,L AZK [facility]) 8 Active fluticasone [...] Info) Description 12/02/2024 10:20 AM EDT Follow-Up [facility], Endocrinology [address] [place] [address] Tomasz Maldonado MD [address] [place] [address] Procedures * Due to [place] state law, this organization might not be sharing negative HIV tests. Procedure Name Priority Date/Time Associated Diagnosis Comments PAP Routine 08/11/2017 9:50 AM EDT Encounter for well woman exam with routine gynecological exam from Last 3 Months or Most Recently Relevant to Health Maintenance Insurance BCBS OUT OF STATE PPO Care Teams Parimutuel Ticket Checker Relationship Specialty Start Date End Date Toan Motley [address] [place] [address] PCP - General 08/05/23
--- OUTSIDE RECORDS SUMMARY | 2024-08-09 07:42 | XMS_ITS | Clinical Summary ---
Author Organization [facility] Address [address] [place] [address] Care Team Providers Care Packing Machine Can Feeder Name Role Phone Toan Motley Primary Care Provider Allergies Active Allergy Reactions Criticality Noted Date Comments Ciprofloxacin Hives 06/15/2017 Clindamycin Unknown 06/15/2017 Codeine Nausea 06/25/2017 Hydrocodone-Acetaminophen Nausea 06/25/2017 Naproxen Nausea 06/15/2017 Sulfa (Sulfonamide Antibiotics) Hives 06/04 Medications inhalational spacing device Use as directed 1 each 8 Active inhaler,assist device,lg mask (AEROCHAMBER PLUS FLOW-VU,L PAK [facility]) 8 Active fluticasone (FLOVENT HFA) 110 mcg [...] Date Type Department Care Team Description 06/21/2024 Sovit Message [facility] Endocrinology Clinic [address] [place] [address] Sustainability Project Manager: Tomasz Stock MD Thyroid blood work from Last 3 Months Immunizations Immunization Administration [...] Info) Description 12/02/2024 10:20 AM EDT Follow-Up [facility], Endocrinology [address] [place] [address] Tomasz Maldonado MD [address] [place] [address] Health Maintenance Due Date Last Done Comments HIV Screening 1984 Hepatitis C Screening 1984 Varicella Vaccines (1 of 2 - 13+ 2-dose series) 1997 Pneumococcal Vaccine: Pediat regino (0-5 Years) and At-Risk Patients (6-50 Years) (1 of 2 - PCV) 07/09/2003 COVID-19 Vaccine (2023-2 5 season) 2024 DTaP,Tdap,and Td Vaccines (7 - Td or Tdap) 01/17/2024 01/16/2014, 01/22/2000, 09/24/1989, Additional history exists Alcohol/Substance Use Screening 05/04/2024 Depression Screening and Follow-Up 05/04/2024 Social Drivers of Health [place] ual Screening 05/04/2024 Mammogram 2024 Influenza Vaccine (Season Ended) 2025 04/12/20, 02/01/2019 Pap Smear 06/22/2026 06/22/2023, 08/02, 08/11/2017 Cervical [...] BCBS OUT OF STATE PPO Care Teams Packing Machine Can Feeder Relationship Specialty Start Date End Date Toan Motley [address] [place] [address] PCP - General 08/05/23
== END 2024-08-09 07:39 | disposition home or self-care (01) ==
LOC: HO.MAMMO 07:38
PROVIDERS: PCP Nurse Practitioner Family; Visit Provider Nurse Practitioner Family
DX: Z12.31 Encounter for screening mammogram for malignant neoplasm of breast (principal)
CPT/HCPCS: 77063; 77067

== ENCOUNTER 2024-12-05 06:39 | Outpatient (AMB) | payer BC, SELFPAY ==
--- OUTSIDE RECORDS SUMMARY | 2024-12-05 06:42 | XMS_ITS | Encounter Summary ---
Author Organization [facility] Address [address] [place] [address] Care Team Providers Care Relocation Specialist Name Role Phone Jacque Resendiz MD Primary Care Provider Unknown Pcp, Non g Primary Care Provider Toan Cassidy NP Primary Care Provider Encounter Details Date Type Department Care Team (Late st Contact Info) Description 10/08/2007 Orders Only [facility] [address] [place] [address] Anabella Azul NP [facility] Primary Care [address] [place] [address] Social History Tobacco Use Types Packs/Day [...] of this encounter Procedures * Due to [place] state law, this organization might not be sharing negative HIV tests. Procedure Name Priority Date/Time Associated Diagnosis Comments BASIC METABOLIC PANEL Routine 10/08/2007 VIRAL SYNDROME CULTURE, THROAT Routine 10/08/2007 MOUTH SORES CBC 5 PART DIFF Routine 10/08/2007 VIRAL SYNDROME documented in this encounter Results * Due to [place] state law, this organization might not be sharing negative HIV tests. * (ABNORMAL) CULTURE, THROAT (10/08/2007) Result(s) SEE TEXT(A) [facility] (CLIA# [id number]) Comment: SOURCE: THROAT HEAVY GROWTH OF GROUP A STREPTOCOCCUS PLUS NORMAL OROPHARYNGEAL OCTAVIO 10/08/2007 10/08/2007 9:4 4 PM EDT Narrative [facility] (CLIA# [id number]) - 10/10/2007 12:06 PM EDT Report Comments: GROUP A STREP SCREEN TEST NOT DONE. GROUP A STREP, IF PRESENT, WILL BE RECOVERED IN THROAT CULTURE. Anabella Azul NP LABORATORY Final Result [facility] (CLIA# [id number]) [address] [place] [address] * BASIC METABOLIC PANEL (10/08/2007) CALCIUM 9.4 8.6 - 10.2 MG/DL [facility] (CLIA# [id number]) BUN 10 7 - 25 MG/DL [facility] (CLIA# [id number]) CREATININE 0.72 0.50 - 1.20 MG/DL [facility] (CLIA# [id number]) Glucose 95 65 - 99 MG/DL [facility] (CLIA# [id number]) SODIUM 137 135 - 146 MMOL/L [facility] (CLIA# [id number]) POTASSIUM 4.0 3.5 - 5.3 MMOL/L [facility] (CLIA# [id number]) CHLORIDE 102 98 - 110 MMOL/L [facility] (CLIA# [id number]) CARBON DIOXIDE 25 21 - 33 MMOL/L [facility] (CLIA# [id number]) 10/08/2007 10/08/2007 9:4 4 PM EDT Anabella Azul NP LAB SAME DAY RESULT F inal Result [facility] (CLIA# [id number]) [address] [place] [address] * (ABNORMAL) CBC 5 PART DIFF (10/08/2007) WHITE BLOOD COUNT 20.0(H) 3.8 - 10.8 THOUS/UL [facility] (CLIA# [id number]) RBC 4.42 3.80 - 5.10 MIL/UL [facility] (CLIA# [id number]) Hemoglobin 13.3 11.7 - 15.5 G/DL [facility] (CLIA# [id number]) HCT (HEMATOCRIT) 38.0 35.0 - 45.0 % [facility] (CLIA# [id number]) MCV 85.8 80.0 - 100.0 FL [facility] (CLIA# [id number]) MCH 30.0 27.0 - 33.0 PG [facility] (CLIA# [id number]) MCHC 35.0 32.0 - 36.0 G/DL [facility] (CLIA# [id number]) BAND % 0 0 - 5 % [facility] (CLIA# [id number]) NEUTROPHIL % 89(H) 48 - 75 % [facility] (CLIA# [id number]) LYMPHOCYTE % 6(L) 17 - 40 % [facility] (CLIA# [id number]) MONOCYTE % 5 0 - 14 % [facility] (CLIA# [id number]) EOSINOPHIL % 0 0 - 5 % [facility] (CLIA# [id number]) BASOPHIL % 0 0 - 3 % [facility] (CLIA# [id number]) ATYPICAL LYMPHOCYTE % 0 0 - 5 % [facility] (CLIA# [id number]) PLATELETS 263 140 - 400 THOUS/UL [facility] (CLIA# [id number]) BANDS # 0 0 - 750 CELLS/MCL [facility] (CLIA# [id number]) NEUTROPHILS # 73506(H) 1500 - 7800 CELLS/MCL [facility] (CLIA# [id number]) LYMPHOCYTES # 1200 850 - 3900 CELLS/MCL [facility] (CLIA# [id number]) MONOCYTES # 1000(H) 200 - 950 CELLS/MCL [facility] (CLIA# [id number]) EOSINOPHILS # 0(L) 15 - 550 CELLS/MCL [facility] (CLIA# [id number]) BASOPHILS # 0 0 - 200 CELLS/MCL [facility] (CLIA# [id number]) ATYPICAL LYMPHOCYTES # 0 0 - 200 CELLS/MCL [facility] (CLIA# [id number]) RDW 13.4 11.0 - 15.0 % [facility] (CLIA# [id number]) MPV 9.7 7.5 - 11.5 FL [facility] (CLIA# [id number]) 10/08/2007 10/08/2007 9:4 4 PM EDT Anabella Azul SHAREPOINT DESIGNER DEVELOPER LAB SAME DAY RESULT F inal Result [facility] (CLIA# [id number]) [address] [place] [address] documented in this encounter Visit Diagnoses Diagnosis VIRAL SYNDROME Unspecified viral infection, in conditions classified elsewhere and of unspecified site MOUTH SORES Other and unspecified diseases of the oral soft tissues documented in this encounter Care Teams Relocation Specialist Relationship Specialty Start Date End Date Jacque Resendiz MD [address] [place] [address] PCP - General 07/26/05 01/01/15 Unknown Pcp, Non Rmg PCP - General 01/02/15 06/17/23 Toan Motley SHAREPOINT DESIGNER DEVELOPER [address] [place] [address] PCP - General Nurse Practitioner 06/18/23 documented as of this encounter
--- OUTSIDE RECORDS SUMMARY | 2024-12-05 06:42 | XMS_ITS | Clinical Summary ---
Author Organization [facility] Address [address] [facility] [place] [address] Care Team Providers Care Color Maker Name Role Phone Pcp, No Primary Care Provider [phone] Allergies Active Allergy Reactions Criticality Noted Date [...] at Not on file Legal Sex Female 5:01 PM EDT Gender Identity Not on file Sexual Orientation Not on file Last Filed Vital Signs Vital Sign Reading Time Taken Comments Blood Pressure 136/70 09/21/2017 5:04 PM EDT Pulse 86 09/21/2017 5:04 PM EDT Temperature 36.6 C (97.8 F) 09/21/2017 5:04 PM EDT Respiratory Rate 16 09/21/2017 5:04 PM EDT Oxygen Saturation 98% 09/21/2017 5:04 PM EDT Inhaled Oxygen Concentration - - Weight 115 kg (253 lb) 09/21/2017 5:04 PM EDT Height - - Body Mass Index - - Plan of Treatment Health Maintenance Due Date Last Done Comments Depression: Screening Annually using PHQ-2/9 in Adults 18 yrs or above (or HM Modifier)([facility]) 2002 Hepatitis C Virus Infection in Adolescents and Adults: Screening (or Modifier) ([facility]) 2002 SDFL Screening Reminder: Annually for all adults ([facility]) 2002 Tobacco Smoking Cessation: i n Adults excluding Women: Behavioral and Pharmacotherapy Interventions ([facility]) 2002 Cervical Cancer Screenin-65 yrs of age (or Modifier) 2005 Cervical Cancer Screening: Pap every 3 yrs pts age 21-65 2005 Cervical Cancer: Pap Screening with Modifier timing ([facility]) 2005 Cervical Cancer: hrHPV alone or with cotesting Pap for Pts 30-65yrs screening every 5yrs ([facility]) 2005 COVID-19 Vaccine Screening: Initial Series and Booster Status ([facility]) (2023- season) 2024 DTaP/Tdap/Td Vaccines ([facility]) (7 - Td or Tdap) 01/17/2024 01/16/2014, 09/24/1989, 01/12/1986, Additional history exists Flu Vaccination: Yearly for ages 18mos through 64 years (or Modifier)([facility]) 12/02/2024 Zoster/Shingles Vaccine Series Screening: Adults aged 18+ yrs (or HM Modifiers)([facility]) (1 of 2) 2034 Pneumococcal Vaccination Screening: Pts 0-19 & 19-49 yrs of age ([facility]) Aged Out No longer eligible based on patient's age to complete this topic Medical Devices Not on file Care Teams Color Maker Relationship Specialty Start Date End Date Pcp, No PCP - General Family Medicine 10/31/24
--- OUTSIDE RECORDS SUMMARY | 2024-12-05 06:43 | XMS_ITS | Clinical Summary ---
Author Organization [facility] Address [address] [place] [address] Care Team Providers Care Scissors Sharpener Name Role Phone Toan Motley Primary Care Provider Allergies Active Allergy Reactions Criticality Noted Date Comments Ciprofloxacin Hives 06/15/2017 Clindamycin Unknown 06/15/2017 Codeine Nausea 06/25/2017 Hydrocodone-Acetaminophen Nausea 06/25/2017 Naproxen Nausea 06/15/2017 Sulfa (Sulfonamide Antibiotics) Hives 06/04 Medications inhalational spacing device Use as directed 1 each 8 Active inhaler,assist device,lg mask (AEROCHAMBER PLUS FLOW-VU,L [facility]) 8 Active fluticasone (FLOVENT HFA) 110 mcg [...] Encounters Date Type Department Care Team Description 11/28/2024 LiveMinutes Message [facility], Endocrinology [address] [place] [address] [employer], Generic Provider [facility] Endocrinology Parking Instructions and Appointment Reminder from Last 3 Months Immunizations Immunization Administration [...] 72 11/27/2023 10:50 AM EDT Temperature 36.4 C (97.5 F) 10/04/2018 3:47 PM EDT Respiratory Rate 20 10/15/2017 11:07 AM EDT Oxygen Saturation 96% 11/27/2023 10:50 AM EDT Inhaled Oxygen Concentration - - Weight 105.2 kg (232 lb) 11/27/2023 10:50 AM EDT Height 156 cm (5' 1.42 ) 11/27/2023 10:50 AM EDT Body Mass Index 43.24 11/27/2023 10:50 AM EDT Plan of Treatment Health Maintenance [...] ual Screening 05/04/2024 Mammogram 2024 Influenza Vaccine (#1) 2025 04/12/2020, 2018 Pap Smear 06/22/2026 06/22/2023, 08/11/2017 Cervical Cancer Screening 06/22/2028 HPV and Pap Smear 06/22/2028 06/22/2023 RSV Vaccine (60+ years old a nd patients) (1 - 1-dose 75+ series) 07/09/2059 Hepatitis B Vaccines Completed 03/29/1997, 10/19/1996, 11/25/1995 Procedures * Due to [place] Sequent law, this organization might not be sharing negative HIV tests. Procedure Name Priority Date/Time Associated Diagnosis Comments PAP Routine 08/11/2017 9:50 AM EDT Encounter for well woman exam with routine gynecological exam from Last 3 Months or Most Recently Relevant to Health Maintenance Results * Due to [place] Sequent law, this organization might not be sharing negative HIV tests. * Pap (08/11/2017 9:50 AM EDT) Specimen Adequacy Satisfactory for evaluation [facility] MANUAL 08/17/2017 10:05 AM EDT [facility] Pathologist Cytology Interpretation Negative for intraepithelial lesion or malignancy. [facility] MANUAL 08/17/2017 10:05 AM EDT [facility] at 1005 EDT Comment:This is the result o f a morphological screening test with an inherent possibility of a false negative interpretation. Labor Relations Representative Statement This Pap test was examined by the [employer], [employer], [place], [place]. This Pap test was examined in accordance with the [facility] Cytopathology Laboratory written policy, which incorporates all CLIA mandates. Screening guidelines can be found in Am J Clin Pathol 2012;137:516-542. We endorse the practice guidelines developed by ASCCP and published in the Journal Lower Genital Tract Disease 17(5):S1-S27 (2013). [facility] MANUAL 08/17/2017 10:05 AM EDT [facility] Clinical History routine [facility] 08/17/2017 10:05 AM EDT [facility] HPV High Risk DNA Subtypes NEGATIVE [facility] 08/17/2017 10:05 AM EDT [facility] PATHOLOG[facility] - [facility] Test Description Specimens were tested for high risk HPV using the FDA approved Digene Hybrid Capture II kit, in the Diagnostic Molecular Oncology Lab at [facility]. This test can detect HPV high risk types 16, 18, 31, 33, 35, 39, 45, 51, 52, 56, 58, 59 and 68. High-risk subtypes of HPV are found in 96% of patients with high grade squamous intraepithelial lesions and cervical squamous cell carcinoma. Additional studies may be indicated in spite of a negative HPV test, e.g. in patients with a friable cervix or multiple previous abnormal pap tests. HPV testing is not recommended for managing patients with atypical glandular cells. Not all high-risk HPV infections are associated with a histologic or cytologic abnormality. We endorse the recommendations of the [place] Society for Colposcopy and Cervical Pathology for management of pap test results, available at www.asccp.org. ASCCP guidelines also recommend HPV 16/18 genotyping in patients over the age of 30 who have had positive high risk HPV testing, but have a negative morphologic Pap test: (http://www.asccp .org/consensus.sh tml). [facility] MANUAL 08/17/2017 10:05 AM EDT [facility] ASR Disclaimer The performance characteristics of this test have been validated by the Laboratory of Diagnostic Molecular Oncology. They have not been cleared or approved by the U.S. Food and Drug Administration (FDA). The FDA has determined that such clearance or approval is not necessary. The laboratory is certified under the Clinical Laboratory Improvement Amendments of 1988 (CLIA-88) as qualified to perform high complexity clinical laboratory testing. [facility] MANUAL 08/17/2017 10:05 AM EDT [facility] Resulting Agency Case was signed out at [facility], Department of Pathology, [employer] CLIA [id number] [facility] MANUAL 08/17/2017 10:05 AM EDT [facility] Report Header Gynecologic Cytology Report Case: [id number] Authorizing Provider: Sherlyn Mansfield MD Collected: 08/11/2017 0950 Ordering Location: [facility] Received: 08/11/[address] [place] [address] Obstetrics and Gynecology First Screen: Oleksandr Anthony Specimen: Screening ThinPrep Pap, Cervix/Endocervix 08/17/2017 10:05 AM EDT [facility] Biopsy specimen (specimen) Cervix uteri structure / Unknown Non-Blood Collection / Unknown 08/11/2017 9:50 AM EDT 08/11/2017 9:50 AM EDT us Sherlyn Mansfield MD LAB PATHOLOGY/CYTOLOGY GINGERE KITTY Final Result [facility] [address] [place] [address], from Last 3 Months or Most Recently Relevant to Health Maintenance [facility] [id number] BCBS OUT OF STATE PPO Care Teams Scissors Sharpener Relationship Specialty Start Date End Date Toan Motley [address] [place] [address] PCP - General 08/05/23
--- NOTE | 2024-12-05 07:19 | MHC.PC.OV ---
Intake Visit Reasons: Anxiety-iPhone Allergies ciprofloxacin (From CIPRO) Allergy (Mild, Verified 06/21/24 11:35) HIVES/VOMITING clindamycin (CLINDAMYCIN) Allergy (Mild, Verified 06/21/24 11:35) HIVES/VOMITING hydrocodone (From VICODIN) Allergy (Mild, Verified 06/21/24 11:35) VOMITING naproxen (NAPROXEN) Allergy (Mild, Verified 06/21/24 11:35) VOMITING, hives, hives Sulfa (Sulfonamide Antibiotics) (SULFA (SULFONAMIDE ANTIBIOTICS)) Allergy (Mild, Verified 06/21/24 11:35) HIVES acetaminophen (Vicodin) Adverse Reaction (Unknown, Verified 06/21/24 11:35) stomach Clindamycin HCl Allergy (Unknown, Uncoded 06/21/24 11:35) hives Eggs Adverse Reaction (Unknown, Uncoded 06/21/24 11:35) GI upset Tobacco use date assessed: 06/21/24 Dental Screening Dental Screen Date: 06/21/24 HPI Anxiety-iPhone HPI Details History of Present Illness The patient is a 39-year-old female presenting with increased anxiety and stress. She reports feeling off and has been experiencing heightened anxiety recently, although she denies any suicidal or homicidal ideation. The stress is attributed to her work and home life, which have been particularly demanding lately. Additionally, the patient mentioned concerns about early menopause, prompting further investigation through laboratory tests. Review of Systems - Psychiatric: Reports increased anxiety and feeling 'off'. Denies suicidal or homicidal ideation. - General: Denies fever or chills. - Cardiovascular: Denies chest pain. - Respiratory: Denies shortness of breath. Plan The patient will be started on a low dose of buspirone to manage her anxiety, with instructions to monitor her response to the medication. She is advised to follow up via the patient portal in two weeks to discuss her progress and any potential adjustments to her medication. Laboratory tests, including thyroid function tests, will be conducted to rule out any underlying conditions contributing to her symptoms. Additional labs will be ordered to investigate her concerns about early menopause. Discussion Notes I discussed with the patient the initiation of buspirone for her anxiety and the importance of monitoring her response to the medication. We agreed on a follow-up via the patient portal in two weeks to evaluate her progress and make any necessary adjustments. I also emphasized the need for laboratory tests, including thyroid function and menopause-related tests, to further assess her symptoms. Patient Instructions - Start taking the prescribed low dose of buspirone as directed. - Follow up via the patient portal in two weeks to discuss how you are feeling. - Get the recommended laboratory tests, including thyroid and menopause-related tests, as soon as possible. [facility] Medical History Morbid obesity with BMI of 45.0-49.9, adult Hypovitaminosis D Postoperative hypothyroidism Surgical History History of kidney surgery History of thyroidectomy Family History Mother Mental health disorder Substance use disorder Diabetes mellitus Essential hypertension Pure hypercholesterolemia Father Mental health disorder Substance use disorder Diabetes mellitus Essential hypertension Pure hypercholesterolemia Social History Housing: House Alcohol intake: current Alcohol intake frequency: holidays/special occasions only Alcohol type: hard liquor Patient Tobacco Use Status: Never used Tobacco Tobacco use type: Cigarette e-Cigarette/Vaping Use: Never Used Second Hand Smoke Exposure: No service: No Current occupational status: unemployed Cognitive needs: No Hearing needs: No Vision needs: No Questionnaire Thrive Questionnaire Date Thrive assessed: 06/18/24 I am a: Patient What is your living situation today?: I have a steady place to live Within the past 12 months, did the food you bought not last and you didn't have the money to get more?: Never true Within the past 12 months, did you worry whether your food would run out before you got money to buy more?: Never true Do you have trouble paying for medicines?: No Do you have trouble getting transportation to medical appointments?: No Do you have trouble paying your heating and electricity bill?: No Do you have trouble taking care of your child, family member or friend?: No Do you have trouble with day-to-day activities such as bathing, preparing meals, shopping, managing finances, etc.?: No Are you currently unemployed and looking for a job?: No Are you interested in more education?: No Please select the resources that you would like help with: None Currently or been in a relationship where the following occur: No concerns reported THRIVE Score: 0 USHA-7 AMB Questionnaire USHA-7 Date USHA - 7 assessed: 06/21/24 Source: Developed by Drs. Carlos Garber, Darby Fernandez, Bruce Catalan and colleagues, with an educational keegan from [employer]. Physical exam (Primary Care) Tobacco/Smoking Status: Tobacco use Status Tobacco use date assessed 06/21/24 06/21/24 11:02 Patient Tobacco Use Status Never used Tobacco 06/21/24 11:02 Tobacco use type Cigarette 06/21/24 11:02 e-Cigarette/Vaping Use Never Used 06/21/24 11:02 Thrive Assessment: Date of Thrive Assessment Date Thrive assessed 06/18/24 12/02/24 13:42 Currently or been in a relationship where the following occur: No concerns reported Telehealth Telehealth Telehealth Platform: [email or web address] Location of provider rendering services: practice address Location of patient: address on file Patient Identification confirmed using: Name, : Yes Telehealth method: video Patient verbally consented to treatment: Yes Patient verbally consented to billing insurance company: Yes Patient informed of any privacy concerns related to visit: Yes Minutes spent on Phone/Video with Pt.: 12 Coding Level of Care Code Tele Est Pt Level 3 (33952) Diagnoses Anxiety F41.9 Hypothyroidism E03.9 Assessment & Plan Assessment & Plan (1) Anxiety: Code(s): F41.9 - Anxiety disorder, unspecified Category: Medical (2) Hypothyroidism: Code(s): E03.9 - Hypothyroidism, unspecified Category: Medical Plan . Orders: Orders Comprehensive [place]. Panel Fast Today E03.9 - Hypothyroidism, unspecified, F41.9 - Anxiety disorder, unspecified Estrogen Today E03.9 - Hypothyroidism, unspecified, F41.9 - Anxiety disorder, unspecified Follicle Stimulating Hormone Today E03.9 - Hypothyroidism, unspecified, F41.9 - Anxiety disorder, unspecified Lutenizing Hormone Today E03.9 - Hypothyroidism, unspecified, F41.9 - Anxiety disorder, unspecified Complete Blood Count Auto Diff Today E03.9 - Hypothyroidism, unspecified, F41.9 - Anxiety disorder, unspecified TSH reflex Free T4 Today E03.9 - Hypothyroidism, unspecified, F41.9 - Anxiety disorder, unspecified UA CC w/rflx Micro + Cult Today E03.9 - Hypothyroidism, unspecified, F41.9 - Anxiety disorder, unspecified Lipid Panel Today E03.9 - Hypothyroidism, unspecified, F41.9 - Anxiety disorder, unspecified Medications: New buspirone 5 mg PO BID 60 tabs 2RF 30 days
== END 2024-12-05 08:13 | disposition home or self-care (01) ==
LOC: HO.HMCC 06:40
PROVIDERS: PCP Nurse Practitioner Family; Visit Provider Nurse Practitioner Family
DX: F41.9 Anxiety disorder, unspecified (principal); E03.9 Hypothyroidism, unspecified

== ENCOUNTER 2024-12-08 08:59 | Outpatient (REF) | payer BC, SELFPAY ==
--- OUTSIDE RECORDS SUMMARY | 2024-12-08 09:20 | XMS_ITS | Encounter Summary ---
Author Organization [facility] Address [address] [place] [address] Care Team Providers Care Wood Barrel Reconditioner Name Role Phone Jacque Resendiz MD Primary Care Provider Unknown Pcp, Non g Primary Care Provider Toan Cassidy NP Primary Care Provider Encounter Details Date Type Department Care Team (Late st Contact Info) Description 10/08/2007 Orders Only [facility] [address] [place] [address] Anabella Azul NP [facility] Primary Care [address] [place] [address] Social History Tobacco Use Types Packs/Day [...] (10/08/2007) Result(s) SEE TEXT(A) [facility] (CLIA# [id number]) Comment: SOURCE: THROAT HEAVY GROWTH OF GROUP A STREPTOCOCCUS PLUS NORMAL OROPHARYNGEAL OCTAVIO 10/08/2007 10/08/2007 9:4 4 PM EDT Narrative [facility] (CLIA# [id number]) - 10/10/2007 12:06 PM EDT Report Comments: GROUP A STREP SCREEN TEST NOT DONE. GROUP A STREP, IF PRESENT, WILL BE RECOVERED IN THROAT CULTURE. Anabella Azul NP LABORATORY Final Result [facility] (CLIA# [id number]) [address] [place] [address] * BASIC METABOLIC PANEL (10/08/2007) CALCIUM 9.4 8.6 - 10.2 MG/DL [facility] (CLIA# [id number]) BUN 10 7 - 25 MG/DL [facility] (CLIA# [id number]) CREATININE 0.72 0.50 - 1.20 MG/DL [facility] (CLIA# [id number]) Glucose 95 65 - 99 MG/DL [facility] (CLIA# [id number]) SODIUM 137 135 - 146 MMOL/L [facility] (CLIA# [id number]) POTASSIUM 4.0 3.5 - 5.3 MMOL/L [facility] (CLIA# [id number]) CHLORIDE 102 98 - 110 MMOL/L [facility] (CLIA# [id number]) CARBON DIOXIDE 25 21 - 33 MMOL/L [facility] (CLIA# [id number]) 10/08/2007 10/08/2007 9:4 4 PM EDT Anabella Azul NP LAB SAME DAY RESULT F inal Result FC [facility] (CLIA# [id number]) [address] [place] [address] * (ABNORMAL) CBC 5 PART DIFF (10/08/2007) WHITE BLOOD COUNT 20.0(H) 3.8 - 10.8 THOUS/UL [facility] (CLIA# [id number]) RBC 4.42 3.80 - 5.10 MIL/UL [facility] (CLIA# [id number]) Hemoglobin 13.3 11.7 - 15.5 G/DL [facility] (CLIA# [id number]) HCT (HEMATOCRIT) 38.0 35.0 - 45.0 % [facility] (CLIA# [id number]) MCV 85.8 80.0 - 100.0 FL [facility] (CLIA# [id number]) MCH 30.0 27.0 - 33.0 PG [facility] (CLIA# [id number]) MCHC 35.0 32.0 - 36.0 G/DL [facility] (CLIA# [id number]) BAND % 0 0 - 5 % [facility] (CLIA# [id number]) NEUTROPHIL % 89(H) 48 - 75 % [facility] (CLIA# [id number]) LYMPHOCYTE % 6(L) 17 - 40 % [facility] (CLIA# [id number]) MONOCYTE % 5 0 - 14 % [facility] (CLIA# [id number]) EOSINOPHIL % 0 0 - 5 % [facility] (CLIA# [id number]) BASOPHIL % 0 0 - 3 % [facility] (CLIA# [id number]) ATYPICAL LYMPHOCYTE % 0 0 - 5 % [facility] (CLIA# [id number]) PLATELETS 263 140 - 400 THOUS/UL [facility] (CLIA# [id number]) BANDS # 0 0 - 750 CELLS/MCL [facility] (CLIA# [id number]) NEUTROPHILS # 34196(H) 1500 - 7800 CELLS/MCL [facility] (CLIA# [id number]) LYMPHOCYTES # 1200 850 - 3900 CELLS/MCL [facility] (CLIA# [id number]) MONOCYTES # 1000(H) 200 - 950 CELLS/MCL [facility] (CLIA# [id number]) EOSINOPHILS # 0(L) 15 - 550 CELLS/MCL [facility] (CLIA# [id number]) BASOPHILS # 0 0 - 200 CELLS/MCL [facility] (CLIA# [id number]) ATYPICAL LYMPHOCYTES # 0 0 - 200 CELLS/MCL [facility] (CLIA# [id number]) RDW 13.4 11.0 - 15.0 % [facility] (CLIA# [id number]) MPV 9.7 7.5 - 11.5 FL [facility] (CLIA# [id number]) 10/08/2007 10/08/2007 9:4 4 PM EDT Anabella Azul GROUP TESTER LAB SAME DAY RESULT F inal Result [facility] (CLIA# [id number]) [address] [place] [address] documented in this encounter Visit Diagnoses Diagnosis VIRAL SYNDROME Unspecified viral infection, in conditions classified elsewhere and of unspecified site MOUTH SORES Other and unspecified diseases of the oral soft tissues documented in this encounter Care Teams Wood Barrel Reconditioner Relationship Specialty Start Date End Date Jacque Resendiz MD [address] [place] [address] PCP - General 07/26/05 01/01/15 Unknown Pcp, Non Rmg PCP - General 01/02/15 06/17/23 Toan Motley GROUP TESTER [address] [place] [address] PCP - General Nurse Practitioner 06/18/23 documented as of this encounter
--- OUTSIDE RECORDS SUMMARY | 2024-12-08 09:20 | XMS_ITS | Clinical Summary ---
Author Organization [facility] Address [address] [place] [address] Care Team Providers Care Support Services Specialist Name Role Phone Toan Motley Primary Care Provider Allergies Active Allergy Reactions Criticality Noted Date Comments Ciprofloxacin Hives 06/15/2017 Clindamycin Unknown 06/15/2017 Codeine Nausea 06/25/2017 Hydrocodone-Acetaminophen Nausea 06/25/2017 Naproxen Nausea 06/15/2017 Sulfa (Sulfonamide Antibiotics) Hives 06/04 Medications inhalational spacing device Use as directed 1 each 8 Active inhaler,assist device,lg mask (AEROCHAMBER PLUS FLOW-VU,L [facility]) 8 Active fluticasone (FLOVENT HFA) 110 mcg [...] Date Type Department Care Team Description 11/28/2024 [employer] Message [facility], Endocrinology [address] [place] [address] [employer], Generic Provider [facility] Endocrinology Parking Instructions and Appointment Reminder from [...] 10/19/1996, 11/25/1995 Procedures * Due to [place] [employer] law, this organization might not be sharing negative HIV tests. Procedure Name Priority Date/Time Associated Diagnosis Comments PAP Routine 08/11/2017 9:50 AM EDT Encounter for well woman exam with routine gynecological exam from Last 3 Months or Most Recently Relevant to Health Maintenance Results * Due to [place] [employer] law, this organization might not be sharing negative HIV tests. * Pap (08/11/2017 9:50 AM EDT) Specimen Adequacy Satisfactory for evaluation [facility] MANUAL 08/17/2017 10:05 AM EDT [facility] - [facility] Pathologist Cytology Interpretation Negative for intraepithelial lesion or malignancy. [facility] MANUAL 08/17/2017 10:05 AM EDT [facility]AT[facility] - [facility] at 1005 EDT Comment:This is the result o f a morphological screening test with an inherent possibility of a false negative interpretation. Photo Printer Statement This Pap test was examined by the [employer], [employer], [place], [place]. This Pap test was examined in accordance with the [facility] Cytopathology Laboratory written policy, which incorporates all CLIA mandates. Screening guidelines can be found in Am J Clin Pathol 2012;137:516-542. We endorse the practice guidelines developed by ASCCP and published in the Journal Lower Genital Tract Disease 17(5):S1-S27 (2013). [facility] MANUAL 08/17/2017 10:05 AM EDT [facility] Clinical History routine [facility] 08/17/2017 10:05 AM EDT [facility]AT[facility] HPV High Risk DNA Subtypes NEGATIVE [facility] 08/17/2017 10:05 AM EDT [facility] PATHOLOGY - [facility] Test Description Specimens were tested for high risk HPV using the FDA approved Digene Hybrid Capture II kit, in the Diagnostic Molecular Oncology Lab at [facility]. This test can detect HPV high risk [...] abnormality. We endorse the recommendations of the [place] Society for Colposcopy and Cervical Pathology for management of pap test results, available at www.asccp.org. ASCCP guidelines also recommend HPV 16/18 genotyping in patients over the age of 30 who have had positive high risk HPV testing, but have a negative morphologic Pap test: (http://www.asccp .org/consensus.sh tml). [facility] MANUAL 08/17/2017 10:05 AM EDT [facility]AT[facility] ASR [...] to perform high complexity clinical laboratory testing. [facility] MANUAL 08/17/2017 10:05 AM EDT [facility] Resulting Agency Case was signed out at [facility], Department of Pathology, [employer] 3 CLIA [id number] [facility] MANUAL 08/17/2017 10:05 AM EDT [facility]ATOMIC [facility]OLOGY - [facility] Report Header Gynecologic Cytology Report Case: [id number] Authorizing Provider: Sherlyn Mansfield MD Collected: 08/11/2017 0950 Ordering Location: [facility] Received: 08/11/[address] [place] [address] Obstetrics and Gynecology First Screen: Oleksandr Anthony Specimen: Screening ThinPrep Pap, Cervix/Endocervix 08/17/2017 10:05 AM EDT [facility] Biopsy specimen (specimen) Cervix uteri structure / Unknown Non-Blood Collection / Unknown 08/11/2017 9:50 AM EDT 08/11/2017 9:50 AM EDT us Sherlyn Mansfield MD LAB PATHOLOGY/CYTOLOGY GINGERE KITTY Final Result [facility]ATOM[facility] - [facility] [address] [place] [address], from Last 3 Months or Most Recently Relevant to Health Maintenance [facility] [id number] BCBS OUT OF STATE PPO Care Teams Support Services Specialist Relationship Specialty Start Date End Date Toan Motley [address] [place] [address] PCP - General 08/05/23
[2024-12-08 10:09] LABS: MANUAL DIFF FLAG NO
[2024-12-08 10:16] LABS: Hematocrit 41.3 % (37.0-47.0); Hemoglobin 14.0 g/dl (12.0-16.0); Imm Gran Abs Auto 0.03 X10*3/uL (0.00-0.03); Imm Gran Pct Auto 0.5 % (0.0-0.4); Lymphocytes Absolute Auto 1.9 X10*3/uL (1.2-4.9); Mean Corpuscular HGB Conc 33.9 g/dl (31.0-35.0); Mean Corpuscular Hemoglobin 29.7 pg (27.0-33.0); Mean Corpuscular Volume 87.7 fL (80.0-98.0); NRBC Abs Auto 0.000 X10*3/uL (0.0-0.012); NRBC Pct Auto 0.0 /100WBC (0.0-0.2); Platelet Count 243 X10*3/uL (160-400); Red Blood Count 4.71 X10*6/uL (4.20-5.50); White Blood Count 6.6 X10*3/uL (4.8-10.8)
[2024-12-08 10:24] LABS: Appearance Urine Clear; Glucose Urine UA Negative (Negative); PH 5.5 (5.0-9.0); Specific Gravity - Urine 1.020 (1.005-1.025); UMIC TRIGGER UACC YES
[2024-12-08 10:48] LABS: Alanine Aminotransferase 19 U/L (0-31); Albumin Level 4.4 g/dL (3.5-5.0); Alkaline Phosphatase 63 U/L (39-117); Anion Gap 10 (12-20); Aspartate Amino Transferase 27 U/L (5-31); Blood Urea Nitrogen 11 mg/dL (9-16); Calcium 9.0 mg/dL (8.4-10.2); Carbon Dioxide 25 mmol/L (22-29); Chloride 106 mmol/L (96-108); Cholesterol 163 mg/dL (<200); Estimated Glomerular Filt Rate > 60; HDL Cholesterol 46 mg/dL (>40); Potassium 4.0 mmol/L (3.3-5.1); Sodium 137 mmol/L (135-145); Total Protein 7.5 g/dL (6.5-8.0); Triglycerides 65 mg/dL (<150)
[2024-12-09 06:47] LABS: Follicle Stimulating Hormone 5.6 mIU/mL
== END 2024-12-08 09:00 | disposition home or self-care (01) ==
LOC: HO.HMGCLDS 08:59
PROVIDERS: PCP Nurse Practitioner Family; Visit Provider Nurse Practitioner Family
DX: Z00.00 Encounter for general adult medical examination without abnormal findings (principal); F41.9 Anxiety disorder, unspecified; E03.9 Hypothyroidism, unspecified
CPT/HCPCS: 36415; 80053; 80061; 81001; 82672; 83001; 83002; 84443; 85025